=== PATIENT | female | born 2005 | race Caucasian/White ===

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

== ENCOUNTER 2024-02-02 21:48 | Emergency (ER) | payer OTHER ==
--- OUTSIDE RECORDS SUMMARY | 2024-02-02 21:56 | XMS REPORT | Continuity of Care Document ---
Author Name Unknown Address [address] [facility] [place] [address] [facility] Address [address] [facility] [address] [place] [address] Care Team Providers Care Silk Weaver Name Role Phone Singh Gagnon Primary Care Physician NATE CHINCHILLA Attending Clinician Unavailable NATE CHINCHILLA Attending Clinician Unavailable KATERYNA HAMILTON Attending Clinician Unavaila Kateryna Spence CNM Attending Clinician [phone] OBI-VALERIE JAYANT Attending Clinician Unavailab le OBI-VALERIE, JAYANT Attending Clinician Unavailab VIKAS Herring Attending Clinician Unavail able Nurse, Willy Alva Exp Cprit Obgyn Attending Clinraulito rodriguez Unavailable Unknown, Attending Attending Clinician Unavailab Vikas Hardin Attending Clinician + Visit, Sue Nurse Attending Clinician Unava ilkeven Doctor Unassigned, Colman Attending Clinician U Nate Fry MD Attending Clinician [phone] Debra Moreno MD Attending Clinician [phone] Randall Lee MD, Syeda Mccormack Attending Clinici an Roderick DUMONT, Jaquan Attending Clinician [phone] ZACHARIAH BAZAN Attending Clinician Unavailable Ultrasound, Ang[facility] Attending Clinician UnavailMUSA Ralph Attending Clinician Unamurtaza Lozano MD, Musa Peralta Attending Clinician + WILLIAM UGARTE Attending Clinician UnavailWilliam Salazar MD Attending Clinician KAREN WASHINGTON Attending Clinician Unavailable KAREN WASHINGTON Attending Clinician Unavailable Karen Washington MD Attending Clinician [phone] 1, [facility] Attending Clinician Unavailab MIRIAM Peters Attending Clinician MIRIAM Naik Attending Clinician Derek Barlow DO Attending Clinician [phone] Laura Whitehead RN Attending Clinician Unavailab le RADIOLOGY Attending Clinician Unavailable PATI TOLEDO Attending Clinician UnaPati Samaniego MD Attending Clinician + JOSÉ MIGUEL LAFLEUR Attending Clinician Unavailable JOSÉ MIGUEL LAFLEUR Attending Clinician Unavailable Clinton BISHOP Attending Clinician Unavailable Clinton Garnett Attending Clinician [phone] MITALI HARRIS Attending Clinician Unavailable Mitali Hernandez Attending Clinician [phone] Pcp, Patient Does Not Have A Attending Clinician Evelyn Viera RN Attending Clinician Unavailabl e [facility], [facility] Attending Clinician UnaLaisha Sanders MD Attending Clinician [phone] LAISHA MEDRANO Attending Clinician Unalita ilNAET Coronado Admitting Clinician Unavailable Nate Chinchilla MD Admitting Clinician [phone] MIRIAM HOANG Admitting Clinician Yamel wheeler Payers Payer Name Policy Type Policy Number Effective Date Expirati on Date Source [place] [employer] [id number] 2016 00:00:00 [place] [id number] 2019 00:00:00 2021 00:00:00 Problems Condition Name Condition Details Condition Category Status Onset Date Resolution Date Last Treatment Date Treating Clinician Comments Source Need for HPV vaccinatio n Need for HPV vaccinatio n Disease Active 2-28 00:00: 00 [facility] Routine follow-up Routine follow-up Disease Active 2-13 00:00: 00 [facility] 39 weeks gestation of 39 weeks gestation of Disease Active 1-22 00:00: 00 [facility] GBS (group B Streptococ cus carrier), +RV culture, 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), +RV culture, currently Disease Active 1-04 00:00: 00 [facility] Polyhydram nios, antepartum complicati on Polyhydram nios, antepartum complicati on Disease Active 2022-08 2-14 00:00: 00 [facility] headache in third trimester headache in third trimester Disease Active 2022-08 2-06 00:00: 00 [facility] Heartburn during in third trimester Heartburn during in third trimester Disease Active 2022-08 1-22 00:00: 00 [facility] Declines flu vaccine Declines flu vaccine Disease Active 2022-08 0-19 00:00: 00 [facility] Rh negative state in antepartum period Rh negative state in antepartum period Disease Active 6-08 00:00: 00 [facility] Maternal varicella, non-immune Maternal varicella, non-immune Disease Active 6-08 00:00: 00 [facility] History of bipolar disorder History of bipolar disorder Disease Active 6 00:00: 00 [facility] Morbid obesity Morbid obesity Disease Active 6 00:00: 00 [facility] Nausea and vomiting during Nausea and vomiting during Disease Active 6 00:00: 00 [facility] Penicillin allergy Penicillin allergy Disease Active 607 00:00: 00 [facility] No known active problems No known active problems Disease [facility] Allergies, Adverse Reactions, Alerts Allergy Name Allergy Type Status Severity Reaction(s) Onset Date Inactive Date Treating Clinician Comments Source ASPIRIN DRUG INGREDI Active Hives 6-07 00:00: 00 [facility] Aspirin Propensi ty to adverse reaction s Active Hives 6-07 00:00: 00 [facility] [place] - Intraven ous Propensi ty to adverse reaction to drug Active 6-15 00:00: 00 Aspirin - Oral Propensi ty to adverse reaction to drug Active 3-03 00:00: 00 Aspirin Propensi ty to adverse reaction to drug Active 9- 00:00: 00 Penicill in Propensi ty to adverse reaction s Active Hives 3-12 00:00: 00 [facility] Penicill in Propensi ty to adverse reaction s Active Hives 3-12 00:00: 00 [facility] PENICILL IN DRUG INGREDI Active Hives 3-12 00:00: 00 [facility] Penicill ins Propensi ty to adverse reaction to drug Active 2-14 00:00: 00 Social History Social Habit Start Date Stop Date Quantity Comments Source ASSERTION 2022-12-16 00:00:00 [facility] History of tobacco use Cigarette Smoker [facility] History SDOH Alcohol Std Drinks [facility] History SDOH Alcohol Binge [facility] Exposure to SARS-CoV-2 (event) Not sure [facility] Alcohol intake 2023-11-25 00:00:00 2023-11-25 00:00:00 Lifetime non-drinker (finding) [facility] History of Social function 2023-11-25 00:00:00 2023-11-25 00:00:00 [facility] Tobacco use and exposure 2023-01-15 00:00:00 2023-01-15 00:00:00 Smokeless tobacco non-user [facility] History SDOH Alcohol Frequency 2019-12-17 00:00:00 2019-12-17 00:00:00 1 [facility] Sex Assigned At 2005 00:00:00 2005 00:00:00 [facility] Smoking Status Start Date Stop Date Source Ex-smoker 2023-01-15 00:00:00 2023-01-15 [facility]00[facility] [facility] daily 2019-12-17 00:00:00 [facility] Medications Ordered Medication Name Filled Medication Name Start Date Stop Date Current Medication? Ordering Clinician Indication Dosage Frequency Signature (SIG) Comments Components Source acetaminoph en (TYLENOL) tablet 650 mg 09-04 01:18: 15 Yes 650mg 650 mg, Oral, Q6HPRN, Starting on Fri09/03/23 at 1918, Until Discontinu ed, Routine, Pain (scale 4-6), Pain (scale 1-3) [facility] lactated ringers IV infusion 1,000 mL 09-03 02:15: 00 09-03 02:10 :33 No 1000mL at 125 mL/hr, 1,000 mL, IV Infusion, ONCE, 1 dose, On Fri09/02/23 at 2014, Routine [facility] rho(D) immune globulin (RHOGAM) syringe 300 mcg 09-03 02:09: 02 Yes 300ug 300 mcg, Intramuscu lar, ONCE, For 1 dose, Conditiona l, Routine [facility] HYDROcodone -acetaminop hen (NORCO 5) 5-325 mg tablet 2 tablet 09-03 02:08: 56 Yes 2{tbl} 2 tablet, Oral, Q6HPRN, Starting on Fri09/02/23 at 2007, Until Discontinu ed, Routine, Pain (scale 7-10), Alternate with Ibuprofen [facility] HYDROcodone -acetaminop hen (NORCO 5) 5-325 mg tablet 1 tablet 09-03 02:08: 56 Yes 1{tbl} 1 tablet, Oral, Q6HPRN, Starting on Fri09/02/23 at 2007, Until Discontinu ed, Routine, Pain (scale 4-6), Alternate with Ibuprofen [facility] diphenhydrA MINE (BENADRYL) injection 25 mg 09-03 02:08: 56 Yes 25mg 25 mg, Slow IV Push, Q6HPRN, Starting on Fri09/02/23 at 2007, Until Discontinu ed, Routine, Itching [facility] diphenhydrA MINE (BENADRYL) tablet 25 mg 09-03 02:08: 56 Yes 25mg 25 mg, Oral, Q6HPRN, Starting on Fri09/02/23 at 2007, Until Discontinu ed, Routine, Sleep, Itching [facility] ondansetron (ZOFRAN (PF)) injection 4 mg 09-03 02:08: 56 Yes 4mg 4 mg, Slow IV Push, Q8HPRN, Starting on Fri09/02/23 at 2007, Until Discontinu ed, Routine, Nausea and Vomiting (N/V) [facility] bisacodyL (DULCOLAX) suppository 10 mg 09-03 02:08: 56 Yes 10mg 10 mg, Rectal, QDAILYPRN, Starting on Fri09/02/23 at 2007, Until Discontinu ed, Routine, Constipati on [facility] simethicone (GAS RELIEF (SIMETHICON E)) chewable tablet 160 mg 09-03 02:08: 56 Yes 160mg 160 mg, Oral, PC+HSPRN, Starting on Fri09/02/23 at 2007, Until Discontinu ed, Routine, Gas [facility] docusate (COLACE) capsule 200 mg 09-03 02:08: 56 Yes 200mg 200 mg, Oral, QDAILYPRN, Starting on Fri09/02/23 at 2007, Until Discontinu ed, Routine, Constipati on [facility] magnesium hydroxide (MILK OF MAGNESIA) 400 mg/5 mL suspension 30 mL 09-03 02:08: 56 Yes 30mL 30 mL, Oral, QDAILYPRN, Starting on Fri09/02/23 at 2007, Until Discontinu ed, Routine, Constipati on [facility] lactated ringers IV infusion 1,000 mL 09-03 02:08: 56 Yes 1000mL at 125 mL/hr, 1,000 mL, IV Infusion, PRN, 1 dose, Starting on Fri09/02/23 at 2007, Until Discontinu ed, Routine [facility] [id number] fum-folic () 27 mg iron- 1 mg folic tablet 09-03 00:00: 00 11-24 00:00 :00 No [id number] 1{tbl} Take 1 tablet by mouth in the morning. [facility] docusate 100 mg capsule 09-03 00:00: 00 11-24 00:00 :00 No [id number] 200mg Take 2 capsules by mouth once daily as needed for Constipati on. [facility] ferrous sulfate 325 mg (65 mg iron) tablet 09-03 00:00: 00 11-24 00:00 :00 No [id number] 325mg Take 1 tablet by mouth in the morning and 1 tablet in the evening. [facility] HYDROcodone -acetaminop hen 5-325 mg tablet 09-03 00:00: 00 09-14 05:59 :00 No [id number] 1{tbl} Take 1 tablet by mouth every 6 (six) hours as needed (Pain scale above 4) for up to 10 days. Do not exceed 3 grams of acetaminop hen in 24 hours. Indication s: acute pain [facility] lactated ringers IV infusion 1,000 mL 09-03 00:00: 00 09-03 02:08 :59 No 1000mL at 125 mL/hr, 1,000 mL, IV Infusion, CONTINUOUS , Starting on Fri09/02/23 at 1800, Until Fri09/02/23 at 2007, RASHMI [facility] acetaminoph en (TYLENOL) tablet 650 mg 09-02 23:52: 38 09-03 02:08 :59 No 650mg 650 mg, Oral, Q6HPRN, Starting on Fri09/02/23 at 1752, Until Fri09/02/23 at 2007, Routine, Pain (scale 1-3) [facility] ondansetron (ZOFRAN (PF)) injection 4 mg 09-02 23:30: 00 09-03 00:14 :00 No 4mg 4 mg, Slow IV Push, ONCE, 1 dose, On Fri09/02/23 at 1730, Routine [facility] sodium citrate-cit yamilex acid (BICITRA) 500-334 mg/5 mL solution 30 mL 09-02 21:51: 27 09-02 22:28 :00 No 30mL 30 mL, Oral, PRE-PROCED URE ONCE, 1 dose, Starting on Fri09/02/23 at 1551, Until Fri09/02/23 at 1628, Routine, Surgery/Pr ocedure [facility] gentamicin 480 mg in NaCl 0.9% (NS) 250 mL IV infusion 09-02 21:46: 19 09-03 02:08 :59 No 5mg/kg 480 mg (rounded from 473.5 mg = 5 mg/kg ?94.7 kg Adjusted weight), IV Infusion, O.R. HOLDING ONCE, Starting on Fri09/02/23 at 1546, Until Fri09/02/23 at 2007, Administer over 60 Minutes, 250 mL
R jeni for Anti-Infec tive: Surgical Prophylaxi s
Surgi wilber Prophylaxi s: RESIDENT ASSISTANT CNA
Duration of therapy: within 24 hours of surgery [facility] clindamycin in 5 % dextrose (CLEOCIN) 900 mg/50 mL IV piggyback RTU 900 mg 09-02 21:46: 19 09-03 02:08 :59 No 900mg 900 mg, IV Piggyback, O.R. HOLDING ONCE, Starting on Fri09/02/23 at 1546, Until Fri09/02/23 at 2007, Administer over 30 Minutes, 50 mL
Reas on for Anti-Infec tive: Surgical Prophylaxi s
Schneider rgical Prophylaxi s: RESIDENT ASSISTANT CNA
Duration of therapy: within 24 hours of surgery
Restricte d use approved by: RESIDENT ASSISTANT CNA [employer]
membership sales advisor approving Restricted medication : DEBRA MORENO [facility] ondansetron (ZOFRAN (PF)) injection 4 mg 09-02 19:00: 00 09-02 18:13 :00 No 4mg 4 mg, Slow IV Push, ONCE, On Fri09/02/23 at 1300, For 1 dose
Do ses of ondansetro n 16 mg and above need to be administer ed via IV piggyback. For Dose >=24mg ECG monitoring is advisable.
[facility] morpHINE (2 mg/mL) injection 4 mg 09-02 11:00: 00 09-02 10:32 :00 No 4mg 4 mg, Slow IV Push, ONCE, 1 dose, On Fri09/02/23 at 0500, Routine [facility] sodium citrate-cit yamilex acid (BICITRA) 500-334 mg/5 mL solution 30 mL 09-01 21:37: 26 09-02 10:55 :00 No 30mL 30 mL, Oral, PRE-PROCED URE ONCE, 1 dose, Starting on Fri09/01/23 at 1537, Until Discontinu ed, Routine, Surgery/Pr ocedure [facility] ropivacaine 0.2 % (NAROPIN (PF)) epidural infusion 09-01 20:08: 00 Yes Epidural, CONTINUOUS PRN, Starting on Fri09/01/23 at 1408, Until Discontinu ed, Routine, Intra-op [facility] lidocaine-e pinephrine (XYLOCAINE W/EPINEPHRI NE) 1.5 %-1:200,000 injection 09-01 20:04: 00 Yes Intraderma l, ONCE INTRA PROCEDURE, Starting on Fri09/01/23 at 1404, Until Discontinu ed, Routine, Intra-op [facility] vancomycin (VANCOCIN) 1,500 mg in NaCl 0.9% (NS) 500 mL VIAL-MATE IV piggyback 09-01 17:45: 00 09-03 02:08 :59 No 20mg/kg 1,500 mg (rounded from 3,094 mg = 20 mg/kg ?154.7 kg), IV Piggyback, Q8H ABX, 15 doses, First dose on Fri09/01/23 at 1145, Last dose on Fri09/06/23 at 0345, Administer over 120 Minutes, 500 mL
R jeni for Anti-Infec tive: Documented Infection< br>Documen martha Infection Site: Pelvic
Duration of Therapy: Other (see Comments) [facility] oxytocin (PITOCIN) 30 units in NS 500 mL IV infusion 09-01 17:36: 54 09-03 02:08 :59 No 2mU/min at 2-40 mL/hr, IV Infusion, TITRATE, Starting on Fri09/01/23 at 1136, Until Fri09/02/23 at 2007, RASHMI [facility] morpHINE (2 mg/mL) injection 4 mg 09-01 17:00: 00 09-01 16:14 :00 No 4mg 4 mg, Slow IV Push, ONCE, 1 dose, On Fri09/01/23 at 1100, Routine [facility] lactated ringers IV infusion 500 mL 09-01 14:39: 07 09-03 02:08 :59 No 500mL at 999 mL/hr, 500 mL, IV Infusion, PRN - SEE INSTRUCTIO NS, Starting on Fri09/01/23 at 0839, Until Fri09/02/23 at 2007, Routine [facility] [id number] IV infusion 1,000 mL 09-01 14:39: 07 09-03 02:08 :59 No 1000mL at 1-125 mL/hr, IV Infusion, TITRATE, Starting on Fri09/01/23 at 0839, Until Fri09/02/23 at 2007, Routine [facility] sodium citrate-cit yamilex acid (BICITRA) 500-334 mg/5 mL solution 30 mL 09-01 14:39: 07 09-01 19:29 :00 No 30mL 30 mL, Oral, PRE-PROCED URE ONCE, 1 dose, Starting on Fri09/01/23 at 0839, Until Discontinu ed, Routine, Surgery/Pr ocedure [facility] cephALEXin (KEFLEX) 500 mg capsule 08-22 00:00: 00 09-03 00:00 :00 No [id number] 500mg Take 1 capsule by mouth 4 (four) times daily for 10 days. [facility] butalbital- acetaminoph en-caff (ESGIC) 50-325-40 mg tablet 1 tablet 2022-08 2-05 00:30: 00 07-14 23:46 :00 No 1{tbl} 1 tablet, Oral, ONCE, 1 dose, On Fri07/14/23 at 1830, Routine [facility] famotidine (PEPCID) 20 mg tablet 2022-08 00:00: 00 09-03 00:00 :00 No [id number] 20mg Take 1 tablet by mouth in the morning and 1 tablet in the evening. [facility] acetaminoph en (TYLENOL) tablet 650 mg 01-31 04:15: 00 01-31 04:08 :00 No 650mg 650 mg, Oral, ONCE, 1 dose, On Annelise 01/30/23 at 2315, RASHMI [facility] melatonin 3 mg Cap 01-15 13:46: 01 01-15 00:00 :00 No Take by mouth. [facility] BUPROPION HCL (WELLBUTRIN ORAL) 01-15 13:45: 58 01-15 00:00 :00 No Take by mouth. [facility] vit 33-iron-fol ic-dha (SELECT-OB + DHA) 29 mg iron-1 mg -250 mg combo pack 01-15 00:00: 00 Yes [id number] 1{packe t} Take 1 Packet by mouth in the morning. [facility] proMETHazin e 25 mg tablet 01-15 00:00: 00 09-03 00:00 :00 No [id number] 25mg Take 1 tablet by mouth every 4 (four) hours as needed for Nausea and Vomiting (N/V). [facility] vit 33-iron-fol ic-dha (SELECT-OB + DHA) 29 mg iron-1 mg -250 mg combo pack 0 6-07 00:00: 00 09-03 00:00 :00 No [id number] 1{packe t} Take 1 Packet by mouth in the morning. [facility] TAKE 1 CAPSULE BY MOUTH EVERY DAY 2021-0 8-30 00:00: 00 No TAKE 1 TABLET BY MOUTH THREE TIMES A DAY 2021-0 830 00:00: 00 No Dose Unknown 2021-0 6-15 00:00: 00 No TAKE 1 CAPSULE BY MOUTH EVERY 12 HOURS FOR 7 DAYS 2021-0 6-15 00:00: 00 No Dose Unknown 2-0 6-15 00:00: 00 No Dose Unknown 2021-0 6-15 00:00: 00 No &lt 2022-0 6-15 [...] 00:00: 00 No Seroquel 50 mg tablet 03-22 00:00: 00 No 1mg Effexor XR 37.5 [...] 00 No 1mg melatonin 3 mg Cap 12-16 17:01: 01 Yes Take by mouth. [facility] BUPROPION HCL (WELLBUTRIN ORAL) 12-16 16:52: 24 Yes Take by mouth. [facility] melatonin 3 mg Cap 12-16 12:01: 01 Yes Take by mouth. [facility] BUPROPION HCL (WELLBUTRIN ORAL) 12-16 11:52: 24 Yes Take by mouth. [facility] azithromyci n (ZITHROMAX Z-YONATHAN) 250 mg tablet 10-22 00:00: 00 12-16 00:00 :00 No 250mg Take 1 tablet by mouth SEE-INSTRU CTIONS. Take 500 mg day 1, then 250 mg days 2 to 5. [facility] bupropion HCl SR 100 mg tablet,12 hr sustained-r elease 09-24 00:00: 00 No 1mg Immunizations Ordered Immunization Name Filled Immunization Name Date Status Comments Source SARS-COV-2 COVID-19 PFIZER VACCINE 2021-04-10 00:00:00 Completed [facility] SARS-COV-2 COVID-19 PFIZER VACCINE 2021-04-10 00:00:00 Completed [facility] SARS-COV-2 COVID-19 PFIZER VACCINE 2021-04-10 00:00:00 Completed [facility] SARS-COV-2 COVID-19 PFIZER VACCINE 2021-04-10 00:00:00 Completed [facility] SARS-COV-2 COVID-19 PFIZER VACCINE 2021-04-10 00:00:00 Completed [facility] SARS-COV-2 COVID-19 PFIZER VACCINE 2021-04-10 00:00:00 Completed [facility] SARS-COV-2 COVID-19 PFIZER VACCINE 2021-04-10 00:00:00 Completed [facility] SARS-COV-2 COVID-19 PFIZER VACCINE 2021-03-20 00:00:00 Completed [facility] SARS-COV-2 COVID-19 PFIZER VACCINE 2021-03-20 00:00:00 Completed [facility] SARS-COV-2 COVID-19 PFIZER VACCINE 2021-03-20 00:00:00 Completed [facility] SARS-COV-2 COVID-19 PFIZER VACCINE 2021-03-20 00:00:00 Completed [facility] SARS-COV-2 COVID-19 PFIZER VACCINE 2021-03-20 00:00:00 Completed [facility] SARS-COV-2 COVID-19 PFIZER VACCINE 2021-03-20 00:00:00 Completed [facility] SARS-COV-2 COVID-19 PFIZER VACCINE 2021-03-20 00:00:00 Completed [facility] HPV, quadrivalent 2019-03-20 00:00:00 Completed HPV, quadrivalent 2017-09-24 00:00:00 Completed SARS-COV-2 COVID-19 PFIZER VACCINE Unknown Completed [facility] SARS-COV-2 COVID-19 PFIZER VACCINE Unknown Completed [facility] TDAP Unknown Completed [facility] Rho (d) Immune Globulin Unknown Completed [facility] SARS-COV-2 COVID-19 PFIZER VACCINE Unknown Completed [facility] SARS-COV-2 COVID-19 PFIZER VACCINE Unknown Completed [facility] TDAP Unknown Completed [facility] Rho (d) Immune Globulin Unknown Completed [facility] SARS-COV-2 COVID-19 PFIZER VACCINE Unknown Completed [facility] SARS-COV-2 COVID-19 PFIZER VACCINE Unknown Completed [facility] TDAP Unknown Completed [facility] Rho (d) Immune Globulin Unknown Completed [facility] SARS-COV-2 COVID-19 PFIZER VACCINE Unknown Completed [facility] SARS-COV-2 COVID-19 PFIZER VACCINE Unknown Completed [facility] TDAP Unknown Completed [facility] Rho (d) Immune Globulin Unknown Completed [facility] SARS-COV-2 COVID-19 PFIZER VACCINE Unknown Completed [facility] SARS-COV-2 COVID-19 PFIZER VACCINE Unknown Completed [facility] TDAP Unknown Completed [facility] Rho (d) Immune Globulin Unknown Completed [facility] SARS-COV-2 COVID-19 PFIZER VACCINE Unknown Completed [facility] SARS-COV-2 COVID-19 PFIZER VACCINE Unknown Completed [facility] TDAP Unknown Completed [facility] Rho (d) Immune Globulin Unknown Completed [facility] HPV9 Unknown Completed [facility] SARS-COV-2 COVID-19 PFIZER VACCINE Unknown Completed [facility] SARS-COV-2 COVID-19 PFIZER VACCINE Unknown Completed [facility] TDAP Unknown Completed [facility] Rho (d) Immune Globulin Unknown Completed [facility] HPV9 Unknown Completed [facility] SARS-COV-2 COVID-19 PFIZER VACCINE Unknown Completed [facility] SARS-COV-2 COVID-19 PFIZER VACCINE Unknown Completed [facility] TDAP Unknown Completed [facility] Rho (d) Immune Globulin Unknown Completed [facility] HPV9 Unknown Completed [facility] SARS-COV-2 COVID-19 PFIZER VACCINE Unknown Completed [facility] SARS-COV-2 COVID-19 PFIZER VACCINE Unknown Completed [facility] TDAP Unknown Completed [facility] Rho (d) Immune Globulin Unknown Completed [facility] HPV9 Unknown Completed [facility] SARS-COV-2 COVID-19 PFIZER VACCINE Unknown Completed [facility] SARS-COV-2 COVID-19 PFIZER VACCINE Unknown Completed [facility] TDAP Unknown Completed [facility] Rho (d) Immune Globulin Unknown Completed [facility] HPV9 Unknown Completed [facility] SARS-COV-2 COVID-19 PFIZER VACCINE Unknown Completed [facility] SARS-COV-2 COVID-19 PFIZER VACCINE Unknown Completed [facility] TDAP Unknown Completed [facility] Rho (d) Immune Globulin Unknown Completed [facility] HPV9 Unknown Completed [facility] HPV9 Unknown Completed [facility] SARS-COV-2 COVID-19 PFIZER VACCINE Unknown Completed [facility] SARS-COV-2 COVID-19 PFIZER VACCINE Unknown Completed [facility] TDAP Unknown Completed [facility] Rho (d) Immune Globulin Unknown Completed [facility] HPV9 Unknown Completed [facility] HPV9 Unknown Completed [facility] SARS-COV-2 COVID-19 PFIZER VACCINE Unknown Completed [facility] SARS-COV-2 COVID-19 PFIZER VACCINE Unknown Completed [facility] TDAP Unknown Completed [facility] Rho (d) Immune Globulin Unknown Completed [facility] HPV9 Unknown Completed [facility] HPV9 Unknown Completed [facility] SARS-COV-2 COVID-19 PFIZER VACCINE Unknown Completed [facility] SARS-COV-2 COVID-19 PFIZER VACCINE Unknown Completed [facility] SARS-COV-2 COVID-19 PFIZER VACCINE Unknown Completed [facility] SARS-COV-2 COVID-19 PFIZER VACCINE Unknown Completed [facility] SARS-COV-2 COVID-19 PFIZER VACCINE Unknown Completed [facility] SARS-COV-2 COVID-19 PFIZER VACCINE Unknown Completed [facility] SARS-COV-2 COVID-19 PFIZER VACCINE Unknown Completed [facility] SARS-COV-2 COVID-19 PFIZER VACCINE Unknown Completed [facility] TDAP Unknown Completed [facility] Rho (d) Immune Globulin Unknown Completed [facility] SARS-COV-2 COVID-19 PFIZER VACCINE Unknown Completed [facility] SARS-COV-2 COVID-19 PFIZER VACCINE Unknown Completed [facility] TDAP Unknown Completed [facility] Rho (d) Immune Globulin Unknown Completed [facility] SARS-COV-2 COVID-19 PFIZER VACCINE Unknown Completed [facility] SARS-COV-2 COVID-19 PFIZER VACCINE Unknown Completed [facility] TDAP Unknown Completed [facility] Rho (d) Immune Globulin Unknown Completed [facility] SARS-COV-2 COVID-19 PFIZER VACCINE Unknown Completed [facility] SARS-COV-2 COVID-19 PFIZER VACCINE Unknown Completed [facility] TDAP Unknown Completed [facility] Rho (d) Immune Globulin Unknown Completed [facility] SARS-COV-2 COVID-19 PFIZER VACCINE Unknown Completed [facility] SARS-COV-2 COVID-19 PFIZER VACCINE Unknown Completed [facility] TDAP Unknown Completed [facility] Rho (d) Immune Globulin Unknown Completed [facility] SARS-COV-2 COVID-19 PFIZER VACCINE Unknown Completed [facility] SARS-COV-2 COVID-19 PFIZER VACCINE Unknown Completed [facility] TDAP Unknown Completed [facility] Rho (d) Immune Globulin Unknown Completed [facility] SARS-COV-2 COVID-19 PFIZER VACCINE Unknown Completed [facility] SARS-COV-2 COVID-19 PFIZER VACCINE Unknown Completed [facility] TDAP Unknown Completed [facility] Rho (d) Immune Globulin Unknown Completed [facility] SARS-COV-2 COVID-19 PFIZER VACCINE Unknown Completed [facility] SARS-COV-2 COVID-19 PFIZER VACCINE Unknown Completed [facility] TDAP Unknown Completed [facility] Rho (d) Immune Globulin Unknown Completed [facility] SARS-COV-2 COVID-19 PFIZER VACCINE Unknown Completed [facility] SARS-COV-2 COVID-19 PFIZER VACCINE Unknown Completed [facility] TDAP Unknown Completed [facility] Rho (d) Immune Globulin Unknown Completed [facility] SARS-COV-2 COVID-19 PFIZER VACCINE Unknown Completed [facility] SARS-COV-2 COVID-19 PFIZER VACCINE Unknown Completed [facility] TDAP Unknown Completed [facility] Rho (d) Immune Globulin Unknown Completed [facility] SARS-COV-2 COVID-19 PFIZER VACCINE Unknown Completed [facility] SARS-COV-2 COVID-19 PFIZER VACCINE Unknown Completed [facility] TDAP Unknown Completed [facility] Rho (d) Immune Globulin Unknown Completed [facility] SARS-COV-2 COVID-19 PFIZER VACCINE Unknown Completed [facility] SARS-COV-2 COVID-19 PFIZER VACCINE Unknown Completed [facility] TDAP Unknown Completed [facility] Rho (d) Immune Globulin Unknown Completed [facility] SARS-COV-2 COVID-19 PFIZER VACCINE Unknown Completed [facility] SARS-COV-2 COVID-19 PFIZER VACCINE Unknown Completed [facility] TDAP Unknown Completed [facility] Rho (d) Immune Globulin Unknown Completed [facility] SARS-COV-2 COVID-19 PFIZER VACCINE Unknown Completed [facility] SARS-COV-2 COVID-19 PFIZER VACCINE Unknown Completed [facility] TDAP Unknown Completed [facility] Rho (d) Immune Globulin Unknown Completed [facility] SARS-COV-2 COVID-19 PFIZER VACCINE Unknown Completed [facility] SARS-COV-2 COVID-19 PFIZER VACCINE Unknown Completed [facility] TDAP Unknown Completed [facility] Rho (d) Immune Globulin Unknown Completed [facility] SARS-COV-2 COVID-19 PFIZER VACCINE Unknown Completed [facility] SARS-COV-2 COVID-19 PFIZER VACCINE Unknown Completed [facility] TDAP Unknown Completed [facility] Rho (d) Immune Globulin Unknown Completed [facility] SARS-COV-2 COVID-19 PFIZER VACCINE Unknown Completed [facility] SARS-COV-2 COVID-19 PFIZER VACCINE Unknown Completed [facility] TDAP Unknown Completed [facility] Rho (d) Immune Globulin Unknown Completed [facility] SARS-COV-2 COVID-19 PFIZER VACCINE Unknown Completed [facility] SARS-COV-2 COVID-19 PFIZER VACCINE Unknown Completed [facility] TDAP Unknown Completed [facility] Rho (d) Immune Globulin Unknown Completed [facility] SARS-COV-2 COVID-19 PFIZER VACCINE Unknown Completed [facility] SARS-COV-2 COVID-19 PFIZER VACCINE Unknown Completed [facility] TDAP Unknown Completed [facility] Rho (d) Immune Globulin Unknown Completed [facility] SARS-COV-2 COVID-19 PFIZER VACCINE Unknown Completed [facility] SARS-COV-2 COVID-19 PFIZER VACCINE Unknown Completed [facility] TDAP Unknown Completed [facility] Rho (d) Immune Globulin Unknown Completed [facility] SARS-COV-2 COVID-19 PFIZER VACCINE Unknown Completed [facility] SARS-COV-2 COVID-19 PFIZER VACCINE Unknown Completed [facility] TDAP Unknown Completed [facility] Rho (d) Immune Globulin Unknown Completed [facility] SARS-COV-2 COVID-19 PFIZER VACCINE Unknown Completed [facility] SARS-COV-2 COVID-19 PFIZER VACCINE Unknown Completed [facility] TDAP Unknown Completed [facility] Rho (d) Immune Globulin Unknown Completed [facility] SARS-COV-2 COVID-19 PFIZER VACCINE Unknown Completed [facility] SARS-COV-2 COVID-19 PFIZER VACCINE Unknown Completed [facility] TDAP Unknown Completed [facility] Rho (d) Immune Globulin Unknown Completed [facility] SARS-COV-2 COVID-19 PFIZER VACCINE Unknown Completed [facility] SARS-COV-2 COVID-19 PFIZER VACCINE Unknown Completed [facility] TDAP Unknown Completed [facility] Rho (d) Immune Globulin Unknown Completed [facility] SARS-COV-2 COVID-19 PFIZER VACCINE Unknown Completed [facility] SARS-COV-2 COVID-19 PFIZER VACCINE Unknown Completed [facility] TDAP Unknown Completed [facility] Rho (d) Immune Globulin Unknown Completed [facility] Vital Signs Vital Name Observation Time Observation Value Comments S ource Systolic blood pressure 2023-11-25 18:44:00 132 mm[Hg] [facility] Diastolic blood pressure 2023-11-25 18:44:00 73 mm[Hg] [facility] Heart rate 2023-11-25 18:44:00 67 /min [facility] Body temperature 2023-11-25 18:44:00 36.44 Jyothi [facility] Respiratory rate 2023-11-25 18:44:00 18 /min [facility] Body height 2023-11-25 18:44:00 162.6 cm [facility] Body weight 2023-11-25 18:44:00 151.411 kg [facility] BMI 2023-11-25 18:44:00 57.30 kg/m2 [facility] Body temperature 2023-10-08 19:54:00 36.72 Jyothi [facility] Body weight 2023-10-08 19:54:[address] [facility] Systolic blood pressure 2023-09-23 15:48:00 99 mm[Hg] [facility] Diastolic blood pressure 2023-09-23 15:48:00 50 mm[Hg] [facility] Heart rate 2023-09-23 15:48:00 67 /min [facility] Body temperature 2023-09-23 15:48:00 35.67 Jyothi [facility] Respiratory rate 2023-09-23 15:48:00 18 /min [facility] Body height 2023-09-23 15:48:00 162.6 cm [facility] Body weight 2023-09-23 15:48:00 143.972 kg [facility] BMI 2023-09-23 15:48:00 54.48 kg/m2 [facility] Body mass index (BMI) [Percentile] Per age and sex 2023-09-23 15:48:00 99.99 % [facility] Systolic blood pressure 2023-09-11 17:01:00 130 mm[Hg] [facility] Diastolic blood pressure 2023-09-11 17:01:00 70 mm[Hg] [facility] Heart rate 2023-09-11 17:01:00 54 /min [facility] Body temperature 2023-09-11 17:01:00 36.28 Jyothi [facility] Respiratory rate 2023-09-11 17:01:00 18 /min [facility] Body height 2023-09-11 17:01:00 162.6 cm [facility] Body weight 2023-09-11 17:01:00 144.153 kg [facility] BMI 2023-09-11 17:01:00 54.55 kg/m2 [facility] Body mass index (BMI) [Percentile] Per age and sex 2023-09-11 17:01:00 99.99 % [facility] Systolic blood pressure 2023-09-04 13:57:00 116 mm[Hg] [facility] Diastolic blood pressure 2023-09-04 13:57:00 64 mm[Hg] [facility] Heart rate 2023-09-04 13:57:00 64 /min [facility] Body temperature 2023-09-04 13:57:00 36.89 Jyothi [facility] Respiratory rate 2023-09-04 13:57:00 18 /min [facility] Oxygen saturation in Arterial blood by Pulse oximetry 2023-09-04 13:57:00 96 /min [facility] Body height 2023-09-01 14:44:00 162.6 cm [facility] Body weight 2023-09-01 14:44:00 154.677 kg [facility] BMI 2023-09-01 14:44:00 58.50 kg/m2 [facility] Body mass index (BMI) [Percentile] Per age and sex 2023-09-01 14:44:00 100.00 % [facility] Systolic blood pressure 2023-09-02 18:30:00 123 mm[Hg] [facility] Diastolic blood pressure 2023-09-02 18:30:00 84 mm[Hg] [facility] Heart rate 2023-09-02 18:30:00 92 /min [facility] Oxygen saturation in Arterial blood by Pulse oximetry 2023-09-02 18:30:00 100 /min [facility] Body temperature 2023-09-02 18:00:00 37.06 Jyothi [facility] Respiratory rate 2023-09-02 18:00:00 18 /min [facility] Body height 2023-09-01 14:44:00 162.6 cm [facility] Body weight 2023-09-01 14:44:00 154.677 kg [facility] BMI 2023-09-01 14:44:00 58.50 kg/m2 [facility] Body mass index (BMI) [Percentile] Per age and sex 2023-09-01 14:44:00 100.00 % [facility] Systolic blood pressure 2023-08-29 20:34:00 121 mm[Hg] [facility] Diastolic blood pressure 2023-08-29 20:34:00 69 mm[Hg] [facility] Heart rate 2023-08-29 20:34:00 81 /min [facility] Body temperature 2023-08-29 20:34:00 35.17 Jyothi [facility] Respiratory rate 2023-08-29 20:34:00 18 /min [facility] Body height 2023-08-29 20:34:00 162.6 cm [facility] Body weight 2023-08-29 20:34:00 152.046 kg [facility] BMI 2023-08-29 20:34:00 57.54 kg/m2 [facility] Body mass index (BMI) [Percentile] Per age and sex 2023-08-29 20:34:00 100.00 % [facility] Systolic blood pressure 2023-08-22 20:30:00 125 mm[Hg] [facility] Diastolic blood pressure 2023-08-22 20:30:00 69 mm[Hg] [facility] Heart rate 2023-08-22 20:30:00 110 /min [facility] Body temperature 2023-08-22 20:30:00 36.67 Jyothi [facility] Respiratory rate 2023-08-22 20:30:00 18 /min [facility] Body weight 2023-08-22 20:30:00 151.411 kg [facility] BMI 2023-08-22 20:30:00 57.30 kg/m2 [facility] Body mass index (BMI) [Percentile] Per age and sex 2023-08-22 20:30:00 100.00 % [facility] Systolic blood pressure 2023-08-19 20:40:00 130 mm[Hg] [facility] Diastolic blood pressure 2023-08-19 20:40:00 69 mm[Hg] [facility] Heart rate 2023-08-19 20:40:00 88 /min [facility] Body temperature 2023-08-19 20:40:00 35.94 Jyothi [facility] Respiratory rate 2023-08-19 20:40:00 17 /min [facility] Body height 2023-08-19 20:40:00 162.6 cm [facility] Body weight 2023-08-19 20:40:00 150.73 kg [facility] BMI 2023-08-19 20:40:00 57.04 kg/m2 [facility] Body mass index (BMI) [Percentile] Per age and sex 2023-08-19 20:40:00 100.00 % [facility] Systolic blood pressure 2023-08-14 20:30:00 122 mm[Hg] manually [facility] Diastolic blood pressure 2023-08-14 20:30:00 78 mm[Hg] manually [facility] Heart rate 2023-08-14 20:18:00 112 /min [facility] Body temperature 2023-08-14 20:18:00 35.94 Jyothi [facility] Respiratory rate 2023-08-14 20:18:00 20 /min [facility] Body height 2023-08-14 20:18:00 162.6 cm [facility] Body weight 2023-08-14 20:18:00 150.793 kg [facility] BMI 2023-08-14 20:18:00 57.06 kg/m2 [facility] Body mass index (BMI) [Percentile] Per age and sex 2023-08-14 20:18:00 100.00 % [facility] Systolic blood pressure 2023-08-12 20:09:00 109 mm[Hg] [facility] Diastolic blood pressure 2023-08-12 20:09:00 64 mm[Hg] [facility] Heart rate 2023-08-12 20:09:00 98 /min [facility] Body temperature 2023-08-12 20:09:00 36.33 Jyothi [facility] Respiratory rate 2023-08-12 20:09:00 20 /min [facility] Body height 2023-08-12 20:09:00 162.6 cm [facility] Body weight 2023-08-12 20:09:00 151.161 kg [facility] BMI 2023-08-12 20:09:00 57.20 kg/m2 [facility] Body mass index (BMI) [Percentile] Per age and sex 2023-08-12 20:09:00 100.00 % [facility] Diastolic blood pressure 2023-08-08 19:48:00 58 mm[Hg] [facility] Heart rate 2023-08-08 19:48:00 92 /min [facility] Body temperature 2023-08-08 19:48:00 35.78 Jyothi [facility] Respiratory rate 2023-08-08 19:48:00 20 /min [facility] Body height 2023-08-08 19:48:00 162.6 cm [facility] Body weight 2023-08-08 19:48:00 149.829 kg [facility] BMI 2023-08-08 19:48:00 56.70 kg/m2 [facility] Body mass index (BMI) [Percentile] Per age and sex 2023-08-08 19:48:00 100.00 % [facility] Systolic blood pressure 2023-08-08 19:48:00 105 mm[Hg] [facility] Systolic blood pressure 2023-08-06 18:46:00 110 mm[Hg] [facility] Diastolic blood pressure 2023-08-06 18:46:00 56 mm[Hg] [facility] Heart rate 2023-08-06 18:46:00 79 /min [facility] Body temperature 2023-08-06 18:46:00 35.17 Jyothi [facility] Respiratory rate 2023-08-06 18:46:00 18 /min [facility] Body height 2023-08-06 18:46:00 162.6 cm [facility] Body weight 2023-08-06 18:46:00 150.866 kg [facility] BMI 2023-08-06 18:46:00 57.09 kg/m2 [facility] Body mass index (BMI) [Percentile] Per age and sex 2023-08-06 18:46:00 100.00 % [facility] Systolic blood pressure 2023-08-01 19:54:00 98 mm[Hg] [facility] Diastolic blood pressure 2023-08-01 19:54:00 56 mm[Hg] [facility] Heart rate 2023-08-01 19:54:00 96 /min [facility] Body temperature 2023-08-01 19:54:00 36.06 Jyothi [facility] Respiratory rate 2023-08-01 19:54:00 18 /min [facility] Body height 2023-08-01 19:54:00 162.6 cm [facility] Body weight 2023-08-01 19:54:00 149.868 kg [facility] BMI 2023-08-01 19:54:00 56.71 kg/m2 [facility] Body mass index (BMI) [Percentile] Per age and sex 2023-08-01 19:54:00 100.00 % [facility] Systolic blood pressure 2023-07-30 21:17:00 110 mm[Hg] [facility] Diastolic blood pressure 2023-07-30 21:17:00 70 mm[Hg] [facility] Heart rate 2023-07-30 21:17:00 96 /min [facility] Body temperature 2023-07-30 21:17:00 36.22 Jyothi [facility] Respiratory rate 2023-07-30 21:17:00 20 /min [facility] Body height 2023-07-30 21:17:00 162.6 cm [facility] Body weight 2023-07-30 21:17:00 150.226 kg [facility] BMI 2023-07-30 21:17:00 56.85 kg/m2 [facility] Body mass index (BMI) [Percentile] Per age and sex 2023-07-30 21:17:00 100.00 % [facility] Systolic blood pressure 2023-07-15 21:25:00 122 mm[Hg] manual [facility] Diastolic blood pressure 2023-07-15 21:25:00 68 mm[Hg] manual [facility] Heart rate 2023-07-15 21:14:00 85 /min [facility] Body temperature 2023-07-15 21:14:00 36.67 Jyothi [facility] Respiratory rate 2023-07-15 21:14:00 20 /min [facility] Body height 2023-07-15 21:14:00 162.6 cm [facility] Body weight 2023-07-15 21:14:00 149.29 kg [facility] BMI 2023-07-15 21:14:00 56.49 kg/m2 [facility] Body mass index (BMI) [Percentile] Per age and sex 2023-07-15 21:14:00 100.00 % [facility] Heart rate 2023-07-15 01:21:00 72 /min [facility] Oxygen saturation in Arterial blood by Pulse oximetry 2023-07-15 01:21:00 100 /min [facility] Systolic blood pressure 2023-07-15 01:15:00 111 mm[Hg] [facility] Diastolic blood pressure 2023-07-15 01:15:00 75 mm[Hg] [facility] Body temperature 2023-07-14 23:00:00 36.94 Jyothi [facility] Respiratory rate 2023-07-14 23:00:00 17 /min [facility] Body height 2023-07-14 22:15:00 162.6 cm [facility] Body weight 2023-07-14 22:15:00 147.873 kg [facility] BMI 2023-07-14 22:15:00 55.96 kg/m2 [facility] Body mass index (BMI) [Percentile] Per age and sex 2023-07-14 22:15:00 100.00 % [facility] Systolic blood pressure 2023-07-02 21:19:00 105 mm[Hg] [facility] Diastolic blood pressure 2023-07-02 21:19:00 59 mm[Hg] [facility] Heart rate 2023-07-02 21:19:00 85 /min [facility] Body temperature 2023-07-02 21:19:00 35.78 Jyothi [facility] Respiratory rate 2023-07-02 21:19:00 18 /min [facility] Body height 2023-07-02 21:19:00 162.6 cm [facility] Body weight 2023-07-02 21:19:00 147.873 kg [facility] BMI 2023-07-02 21:19:00 55.96 kg/m2 [facility] Body mass index (BMI) [Percentile] Per age and sex 2023-07-02 21:19:00 100.00 % [facility] Systolic blood pressure 2023-06-19 17:22:00 110 mm[Hg] [facility] Diastolic blood pressure 2023-06-19 17:22:00 56 mm[Hg] [facility] Heart rate 2023-06-19 17:22:00 73 /min [facility] Body temperature 2023-06-19 17:22:00 36.17 Jyothi [facility] Respiratory rate 2023-06-19 17:22:00 20 /min [facility] Body height 2023-06-19 17:22:00 162.6 cm [facility] Body weight 2023-06-19 17:22:00 146.994 kg [facility] BMI 2023-06-19 17:22:00 55.63 kg/m2 [facility] Body mass index (BMI) [Percentile] Per age and sex 2023-06-19 17:22:00 100.00 % [facility] Systolic blood pressure 2023-05-29 15:11:00 100 mm[Hg] [facility] Diastolic blood pressure 2023-05-29 15:11:00 47 mm[Hg] [facility] Heart rate 2023-05-29 15:11:00 77 /min [facility] Body temperature 2023-05-29 15:11:00 36.33 Jyothi [facility] Respiratory rate 2023-05-29 15:11:00 20 /min [facility] Body height 2023-05-29 15:11:00 162.6 cm [facility] Body weight 2023-05-29 15:11:00 147.079 kg [facility] BMI 2023-05-29 15:11:00 55.66 kg/m2 [facility] Body mass index (BMI) [Percentile] Per age and sex 2023-05-29 15:11:00 100.00 % [facility] Systolic blood pressure 2023-05-01 15:34:00 92 mm[Hg] [facility] Diastolic blood pressure 2023-05-01 15:34:00 45 mm[Hg] [facility] Heart rate 2023-05-01 15:34:00 70 /min [facility] Body temperature 2023-05-01 15:34:00 36.28 Jyothi [facility] Respiratory rate 2023-05-01 15:34:00 20 /min [facility] Body height 2023-05-01 15:34:00 162.6 cm [facility] Body weight 2023-05-01 15:34:00 145.151 kg [facility] BMI 2023-05-01 15:34:00 54.93 kg/m2 [facility] Body mass index (BMI) [Percentile] Per age and sex 2023-05-01 15:34:00 100.00 % [facility] Systolic blood pressure 2023-03-14 14:32:00 98 mm[Hg] [facility] Diastolic blood pressure 2023-03-14 14:32:00 54 mm[Hg] [facility] Heart rate 2023-03-14 14:32:00 70 /min [facility] Body temperature 2023-03-14 14:32:00 36.33 Jyothi [facility] Respiratory rate 2023-03-14 14:32:00 18 /min [facility] Body height 2023-03-14 14:32:00 162.6 cm [facility] Body weight 2023-03-14 14:32:00 142.486 kg [facility] BMI 2023-03-14 14:32:00 53.92 kg/m2 [facility] Body mass index (BMI) [Percentile] Per age and sex 2023-03-14 14:32:00 99.49 % [facility] Systolic blood pressure 2023-02-14 16:11:00 111 mm[Hg] [facility] Diastolic blood pressure 2023-02-14 16:11:00 85 mm[Hg] [facility] Heart rate 2023-02-14 16:11:00 62 /min [facility] Body temperature 2023-02-14 16:11:00 36.33 Jyothi [facility] Respiratory rate 2023-02-14 16:11:00 20 /min [facility] Body height 2023-02-14 16:11:00 162.6 cm [facility] Body weight 2023-02-14 16:11:00 141.522 kg [facility] BMI 2023-02-14 16:11:00 53.55 kg/m2 [facility] Body mass index (BMI) [Percentile] Per age and sex 2023-02-14 16:11:00 99.49 % [facility] Systolic blood pressure 2023-01-31 03:36:41 120 mm[Hg] [facility] Diastolic blood pressure 2023-01-31 03:36:41 74 mm[Hg] [facility] Heart rate 2023-01-31 03:36:41 70 /min [facility] Respiratory rate 2023-01-31 03:36:41 13 /min [facility] Oxygen saturation in Arterial blood by Pulse oximetry 2023-01-31 03:36:41 99 /min [facility] Body temperature 2023-01-31 03:15:00 36.72 Jyothi [facility] Body height 2023-01-31 03:15:00 162.6 cm [facility] Body weight 2023-01-31 03:15:00 143.79 kg [facility] BMI 2023-01-31 03:15:00 54.41 kg/m2 [facility] Body mass index (BMI) [Percentile] Per age and sex 2023-01-31 03:15:00 99.52 % [facility] Systolic blood pressure 2023-01-15 18:09:00 103 mm[Hg] [facility] Diastolic blood pressure 2023-01-15 18:09:00 41 mm[Hg] [facility] Heart rate 2023-01-15 18:09:00 67 /min [facility] [facility] Body temperature 2023-01-15 18:09:00 36.28 Jyothi [facility] Respiratory rate 2023-01-15 18:09:00 17 /min [facility] Body height 2023-01-15 18:09:00 162.6 cm [facility] Body weight 2023-01-15 18:09:00 143.972 kg [facility] BMI 2023-01-15 18:09:00 54.48 kg/m2 [facility] Body mass index (BMI) [Percentile] Per age and sex 2023-01-15 18:09:00 99.52 % [facility] Systolic blood pressure 2019-12-17 16:50:00 116 mm[Hg] [facility] Diastolic blood pressure 2019-12-17 16:50:00 80 mm[Hg] [facility] Heart rate 2019-12-17 16:50:00 80 /min [facility] Body temperature 2019-12-17 16:50:00 37.72 Jyothi [facility] Respiratory rate 2019-12-17 16:50:00 16 /min [facility] Body height 2019-12-17 16:50:00 160 cm [facility] Body weight 2019-12-17 16:50:00 102.059 kg [facility] BMI 2019-12-17 16:50:00 39.86 kg/m2 [facility] Oxygen saturation in Arterial blood by Pulse oximetry 2019-12-17 16:50:00 94 /min [facility] BP Systolic 2022-01-23 11:51:00 117 mm[Hg] BP [...] Procedure Date / Time Performed Performing Clinician Source GARDASIL 9 (HPV 9V) VACCINE 2023-10-08 19:54:27 Vikas Roberts [facility] DME/SUPPLY JUSTIFICATION 2023-09-11 06:01:00 Doc tor Unassigned, Colman [facility] CBC WITH DIFF 2023-09-03 10:08:00 Kelsey Clifton [facility] CBC WITH DIFF 2023-09-03 10:08:00 Kelsey Clifton [facility] SECTION 2023-09-02 22:21:00 Debra Moreno [facility] SECTION 2023-09-02 22:21:00 Debra Moreno [facility] PROTEIN CREAT RATIO URINE RANDOM 2023-09-02 02:40:00 Safia Llanes [facility] PROTEIN CREAT RATIO URINE RANDOM 2023-09-02 02:40:00 Safia Llanes [facility] CENTRAL NEURAXIAL BLOCK 2023-09-01 20:08:00 Syeda Bender [facility] LACTATE DEHYDROGENASE 2023-09-01 16:53:00 Milana Llanes ea [facility] CBC WITH DIFF 2023-09-01 16:53:00 Safia Llanes [facility] LACTATE DEHYDROGENASE 2023-09-01 16:53:00 Milana Llanes ea [facility] CBC WITH DIFF 2023-09-01 16:53:00 Mario Alberto [facility] SGOT (ASPARTATE AMINO TRANSFER) 2023-09-01 15:06:00 Mario Alberto [facility] CREATININE 2023-09-01 15:06:00 Mario Alberto [facility] ALANINE AMINO TRANSFERASE(SGPT 2023-09-01 15:06:00 Mario Alberto [facility] URIC ACID 2023-09-01 15:06:00 Mario Alberto [facility] HEPATITIS B SURFACE ANTIGEN 2023-09-01 15:06:00 Cesar William [facility] HB ABO GROUPING 2023-09-01 15:06:00 Cesar William [facility] RHO (D) IMMUNE GLOBULIN 2023-09-01 15:06:00 Izabel Clifton [facility] SYPHILIS IGG/IGM 2023-09-01 15:06:00 Cesar [facility] SGOT (ASPARTATE AMINO TRANSFER) 2023-09-01 15:06:00 Mario Alberto [facility] CREATININE 2023-09-01 15:06:00 Mario Alberto [facility] ALANINE AMINO TRANSFERASE(SGPT 2023-09-01 15:06:00 Mario Alberto [facility] URIC ACID 2023-09-01 15:06:00 Mario Alberto [facility] HEPATITIS B SURFACE ANTIGEN 2023-09-01 15:06:00 Cesar William [facility] HB ABO GROUPING 2023-09-01 15:06:00 Cesar William [facility] RHO (D) IMMUNE GLOBULIN 2023-09-01 15:06:00 Izabel Clifton [facility] SYPHILIS IGG/IGM 2023-09-01 15:06:00 Cesar [facility] NON-STRESS TEST 2023-08-29 21:16:29 Andrzej Roberts [facility] POCT URINALYSIS 2023-08-29 20:35:00 Kateryna Hamilton [facility] SECOND AND THIRD TRIMESTER ULTRASOUND 2023-08-29 20:20:00 Kateryna Hamilton [facility] SECOND AND THIRD TRIMESTER ULTRASOUND 2023-08-22 22:03:00 Kateryna Hamilton [facility] NON-STRESS TEST 2023-08-22 21:01:52 Krishna Hamilton [facility] POCT URINALYSIS 2023-08-22 20:31:00 Kateryna Hamilton [facility] NON-STRESS TEST 2023-08-20 01:20:59 Krishna Hamilton [facility] POCT URINALYSIS 2023-08-19 21:04:00 Kateryna Hamilton [facility] SECOND AND THIRD TRIMESTER ULTRASOUND 2023-08-15 21:41:00 Kateryna Hamilton [facility] NON-STRESS TEST 2023-08-14 20:48:32 Krishna Hamilton [facility] POCT URINALYSIS 2023-08-14 20:42:00 Kateryna Hamilton [facility] NON-STRESS TEST 2023-08-12 21:04:52 Krishna Hamilton [facility] POCT URINALYSIS 2023-08-12 20:10:00 Kateryna Hamilton [facility] NON-STRESS TEST 2023-08-08 22:11:19 Krishna Hamilton [facility] SECOND AND THIRD TRIMESTER ULTRASOUND 2023-08-08 19:55:00 Kateryna Hamilton [facility] POCT URINALYSIS 2023-08-08 19:49:00 Kateryna Hamilton [facility] NON-STRESS TEST 2023-08-06 20:03:47 Andrzej Roberts [facility] POCT URINALYSIS 2023-08-06 18:47:00 Kateryna Hamilton [facility] NON-STRESS TEST 2023-08-01 20:58:32 Andrzej Roberts [facility] POCT URINALYSIS 2023-08-01 19:56:00 Kateryna Hamilton [facility] SECOND AND THIRD TRIMESTER ULTRASOUND 2023-08-01 19:49:00 Kateryna Hamilton [facility] NON-STRESS TEST 2023-07-30 22:17:39 Andrzej Roberts [facility] POCT URINALYSIS 2023-07-30 21:46:00 Kateryna Hamilton [facility] POCT URINALYSIS 2023-07-30 21:18:00 Kateryna Hamilton [facility] SECOND AND THIRD TRIMESTER ULTRASOUND 2023-07-23 20:43:00 Kateryna Hamilton [facility] HIV 1/2 AG-AB WITH REFLEX 2023-07-15 21:44:00 Kateryna Hamilton [facility] SYPHILIS IGG/IGM 2023-07-15 21:44:00 Kateryna Hamilton [facility] POCT URINALYSIS 2023-07-15 21:16:00 Kateryna Hamilton [facility] POCT URINALYSIS 2023-07-02 21:21:00 Kateryna Hamilton [facility] TDAP VACCINE, >11 YRS, IM 2023-06-19 17:50:31 Kateryna Hamilton [facility] POCT URINALYSIS 2023-06-19 17:23:00 Kateryna Hamilton [facility] POCT URINALYSIS 2023-05-29 15:12:00 Kateryna Hamilton [facility] POCT URINALYSIS 2023-05-01 15:25:00 Kateryna Hamilton [facility] SECOND AND THIRD TRIMESTER ULTRASOUND 2023-04-22 14:25:00 Kateryna Hamilton [facility] POCT URINALYSIS 2023-03-14 14:34:00 Kateryna Hamilton [facility] POCT URINALYSIS 2023-02-14 16:12:00 Kateryna Hamilton [facility] URINALYSIS 2023-01-31 03:57:00 Clinton Bishop [facility] POCT TEST 2023-01-15 16:41:00 Prema Hamilton [facility] POCT URINALYSIS W/O SPECIFIC GRAVITY 2023-01-15 16:41:00 Kateryna Hamilton [facility] NOTICE OF PRIVACY PRACTICES 2023-01-15 16:26:00 Doctor Unassigned, Colman [facility] Plan of Care Planned Activity Planned Date Details Comments Source Goal Plan of Care Note [code = 47942-3] Goal Plan of Care Note [code = 42235-8] Goal Plan of Care Note [code = 18944-8] Goal Plan of Care Note [code = 48017-9] Goal Plan of Care Note [code = 08387-9] Goal Plan of Care Note [code = 02968-3] Goal Plan of Care Note [code = 60802-5] Goal Plan of Care Note [code = 63120-5] Goal Plan of Care Note [code = 82756-7] Goal Plan of Care Note [code = 14767-2] Goal Plan of Care Note [code = 18032-4] Goal Plan of Care Note [code = 22373-1] Goal Plan of Care Note [code = 69374-7] Goal Plan of Care Note [code = 42844-4] Goal Plan of Care Note [code = 74369-8] Goal Plan of Care Note [code = 10063-2] Goal Plan of Care Note [code = 80426-8] Goal Plan of Care Note [code = 15999-1] Goal Plan of Care Note [code = 24390-8] Goal Plan of Care Note [code = 88928-2] Goal Plan of Care Note [code = 86116-9] Goal Plan of Care Note [code = 48947-4] Goal Plan of Care Note [code = 23581-9] Goal Plan of Care Note [code = 98288-2] Goal Plan of Care Note [code = 22244-4] Goal Plan of Care Note [code = 37186-4] Goal Plan of Care Note [code = 41019-8] Goal Plan of Care Note [code = 15430-8] Goal Plan of Care Note [code = 15214-8] Goal Plan of Care Note [code = 86562-7] Goal Plan of Care Note [code = 99537-3] Goal Plan of Care Note [code = 30834-4] Goal Plan of Care Note [code = 68309-2] Goal Plan of Care Note [code = 83475-1] Encounters Start Date/Time End Date/Time Encounter Type Admission Type Attending Clinicians Care Facility Care Department Encounter ID Source 2023-07-14 19:37:23 Outpatient NATE GUTIERREZ SANGEETA [facility] PRANAV [id number] [facility] 2023-11-25 13:30:00 2023-11-25 15:13:58 Outpatient R KATERYNA HAMILTON [facility] [id number] [facility] 2023-11-25 13:30:00 2023-11-25 15:13:58 Office Visit Kateryna Hamilton [facility] RESIDENT ASSISTANT CNA [facility] 1.2.840.114 350.1.13.10 4.2.7.2.686 [id number] [facility] 2023-11-25 14:45:00 2023-11-25 14:45:00 Outpatient R KATERYNA HAMILTON [facility] [id number] [facility] 2023-10-27 14:00:00 2023-10-27 14:00:00 Outpatient R OBI-VALERIE , JAYANT OBI-VALERIE , JAYANT [facility] [id number] [facility] 2023-10-21 13:30:00 2023-10-21 13:30:00 Outpatient R VIKAS ROBERTS [facility] [id number] [facility] 2023-10-08 14:00:00 2023-10-08 14:15:00 Nurse Visit Nurse, Willy Rmchp Exp Cprit Obgyn Unknown, Attending Kateryna Hamilton [facility] RESIDENT ASSISTANT CNA [facility] .840.114 350.1.13.10 4.2.7.2.686 [id number] [facility] 2023-10-08 14:00:00 2023-10-08 14:00:00 Outpatient KATERYNA QUIÑONES [facility] [id number] [facility] 2023-09-23 09:00:00 2023-09-23 10:18:02 Outpatient R VIKAS ROBERTS [facility] [id number] [facility] 2023-09-23 09:00:00 2023-09-23 10:18:02 Routine Visit Vikas Roberts [facility] RESIDENT ASSISTANT CNA [facility] 1.0.114 350.1.13.10 4.2.7.2.686 [id number] [facility] 2023-09-11 10:30:00 2023-09-11 11:00:03 Outpatient KATERYNA QUIÑONES [facility] [id number] [facility] 2023-09-11 10:30:00 2023-09-11 11:00:03 Nurse Visit Visit, Ang-Rmchp Nurse Kateryna Hamilton [facility] 1..114 350.1.13.10 4.2.7.2.686 [id number] 107 [id number] [facility] 2023-09-11 00:00:00 2023-09-11 00:00:00 Orders Only Doctor Unassigned, Colman [facility] 1..114 350.1.13.10 4.2.7.2.686 [id number] [facility] 2023-09-11 00:00:00 2023-09-11 00:00:00 Telephone Vikas Roberts [facility] RESIDENT ASSISTANT CNA [facility] 1.0.114 350.1.13.10 4.2.7.2.686 [id number] [facility] 2023-09-01 08:14:00 2023-09-04 15:28:00 Inpatient P NATE CHINCHILLA CHINCHILLA, NATECHI [facility] PRANAV [id number] [facility] 2023-09-01 08:14:00 2023-09-04 15:28:00 Hospital Encounter [facility] 1.0.114 350.1.13.10 4.2.7.2.686 [id number] [facility] 2023-09-02 10:51:00 2023-09-02 12:37:00 Surgery Debra Moreno [facility] 1..114 350.1.13.10 4.2.7.2.686 [id number] [facility] 2023-09-01 14:00:00 2023-09-01 14:00:00 Outpatient [facility] [id number] [facility] 2023-09-01 13:27:00 2023-09-01 13:27:00 [facility]..114 350.1.13.10 4.2.7.2.686 [id number] [facility] 2023-09-01 00:00:00 2023-09-01 00:00:00 Case Management Kateryna Hamilton [facility] RESIDENT ASSISTANT CNA [facility] 1.0.114 350.1.13.10 4.2.7.2.686 [id number] [facility] 2023-08-29 15:15:00 2023-08-29 15:18:25 Routine Visit Vikas Roberts [facility] RESIDENT ASSISTANT CNA [facility] 1.0.114 350.1.13.10 4.2.7.2.686 [id number] [facility] 2023-08-29 14:00:00 2023-08-29 14:19:15 Top Lift And Automatic Window Repairer Visit Ultrasound, Nate Allen [facility] RESIDENT ASSISTANT CNA [facility] 1.840.114 350.1.13.10 4.2.7.2.686 [id number] [facility] 2023-08-29 14:00:00 2023-08-29 14:19:15 Outpatient P NATE CHINCHILLA SANGEETA [facility] [id number] [facility] 2023-08-26 12:45:00 2023-08-26 12:45:00 Outpatient R KATERYNA HAMILTON [facility] [id number] [facility] 2023-08-23 00:00:00 2023-08-23 00:00:00 Case Management Kateryna Hamilton [facility] RESIDENT ASSISTANT CNA [facility] 1.840.114 350.1.13.10 4.2.7.2.686 [id number] 107 [id number] [facility] 2023-08-22 15:30:00 2023-08-22 16:16:43 Outpatient P MUSA LOZANO [facility] [id number] [facility] 2023-08-22 15:30:00 2023-08-22 16:16:43 Top Lift And Automatic Window Repairer Visit Ultrasound, Nate Allen Chasey Ikuvbogiflavio [facility] RESIDENT ASSISTANT CNA [facility] 1..840.114 350.1.13.10 4.2.7.2.686 [id number] [facility] 2023-08-22 14:30:00 2023-08-22 14:57:14 Routine Visit Kateryna Hamilton [facility] RESIDENT ASSISTANT CNA [facility] 1.2.840.114 350.1.13.10 4.2.7.2.686 [id number] [facility] 2023-08-19 15:00:00 2023-08-19 15:35:50 [id number] 2023-08-19 15:00:00 2023-08-19 15:35:50 [facility] 1..840.114 350.1.13.10 4.2.7.2.686 [id number] [facility] 2023-08-18 00:00:00 2023-08-18 00:00:00 Case Management Joy [facility] 1..840.114 350.1.13.10 4.2.7.2.686 [id number] [facility] 2023-08-15 15:30:00 2023-08-15 15:52:32 Outpatient WILLIAM CARLSON [facility] [id number] [facility] 2023-08-15 15:30:00 2023-08-15 15:52:32 Top Lift And Automatic Window Repairer Visit Ultrasound, Nate Allen Luis Diego [facility] RESIDENT ASSISTANT CNA [facility] 1..840.114 350.1.13.10 4.2.7.2.686 [id number] [facility] 2023-08-14 14:30:00 2023-08-14 14:45:48 Outpatient R KATERYNA HAMILTON [facility] [id number] [facility] 2023-08-14 14:30:00 2023-08-14 14:45:48 [facility] CNA [facility] 1.2.840.114 350.1.13.10 4.2.7.2.686 [id number] [facility] 2023-08-12 14:00:00 2023-08-12 15:16:34 Outpatient R KATERYNA HAMILTON [facility] [id number] [facility] 2023-08-12 14:00:00 2023-08-12 15:16:34 Routine Visit JoyKateryna [facility] RESIDENT ASSISTANT CNA [facility] 1..840.114 350.1.13.10 4.2.7.2.686 [id number] [facility] 2023-08-08 14:45:00 2023-08-08 14:45:00 [facility] 1..840.114 350.1.13.10 4.2.7.2.686 [id number] [facility] 2023-08-08 14:00:00 2023-08-08 14:29:04 Outpatient NATE GUERRERO SANGEETA [facility] [id number] [facility] 2023-08-08 14:00:00 2023-08-08 14:29:04 Top Lift And Automatic Window Repairer Visit [facility]trasound, [facility]IST[facility] CNA [facility] 1..840.114 350.1.13.10 4.2.7.2.686 [id number] [facility] 2023-08-06 12:45:00 2023-08-06 13:58:36 Outpatient R VIKAS ROBERTS [facility] [id number] [facility] 2023-08-06 12:45:00 2023-08-06 13:58:36 Routine Visit Vikas Roberts [facility] RESIDENT ASSISTANT CNA [facility] 1.2.840.114 350.1.13.10 4.2.7.2.686 [id number] [facility] 2023-08-01 14:30:00 2023-08-01 14:57:38 Routine Visit Vikas Roberts [facility] RESIDENT ASSISTANT CNA [facility] 1.2.840.114 350.1.13.10 4.2.7.2.686 [id number] [facility] 2023-08-01 13:45:00 2023-08-01 13:47:05 Outpatient KAREN CRAIG SHANNON [facility] [id number] [facility] 2023-08-01 13:45:00 2023-08-01 13:47:05 Top Lift And Automatic Window Repairer Visit Ultrasound, Karen Torres [facility] RESIDENT ASSISTANT CNA [facility] 1.2840.114 350.1.13.10 4.2.7.2.686 [id number] [facility] 2023-07-30 15:15:00 2023-07-30 16:15:13 Outpatient R VIKAS ROBERTS [facility] [id number] [facility] 2023-07-30 15:15:00 2023-07-30 16:15:13 Routine Visit Vikas Roberts [facility] RESIDENT ASSISTANT CNA [facility] 1.2.840.114 350.1.13.10 4.2.7.2.686 [id number] [facility] 2023-07-24 00:00:00 2023-07-24 00:00:00 Case Management Kateryna Hamilton [facility] RESIDENT ASSISTANT CNA [facility] 1.2.840.114 350.1.13.10 4.2.7.2.686 [id number] [facility] 2023-07-23 14:30:00 2023-07-23 14:45:25 Outpatient P MUSA LOZANO [facility] [id number] [facility] 2023-07-23 14:30:00 2023-07-23 14:45:25 Top Lift And Automatic Window Repairer Visit 1Saeid Room Musa Lozano Ikuvbogie [facility] RESIDENT ASSISTANT CNA [facility] 1.0.114 350.1.13.10 4.2.7.2.686 [id number] [facility] 2023-07-18 13:45:00 2023-07-18 13:45:00 Outpatient P [facility] [id number] [facility] 2023-07-15 15:00:00 2023-07-15 15:44:02 Outpatient R KATERYNA HAMILTON [facility] [id number] [facility] 2023-07-15 15:00:00 2023-07-15 15:44:02 Routine Visit Kateryna Hamilton [facility] RESIDENT ASSISTANT CNA [facility] 1..114 350.1.13.10 4.2.7.2.686 [id number] [facility] 2023-07-14 16:20:00 2023-07-14 19:29:00 Outpatient X FREEMAN-JOSE S, MIRIAM FREEMAN-JOSE S, MIRIAM [facility] PRANAV [id number] [facility] 2023-07-14 16:20:00 2023-07-14 19:29:00 Emergency Derek Thornton Medhat-Jose s, Miriam [facility] 1..114 350.1.13.10 4.2.7.2.686 [id number] [facility] 2023-07-14 00:00:00 2023-07-14 00:00:00 [facility] 1..114 350.1.13.10 4.2.7.2.686 [id number] [facility] 2023-07-02 15:15:00 2023-07-02 15:50:56 Outpatient R DAVIONVania KATERYNA [facility] [id number] [facility] 2023-07-02 15:15:00 2023-07-02 15:50:56 Routine Visit Kateryna Hamilton [facility] RESIDENT ASSISTANT CNA [facility] .840.114 350.1.13.10 4.2.7.2.686 [id number] 107 [id number] [facility] 2023-06-28 00:00:00 2023-06-28 00:00:00 Telephone Kateryna Hamilton [facility] RESIDENT ASSISTANT CNA [facility] .840.114 350.1.13.10 4.2.7.2.686 [id number] [facility] 2023-06-19 11:00:00 2023-06-19 12:03:41 Outpatient R JOY KATERYNA [facility] [id number] [facility] 2023-06-19 11:00:00 2023-06-19 12:03:41 [facility] CNA [facility] .84.114 350.1.13.10 4.2.7.2.686 [id number] [facility] 2023-05-29 10:15:00 2023-05-29 10:52:59 Outpatient R KATERYNA HAMILTON [facility] [id number] [facility] 2023-05-29 10:15:00 2023-05-29 10:52:59 [facility] CNA [facility] .84.114 350.1.13.10 4.2.7.2.686 [id number] [facility] 2023-05-01 10:30:00 2023-05-01 10:57:38 Outpatient R KATERYNA HAMILTON [facility] [id number] [facility] 2023-05-01 10:30:00 2023-05-01 10:57:38 Routine Visit Kateryna Hamilton [facility] RESIDENT ASSISTANT CNA [facility] 1..840.114 350.1.13.10 4.2.7.2.686 [id number] [facility] 2023-04-29 13:45:00 2023-04-29 13:45:00 Outpatient R KATERYNA HAMILTON [facility] [id number] [facility] 2023-04-24 13:00:00 2023-04-24 13:00:00 Outpatient R RADIOLOGY [facility] [id number] [facility] 2023-04-24 00:00:00 2023-04-24 00:00:00 Case Management [facility] ..[id number] [id number] [facility] 2023-04-22 09:00:00 2023-04-22 09:51:26 Outpatient P PATI JEAN [facility] [id number] [facility] 2023-04-22 09:00:00 2023-04-22 09:51:26 Top Lift And Automatic Window Repairer Visit Ultrasound, Ang-MfPati Patel [facility] RESIDENT ASSISTANT CNA [facility] ..[id number] [facility] 2023-04-11 10:30:00 2023-04-11 10:30:00 Outpatient R KATERYNA HAMILTON [facility] [id number] [facility] 2023-03-27 17:10:54 2023-03-27 17:10:54 Outpatient YOKASTA TEMPLETON [id number] Waylon Nunez 2023-03-14 09:30:00 2023-03-14 09:45:28 Outpatient Hannah KATERYNA HAMILTON [facility] [id number] [facility] 2023-03-14 09:30:00 2023-03-14 09:45:28 Routine Visit Kateryna Hamilton [facility] RESIDENT ASSISTANT CNA [facility] 1.2.840.114 350.1.13.10 4.2.7.2.686 [id number] [facility] 2023-02-14 11:00:00 2023-02-14 11:29:02 Outpatient KATERYNA QUIÑONES [facility] [id number] [facility] 2023-02-14 11:00:00 2023-02-14 11:29:02 Routine Visit Kateryna Hamilton [facility] RESIDENT ASSISTANT CNA [facility] 1..840.114 350.1.13.10 4.2.7.2.686 [id number] [facility] 2023-02-14 10:00:00 2023-02-14 10:48:01 Outpatient JOSÉ MIGUEL CANCINO COREY [facility] [id number] [facility] 2023-02-14 10:00:00 2023-02-14 10:48:01 Top Lift And Automatic Window Repairer Visit Ultrasound, Willy-José Miguel Mejia [facility] RESIDENT ASSISTANT CNA [facility] 1..840.114 350.1.13.10 4.2.7.2.686 [id number] [facility] 2023-01-30 22:10:00 2023-01-31 00:22:00 Emergency X Clinton BISHOP [facility] ERT [id number] [facility] 2023-01-30 22:10:00 2023-01-31 00:22:00 Emergency Clinton Bishop [facility] 1.2.840.114 350.1.13.10 4.2.7.2.686 [id number] [facility] 2023-01-31 00:00:00 2023-01-31 00:00:00 Outpatient R RADIOLOGY [facility] [id number] [facility] 2023-01-17 00:00:00 2023-01-17 00:00:00 Patient Secure Msg Doctor Unassigned, Colman [facility] 1.2.840.114 350.1.13.10 4.2.7.2.686 [id number] [facility] 2023-01-15 13:00:00 2023-01-15 14:47:09 Outpatient R KATERYNA HAMILTON [facility] [id number] [facility] 2023-01-15 13:00:00 2023-01-15 14:47:09 Initial Visit Kateryna Hamilton [facility] RESIDENT ASSISTANT CNA [facility] 1..840.114 350.1.13.10 4.2.7.2.686 [id number] [facility] 2023-01-15 00:00:00 2023-01-15 00:00:00 Orders Only Doctor Unassigned, [place]man [facility] 1.2.840.114 350.1.13.10 4.2.7.2.686 [id number] [facility] 2022-12-24 14:15:37 2022-12-24 14:15:37 Outpatient [facility] [id number] 0516 Waylon Nunez 2022-08-07 08:46:16 2022-08-07 08:46:16 Outpatient [facility] 1228 Waylon Nunez 2022-08-06 00:00:00 2022-08-06 00:00:00 Outpatient Visit [id number] 2021-03-01 09:15:00 2021-03-01 09:15:00 Outpatient Hannah HARRIS MITALI [facility] [id number] [facility] 2021-02-23 10:00:00 2021-02-23 10:15:00 Office Visit Jorge L [facility] 1.2.840.114 350.1.13.10 4.2.7.2.686 [id number] 2021-02-23 10:00:00 2021-02-23 10:15:00 Office Visit Jorge L [facility] 1.2840.114 350.1.13.10 4.2.7.2.686 [id number] [facility] 2021-02-23 10:00:00 2021-02-23 10:00:00 Outpatient MITALI PIERCE [facility] [id number] [facility] 2021-02-23 10:00:00 2021-02-23 10:00:00 Outpatient Hannah HARRIS [facility] [id number] [facility] 2020-03-01 00:00:00 2020-03-01 00:00:00 Letter (Out) Pcp, Patient Does Not Have A [facility] 1.0.114 350.1.13.10 4.2.7.2.686 [id number] [facility] 2019-12-18 00:00:00 2019-12-18 00:00:00 Telephone Evelyn Viera [facility] 1.0.114 350.1.13.10 4.2.7.2.686 [id number] [facility] 2019-12-17 11:39:13 2019-12-17 11:59:13 Urgent Care Pob1, Acute Care Clinic Laisha Medrano [facility] 1.2.840.114 350.1.13.10 4.2.7.2.686 [id number] [facility] 2019-12-17 11:00:00 2019-12-17 11:00:00 Outpatient R LAISHA MEDRANO [facility] [id number] [facility] Results Test Description Test Time Test Comments Results Result Co mments Source [facility] IMMUNE [id number] 17:12:46* Test Item Value Reference Range Interpretation Comme nts RHIG CANDIDATE? (test code = 5188) No- see comment Patient is not a candidate for RhIg- Patient is Rh Negative and baby is Rh Negative.Performed at [facility] Laboratory Services - [facility] Blood [address] [place] [address]Aknh Free: [phone] No. [id number] [facility] ONLY - SYPHILIS [id number] 16:51:36* Test Item Value Reference Range Interpretation Comme [facility] Syphilis IgG/IgM (test code = 51414-6) Non-reactive Non-reactive EITAN (test code = EITAN) Non-reactive - No serologic evidence of T. pallidum infection. Cannot exclude incubating or early syphilis. Submit a second specimen in 2-4 weeks if syphilis is clinically suspected. Equivocal - Further testing to follow. Reactive - Further testing to follow. Lab Interpretation (test code = 23452-2) Normal [facility] SYPHILIS [id number] 16:51:36* Test Item Value Reference Range Interpretation Comme [facility] Syphilis IgG/IgM (test code = 77773-9) Non-reactive Non-reactive EITAN (test code = EITAN) Non-reactive - No serologic evidence of T. pallidum infection. Cannot exclude incubating or early syphilis. Submit a second specimen in 2-4 weeks if syphilis is clinically suspected. Equivocal - Further testing to follow. Reactive - Further testing to follow. Lab Interpretation (test code = 94037-7) Normal [facility] [id number] 20:08:00 Syeda Middleton MD ? ? 09/01/2023 ?2:09 PM Central Neuraxial Block Date/Time: 42:08 PM Performed by: Syeda Middleton MDAuthorized by: Jumana Denson MD ?Patient Location: OBReason for Block: OB request, Patient request, Labor analgesia, Surgical anesthesia and Post-op pain managementStaff: ?Anesthesiologist: Jumana Denson MD ?Resident/HEAD OF TALENT MANAGEMENT: Melanie Toth MD ?Performed by: resident/CRNAPreanesthetic Checklist: patient identified, IV checked, risks and benefits explained, monitors and equipment checked, timeout performed, pre-op evaluation, site marked and anesthesia consentProcedure: ?Type of Neuraxial: Epidural ? SterilityPrep cap, drape, gloves, hand hygiene and mask ? ?Sedation Level no sedation ?Patient Position: sitting ?Prep: Betadine and patient draped ? ?Monitoring: heart rate, continuous pulse ox, heart rate / toco and NIBP ?Location: lumbar (1-5) ?Lumbar: L3-L4 ?Approach: midline ? ?Technique: catheter and BUD saline ?Guidance with: landmark technique}Epidural/Spinal [place] and/or Catheter: ?Epidural/Spinal Kit: BBraun ?Needle Type: Tuohy ?Needle Gauge: 17 G ?Needle Length: 3.5 in (8.89 cm) ?Needle Insertion Depth: 9 ?Catheter Type: multiport ? ?Catheter Size: 19 G ? ?Catheter at Skin Depth: 14?Number of Attempts: 3 ?Test Dose: lidocaine 1.5% with epinephrine 1-to-200,000 ? ?Dose: 3 cc ? ?Catheter Securement Method: surgical tape, Tegaderm, liquid medical adhesive and clear occlusive dressingAssessment: ?Block Outcome: a full evaluation is pending and patient tolerated procedure well ? ?Procedure Assessment: patient tolerated procedure well with no complicationsUnMethodist Hospital [facility] [id number] 17:38:42* Test Item Value Reference Range Interpretation Comme nts LDH (test code = 8719024992) 244 U/L 120-246 Lab Interpretation (test cod e = 76321-7) Normal [facility] CenterLACTATE [id number] 17:38:42* Test Item Value Reference Range Interpretation Comme nts LDH (test code = 6543581146) 244 U/L 120-246 Lab Interpretation (test cod e = 79035-4) Normal [facility] CenterURIC ACID [id number] 17:13:16* Test Item Value Reference Range Interpretation Comme nts URIC ACID (test code = 4101394641) 5.6 mg/dL 2.9-6.0 Lab Interpretation (test cod e = 72866-3) Normal [facility] [id number] 17:13:16* Test Item Value Reference Range Interpretation Comme nts CREATININE (test code = 2296476056) 0.40 mg/dL 0.50-1.04 L eGFR (test code = 24081-3) 147.3 mL/min/1.73m2 CKD-EPI eGFR (2020). Assuming creatinine has been stable day-to-day for at least three months, the eGFR indicates Category G1 (>= 90 mL/min/1.73 m2) Lab Interpretation (test code = 45420-5) Abnormal [facility] CenterSGOT (ASPARTATE AMINO TRANSFER)2023-09-01 17:13:16* Test Item Value Reference Range Interpretation Comme nts AST(SGOT) (test code = 2062233652) 25 U/L 13-40 Lab Interpretation (test cod e = 25905-6) Normal [facility] CenterALANINE AMINO TRANSFERASE([id number] 17:13:16* Test Item Value Reference Range Interpretation Comme nts ALTv (test code = 1742-6) 14 U/L 5-35 Lab Interpretation (test cod e = 11369-9) Normal [facility] CenterURIC ACID [id number] 17:13:16* Test Item Value Reference Range Interpretation Comme nts URIC ACID (test code = 0322209572) 5.6 mg/dL 2.9-6.0 Lab Interpretation (test cod e = 84395-7) Normal [facility] [id number] 17:13:16* Test Item Value Reference Range Interpretation Comme nts CREATININE (test code = 5373949991) 0.40 mg/dL 0.50-1.04 L eGFR (test code = 68751-3) 147.3 mL/min/1.73m2 CKD-EPI eGFR (2020). Assuming creatinine has been stable day-to-day for at least three months, the eGFR indicates Category G1 (>= 90 mL/min/1.73 m2) Lab Interpretation (test code = 60441-3) Abnormal [facility] Center[facility] (ASPARTATE AMINO TRANSFER)2023-09-01 17:13:16* Test Item Value Reference Range Interpretation Comme nts AST(SGOT) (test code = 0469100740) 25 U/L 13-40 Lab Interpretation (test cod e = 71356-0) Normal [facility] CenterALANINE AMINO TRANSFERASE([id number] 17:13:16* Test Item Value Reference Range Interpretation Comme nts ALTv (test code = 1742-6) 14 U/L 5-35 Lab Interpretation (test cod e = 96232-3) Normal [facility] CenterCB WITH [id number] 17:11:40* Test Item Value Reference Range Interpretation Comme nts WBC (test code = 6690-2) 8.74 See_Comment [Automated messa ge] The system which generated this result transmitted reference range: 4.50 - 13.50 10*3/?L. The reference range was not used to interpret this result as normal/abnormal. RBC (test code = 789-8) 3.96 See_Comment L [Automated messa ge] The system which generated this result transmitted reference range: 4.10 - 5.10 10*6/?L. The reference range was not used to interpret this result as normal/abnormal. HGB (test code = 718-7) 11.7 g/dL 12.0-16.0 L HCT (test code = 4544-3) 34.6 % 36.0-45.0 L MCV (test code = 787-2) 87.4 fL 78.0-95.0 MCH (test code = 785-6) 29.5 pg 26.0-32.0 MCHC (test code = 786-4) 33.8 g/dL 32.0-36.0 RDW-SD (test code = 39714-1) 47.8 fL 38.5-49.0 RDW-CV (test code = 788-0) 15.0 % 11.5-14.0 H PLT (test code = 777-3) 341 See_Comment [Automated [employer] ge] The system which generated this result transmitted reference range: 135 - 361 10*3/?L. The reference range was not used to interpret this result as normal/abnormal. MPV (test code = 08380-3) 9.2 fL 9.4-13.3 L NRBC/100 WBC (test code = 8250694643) 0.0 See_Comment [Automated [employer] ssage] The system which generated this result transmitted reference range: 0.0 - 10.0 /100 WBCs. The reference range was not used to interpret this result as normal/abnormal. NRBC x10^3 (test code = 0937795835) See_Comment [Automated [employer] ge] The system which generated this result transmitted reference range: 10*3/?L. The reference range was not used to interpret this result as normal/abnormal. GRAN MAT (NEUT) % (test code = 770-8) 66.6 % IMM GRAN % (test code = 2736758642) 0.60 % LYMPH % (test code = 736-9) 24.8 % MONO % (test code = 5905-5) 7.1 % EOS % (test code = 713-8) 0.7 % BASO % (test code = 706-2) 0.2 % GRAN MAT x10^3(ANC) (test code = 9880225514) 5.82 10*3/uL 1.50-10.30 IMM GRAN x10^3 (test code = 8432597586) 0.05 10*3/uL 0.00-0.06 LYMPH x10^3 (test code = 731-0) 2.17 10*3/uL 0.70-7.40 MONO x10^3 (test code = 742-7) 0.62 10*3/uL 0.00-0.50 H EOS x10^3 (test code = 711-2) 0.06 10*3/uL 0.00-0.40 BASO x10^3 (test code = 704-7) 0.00-0.10 Lab Interpretation (test code = 73329-2) Abnormal [facility] WITH [id number] 17:11:40* Test Item Value Reference Range Interpretation Comme nts WBC (test code = 6690-2) 8.74 See_Comment [Automated messa ge] The system which generated this result transmitted reference range: 4.50 - 13.50 10*3/?L. The reference range was not used to interpret this result as normal/abnormal. RBC (test code = 789-8) 3.96 See_Comment L [Automated messa ge] The system which generated this result transmitted reference range: 4.10 - 5.10 10*6/?L. The reference range was not used to interpret this result as normal/abnormal. HGB (test code = 718-7) 11.7 g/dL 12.0-16.0 L HCT (test code = 4544-3) 34.6 % 36.0-45.0 L MCV (test code = 787-2) 87.4 fL 78.0-95.0 MCH (test code = 785-6) 29.5 pg 26.0-32.0 MCHC (test code = 786-4) 33.8 g/dL 32.0-36.0 RDW-SD (test code = 13993-3) 47.8 fL 38.5-49.0 RDW-CV (test code = 788-0) 15.0 % 11.5-14.0 H PLT (test code = 777-3) 341 See_Comment [Automated messa ge] The system which generated this result transmitted reference range: 135 - 361 10*3/?L. The reference range was not used to interpret this result as normal/abnormal. MPV (test code = 84216-5) 9.2 fL 9.4-13.3 L NRBC/100 WBC (test code = 9454237183) 0.0 See_Comment [Automated me ssage] The system which generated this result transmitted reference range: 0.0 - 10.0 /100 WBCs. The reference range was not used to interpret this result as normal/abnormal. NRBC x10^3 (test code = 1308373306) See_Comment [Automated messa ge] The system which generated this result transmitted reference range: 10*3/?L. The reference range was not used to interpret this result as normal/abnormal. GRAN MAT (NEUT) % (test code = 770-8) 66.6 % IMM GRAN % (test code = 2841881741) 0.60 % LYMPH % (test code = 736-9) 24.8 % MONO % (test code = 5905-5) 7.1 % EOS % (test code = 713-8) 0.7 % BASO % (test code = 706-2) 0.2 % GRAN MAT x10^3(ANC) (test code = 1914435389) 5.82 10*3/uL 1.50-10.30 IMM GRAN x10^3 (test code = 9424132187) 0.05 10*3/uL 0.00-0.06 LYMPH x10^3 (test code = 731-0) 2.17 10*3/uL 0.70-7.40 MONO x10^3 (test code = 742-7) 0.62 10*3/uL 0.00-0.50 H EOS x10^3 (test code = 711-2) 0.06 10*3/uL 0.00-0.40 BASO x10^3 (test code = 704-7) 0.00-0.10 Lab Interpretation (test code = 92783-0) Abnormal [facility] B Surface [id number] 16:25:15 * Test Item Value Reference Range Interpretation Comme nts HBsAg Semi-Quantitative (arthur t code = 5195-3) 0.08 Negative [facility] B Surface [id number] 16:25:15 * Test Item Value Reference Range Interpretation Comme nts HBsAg Semi-Quantitative (arthur t code = 5195-3) 0.08 Negative [facility] and Screen - ONCE [id number] 15:15:00 * Test Item Value Reference Range Interpretation Comme nts ABO & RH (test code = 20) A NEGATIVE IAT (test code = 1185) Negative [facility] and Screen - ONCE [id number] 15:15:00 * Test Item Value Reference Range Interpretation Comme nts ABO & RH (test code = 20) A NEGATIVE IAT (test code = 1185) Negative [facility] URINALYSIS W SPECIFIC [id number] 20:36:00* Test Item Value Reference Range Interpretation Comme [...] U APPEAR (test code = 3267) . [facility] URINALYSIS W SPECIFIC [id number] 20:31:00* Test Item Value Reference Range Interpretation Comme nts POCT U SP GRAV (test code = 3255) * 1.005-1.025 POCT PH U (test code = 3254) 6 mg/dl 5-8 POCT U LEUK EST (test code = 3263) 2+ Negative - Negative POCT U NIT (test code = 3262) NEGATIVE Negative - Negati ve POCT U PROT (test code = 3259) 1+ Negative - Negat jacqui POCT U GLU (test code = 3256) NEGATIVE Negative - Negati ve POCT U KETONE (test code = 3258) NEGATIVE Negative - Neg ative POCT U UROBILI (test code = 3260) * 0.2-1 POCT U BILI (test code = 3261) * Negative - Negat jacqui POCT U BLD (test code = 3257) NEGATIVE Negative - Negati ve POCT U COLOR (test code = 3266) * POCT U APPEAR (test code = 3267) * [facility] URINALYSIS W SPECIFIC [id number] 21:05:00* Test Item Value Reference Range Interpretation Comme nts POCT U SP GRAV (test code = 3255) norm 1.005-1.025 POCT PH U (test code = 3254) 7 mg/dl 5-8 POCT U LEUK EST (test code = 3263) ++ Negative - Negative POCT U NIT (test code = 3262) neg Negative - Negati ve POCT U PROT [...] POCT U BLD (test code = 3257) neg Negative - Negati ve POCT U COLOR (test code = 3266) . POCT U APPEAR (test code = 3267) . [facility] URINALYSIS W SPECIFIC [id number] 20:43:00* Test Item Value Reference Range Interpretation [...] POCT U APPEAR (test code = 3267) [facility] URINALYSIS W SPECIFIC [id number] 20:10:00* Test Item Value Reference Range Interpretation [...] U APPEAR (test code = 3267) . [facility] URINALYSIS W SPECIFIC [id number] 19:49:00* Test Item Value Reference Range Interpretation [...] U APPEAR (test code = 3267) .. [facility] URINALYSIS W SPECIFIC [id number] 19:49:00* Test Item Value Reference Range Interpretation [...] U APPEAR (test code = 3267) .. [facility] URINALYSIS W SPECIFIC [id number] 18:47:00* Test Item Value Reference Range Interpretation [...] U APPEAR (test code = 3267) . [facility] URINALYSIS W SPECIFIC [id number] 19:57:00* Test Item Value Reference Range Interpretation [...] U APPEAR (test code = 3267) . [facility] URINALYSIS W SPECIFIC [id number] 21:46:00* Test Item Value Reference Range Interpretation [...] POCT U APPEAR (test code = 3267) [facility] URINALYSIS W SPECIFIC [id number] 21:46:00* Test Item Value Reference Range Interpretation [...] POCT U APPEAR (test code = 3267) [facility] URINALYSIS W SPECIFIC [id number] 21:18:00* Test Item Value Reference Range Interpretation [...] POCT U APPEAR (test code = 3267) [facility] URINALYSIS W SPECIFIC [id number] 21:18:00* Test Item Value Reference Range Interpretation [...] POCT U APPEAR (test code = 3267) [facility]IL[facility] [id number]/[id number] 17:05:09* Test Item Value Reference Range Interpretation Comme [facility] Syphilis IgG/IgM (test code = 12729-1) Non-reactive Non-reactive EITAN (test code = EITAN) Non-reactive - No serologic evidence of T. pallidum infection. Cannot exclude incubating or early syphilis. Submit a second specimen in 2-4 weeks if syphilis is clinically suspected. Equivocal - Further testing to follow. Reactive - Further testing to follow. Lab Interpretation (test code = 68750-8) Normal [facility] Center[facility]/2 AG-AB WITH [id number] 06:32:31* Test Item Value Reference Range Interpretation Comme nts HIV Semi-quantitative (test code = 45763-7) 0.16 Negative EITAN (test code = EITAN) Non-reactive for HIV-1 antigen and HIV-1/HIV-2 antibodies. ?No laboratory evidence of HIV infection. ?Repeat in 2-4 weeks if acute HIV infection is suspected. [facility]IFIC [id number] 21:16:00* Test Item Value Reference Range Interpretation [...] POCT U APPEAR (test code = 3267) [facility] URINALYSIS W SPECIFIC [id number] 21:22:00* Test Item Value Reference Range Interpretation [...] U APPEAR (test code = 3267) . [facility] URINALYSIS W SPECIFIC [id number] 21:22:00* Test Item Value Reference Range Interpretation [...] U APPEAR (test code = 3267) . [facility] URINALYSIS W SPECIFIC [id number] 17:23:00* Test Item Value Reference Range Interpretation [...] POCT U APPEAR (test code = 3267) [facility] URINALYSIS W SPECIFIC [id number] 15:12:00* Test Item Value Reference Range Interpretation [...] U APPEAR (test code = 3267) . [facility] URINALYSIS W SPECIFIC [id number] 15:25:00* Test Item Value Reference Range Interpretation [...] POCT U APPEAR (test code = 3267) [facility] URINALYSIS W SPECIFIC [id number] 14:34:00* Test Item Value Reference Range Interpretation [...] POCT U APPEAR (test code = 3267) [facility] [id number] 16:12:00* Test Item Value Reference Range Interpretation [...] POCT U APPEAR (test code = 3267) [facility] URINALYSIS W/O SPECIFIC [id number] 16:42:00* Test Item Value Reference Range Interpretation [...] = 3257) Trace Negative - Negati ve [facility] [id number] 16:41:00* Test Item Value Reference Range Interpretation Comme nts POCT PREG (test code = 1605) Positive On board controls acceptable with C Line (test code = 3574) Yes POCT PREG LOT # (test code = 3578) POCT PREG TEST DATE ( test code = 3578) [facility] ([facility]), RT-PCR/[id number] 09:36:57* Test Item Value Reference Range Interpretation Comments SARS-CoV-2 INTERPRETATION (test code = 53531) POSITIVE SEE NOTE A SARS-CoV-2 RNA DETECTEDPositive results are indicative of the presence of SARS-CoV-2 RNA;clinical correlation with patient history and other diagnosticinformation is necessary to determine patient infection status.Positive results do not rule out bacterial infection or co-infectionwith other viruses. Positive and negative predictive values oftesting are highly dependent on prevalence. SOURCE (test code = 05779) NASOPHARYNGEAL Note: Methodolog y is Lauren Micah Real-Time RT-PCR. The expected result or reference range is NEGATIVE (Not Detected). For more information regarding COVID-19 testing to include clinicalinformation, methodology detail, intended use, FDA authorization andrecommended fact sheets for patients or healthcare providers, see Clone Announcement: SARS-CoV-2 (COVID-19) by NAAT at URL below (note,fact sheets are provided by method given in report:[email or web address]/[email or web address]/client -communications/ Alternatively, see downloadable PDF fact sheet at:https://www.[employer] om/MBRRZ-10-UV-PCR UNLESS OTHERWISE INDICATED, ALL TESTING PERFORMED [facility] [address] [place] [address] SPOKE MAKER: YUNG AKINS M.D. CLIA NUMBER [id number] [facility] [place]. [id number] SARS-CoV-2 (COVID-19) by RT-PCR (HIGH RISK)2021-08-21 00:00:00* Test Item Value Reference Range Interpretation Comme nts SARS-CoV-2 INTERPRETATION (test code = 14724) POSITIVE SOURCE (test code = 86781) NASOPHARYNGEAL SARS-CoV-2 (COVID-19) by RT-PCR (HIGH RISK)2021-08-21 00:00:00* Test Item Value Reference Range Interpretation Comme nts SARS-CoV-2 INTERPRETATION (test code = 86524) POSITIVE SOURCE (test code = 83017) NASOPHARYNGEAL TESTOSTERONE [ADDED]2020-02-26 00:00:00* Test Item Value [...] (test co de = 2823) 0.93 NG/DL 82-[id number] 00:00:00* Test Item Value Reference Range Interpretation Comme nts 17-HYDROXYPROGESTERONE (test code = 4304) 18 ng/dL 99-[id number] 00:00:00* Test Item Value Reference Range Interpretation Comme nts 17-HYDROXYPROGESTERONE (test code = 4304) 18 ng/dL CBC W/AUTO [id number] 00:00:00* Test Item Value Reference Range Interpretation [...] (test code = 1015) 302 K/UL HEMOGLOBIN [id number] 00:00:00* Test Item Value Reference Range Interpretation Comme nts HEMOGLOBIN A1c (test code = 18348) 5.2 % HEMOGLOBIN [id number] 00:00:00* Test Item Value Reference Range Interpretation Comme nts HEMOGLOBIN A1c (test code = 07567) 5.2 % HEMOGLOBIN [id number] 00:00:00* Test Item Value Reference Range Interpretation Comme nts HEMOGLOBIN A1c (test code = 66102) 5.2 % LIPID [id number] 00:00:00* Test Item Value Reference Range Interpretation Comme nts CHOLESTEROL (test code = 2210) 151 MG/DL TRIGLYCERIDES (test code = 2232) 73 MG/DL HDL CHOLESTEROL (test code = 2220) 39 MG/DL CALC LDL CHOL (test code = 2237) 96 MG/DL RISK RATIO LDL/HDL (test cod e = 2238) 2.46 RATIO LIPID [id number] 00:00:00* Test Item Value Reference Range Interpretation Comme nts CHOLESTEROL (test code = 2210) 151 MG/DL TRIGLYCERIDES (test code = 2232) 73 MG/DL HDL CHOLESTEROL (test code = 2220) 39 MG/DL CALC LDL CHOL (test code = 2237) 96 MG/DL RISK RATIO LDL/HDL (test cod e = 2238) 2.46 RATIO COMPREHENSIVE METABOLIC [id number] 00:00:00* Test Item Value Reference Range Interpretation Comme nts GLUCOSE (test code = 2217) 87 MG/DL BUN (test code = 2208) 9 MG/DL CREATININE (test code = 2214) 0.72 MG/DL eGFR AMER. (test code = 41749) (NOTE) ML/MIN/1.73 eGFR NON- AMER. (test code = 35370) NO CALC ML/MIN/1.73 CALC BUN/CREAT (test code [...] code = 2219) 13 U/L COMPREHENSIVE METABOLIC [id number] 00:00:00* Test Item Value Reference Range Interpretation Comme nts GLUCOSE (test code = 2217) 87 MG/DL BUN (test code = 2208) 9 MG/DL CREATININE (test code = 2214) 0.72 MG/DL eGFR AMER. (test code = 87869) (NOTE) ML/MIN/1.73 eGFR NON- AMER. (test code = 22461) NO CALC ML/MIN/1.73 CALC BUN/CREAT (test code [...] ALT (test code = 2219) 13 U/L [id number] 00:00:00* Test Item Value Reference Range Interpretation Comme nts TSH, THIRD GENERATION (test code = 2821) 1.460 UIU/ML [id number] 00:00:00* Test Item Value Reference Range Interpretation Comme nts TSH, THIRD GENERATION (test code = 2821) 1.460 UIU/ML [id number] 00:00:00* Test Item Value Reference Range Interpretation Comme nts TSH, THIRD GENERATION (test code = 2821) 1.460 UIU/ML FSH + LH [id number] 00:00:00* Test Item Value Reference Range Interpretation Comme nts FOLLICLE STIM HORMONE (test code = 2700) 5.4 IU/L LUTEINIZING HORMONE (test co de = 2776) 9.1 IU/L FSH + LH [id number] 00:00:00* Test Item Value Reference Range Interpretation Comme nts FOLLICLE STIM HORMONE (test code = 2700) 5.4 IU/L LUTEINIZING HORMONE (test co de = 2776) 9.1 IU/L [id number] 00:00:00* Test Item Value Reference Range Interpretation Comme nts PROLACTIN (test code = 2800) 109.0 NG/ML [id number] 00:00:00* Test Item Value Reference Range Interpretation Comme nts PROLACTIN (test code = 2800) 109.0 NG/ML GC AND CHLAMYDIA, AMPLIFIED, [id number] 00:00:00* Test Item Value Reference Range Interpretation Comme nts GONORRHEA, TMA (test code = 52205) NEGATIVE CHLAMYDIA, TMA (test code = 49065) NEGATIVE GC AND CHLAMYDIA, AMPLIFIED, [id number] 00:00:00* Test Item Value Reference Range Interpretation Comme nts GONORRHEA, TMA (test code = 25933) NEGATIVE CHLAMYDIA, TMA (test code = 81292) NEGATIVE HIV AB/AG COMBO RFLX [id number] 00:00:00* Test Item Value Reference Range Interpretation Comme nts HIV 1/2 4TH GEN, RFLX CONF ( test code = 3514) NON-REACTIVE HIV AB/AG COMBO RFLX [id number] 00:00:00* Test Item Value Reference Range Interpretation Comme nts HIV 1/2 4TH GEN, RFLX CONF ( test code = 3514) NON-REACTIVE [id number] 00:00:00* Test Item Value Reference Range Interpretation Comme nts RPR RESULT (test code = 3501) NON-REACTIVE RPR TITER (test code = 3500) NOT INDIC. TITER [id number] 00:00:00* Test Item Value Reference Range Interpretation Comme nts RPR RESULT (test code = 3501) NON-REACTIVE RPR TITER (test code = 3500) NOT INDIC. TITER [id number] 00:00:00* Test Item Value Reference Range Interpretation Comme nts RPR RESULT (test code = 3501) NON-REACTIVE RPR TITER (test code = 3500) NOT INDIC. TITER CBC W/AUTO [id number] 00:00:00* Test Item Value Reference Range Interpretation [...] code = 1015) 302 K/UL CBC W/AUTO [id number] 00:00:00* Test Item Value Reference Range Interpretation [...] (test code = 1015) 302 K/UL LIPID [id number] 00:00:00* Test Item Value Reference Range Interpretation Comme nts CHOLESTEROL (test code = 2210) 145 MG/DL TRIGLYCERIDES (test code = 2232) 77 MG/DL HDL CHOLESTEROL (test code = 2220) 40 MG/DL CALC LDL CHOL (test code = 2237) 90 MG/DL RISK RATIO LDL/HDL (test cod e = 2238) 2.24 RATIO LIPID [id number] 00:00:00* Test Item Value Reference Range Interpretation Comme nts CHOLESTEROL (test code = 2210) 145 MG/DL TRIGLYCERIDES (test code = 2232) 77 MG/DL HDL CHOLESTEROL (test code = 2220) 40 MG/DL CALC LDL CHOL (test code = 2237) 90 MG/DL RISK RATIO LDL/HDL (test cod e = 2238) 2.24 RATIO HEMOGLOBIN [id number] 00:00:00* Test Item Value Reference Range Interpretation Comme nts HEMOGLOBIN A1c (test code = 06711) 4.9 % HEMOGLOBIN [id number] 00:00:00* Test Item Value Reference Range Interpretation Comme nts HEMOGLOBIN A1c (test code = 20223) 4.9 % HEMOGLOBIN [id number] 00:00:00* Test Item Value Reference Range Interpretation Comme nts HEMOGLOBIN A1c (test code = 64877) 4.9 % COMPREHENSIVE METABOLIC [id number] 00:00:00* Test Item Value Reference Range Interpretation Comme nts GLUCOSE (test code = 2217) 86 MG/DL BUN (test code = 2208) 9 MG/DL CREATININE (test code = 2214) 0.69 MG/DL eGFR AMER. (test code = 20453) (NOTE) ML/MIN/1.73 eGFR NON- AMER. (test code = 67814) NO CALC ML/MIN/1.73 CALC BUN/CREAT (test code [...] code = 2219) 12 U/L COMPREHENSIVE METABOLIC [id number] 00:00:00* Test Item Value Reference Range Interpretation Comme nts GLUCOSE (test code = 2217) 86 MG/DL BUN (test code = 2208) 9 MG/DL CREATININE (test code = 2214) 0.69 MG/DL eGFR AMER. (test code = 91363) (NOTE) ML/MIN/1.73 eGFR NON- AMER. (test code = 91803) NO CALC ML/MIN/1.73 CALC BUN/CREAT (test code [...] ALT (test code = 2219) 12 U/L History and Physical Notes Date/Time Note Provider Source 2023-09-01 08:26:26 4783-30-25T18:26:26F ormatting of this note is different from the original.TRIAGE/L&D HISTORY & PHYSICALIDENTIFYING DATAEmgustavo Wilkes is 17 year old, /White, 39w0d, female with DOUGLAS 09/08/2023, by Ultrasound.: 2004MRN: [id number] Care Physician: PATIENT DOES NOT HAVE A PCPCHIEF COMPLAINTTerm gestationHISTORY OF PRESENT ILLNESSEmgustavo Wilkes is a 17 year old w/ PMHx of asthma, bipolar, anxiety, at 39w0d who presents for IOLPatient denies vaginal bleeding, denies leakage of fluid, denies contractions.Patient denies headache, admits nausea denies vomiting, denies RUQ pain, denies visual abnormalities.Endorses normal movement.PAST OBSTETRIC HISTORYOB HistoryGravida Para Term AB Slcahe6IVV IAB Ectopic Multiple Live Births# Outcome Date GA Lbr Young/2nd Weight Sex Delivery Anes PTL Lv1 CurrentPAST MEDICAL HISTORYProblem list:Patient Active Problem ListDiagnosis Date Noted39 weeks gestation of 09/01/2023GBS (group B Streptococcus carrier), +RV culture, currently 4Polyhydramnios, antepartum complication 07/24/2023Heartburn during in third trimester 3Declines flu vaccine 05/29/2023Rh negative state in antepartum period 01/16/2023Maternal varicella, non-immune 01/16/2023History of bipolar disorder 01/15/2023Morbid obesity 3Penicillin allergy 01/15/2023Operations: No past surgical history on file.Past Medical History:Diagnosis DateAnxietyno medication at this timeAsthmaBipolar depressionno medication at this timeCURRENT HEALTH STATUSMedications:Current Facility-Administered MedicationsMedication Dose Route Frequency Last Rate Last YsragC3O-BV IV infusion 1,000 mL 1,000 mL IV Infusion TITRATE 125 mL/hr at 09/01/23 0906 1,000 mL at 09/01/23 0906lactated ringers IV infusion 500 mL 500 mL IV Infusion PRN - SEE INSTRUCTIONSlidocaine 1% (PF) (XYLOCAINE) injection 0.3 mL 0.3 mL Infiltration PRN - SEE INSTRUCTIONSlidocaine 1% (XYLOCAINE) 10 mg/mL (1 %) injection 50 mL 50 mL Infiltration PRN - SEE INSTRUCTIONSoxytocin (PITOCIN) 30 units in NS 500 mL IV infusion 2-40 ruddy-units/min IV Infusion TITRATEsodium citrate-citric acid (BICITRA) 500-334 mg/5 mL solution 30 mL 30 mL Oral PRE-PROCEDURE ONCEvancomycin (VANCOCIN) 1,500 mg in NaCl 0.9% (NS) 500 mL VIAL-MATE IV piggyback 20 mg/kg IV Piggyback Q8H ABXAllergies and drug reactions: Aspirin and PenicillinHOME MEDICATIONSMedications Prior to AdmissionMedication Sig Dispense Refill Last DosecephALEXin (KEFLEX) 500 mg capsule Take 1 capsule by mouth 4 (four) times daily for 10 days. 40 capsule 0famotidine (PEPCID) 20 mg tablet Take 1 tablet by mouth in the morning and 1 tablet in the evening. 60 tablet 2prenatal vit 24-pfyz-jlist-dha (SELECT-OB + DHA) 29 mg iron-1 mg -250 mg combo pack Take 1 Packet by mouth in the morning. 60 Each 6proMETHazine 25 mg tablet Take 1 tablet by mouth every 4 (four) hours as needed for Nausea and Vomiting (N/V). 30 tablet 2SOCIAL HISTORYTobacco History:Social HistoryTobacco UseSmoking Status FormerTypes: CigarettesQuit date: 2020Years since quittin.0Smokeless Tobacco NeverDrug History:Social HistorySubstance and Sexual ActivityDrug Use NeverAlcohol History:Social HistorySubstance and Sexual ActivityAlcohol Use NeverFAMILY HISTORYFamily HistoryProblem Relation Age of OnsetDiabetes MotherDepression MotherCancer MotherstomachHigh cholesterol FatherDepression FatherREVIEW OF SYSTEMSGeneral: negativeSkin: negativeHEENT: negativeNeck: negativeHEME: negativeResp: negativeCardio: negativeGI: negativeGU: negativeEndo: negativeNeuro: negativeBack: negativeMSS: negativePsych: negativeVITAL SIGNSBP: (111-141)/(58-97)Temp: [36.6 ?C (97.9 ?F)]Temp source: Axillary (09/01 1000)Pulse: [55-76]Resp: [16-18]SpO2: [92 %-98 %]Height: [162.6 cm (5' 4.02")]Weight: [154.7 kg (341 lb)]BMI (calculated): [58.5]PHYSICAL EXAMINATIONSGeneral: patient alert and in no acute distressHEENT: symmetric, negative for massesLungs: unlabored breathingCardiology: peripheral pulses intact and regularAbdomen: soft, non-tender, non-distended, no liver, spleen or abnormal masses palpated and GravidExtremities: no clubbing, cyanosis, or edemaNeuro: patient moving all extremities, no facial droopGU: SVE 10/05/3REVIEW OF LABORATORY, PATHOLOGY, AND RADIOLOGY DATALab results:Type & ScreenLab ResultsComponent Value Date/TimeIABORH A NEGATIVE 09/01/2023 09:06 AMIAT Negative 09/01/2023 09:06 AMSerologiesLab ResultsComponent Value Date/TimeVZVIGG Equivocal 01/15/2023 02:08 AMRUBG Positive 01/15/2023 02:08 AMSYPIGG Non-reactive 07/15/2023 03:44 PMHBSAG Negative 09/01/2023 09:06 AMHBSAG 0.08 09/01/2023 09:06 AMChlamydiaLab ResultsComponent Value Date/TimeVCAA Negative 08/12/2023 03:56 PMGroup B StrepLab ResultsComponent Value Date/TimeCGB Positive (A) 08/12/2023 03:56 PMGTTLab ResultsComponent Value Date/GsjtGRUM0BZ 78 (L) 05/29/2023 11:40 AMCBCLab ResultsComponent Value Date/TimeHGB 12.2 08/12/2023 03:00 PMHCT 36.8 08/12/2023 03:00 PMPLT 334 08/12/2023 03:00 PMActive Hospital ProblemsDiagnosis Date Noted39 weeks gestation of 09/01/2023GBS (group B Streptococcus carrier), +RV culture, currently 08/14/2023olyhydramnios, antepartum complication 3Declines flu vaccine 05/29/2023Rh negative state in antepartum period 01/16/2023Maternal varicella, non-immune 01/16/2023enicillin allergy 01/15/2023Resolved Hospital ProblemsNo resolved problems to display.Present on Admission:39 weeks gestation of pregnancyPenicillin allergyRh negative state in antepartum periodMaternal varicella, non-immuneDeclines flu vaccineGBS (group B Streptococcus carrier), +RV culture, currently Polyhydramnios, antepartum complicationASSESSMENT AND PLANEmily Felicita is a 17 year old at 39w0d by d/u (10) who presents for term gestation.IOL- (neg) VB, (neg) LOF, (neg) CTX, (pos) FM- SVE: 10/05/3- Contractions (number / 10 minute): 1- Plan: Admit for IOL, cervical ripening w/ FB and low dose pitocinGHTN r/o preE- mild ranging BP noted in clinic visits w/ normotensive repeats. Mild ranging BP noted on admission, preE labs sent.Hx of SA- pt reports SA several years ago not from current SO.- pt asked safety questions w/o family present- reports feeling safe w/ boyfriend and wants him in the room.Bipolar depressionAnxiety- diagnosed >5+ years ago, not on medications- mood stable todayAsthma- reports hx of childhood asthma, last use of inhaler 1 year ago with infrequent use. Denies any hospitalizations.GBS- positive on pcr. PCN allergy w/ hives <10 years ago, clindamycin resistant.- plan: vancomycin intrapartumRH negative- Rhogam given 06/19/2023- Plan: will re-assess post partumPolyhydramnios- first noted 07/23/2023 on MFM US MICHELE of 29- improvement throughout , most recent MICHELE of 26.75 08/29/23Antepartum course reviewed- 1 h 78, sero negative, Rimmune, VZVnot immune, HPV not immune, A negative/IAT negative, GBS positive, Pap N/A- H/H, plt: 12.2 / 36.8, 334 on 08/12/2023- PP control plan: Counseled and declines.- Darren RMCHPFetus- Presentation on admission: cephalic- anterior placenta- EFW: 3423 g, 49%tile- FHT reactive and reassuring- Normal anatomy scanD/w Dr. Enio William MD ssociated attestation - Nate Chinchilla MD - 09/01/2023 11:14 AM CST I personally examined the patient on 09/01/[address] William's resident note as written. I actively participated in the decision-making process. Please see the resident's note for additional details.23379-9Pgtdjvd and physical [id number], Sangeeta1.2.840.884343.1.13.104.2.7.2.8369 03GgfyObtdqontJR3168-83-90E16:14:54History and physical noteTXT1.2.840.172331.1.13.104.2.7.2.13047 9|[id number] for patient jtew45569-9Gxnswez and physical noteLNNARRATIVEFormatted C-CDA narrative text[address] Ob[id number] LRAKDKSCZWTPBVHP7078-13-39C19:14:541.2.840 .988476.1.72.3.15|1.2.840.082554.1.13.104. 2.7.2.727879_[id number] [facility] Procedure Notes Date/Time Note Provider Source 2023-09-01 14:08:54 2112-59-61R74:08:54Associated Order(s): Central Neuraxial Block Central Neuraxial BlockDate/Time: 09/01/2023 2:08 PMPerformed by: Syeda Middleton MDAuthorized by: Jumana Denson MDPatialfredo Location: OBReason for Block: OB request, Patient request, Labor analgesia, Surgical anesthesia and Post-op pain managementStaff:Anesthesiologist: Jumana Denson MDResident/HEAD OF TALENT MANAGEMENT: Melanie Toth, MDPerformed by: resident/CRNAPreanesthetic Checklist: patient identified, IV checked, risks and benefits explained, monitors and equipment checked, timeout performed, pre-op evaluation, site marked and anesthesia consentProcedure:Type of Neuraxial: EpiduralSterility Prep cap, drape, gloves, hand hygiene and maskSedation Level no sedationPatient Position: sittingPrep: Betadine and patient drapedMonitoring: heart rate, continuous pulse ox, heart rate / toco and NIBPLocation: lumbar (1-5)Lumbar: L3-Y8Gltcfrsg: midlineTechnique: catheter and BUD salineGuidance with: landmark technique}Epidural/Spinal [place] and/or Catheter:Epidural/Spinal Kit: BBraunNeedle Type: TuohyNeedle Gauge: 17 GNeedle Length: 3.5 in (8.89 cm)Needle Insertion Depth: 9Catheter Type: multiportCatheter Size: 19 GCatheter at Skin Depth: 14Number of Attempts: 3Test Dose: lidocaine 1.5% with epinephrine 1-to-200,000Dose: 3 ccCatheter Securement Method: surgical tape, Tegaderm, liquid medical adhesive and clear occlusive dressingAssessment:Block Outcome: a full evaluation is pending and patient tolerated procedure wellProcedure Assessment: patient tolerated procedure well with no complications 86549-3Wzvytuobuapocr procedure wnukJD2044-70-44F68:09:47Anesthesiol ogy procedure noteTXT1.2.840.128714.1.13.104.2.7.2 .753742|[id number] for patient pkqb42759-2Hkxvbver operation noteLNNARRATIVEFormatted C-CDA narrative daodZN-JITMUMYBTUBEMAHB-TDIUKCOSILSJ [id number] XMPGDENZDOZLKBZOOODLJH7364-86-69U22: 09:471.2.840.513723.1.72.3.15|1.2.84 0.884647.1.13.104.2.7.2.727879_[id number] AN-ANESTHESIOLOGY [facility] Notes Date/Time Note Provider Source 2023-09-18 11:39:51 4019-84-79I21:39:51 I spoke with this patient about her breast pump last week and she said everything was fixed. This morning I put in her correct information with the breast pump company. No further action is required from our staff. 95378-2Thkeuskhe encounter YxhfIW8005-13-35C00:41:04Telephone encounter NoteTXT1.2.840.857079.1.13.104.2.7.2.7 17281|[id number] for patient ycms17490-5MnluBMDCAVVQOMRXmoysveaj C-CDA narrative [id number] R [id number] RPDNVFPVTWQBOXJCKLJI7654-44-74P74:41:0 41.2.840.423958.1.72.3.15|1.2.840.1143 50.1.13.104.2.7.2.727879_[id number] Yaneli Hannah Enrique [facility] 2023-09-12 16:18:26 0105-83-74F78:18:26 Will forward to Ms. Groves. 72123-6Atndxygyf encounter GhozOI2090-34-16C96:18:40Telephone encounter NoteTXT1.2.840.514348.1.13.104.2.7.2.7 79207|[id number] for patient ysui71272-0BaexDJDIHSZVSCJWdxozuohz C-CDA narrative jyuu38947901Dyynzkg [id number] DJFLYNXRNPKGMUBIOVAB6787-83-01U19:18:4 01.2.840.796046.1.72.3.15|1.2.840.1143 50.1.13.104.2.7.2.727879_[id number] Roland Allen [facility] 2023-09-11 15:12:11 3582-80-47A32:12:11 John Wilkes is a 17 year old femalePt is calling to speak with the clinic and check the status of her breast pump forms. 65414-3Mkwecdqak encounter TotmLV6504-82-19O89:13:57Telephone encounter NoteTXT1.2.840.728616.1.13.104.2.7.2.7 31356|[id number] for patient sisi79322-9VmsnWKJWCZEVIDECydeynbbg C-CDA narrative [id number] P Robinson[address] NavzMpzfpdlcoRzkunwzvbFKZI1504529725LE VRAYJJMZCNCKDOVTXAPN3465-59-71M12:13:5 71.2.840.482379.1.72.3.15|1.2.840.1143 50.1.13.104.2.7.2.727879_[id number] Jarrell Sousa [facility] 2023-09-03 22:09:25 0732-52-95U35:09:25 Problem: Intrapartum process (including labor pain)Goal: Absence of or reduction of complications of laborOutcome: Progressing as expectedGoal: Able to cope with painOutcome: Progressing as expectedGoal: Adequate to move to next level of careOutcome: Progressing as expectedGoal: Reduction in pain sensationOutcome: Progressing as expectedProblem: Falls, Risk ofGoal: Absence of fallsOutcome: Progressing as expectedProblem: PainGoal: Control of pain at or below patient's documented comfort goalOutcome: Progressing as expectedGoal: Reduction in pain sensationOutcome: Progressing as expectedProblem: Discharge Planning - PostpartumGoal: Adequate for dischargeOutcome: Progressing as expectedGoal: Mood stableOutcome: Progressing as expectedProblem: Infection RiskGoal: Absence of infectionOutcome: Progressing as expected 58996-5Ktbd of care byvrHE3529-70-47W72:09:33Plan of care noteTXT1.2.840.713465.1.13.104.2.7.2.7 32164|[id number] for patient swfw55511-4EalgJFJOTZPNGQXSfoymfnij C-CDA narrative [id number] Brown RN[id number] DEMPGZZVPDKRXEGFGPSU8937-80-60K04:09:3 31.2.840.307133.1.72.3.15|1.2.840.1143 50.1.13.104.2.7.2.727879_[id number] Ingrid Kothari RN [facility] 2023-09-03 16:11:15 9657-71-97O33:11:15 Problem: Falls, Risk ofGoal: Absence of fallsOutcome: Progressing as expectedProblem: PainGoal: Control of pain at or below patient's documented comfort goalOutcome: Progressing as expectedGoal: Reduction in pain sensationOutcome: Progressing as expectedProblem: Discharge Planning - PostpartumGoal: Adequate for dischargeOutcome: Progressing as expectedGoal: Mood stableOutcome: Progressing as expectedProblem: Infection RiskGoal: Absence of infectionOutcome: Progressing as expected 69491-3Txff of care ecdaEU5209-95-96U60:11:19Plan of care noteTXT1.2.840.103793.1.13.104.2.7.2.7 46072|[id number] for patient ryuc00984-3GvxpDQSCTZRMPTHAwoevjydv C-CDA narrative [id number] Sanchez RNUT[address] Lw[id number] HIBSOJARDEWKLLHRYNSW8673-55-41A38:11:1 91.2.840.668652.1.72.3.15|1.2.840.1143 50.1.13.104.2.7.2.727879_[id number] Kirstin Reaves RN [facility] 2023-09-03 15:43:01 5592-82-93V70:43:01 Images from the original note were not included.This note was copied from a baby's chart. Assessment (most recent) Assessment - 09/03/23 1515General InformationVisit InitialPercent of weight loss- Infant 0Number of voids last 24 hours- 2Number of stools last 24 hours- Infant 3Mom's age (years) 17 yearsGestational age 39 weeksGravida 1Parity 1Living Children 1Feeding plan FormulaAttended class NoBreastfeed previously NoDelivery method C-sectionLiterature ResourcesResources -- How to Dry Up a Milk SUpplyEducation Benefits of breastmilk;Benefits of skin to skin contact;Paced bottle feeding;Safe formula preparation;Risks of mastitis and signs, seek medical attention immediately;Engorgement signs and treatmentHandouts given EnglishRecommended Feeding PlanRecommended feeding plan -- Formula feed as directed by medical staffOTHER$ SERVICES InitialGodwin SALDIVAR RN, IBCLC 71395-6Fvjmnpqagd MwuzFK5267-79-42E31:43:25Obstetrics NoteTXT1.2.840.364688.1.13.104.2.7.2.7 30929|[id number] for patient bhfe12172-6AftmWRGNATORXIDHgkcddumm C-CDA narrative [id number] A Neeley RNUT[id number] BKMEVNSBKYEQKJWTUBZY0654-13-10J70:43:2 51.2.840.537629.1.72.3.15|1.2.840.1143 50.1.13.104.2.7.2.727879_[id number] Godwin Andrade RN [facility] 2023-09-03 11:45:00 2169-03-98O04:45:00 This note was copied from a baby's chart.Consult was attempted. Mom was asleep. Will attempt consult at a later time.Godwin SALDIVAR, RN, IBCLC 70279-5Ntevwxtnxg ObiwOP6149-54-96R81:21:44Obstetrics NoteTXT1.2.840.552432.1.13.104.2.7.2.7 43926|[id number] for patient cbhn67324-4SajjVIQYHPMUZYGCzhckladb C-CDA narrative text[address] [id number] IYOPOZVZBNAQMKXLCUGF3414-91-29U83:21:4 41.2.840.193232.1.72.3.15|1.2.840.1143 50.1.13.104.2.7.2.727879_[id number] [facility] 2023-09-03 02:34:53 9415-73-15Q34:34:53 Problem: Falls, Risk ofGoal: Absence of fallsOutcome: Progressing as expectedProblem: PainGoal: Control of pain at or below patient's documented comfort goalOutcome: Progressing as expectedGoal: Reduction in pain sensationOutcome: Progressing as expectedProblem: Discharge Planning - PostpartumGoal: Adequate for dischargeOutcome: Progressing as expectedGoal: Mood stableOutcome: Progressing as expectedProblem: Infection RiskGoal: Absence of infectionOutcome: Progressing as expected 88863-1Qorp of care qdbjIT2813-26-11U69:35:01Plan of care noteTXT1.2.840.423908.1.13.104.2.7.2.7 26568|[id number] for patient dwoi26535-7TgdtGFCQVPRQHVQKyfoakcja C-CDA narrative [id number] H Dinh RN[id number] LEKRHDCEAPHLTTYCCBSD6770-38-34X90:35:0 11.2.840.672024.1.72.3.15|1.2.840.1143 [id number] Sabine Martinez RN [facility] 2023-09-02 13:43:19 2981-27-55R00:43:19 Intrapartum Progress Note09/02/2023 1:43 PMSubjective: Patient has no complaintsObjective:Vitals last 24 hours:Temp: [36.4 ?C (97.5 ?F)-37.7 ?C (99.9 ?F)] 37.6 ?C (99.6 ?F)Pulse: [56-112] 82Resp: [16-18] 18BP: (90-147)/(46-84) 90/56Intake/Output :I/O this shift:In: 3443.2 [I.V.:124.9]Out: 200 [Urine:200]I/O last 3 completed shifts:In: 1099.7 [I.V.:4.9]Out: 1400 [Urine:1400] AssessmentActive movement: YesMode: EFMUterine Activity:Mode: IUPCContractions (number / 10 minute): 4Contraction duration (seconds): 80-90Resting tone: Soft, PalpationMembrane StatusMembrane status: ArtificialRupture date: 09/02/23Rupture time: 0110Amniotic fluid color: Mec ThickCervical Exam8 / 90 % / 0Assessment/Plan:John Wilkes is a 17 year old at 76m3bGN Assessment: IOL, asthma, GBS, GHTNOB Plan: s/p FB/LDP, Pit@2200, VancAdditional Comments/Detail: Strip reviewed with Dr. Moreno. Patient currently on 2 of pitocin with minimal variability. FHT looked better when pitocin was off, patient made change from /-1. Plan to turn pitocin off and reassess SVE in two hours.Ripening Agent: Oxytocin, Spicer bulbChelsea MD Mario AlbertoOb-Cell Room Supervisor [id number] signed by Safia Llanes at 09/02/2023 1:44 PM [id number] jrejVX1041-30-72Q94:44:06Progress noteTXT1.2.840.847293.1.13.104.2.7.2.7 40417|[id number] for patient jast99662-3YrfwNLVQUBYCGRIPzbehplav C-CDA narrative text[address] Il[id number] UQIUWUGHUWMAUIJHBSMW1819-41-05P42:44:0 61.2.840.030870.1.72.3.15|1.2.840.1143 50.1.13.104.2.7.2.727879_[id number] [facility] 2023-09-02 10:48:35 5193-78-11C56:48:35 Intrapartum Progress Note09/02/2023 10:48 AMSubjective: Patient has no complaintsObjective:Vitals last 24 hours:Temp: [36.4 ?C (97.5 ?F)-37.7 ?C (99.9 ?F)] 37.4 ?C (99.3 ?F)Pulse: [56-112] 86Resp: [16-18] 18BP: (94-147)/(46-83) 109/58Intake/Output :I/O this shift:In: 3438.3 [I.V.:119.9]Out: -I/O last 3 completed shifts:In: 1099.7 [I.V.:4.9]Out: 1400 [Urine:1400] AssessmentActive movement: YesMode: EFMUterine Activity:Mode: IUPCContractions (number / 10 minute): 5Contraction duration (seconds): 60-80Resting tone: Soft, PalpationMembrane StatusMembrane status: ArtificialRupture date: 09/02/23Rupture time: 0110Amniotic fluid color: Mec ThickCervical Exam6 / 90 % / -1Assessment/Plan:John Wilkes is a 17 year old at 18w6nHF Assessment: IOL, asthma, GBS, GHTNOB Plan: s/p FB/LDP, Pit@2200, VancAdditional Comments/Detail: First time patient called active, previously 5cm. Patient requesting to discuss , counseled on continuing IOL vs PCS for maternal request, patient would like to talk to her parrtner at this time. FHT improved with pitocin offRipening Agent: Oxytocin, Spicer bulbIntrapartum Plan: Continue cervical ripeningChelscole Llanes MDOb-Cell Room Supervisor [id number] signed by Safia Llanes at 09/02/2023 10:48 AM [id number] vbzwIU9777-24-79G20:48:51Progress noteTXT1.2.840.222046.1.13.104.2.7.2.7 71293|[id number] for patient ojhh71468-5YqkdVCUQDJQNBWFOceynosyp C-CDA narrative textUTMBUTMB - [address] Ks[id number] AFPGHMHEDHOCBYLJXKWO5550-78-77Z61:48:5 11.2.840.058008.1.72.3.15|1.2.840.1143 50.1.13.104.2.7.2.727879_[id number] [facility] 2023-09-02 01:24:00 6327-50-81N83:24:00 Intrapartum Progress Note09/02/2023 1:24 AMSubjective: Patient has no complaintsObjective:Vitals last 24 hours:Temp: [36.4 ?C (97.5 ?F)-37.1 ?C (98.8 ?F)] 37.1 ?C (98.8 ?F)Pulse: [55-109] 109Resp: [16-18] 17BP: (96-141)/(46-97) 107/54Intake/Output :I/O this shift:In: -Out: 1400 [Urine:1400]I/O last 3 completed shifts:In: 1099.7 [I.V.:4.9]Out: - AssessmentActive movement: YesMode: EFMUterine Activity:Mode: TocoContractions (number / 10 minute): 0Contraction duration (seconds): 80-100Resting tone: Soft, PalpationMembrane StatusMembrane status: ArtificialCervical Exam5 / 75 % / -3Assessment/Plan:John Wilkes is a 17 year old at 35t6eVX Assessment: IOL, asthma, GBS, GHTNOB Plan: s/p FB/LDP, Pit@2200, vancAdditional Comments/Detail: AROM thick meconiumRipening Agent: Oxytocin, Spicer bulbIntrapartum Plan: Continue [place] [address]-4Etifrbwt kwjqSA1185-80-64E48:24:05Progress noteTXT1.2.840.902606.1.13.104.2.7.2.7 09384|[id number] for patient ivnp70308-1IjatZMGWKRSIRASOidcpwysf C-CDA narrative textOG-OBSTETRICS & GYNECOLOGYOG-OBSTETRICS & GYNECOLOGYUTMarymount Hospital[address] Zk[id number] FEDPBTDCQCTHNXHHWZMG5076-67-71B16:24:0 51.2.840.964167.1.72.3.15|1.2.840.1143 50.1.13.104.2.7.2.727879_[id number] OG-OBSTETRICS & GYNECOLOGY [facility] 2023-09-01 21:51:57 3291-14-16U86:51:57 Intrapartum Progress Note09/01/2023 9:51 PMSubjective: Patient has no complaintsObjective:Vitals last 24 hours:Temp: [36.4 ?C (97.5 ?F)-36.8 ?C (98.2 ?F)] 36.7 ?C (98 ?F)Pulse: [55-82] 77Resp: [16-18] 17BP: (96-141)/(46-97) 122/69Intake/Output :I/O this shift:In: -Out: 1400 [Urine:1400]I/O last 3 completed shifts:In: 1099.7 [I.V.:4.9]Out: - AssessmentActive movement: YesMode: EFMUterine Activity:Mode: TocoContractions (number / 10 minute): 4Contraction duration (seconds): 70-80Resting tone: Soft, PalpationMembrane StatusMembrane status: IntactCervical Exam5 / 75 % / BallotableAssessment/Plan:John Wilkes is a 17 year old at 52v1gJK Assessment: IOL, asthma, GBS, GHTN r/o PreEOB Plan: s/p FB/LDP, Pit@__, vancAdditional Comments/Detail: FB out at this time. Ballotable on examination. Will start pitocin titration and assess for AROM at a later time.Ripening Agent: Oxytocin, Spicer bulbIntrapartum Plan: [place] [address]-3Jthsqxnh zfbqJW6173-37-24N08:52:01Progress noteTXT1.2.840.837883.1.13.104.2.7.2.7 30928|[id number] for patient imnu63597-6DsseTDOAIXTIBABJlxyfxqym C-CDA narrative text[id number] LIITQJSYSWHWYGDNIXRJ7715-98-09B94:52:0 11.2.840.860661.1.72.3.15|1.2.840.1143 50.1.13.104.2.7.2.727879_[id number] [facility] 2023-09-01 21:26:00 9535-02-74B13:26:00 Problem: Intrapartum process (including labor pain)Goal: Absence of or reduction of complications of laborOutcome: Progressing as expectedGoal: Able to cope with painOutcome: Progressing as expectedGoal: Adequate to move to next level of careOutcome: Progressing as expectedGoal: Reduction in pain sensationOutcome: Progressing as expectedProblem: Falls, Risk ofGoal: Absence of fallsOutcome: Progressing as expected 39577-9Jeiw of care yufjMM6760-65-67Y42:26:03Plan of care noteTXT1.2.840.877159.1.13.104.2.7.2.7 61312|[id number] for patient nmfe48016-3PpicYIJYDKDGMWHXnyqbqajh C-CDA narrative text[id number] YCGERUARGPXJKRJSEESF7090-82-35P92:26:0 31.2.840.303078.1.72.3.15|1.2.840.1143 50.1.13.104.2.7.2.727879_[id number] [facility] 2023-09-01 13:18:49 1053-18-28C22:18:49 Name/ MRN / Age / Gender:John Wilkes, 164111P13 year old femaleBMI:Estimated body mass index is 58.5 kg/m? as calculated from the following:Height as of this encounter: 1.626 m (5' 4.02").Weight as of this encounter: 154.7 kg (341 lb).Allergies:Aspirin and PenicillinLast Vitals:BP Readings from Last 1 Encounters:09/01/23 115/78Pulse Readings from Last 1 Encounters:09/01/23 68SpO2 Readings from Last 1 Encounters:09/01/23 94%Date of Surgery: 09/01/2023Surgeon: * No surgeons listed *Procedure: CENTRAL NEURAXIAL BLOCKOR Location: [facility] OUT [facility] OR - OR LOCATIONAnesthesia Preop Eval (physical exam)Anesthesia Preop: Chart Review and Nvsu-ps-WjhdAZHP Risk Factors: femaleAnesthesia HistoryAnesthesia History Negative(-) Hx of anesthetic complicationsPrevious Anesthetics/AirwaysCardiovascularNegat jacqui Cardiac ROSComments:BP Readings from Last 3 Encounters:09/01/23 : 115/ : 121/ : 125/69(-) Patient reports no hx of cardiac problems(-) DyslipidemiaPulmonary(+) Asthma (no inhaler use in the last yeaar, no hospitalizations)(-) Tobacco useNeuro/Musculoskeletal(-) CVA(-) Seizures(+) Psychiatric history and bipolar(+) Anxiety(-) Spinal Cord injury(-) Positioning limitations(+) Obesity and super morbid obesityGI/HepaticNegative GI/Hepatic ROSComments:Liver Function PanelALTv (U/L)Date Value09/01/2023 14 AST(SGOT) (U/L)Date Value09/01/2023 25 HematologyComments:CBCWBC (10*3/?L)Date Value09/01/2023 8.74 RBC (10*6/?L)Date Value09/01/2023 3.96 (L) PLT (10*3/?L)Date Value09/01/2023 341 HGB (g/dL)Date Value09/01/2023 11.7 (L) HCT (%)Date Value09/01/2023 34.6 (L) (+) AnemiaRenalNegative Renal ROSComments:BMPCREATININE (mg/dL)Date Value09/01/2023 0.40 (L) (-) Renal diseaseSkin(+) Current IV accessEndo/OtherNegative Endo/Other ROSComments:No results found for: "HGBA1C"There are no current results on file for these tests and/or test for 1 year.Other(-) Tobacco useOB/GYNComments:John Wilkes is a 17 year old at 39w0d by d/u (10) who presents for term gestation.IOL- (neg) VB, (neg) LOF, (neg) CTX, (pos) FM- SVE: 10/05/-3- Contractions (number / 10 minute): 1- Plan: Admit for IOL, cervical ripening w/ FB and low dose pitocinGHTN r/o preE- mild ranging BP noted in clinic visits w/ normotensive repeats. Mild ranging BP noted on admission, preE labs sent.Hx of SA- pt reports SA several years ago not from current SO.- pt asked safety questions w/o family present- reports feeling safe w/ boyfriend and wants him in the room.Bipolar depressionAnxiety- diagnosed >5+ years ago, not on medications- mood stable todayAsthma- reports hx of childhood asthma, last use of inhaler 1 year ago with infrequent use. Denies any hospitalizations.GBS- positive on pcr. PCN allergy w/ hives <10 years ago, clindamycin resistant.- plan: vancomycin intrapartumRH negative- Rhogam given 06/19/2023- Plan: will re-assess post partumPolyhydramnios- first noted 07/23/2023 on MFM US MICHELE of 29- improvement throughout , most recent MICHELE of 26.75 08/29/23Antepartum course reviewed- 1 h 78, sero negative, Rimmune, VZVnot immune, HPV not immune, A negative/IAT negative, GBS positive, Pap N/A- H/H, plt: 12.2 / 36.8, 334 on 08/12/2023- PP control plan: Counseled and declines.- Darren PETERSCHPFetus- Presentation on admission: cephalic- anterior placenta- EFW: 3423 g, 49%tile- FHT reactive and reassuring- Normal anatomy scan(+) Gestational hypertensionPediatricPediatric N/ANeonatalNeonatal N/APreoperative Medication InstructionsContinue taking all prescribed medications except:BIPIN inhibitors, ARBs, diuretics, all oral diabetes medicationsAnticoagulant Therapy: Defer to surgeonsInsulin: Take 1/2 dose the night prior to surgery. Hold on DOS.Phentermine: Alert [facility] anesthesiologistSGLT2 Inhibitors: "gliflozins" to be held for 3 days prior to elective surgeriesGLP1 Agonosit: stop 7 days prior to surgeryMAC Cases: Continue taking BIPIN inhibitors and ARBsASA ClassificationASA: 3Current Medications:No outpatient medications have been marked as taking for the 09/01/23 encounter (Hospital Encounter).Previous Surgeries: No past surgical history on file.Anesthesia Physical ExamGeneralno apparent distress and alert and oriented x 3Neuro/PsychneurologicalDentalno notable dental hxAbdominal(+) obesity, abdomen soft and gravidAirwayMallampati score:IIITM distance:> 5 cmNeck ROM: fullMouth opening:normal(+) Normal faciesExtremityNormal extremityPulmonarypulmonary exam normal and bilateral clear to auscultation OtherCardiovascularcardiovascular exam normalRhythm:regularRate: normalAnesthesia PlanASA Status: 3Plan discussed during pre-op evaluation: General, Epidural, Spinal and CSEAnesthetic plan on DOS: EpiduralAnesthesia plan discussed with: patient or representativePost-Operative Analgesia: routine analgesia & antiemeticsRecovery Plan: LDRAdditional comments: 43405-6Knaohnxwbenaix Preoperative evaluation and management bmkpWD4143-83-94A47:55:31Anesthesiolog y Preoperative evaluation and management noteTXT1.2.840.555316.1.13.104.2.7.2.7 88525|[id number] for patient azgd84822-3Kbtjnmtk operation noteLNNARRATIVEFormatted C-CDA narrative textAN-ANESTHESIOLOGY ANESTHESIOLOGISTAN-ANESTHESIOLOGY ANESTHESIOLOGIST[address] [id number] YLWUYCEVULVTOWSZSACN4808-79-73K82:55:3 11.2.840.455266.1.72.3.15|1.2.840.1143 50.1.13.104.2.7.2.727879_[id number] AN-ANESTHESIOLOGY ANESTHESIOLOGIST [facility] 2023-09-01 09:19:37 0529-45-32G72:19:37 Problem: Intrapartum process (including labor pain)Goal: Absence of or reduction of complications of laborOutcome: Progressing as expectedGoal: Able to cope with painOutcome: Progressing as expectedGoal: Adequate to move to next level of careOutcome: Progressing as expectedGoal: Reduction in pain sensationOutcome: Progressing as expected 37185-4Nfou of care mzucIO0026-18-47Q43:19:56Plan of care noteTXT1.2.840.578480.1.13.104.2.7.2.7 86602|[id number] for patient wvla61880-0HbllFCWTLUSQBRNAxblcavsi C-CDA narrative [id number] VILLALOBOS[id number] AEAYKKTWENFFHICKOAGI1349-89-98R02:19:5 61.2.840.683693.1.72.3.15|1.2.840.1143 50.1.13.104.2.7.2.727879_[id number] Stacy Esquivel RN [facility]
[2024-02-02 23:40] LABS: Specific Gravity > 1.030 (1.005-1.030)
[2024-02-02 23:45] LABS: Specific Gravity > 1.030 (1.005-1.030); Sqamous Epithelial <5 /HPF (None Seen); Urine Bacteria None Seen /HPF (<20); Urine Bilirubin NEGATIVE (Negative); Urine Blood 3+ (Negative); Urine Clarity Turbid (Clear); Urine Color Light-Yellow (Yellow); Urine Culture Reflex Order NOT NEEDED; Urine Glucose NEGATIVE (Negative); Urine Ketones NEGATIVE (Negative); Urine Microscopic Reflex YN ORDER UMIC; Urine Mucus Slight /HPF (None Seen); Urine Nitrite NEGATIVE (Negative); Urine Protein 1+ (Negative); Urine RBC 21-50 /HPF (None Seen); Urine Urobilinogen Normal (Normal); Urine WBC <5 /HPF (<5)
[2024-02-03] MEDS ORDERED: ONDANSETRON 4 MG/2 ML VIAL ONE (00:33)
[2024-02-03] MEDS ORDERED: MORPHINE 4 MG/ML SYR ONE (00:33)
[2024-02-03 00:59] LABS: Absolute Eosinophils 0.2 K/uL (0-0.5); Absolute Lymphocytes (CBC) 3.2 K/uL (0.7-4.9); Absolute Monocytes 0.7 K/uL (0.1-1.3); Absolute Neutrophil 6.7 K/uL (1.8-8.0); Basophils % 0.5 % (0-1.3); Eosinophils % 1.5 % (0-4.4); Hematocrit 36.6 % (36.0-45.0); Hemoglobin 12.4 g/dL (12.0-15.0); Lymphocytes % 29.9 % (15.3-44.8); MCH 27.2 pg (27.0-35.0); MCHC 33.9 g/dL (32.0-36.0); MCV 80.2 fL (80-100); MPV 7.8 fL (7.6-11.3); Monocytes % 6.2 % (3.3-12.3); Neutrophils % 61.9 % (41.7-73.7); Platelets 384 thou/uL (152-406); RBC Red Blood Cell Count 4.57 M/uL (3.86-4.86); Red Cell Distribution Width 15.5 % (12.1-15.2)
[2024-02-03 01:16] LABS: Albumin 3.4 g/dL (3.4-5.0); Albumin/Globulin Ratio 0.8 (1.1-1.8); Anion Gap 7.8 mEq/L (5.0-15.0); Bilirubin Total 0.3 mg/dL (0.2-1.0); Globulin 4.1 g/dL (2.3-3.5); Potassium 3.8 mEq/L (3.5-5.1); Protein, Total 7.5 g/dL (6.4-8.2)
--- NOTE | 2024-02-03 02:46 | ER ---
Nurse's Notes [facility] Name: Latanya Mims Age: 18 yrs Sex: Female : 2005 Arrival Date: 02/02/2024 Time: 21:48 Bed 24 Private MD: Diagnosis: Nausea;Abdominal pain, unspecified Presentation: 02/01 22:25 Chief complaint: Patient states: I have been having bad abd pain with severe nausea for bm8 four days. Coronavirus screen: At this time, the client does not indicate any symptoms associated with coronavirus-19. Ebola Screen: Patient negative for fever greater than or equal to 101.5 degrees Fahrenheit, and additional compatible Ebola Virus Disease symptoms Patient denies exposure to infectious person. Patient denies travel to an Ebola-affected area in the 21 days before illness onset. No symptoms or risks identified at this time. Initial Sepsis Screen: Does the patient meet any 2 criteria? No. Patient's initial sepsis screen is negative. Does the patient have a suspected source of infection? No. Patient's initial sepsis screen is negative. Risk Assessment: Do you want to hurt yourself or someone else? Patient reports no desire to harm self or others. Onset of symptoms was January 29, 2024 at 16:00. 22:25 Method Of Arrival: Ambulatory bm8 22:25 Acuity: CHEN 3 bm8 Triage Assessment: 22:26 General: Appears in no apparent distress. uncomfortable, Behavior is calm, cooperative, bm8 appropriate for age. Pain: Complains of pain in abdomen. EENT: No deficits noted. No signs and/or symptoms were reported regarding the EENT system. Neuro: No deficits noted. Level of Consciousness is awake, alert, obeys commands, Oriented to person, place, time, situation, Appropriate for age. Cardiovascular: Denies chest pain, shortness of breath, Capillary refill < 3 seconds Patient's skin is warm and dry. Respiratory: Airway is patent Trachea midline Respiratory effort is even, unlabored, Respiratory pattern is regular, symmetrical. GI: Reports lower abdominal pain, upper abdominal pain, nausea. RN FLOAT: 22:26 LMP 12/24/2023, unknown bm8 Historical: - Allergies: 22:26 Aspirin; bm8 22:26 PENICILLINS; bm8 - PMHx: 22:26 Anxiety; Asthma; Bipolar disorder; Depression; Seizures; bm8 - PSHx: 22:26 section; bm8 - Immunization history:: Adult Immunizations up to date. - Infectious Disease History:: Denies. Denies. - Social history:: Smoking status: Patient denies any tobacco usage or history of. Screenin/25 00:15 [facility] ED Fall Risk Assessment (Adult) History of falling in the last 3 months, kb3 including since admission No falls in past 3 months (0 pts) Confusion or Disorientation No (0 pts) Intoxicated or Sedated No (0 pts) Impaired Gait No (0 pts) Mobility Assist Device Used No (0 pt) Altered Elimination No (0 pt) Score/Fall Risk Level 0 - 2 = Low Risk Oriented to surroundings, Maintained a safe environment, Educated pt \T\ family on fall prevention, incl call for assistance when getting out of bed. Abuse screen: Denies threats or abuse. Denies injuries from another. Nutritional screening: No deficits noted. Tuberculosis screening: No symptoms or risk factors identified. Assessment: 00:15 General: Appears in no apparent distress. comfortable, Behavior is calm, cooperative. kb3 Pain: Complains of pain in suprapubic area Pain does not radiate. Pain currently is 7 out of 10 on a pain scale. : Reports pain in suprapubic area. 02:58 Reassessment: Patient appears in no apparent distress at this time. Patient and/or lg3 family updated on plan of care and expected duration. Pain level reassessed. Patient is alert, oriented x 3, equal unlabored respirations, skin warm/dry/pink. Patient states feeling better. Patient states symptoms have improved. Vital Signs: 02/01 22:25 BP 119 / 70; Pulse 80; Resp 17; Temp 97.7; Pulse Ox 99% ; Weight 143.34 kg; Height 5 bm8 ft. 2 in. ; Pain 7/10; 02/02 02:58 BP 121 / 76; Pulse 76; Resp 16 S; Temp 97.4(O); Pulse Ox 99% on R/A; lg3 02/01 22:25 Body Mass Index 57.80 (143.34 kg, 157.48 cm) - Percentile 99.5 % 8 02/01 22:25 Pain Scale: Adult 8 ED Course: 02/01 21:50 Patient arrived in ED. ra3 21:53 José Miguel Apodaca PA is PHCP. cp 21:53 Isaiah Jenkins MD is Attending Physician. cp 22:26 Triage completed. bm8 22:26 Arm band placed on right wrist. bm8 23:14 Initial lab(s) drawn, by me, sent to lab. Urine collected: clean catch specimen, jw7 cloudy. Inserted saline lock: 22 gauge in right antecubital area, using aseptic technique. Blood collected. 23:15 CBC with Diff Sent. jw7 23:15 CMP Sent. jw7 23:15 Lipase Sent. jw7 23:15 Test, Urine Sent. jw7 23:15 Urinalysis w/ reflexes Sent. jw7 02/02 00:15 Patient has correct armband on for positive identification. Placed in gown. Bed in low kb3 position. Call light in reach. Side rails up X 1. Provided Education on: Plan of care. 00:15 No provider procedures requiring assistance completed. kb3 00:48 CBC with Diff Sent. rc3 00:48 CMP Sent. rc3 00:48 Lipase Sent. rc3 01:[address] via stretcher. kb3 01:22 CT Abd/Pelvis - IV Contrast Only In Process Unspecified. EDMS 01:[address] Patient moved back from [address]. kb3 02:59 IV discontinued, intact, bleeding controlled, No redness/swelling at site. Pressure lg3 dressing applied. Administered Medications: 00:45 Drug: morphine IVP or IV 4 mg IVP once over 4 mins Route: IVP; Infused Over: 4 mins; lg3 Site: left forearm; 02:59 Follow up: Response: No adverse reaction; Marked relief of symptoms lg3 00:45 Drug: Ondansetron IVP 4 mg IVP once; over 2 minutes Route: IVP; Site: left forearm; lg3 02:59 Follow up: Response: No adverse reaction lg3 Medication: 00:15 VIS not applicable for this client. kb3 Outcome: 02:46 Discharge ordered by . cp 02:59 Discharged to home ambulatory, lg3 02:59 Condition: stable 02:59 Discharge instructions given to patient, Instructed on discharge instructions, follow up and referral plans. medication usage, Demonstrated understanding of instructions, follow-up care, medications, Prescriptions given X 2, 02:59 Patient left the ED. lg3 Signatures: Dispatcher [employer] ROYERRI José Miguel Apodaca PA PA cp Able, Lacie, RN RN lg3 Margo Tucker, RN RN jw7 Cristina Cavazos, RN RN kb3 Lakisha Tong ra3 Flor Hensley3 Jon Richards, RN RN bm8
--- NOTE | 2024-02-03 02:46 | EDPHYS ---
Physician Documentation [facility] Name: Latanya Mims Age: 18 yrs Sex: Female : 2005 Arrival Date: 02/02/2024 Time: 21:48 Bed 24 Private MD: ED Physician Isaiah Jenkins HPI: 02/01 23:00 This 18 yrs old Female presents to ER via Ambulatory with complaints of lower pelvic cp pain. 23:00 The patient presents with abdominal pain in the lower abdomen. cp 23:00 Onset: The symptoms/episode began/occurred 4 day(s) ago. cp 23:00 Associated signs and symptoms: Pertinent positives: nausea, Pertinent negatives: cp constipation, diarrhea, fever, vaginal discharge, vomiting. The symptoms are described as constant. Severity of pain: in the emergency department the pain is unchanged despite home interventions. 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 - Infectious Disease History:: Denies. Denies. - Social history:: Smoking status: Patient denies any tobacco usage or history of. ROS: 23:05 Constitutional: Negative for body aches, chills, fever, poor PO intake, cp 23:05 Eyes: Negative for injury, pain, redness, and discharge, cp 23:05 Respiratory: Negative for cough, shortness of breath, wheezing, 23:05 Abdomen/GI: Positive for abdominal pain, nausea, Negative for vomiting, diarrhea, constipation, anorexia, 23:05 : Negative for urinary symptoms, vaginal bleeding, vaginal discharge, 23:05 Neuro: Negative for altered mental status, dizziness, headache, weakness, 23:05 All other systems are negative, Exam: 23:10 Constitutional: The patient appears in no acute distress, alert, awake, non-toxic, well cp developed, well nourished, obese, 23:10 Head/Face: Normocephalic, atraumatic. cp 23:10 Eyes: Periorbital structures: appear normal, Conjunctiva: normal, no exudate, no injection, Sclera: no appreciated abnormality, Lids and lashes: appear normal, bilaterally, 23:10 ENT: External ear(s): are unremarkable, Nose: is normal, Mouth: Lips: moist, Oral mucosa: moist, Posterior pharynx: Airway: no evidence of obstruction, patent, 23:10 Chest/axilla: Inspection: normal, 23:10 Cardiovascular: Rate: normal, Rhythm: regular, 23:10 Respiratory: the patient does not display signs of respiratory distress, Respirations: normal, no use of accessory muscles, no retractions, labored breathing, is not present, Breath sounds: are clear throughout, no decreased breath sounds, no stridor, no wheezing, 23:10 Abdomen/GI: Inspection: obese Bowel sounds: active, all quadrants, Palpation: soft, in all quadrants, moderate abdominal tenderness, in the right lower quadrant and left lower quadrant, rebound tenderness, is not appreciated, involuntary guarding, is not appreciated, 23:10 Back: CVA tenderness, is absent, Vital Signs: 22:25 BP 119 / 70; Pulse 80; Resp 17; Temp 97.7; Pulse Ox 99% ; Weight 143.34 kg; Height 5 bm8 ft. 2 in. ; Pain 7/10; 02/02 02:58 BP 121 / 76; Pulse 76; Resp 16 S; Temp 97.4(O); Pulse Ox 99% on R/A; lg3 02/01 22:25 Body Mass Index 57.80 (143.34 kg, 157.48 cm) - Percentile 99.5 % [facility] 02/01 22:25 Pain Scale: Adult [facility] MDM: 02/01 22:29 Patient medically screened. 02/02 00:00 Differential diagnosis: appendicitis, non-specific abd pain, Ovarian Torsion, Pelvic cp Inflammatory Disease, Pyelonephritis, Ureterolithiasis, urinary tract infection. 02:36 Data reviewed: vital signs, nurses notes, lab test result(s), radiologic studies, CT cp scan, and as a result, I will discharge patient. 02:36 I considered the following discharge prescriptions or medication management in the emergency department Medications were administered in the Emergency Department. See MAR. Counseling: I had a detailed discussion with the patient and/or guardian regarding the historical points, exam findings, and any diagnostic results supporting the discharge/admit diagnosis, lab results, radiology results, to return to the emergency department if symptoms worsen or persist or if there are any questions or concerns that arise at home. Special discussion: Based on the patient's Hx, exam, and Dx evaluation, there is no indication for emergent surgery or inpatient Tx. It is understood by the patient/guardian that if the Sx's persist or worsen they need to return immediately for re-evaluation. 02/01 22:30 Order name: CBC with Diff; Complete Time: 02:34 02/02 02:34 Interpretation: Normal except: RDW 15.5. 02/01 22:30 Order name: CMP; Complete Time: 02:34 02/02 02:36 Interpretation: Normal except: CL 108; AST 14; GLOB 4.1; A/G 0.8. 02/01 22:30 Order name: Lipase; Complete Time: 02:34 02/01 22:30 Order name: Test, Urine; Complete Time: 00:04 02/01 22:30 Order name: Urinalysis w/ reflexes; Complete Time: 00:04 02/02 02:35 Interpretation: Reviewed. 02/02 00:04 Order name: CT Abd/Pelvis - IV Contrast Only 02/01 22:30 Order name: IV Saline Lock; Complete Time: 23:15 02/01 22:30 Order name: Labs collected and sent; Complete Time: 23:15 cp Administered Medications: 00:45 Drug: morphine IVP or IV 4 mg IVP once over 4 mins Route: IVP; Infused Over: 4 mins; lg3 Site: left forearm; 02:59 Follow up: Response: No adverse reaction; Marked relief of symptoms lg3 00:45 Drug: Ondansetron IVP 4 mg IVP once; over 2 minutes Route: IVP; Site: left forearm; lg3 02:59 Follow up: Response: No adverse reaction lg3 Disposition Summary: 02/03/24 02:46 Discharge Ordered Notes: Location: Home cp Problem: new cp Symptoms: have improved cp Condition: Stable cp Diagnosis - Nausea cp - Abdominal pain, unspecified cp Followup: cp - With: Private Physician - When: 2 - 3 days - Reason: Recheck today's complaints Discharge Instructions: - Discharge Summary Sheet cp - Abdominal Pain, Adult cp - Nausea, Adult cp Forms: - Medication Reconciliation Form cp - Antibiotic Education cp - Prescription Opioid Use cp - Patient Portal Instructions cp - Leadership Thank You Letter cp Prescriptions: - Zofran 4 mg Oral tablet - take 1 tablet ORAL route every 12 hours As needed for nausea; 20 tablet; cp Refills: 0, Product Selection Permitted - dicyclomine 20 mg Oral tablet - take 1 tablet ORAL route 4 times per day as needed for abdominal pain; 20 cp tablet; Refills: 0, Product Selection Permitted Signatures: Dispatcher [employer] EDMS José Miguel Apodaca PA PA cp Able, Lacie RN RN lg3 Jon Richards RN RN bm8 Corrections: (The following items were deleted from the chart) 00:05 00:05 Abdomen Pelvis W Con+[id number].[id number] ordered. EDMS EDMS
[2024-02-03 10:02] VITALS: BP 121/76; TEMP 97.4; O2SAT 99
--- NOTE | 2024-02-03 17:02 | RAD REPORT ---
EXAM DESCRIPTION: CT - Abdomen Pelvis W Contrast - 02/03/2024 6:41 am CLINICAL HISTORY: ABD PAIN COMPARISON: None. TECHNIQUE: CT ABDOMEN PELVIS WITH IV CONTRAST on 02/03/2024 12:05 AM CDT This exam was performed according to our departmental dose-optimization program, which includes autom ated exposure control, adjustment of the mA and/or kV according to patient size and/or use of iterati ve reconstruction technique. FINDINGS: Lower lungs are clear. Abdomen: The liver is normal in appearance. There is no biliary dilatation. Gallbladder is normal in appearance. The pancreas and spleen are normal in appearance. The adrenal glands and kidneys are unre markable. Abdominal aorta is normal in course and caliber without aneurysm. There is no free air. There is no r etroperitoneal adenopathy. Pelvis: There is no bowel obstruction. Urinary bladder is unremarkable. There is no free fluid. Uteru s is normal in size. Appendix is normal. Skeleton: There are no acute osseous findings. No suspicious bony lesions. IMPRESSION: No acute process. Electronically signed by: Nacho Dover MD 02/03/2024 02:23 AM CDT RP Due to temporary technical issues with the PACS/Fluency reporting system, reports are being signed by the in house radiologists without review as a courtesy to insure prompt reporting. The interpreting radiologist is fully responsible for the content of the report.
== END 2024-02-03 02:59 | disposition home or self-care (01) ==
LOC: ER 21:48
DX: R11.0 Nausea (principal); R10.30 Lower abdominal pain, unspecified; Z88.0 Allergy status to penicillin; Z88.6 Allergy status to analgesic agent
CPT/HCPCS: 85025; 81001; 36415; 81025; 83690; 80053; 74177; Q9967; J2405

== ENCOUNTER 2024-02-10 16:00 | Emergency (ER) | payer OTHER ==
--- OUTSIDE RECORDS SUMMARY | 2024-02-10 16:10 | XMS REPORT | Continuity of Care Document ---
Author Name Unknown Address [address] [facility] [address] [place] [address] [facility] Address [address] [facility] [place] [address] Care Team Providers Care Music Professor Name Role Phone Singh Gagnon Primary Care Physician NATE CHINCHILLA Attending Clinician Unavailable NATE CHINCHILLA Attending Clinician Unavailable KATERYNA HAMILTON Attending Clinician Unavaila Kateryna Spence CNM Attending Clinician [phone] OBI-VALERIE, JAYANT Attending Clinician Unavailab le OBI-VALERIE, JAYANT Attending Clinician Unavailab VIKAS Herring Attending Clinician Unavail able Nurse, Willy Alva Exp Cprit Obgyn Attending Clini michael Unavailable Unknown, Attending Attending Clinician Unavailab jesi Roberts Vikas SABA Attending Clinician + Visit, Sue Nurse Attending Clinician Unava ilkeven Doctor Unassigned, [place] Attending Clinician U Nate Fry MD Attending Clinician [phone] Debra Moreno MD Attending Clinician [phone] Randall Lee MD, Syeda Mccormack Attending Clinici an Roderick DUMONT, Jaquan Attending Clinician + [phone] ZACHARIAH BAZAN Attending Clinician Unavailable Ultrasound, Ang-Mfm Attending Clinician UnavailMUSA Ralph Attending Clinician Iesha Lozano MD, Musa Peralta Attending Clinician + WILLIAM UGARTE Attending Clinician UnavailWilliam Salazar MD Attending Clinician KAREN WASHINGTON Attending Clinician Unavailable KAREN WASHINGTON Attending Clinician Unavailable Karen Washington MD Attending Clinician [phone] 1, [facility] Room Attending Clinician Unavailab MIRIAM Peters Attending Clinician MIRIAM Naik Attending Clinician Derek Barlow DO Attending Clinician [phone] Laura Whitehead RN Attending Clinician Unavailab jesi RADIOLOGY Attending Clinician Unavailable PATI TOLEDO Attending Clinician Pati De Oliveira MD Attending Clinician + JOSÉ MIGUEL LAFLEUR Attending Clinician Unavailable JOSÉ MIGUEL LAFLEUR Attending Clinician Unavailable Clinton BISHOP Attending Clinician Unavailable Clinton Garnett Attending Clinician [phone] MITALI HARRIS Attending Clinician Unavailable Mitali Hernandez Attending Clinician [phone] Pcp, Patient Does Not Have A Attending Clinician Evelyn Viera RN Attending Clinician Unavailabl e P[facility], Acute [facility] Attending Clinician Laisha Palmer MD Attending Clinician [phone] LAISHA MEDRANO Attending Clinician UnaNATE Mcbride Admitting Clinician Unavailable Nate Chinchilla MD Admitting Clinician [phone] MIRIAM HOANG Admitting Clinician Yamel wheeler Payers Payer Name Policy Type Policy Number Effective Date Expirati on Date Source [place] [employer] [id number] 2016 00:00:00 [place] [id number] 2019 00:00:00 2021 00:00:00 Problems Condition Name Condition Details Condition Category Status Onset Date Resolution Date Last Treatment Date Treating Clinician Comments Source Need for HPV vaccinatio n Need for HPV vaccinatio n Disease Active 2-28 00:00: 00 General acute hospital Routine follow-up Routine follow-up Disease Active 2-13 00:00: 00 General acute hospital 39 weeks gestation of 39 weeks gestation of Disease Active 1-22 00:00: 00 General acute hospital GBS (group B Streptococ cus carrier), +RV culture, 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), +RV culture, currently Disease Active 1-04 00:00: 00 General acute hospital Polyhydram nios, antepartum complicati on Polyhydram nios, antepartum complicati on Disease Active 2022-08 2-14 00:00: 00 General acute hospital headache in third trimester headache in third trimester Disease Active 2022-08 2-06 00:00: 00 General acute hospital Heartburn during in third trimester Heartburn during in third trimester Disease Active 2022-08 1-22 00:00: 00 General acute hospital Declines flu vaccine Declines flu vaccine Disease Active 2022-08 0-19 00:00: 00 General acute hospital Rh negative state in antepartum period Rh negative state in antepartum period Disease Active 6-08 00:00: 00 General acute hospital Maternal varicella, non-immune Maternal varicella, non-immune Disease Active 6-08 00:00: 00 General acute hospital History of bipolar disorder History of bipolar disorder Disease Active 6 00:00: 00 General acute hospital Morbid obesity Morbid obesity Disease Active 6 00:00: 00 General acute hospital Nausea and vomiting during Nausea and vomiting during Disease Active 6 00:00: 00 General acute hospital Penicillin allergy Penicillin allergy Disease Active 607 00:00: 00 General acute hospital No known active problems No known active problems Disease General acute hospital Allergies, Adverse Reactions, Alerts Allergy Name Allergy Type Status Severity Reaction(s) Onset Date Inactive Date Treating Clinician Comments Source ASPIRIN DRUG INGREDI Active Hives 6-07 00:00: 00 General acute hospital Aspirin Propensi ty to adverse reaction s Active Hives 6-07 00:00: 00 General acute hospital [place] - Intraven ous Propensi ty to adverse reaction to drug Active 6-15 00:00: 00 Aspirin - Oral Propensi ty to adverse reaction to drug Active 3-03 00:00: 00 Aspirin Propensi ty to adverse reaction to drug Active 9- 00:00: 00 Penicill in Propensi ty to adverse reaction s Active Hives 0 3-12 00:00: 00 General acute hospital Penicill in Propensi ty to adverse reaction s Active Hives 0 3-12 00:00: 00 General acute hospital PENICILL IN DRUG INGREDI Active Hives 3-12 00:00: 00 General acute hospital Penicill ins Propensi ty to adverse reaction to drug Active 0 2-14 00:00: 00 Social History Social Habit Start Date Stop Date Quantity Comments Source ASSERTION 2022-12-16 00:00:00 [facility] History of tobacco use Cigarette Smoker [facility] History SDOH Alcohol Std Drinks [facility] History SDOH Alcohol Binge [facility] Exposure to SARS-CoV-2 (event) Not sure [facility] Gender identity [facility] intake 2023-11-25 00:00:00 2023-11-25 00:00:00 Lifetime non-drinker (finding) [facility] History of Social function 2023-11-25 00:00:00 2023-11-25 00:00:00 [facility] Tobacco use and exposure 2023-01-15 00:00:00 2023-01-15 00:00:00 Smokeless tobacco non-user [facility] History SDOH Alcohol Frequency 2019-12-17 00:00:00 2019-12-17 00:00:00 1 [facility] Sex Assigned At 2005 00:00:00 2005 00:00:00 [facility] Smoking Status Start Date Stop Date Source Ex-smoker 2023-01-15 00:00:00 2023-01-15 00[facility]00[facility] daily 2019-12-17 00:00:00 [facility] Medications Ordered Medication Name Filled Medication Name Start Date Stop Date Current Medication? Ordering Clinician Indication Dosage Frequency Signature (SIG) Comments Components Source acetaminoph en (TYLENOL) tablet 650 mg 09-04 01:18: 15 Yes 650mg 650 mg, Oral, Q6HPRN, Starting on Fri09/03/23 at 1918, Until Discontinu ed, Routine, Pain (scale 4-6), Pain (scale 1-3) General acute hospital lactated ringers IV infusion 1,000 mL 09-03 02:15: 00 09-03 02:10 :33 No 1000mL at 125 mL/hr, 1,000 mL, IV Infusion, ONCE, 1 dose, On Fri09/02/23 at 2014, Routine General acute hospital rho(D) immune globulin (RHOGAM) syringe 300 mcg 09-03 02:09: 02 Yes 300ug 300 mcg, Intramuscu lar, ONCE, For 1 dose, Conditiona l, Routine [facility] acute hospital HYDROcodone -acetaminop hen (NORCO 5) 5-325 mg tablet 2 tablet 09-03 02:08: 56 Yes 2{tbl} 2 tablet, Oral, Q6HPRN, Starting on Fri09/02/23 at 2007, Until Discontinu ed, Routine, Pain (scale 7-10), Alternate with Ibuprofen [facility] acute hospital HYDROcodone -acetaminop hen (NORCO 5) 5-325 mg tablet 1 tablet 09-03 02:08: 56 Yes 1{tbl} 1 tablet, Oral, Q6HPRN, Starting on Fri09/02/23 at 2007, Until Discontinu ed, Routine, Pain (scale 4-6), Alternate with Ibuprofen [facility] acute hospital diphenhydrA MINE (BENADRYL) injection 25 mg 09-03 02:08: 56 Yes 25mg 25 mg, Slow IV Push, Q6HPRN, Starting on Fri09/02/23 at 2007, Until Discontinu ed, Routine, Itching [facility] acute hospital diphenhydrA MINE (BENADRYL) tablet 25 mg 09-03 02:08: 56 Yes 25mg 25 mg, Oral, Q6HPRN, Starting on Fri09/02/23 at 2007, Until Discontinu ed, Routine, Sleep, Itching General acute hospital ondansetron (ZOFRAN (PF)) injection 4 mg 09-03 02:08: 56 Yes 4mg 4 mg, Slow IV Push, Q8HPRN, Starting on Fri09/02/23 at 2007, Until Discontinu ed, Routine, Nausea and Vomiting (N/V) General acute hospital bisacodyL (DULCOLAX) suppository 10 mg 09-03 02:08: 56 Yes 10mg 10 mg, Rectal, QDAILYPRN, Starting on Fri09/02/23 at 2007, Until Discontinu ed, Routine, Constipati on General acute hospital simethicone (GAS RELIEF (SIMETHICON E)) chewable tablet 160 mg 09-03 02:08: 56 Yes 160mg 160 mg, Oral, PC+HSPRN, Starting on Fri09/02/23 at 2007, Until Discontinu ed, Routine, Gas [facility] acute hospital docusate (COLACE) capsule 200 mg 09-03 02:08: 56 Yes 200mg 200 mg, Oral, QDAILYPRN, Starting on Fri09/02/23 at 2007, Until Discontinu ed, Routine, Constipati on General acute hospital magnesium hydroxide (MILK OF MAGNESIA) 400 mg/5 mL suspension 30 mL 09-03 02:08: 56 Yes 30mL 30 mL, Oral, QDAILYPRN, Starting on Fri09/02/23 at 2007, Until Discontinu ed, Routine, Constipati on General acute hospital lactated ringers IV infusion 1,000 mL 09-03 02:08: 56 Yes 1000mL at 125 mL/hr, 1,000 mL, IV Infusion, PRN, 1 dose, Starting on Fri09/02/23 at 2007, Until Discontinu ed, Routine General acute hospital [id number] fum-folic () 27 mg iron- 1 mg folic tablet 09-03 00:00: 00 11-24 00:00 :00 No [id number] 1{tbl} Take 1 tablet by mouth in the morning. General acute hospital docusate 100 mg capsule 09-03 00:00: 00 11-24 00:00 :00 No [id number] 200mg Take 2 capsules by mouth once daily as needed for Constipati on. General acute hospital ferrous sulfate 325 mg (65 mg iron) tablet 09-03 00:00: 00 11-24 00:00 :00 No [id number] 325mg Take 1 tablet by mouth in the morning and 1 tablet in the evening. General acute hospital HYDROcodone -acetaminop hen 5-325 mg tablet 09-03 00:00: 00 09-14 05:59 :00 No [id number] 1{tbl} Take 1 tablet by mouth every 6 (six) hours as needed (Pain scale above 4) for up to 10 days. Do not exceed 3 grams of acetaminop hen in 24 hours. Indication s: acute pain General acute hospital lactated ringers IV infusion 1,000 mL 09-03 00:00: 00 09-03 02:08 :59 No 1000mL at 125 mL/hr, 1,000 mL, IV Infusion, CONTINUOUS , Starting on Fri09/02/23 at 1800, Until Fri09/02/23 at 2007, RASHMI General acute hospital acetaminoph en (TYLENOL) tablet 650 mg 09-02 23:52: 38 09-03 02:08 :59 No 650mg 650 mg, Oral, Q6HPRN, Starting on Fri09/02/23 at 1752, Until Fri09/02/23 at 2007, Routine, Pain (scale 1-3) General acute hospital ondansetron (ZOFRAN (PF)) injection 4 mg 09-02 23:30: 00 09-03 00:14 :00 No 4mg 4 mg, Slow IV Push, ONCE, 1 dose, On Fri09/02/23 at 1730, Routine General acute hospital sodium citrate-cit yamilex acid (BICITRA) 500-334 mg/5 mL solution 30 mL 09-02 21:51: 27 09-02 22:28 :00 No 30mL 30 mL, Oral, PRE-PROCED URE ONCE, 1 dose, Starting on Fri09/02/23 at 1551, Until Fri09/02/23 at 1628, Routine, Surgery/Pr ocedure General acute hospital gentamicin 480 mg in NaCl 0.9% (NS) [...] Surgical Prophylaxi s
Surgi wilber Prophylaxi s: SCREEN PRINT OPERATOR
Duration of therapy: within 24 hours of surgery General acute hospital clindamycin in 5 % dextrose (CLEOCIN) 900 mg/50 mL IV piggyback RTU 900 mg 09-02 21:46: 19 09-03 02:08 :59 No 900mg 900 mg, IV Piggyback, O.R. HOLDING ONCE, Starting on Fri09/02/23 at 1546, Until Fri09/02/23 at 2007, Administer over 30 Minutes, 50 mL
Reas on for Anti-Infec tive: Surgical Prophylaxi s
Schneider rgical Prophylaxi s: SCREEN PRINT OPERATOR
Duration of therapy: within 24 hours of surgery
Restricte d use approved by: [employer]EN PR[employer] OPER[employer]
physics faculty member approving Restricted medication : DEBRA MORENO General acute hospital ondansetron (ZOFRAN (PF)) injection 4 mg 09-02 19:00: 00 09-02 18:13 :00 No 4mg 4 mg, Slow IV Push, ONCE, On Fri09/02/23 at 1300, For 1 dose
Do ses of ondansetro n 16 mg and above need to be administer ed via IV piggyback. For Dose >=24mg ECG monitoring is advisable.
General acute hospital morpHINE (2 mg/mL) injection 4 mg 09-02 11:00: 00 09-02 10:32 :00 No 4mg 4 mg, Slow IV Push, ONCE, 1 dose, On Fri09/02/23 at 0500, Routine General acute hospital sodium citrate-cit yamilex acid (BICITRA) 500-334 mg/5 mL solution 30 mL 09-01 21:37: 26 09-02 10:55 :00 No 30mL 30 mL, Oral, PRE-PROCED URE ONCE, 1 dose, Starting on Fri09/01/23 at 1537, Until Discontinu ed, Routine, Surgery/Pr ocedure General acute hospital ropivacaine 0.2 % (NAROPIN (PF)) epidural infusion 09-01 20:08: 00 Yes Epidural, CONTINUOUS PRN, Starting on Fri09/01/23 at 1408, Until Discontinu ed, Routine, Intra-op General acute hospital lidocaine-e pinephrine (XYLOCAINE W/EPINEPHRI NE) 1.5 %-1:200,000 injection 09-01 20:04: 00 Yes Intraderma l, ONCE INTRA PROCEDURE, Starting on Fri09/01/23 at 1404, Until Discontinu ed, Routine, Intra-op General acute hospital vancomycin (VANCOCIN) 1,500 mg in NaCl 0.9% [...] Pelvic
Duration of Therapy: Other (see Comments) General acute hospital oxytocin (PITOCIN) 30 units in NS 500 mL IV infusion 09-01 17:36: 54 09-03 02:08 :59 No 2mU/min at 2-40 mL/hr, IV Infusion, TITRATE, Starting on Fri09/01/23 at 1136, Until Fri09/02/23 at 2007, RASHMI General acute hospital morpHINE (2 mg/mL) injection 4 mg 09-01 17:00: 00 09-01 16:14 :00 No 4mg 4 mg, Slow IV Push, ONCE, 1 dose, On Fri09/01/23 at 1100, Routine General acute hospital lactated ringers IV infusion 500 mL 09-01 14:39: 07 09-03 02:08 :59 No 500mL at 999 mL/hr, 500 mL, IV Infusion, PRN - SEE INSTRUCTIO NS, Starting on Fri09/01/23 at 0839, Until Fri09/02/23 at 2007, Routine General acute hospital D5W-LR IV infusion 1,000 mL 09-01 14:39: 07 09-03 02:08 :59 No 1000mL at 1-125 mL/hr, IV Infusion, TITRATE, Starting on Fri09/01/23 at 0839, Until Fri09/02/23 at 2007, Routine General acute hospital sodium citrate-cit yamilex acid (BICITRA) 500-334 mg/5 mL solution 30 mL 09-01 14:39: 07 09-01 19:29 :00 No 30mL 30 mL, Oral, PRE-PROCED URE ONCE, 1 dose, Starting on Fri09/01/23 at 0839, Until Discontinu ed, Routine, Surgery/Pr ocedure General acute hospital cephALEXin (KEFLEX) 500 mg capsule 08-22 00:00: 00 09-03 00:00 :00 No [id number] 500mg Take 1 capsule by mouth 4 (four) times daily for 10 days. General acute hospital butalbital- acetaminoph en-caff (ESGIC) 50-325-40 mg tablet 1 tablet 2022-0805 00:30: 00 07-14 23:46 :00 No 1{tbl} 1 tablet, Oral, ONCE, 1 dose, On Fri07/14/23 at 1830, Routine General acute hospital famotidine (PEPCID) 20 mg tablet 2022-08 00:00: 00 09-03 00:00 :00 No [id number] 20mg Take 1 tablet by mouth in the morning and 1 tablet in the evening. General acute hospital acetaminoph en (TYLENOL) tablet 650 mg 01-31 04:15: 00 01-31 04:08 :00 No 650mg 650 mg, Oral, ONCE, 1 dose, On Annelise 01/30/23 at 2315, RASHMI General acute hospital melatonin 3 mg Cap 01-15 13:46: 01 01-15 00:00 :00 No Take by mouth. General acute hospital BUPROPION HCL (WELLBUTRIN ORAL) 01-15 13:45: 58 01-15 00:00 :00 No Take by mouth. General acute hospital vit 33-iron-fol ic-dha (SELECT-OB + DHA) 29 mg iron-1 mg -250 mg combo pack 01-15 00:00: 00 Yes [id number] 1{packe t} Take 1 Packet by mouth in the morning. General acute hospital proMETHazin e 25 mg tablet 01-15 00:00: 00 09-03 00:00 :00 No [id number] 25mg Take 1 tablet by mouth every 4 (four) hours as needed for Nausea and Vomiting (N/V). General acute hospital vit 33-iron-fol ic-dha (SELECT-OB + DHA) 29 mg iron-1 mg -250 mg combo pack 0 6-07 00:00: 00 09-03 00:00 :00 No [id number] 1{packe t} Take 1 Packet by mouth in the morning. General acute hospital TAKE 1 CAPSULE BY MOUTH EVERY DAY 2021-0 8-30 00:00: 00 No TAKE 1 TABLET BY MOUTH THREE TIMES A DAY 2021-0 8-30 00:00: 00 No Dose Unknown 2022-0 6-15 00:00: 00 No TAKE 1 CAPSULE BY MOUTH EVERY 12 HOURS FOR 7 DAYS 2-0 6-15 00:00: 00 No Dose Unknown 2022-0 [...] 00:00: 00 No Seroquel 50 mg tablet 8 00:00: 00 No 1mg Effexor XR 37.5 [...] 12-16 17:01: 01 Yes Take by mouth. General acute hospital BUPROPION HCL (WELLBUTRIN ORAL) 12-16 16:52: 24 Yes Take by mouth. General acute hospital melatonin 3 mg Cap 12-16 12:01: 01 Yes Take by mouth. General acute hospital BUPROPION HCL (WELLBUTRIN ORAL) 12-16 11:52: 24 Yes Take by mouth. General acute hospital azithromyci n (ZITHROMAX Z-YONATHAN) 250 mg tablet 10-22 00:00: 00 12-16 00:00 :00 No 250mg Take 1 tablet by mouth SEE-INSTRU CTIONS. Take 500 mg day 1, then 250 mg days 2 to 5. General acute hospital bupropion HCl SR 100 mg tablet,12 hr sustained-r elease 09-24 00:00: 00 No 1mg Immunizations Ordered Immunization Name Filled Immunization Name Date Status Comments Source SARS-COV-2 COVID-19 PFIZER VACCINE 2021-04-10 00:00:00 Completed [facility] SARS-COV-2 COVID-19 PFIZER VACCINE 2021-04-10 00:00:00 Completed [facility] SARS-COV-2 COVID-19 PFIZER VACCINE 2021-04-10 00:00:00 Completed [facility] SARS-COV-2 COVID-19 PFIZER VACCINE 2021-04-10 00:00:00 Completed [facility] SARS-COV-2 COVID-19 PFIZER VACCINE 2021-04-10 00:00:00 Completed [facility] SARS-COV-2 COVID-19 PFIZER VACCINE 2021-04-10 00:00:00 Completed [facility] SARS-COV-2 COVID-19 PFIZER VACCINE 2021-04-10 00:00:00 Completed [facility] SARS-COV-2 COVID-19 PFIZER VACCINE 2021-03-20 00:00:00 Completed [facility] SARS-COV-2 COVID-19 PFIZER VACCINE 2021-03-20 00:00:00 Completed [facility] SARS-COV-2 COVID-19 PFIZER VACCINE 2021-03-20 00:00:00 Completed [facility] SARS-COV-2 COVID-19 PFIZER VACCINE 2021-03-20 00:00:00 Completed [facility] SARS-COV-2 COVID-19 PFIZER VACCINE 2021-03-20 00:00:00 Completed [facility] SARS-COV-2 COVID-19 PFIZER VACCINE 2021-03-20 00:00:00 Completed [facility] SARS-COV-2 COVID-19 PFIZER VACCINE 2021-03-20 00:00:00 Completed [facility] HPV, quadrivalent 2019-03-20 00:00:00 Completed HPV, quadrivalent 2017-09-24 00:00:00 Completed SARS-COV-2 COVID-19 PFIZER VACCINE Unknown Completed [facility] SARS-COV-2 COVID-19 PFIZER VACCINE Unknown Completed [facility] TDAP Unknown Completed [facility] Rho (d) Immune Globulin Unknown Completed [facility] SARS-COV-2 COVID-19 PFIZER VACCINE Unknown Completed [facility] SARS-COV-2 COVID-19 PFIZER VACCINE Unknown Completed [facility] TDAP Unknown Completed [facility] Rho (d) Immune Globulin Unknown Completed [facility] SARS-COV-2 COVID-19 PFIZER VACCINE Unknown Completed [facility] SARS-COV-2 COVID-19 PFIZER VACCINE Unknown Completed [facility] TDAP Unknown Completed [facility] Rho (d) Immune Globulin Unknown Completed [facility] SARS-COV-2 COVID-19 PFIZER VACCINE Unknown Completed [facility] SARS-COV-2 COVID-19 PFIZER VACCINE Unknown Completed [facility] TDAP Unknown Completed [facility] Rho (d) Immune Globulin Unknown Completed [facility] SARS-COV-2 COVID-19 PFIZER VACCINE Unknown Completed [facility] SARS-COV-2 COVID-19 PFIZER VACCINE Unknown Completed [facility] TDAP Unknown Completed [facility] Rho (d) Immune Globulin Unknown Completed [facility] SARS-COV-2 COVID-19 PFIZER VACCINE Unknown Completed [facility] SARS-COV-2 COVID-19 PFIZER VACCINE Unknown Completed [facility] TDAP Unknown Completed [facility] Rho (d) Immune Globulin Unknown Completed [facility] HPV9 Unknown Completed [facility] SARS-COV-2 COVID-19 PFIZER VACCINE Unknown Completed [facility] SARS-COV-2 COVID-19 PFIZER VACCINE Unknown Completed [facility] TDAP Unknown Completed [facility] Rho (d) Immune Globulin Unknown Completed [facility] HPV9 Unknown Completed [facility] SARS-COV-2 COVID-19 PFIZER VACCINE Unknown Completed [facility] SARS-COV-2 COVID-19 PFIZER VACCINE Unknown Completed [facility] TDAP Unknown Completed [facility] Rho (d) Immune Globulin Unknown Completed [facility] HPV9 Unknown Completed [facility] SARS-COV-2 COVID-19 PFIZER VACCINE Unknown Completed [facility] SARS-COV-2 COVID-19 PFIZER VACCINE Unknown Completed [facility] TDAP Unknown Completed [facility] Rho (d) Immune Globulin Unknown Completed [facility] HPV9 Unknown Completed [facility] SARS-COV-2 COVID-19 PFIZER VACCINE Unknown Completed [facility] SARS-COV-2 COVID-19 PFIZER VACCINE Unknown Completed [facility] TDAP Unknown Completed [facility] Rho (d) Immune Globulin Unknown Completed [facility] HPV9 Unknown Completed [facility] SARS-COV-2 COVID-19 PFIZER VACCINE Unknown Completed [facility] SARS-COV-2 COVID-19 PFIZER VACCINE Unknown Completed [facility] TDAP Unknown Completed [facility] Rho (d) Immune Globulin Unknown Completed [facility] HPV9 Unknown Completed [facility] HPV9 Unknown Completed [facility] SARS-COV-2 COVID-19 PFIZER VACCINE Unknown Completed [facility] SARS-COV-2 COVID-19 PFIZER VACCINE Unknown Completed [facility] TDAP Unknown Completed [facility] Rho (d) Immune Globulin Unknown Completed [facility] HPV9 Unknown Completed [facility] HPV9 Unknown Completed [facility] SARS-COV-2 COVID-19 PFIZER VACCINE Unknown Completed [facility] SARS-COV-2 COVID-19 PFIZER VACCINE Unknown Completed [facility] TDAP Unknown Completed [facility] Rho (d) Immune Globulin Unknown Completed [facility] HPV9 Unknown Completed [facility] HPV9 Unknown Completed [facility] SARS-COV-2 COVID-19 PFIZER VACCINE Unknown Completed [facility] SARS-COV-2 COVID-19 PFIZER VACCINE Unknown Completed [facility] SARS-COV-2 COVID-19 PFIZER VACCINE Unknown Completed [facility] SARS-COV-2 COVID-19 PFIZER VACCINE Unknown Completed [facility] SARS-COV-2 COVID-19 PFIZER VACCINE Unknown Completed [facility] [facility] SARS-COV-2 COVID-19 PFIZER VACCINE Unknown Completed [facility] SARS-COV-2 COVID-19 PFIZER VACCINE Unknown Completed [facility] SARS-COV-2 COVID-19 PFIZER VACCINE Unknown Completed [facility] TDAP Unknown Completed [facility] Rho (d) Immune Globulin Unknown Completed [facility] SARS-COV-2 COVID-19 PFIZER VACCINE Unknown Completed [facility] SARS-COV-2 COVID-19 PFIZER VACCINE Unknown Completed [facility] TDAP Unknown Completed [facility] Rho (d) Immune Globulin Unknown Completed [facility] SARS-COV-2 COVID-19 PFIZER VACCINE Unknown Completed [facility] SARS-COV-2 COVID-19 PFIZER VACCINE Unknown Completed [facility] TDAP Unknown Completed [facility] Rho (d) Immune Globulin Unknown Completed [facility] SARS-COV-2 COVID-19 PFIZER VACCINE Unknown Completed [facility] SARS-COV-2 COVID-19 PFIZER VACCINE Unknown Completed [facility] TDAP Unknown Completed [facility] Rho (d) Immune Globulin Unknown Completed [facility] SARS-COV-2 COVID-19 PFIZER VACCINE Unknown Completed [facility] SARS-COV-2 COVID-19 PFIZER VACCINE Unknown Completed [facility] TDAP Unknown Completed [facility] Rho (d) Immune Globulin Unknown Completed [facility] SARS-COV-2 COVID-19 PFIZER VACCINE Unknown Completed [facility] SARS-COV-2 COVID-19 PFIZER VACCINE Unknown Completed [facility] TDAP Unknown Completed [facility] Rho (d) Immune Globulin Unknown Completed [facility] SARS-COV-2 COVID-19 PFIZER VACCINE Unknown Completed [facility] SARS-COV-2 COVID-19 PFIZER VACCINE Unknown Completed [facility] TDAP Unknown Completed [facility] Rho (d) Immune Globulin Unknown Completed [facility] SARS-COV-2 COVID-19 PFIZER VACCINE Unknown Completed [facility] SARS-COV-2 COVID-19 PFIZER VACCINE Unknown Completed [facility] TDAP Unknown Completed [facility] Rho (d) Immune Globulin Unknown Completed [facility] SARS-COV-2 COVID-19 PFIZER VACCINE Unknown Completed [facility] SARS-COV-2 COVID-19 PFIZER VACCINE Unknown Completed [facility] TDAP Unknown Completed [facility] Rho (d) Immune Globulin Unknown Completed [facility] SARS-COV-2 COVID-19 PFIZER VACCINE Unknown Completed [facility] SARS-COV-2 COVID-19 PFIZER VACCINE Unknown Completed [facility] TDAP Unknown Completed [facility] Rho (d) Immune Globulin Unknown Completed [facility] SARS-COV-2 COVID-19 PFIZER VACCINE Unknown Completed [facility] SARS-COV-2 COVID-19 PFIZER VACCINE Unknown Completed [facility] TDAP Unknown Completed [facility] Rho (d) Immune Globulin Unknown Completed [facility] SARS-COV-2 COVID-19 PFIZER VACCINE Unknown Completed [facility] SARS-COV-2 COVID-19 PFIZER VACCINE Unknown Completed [facility] TDAP Unknown Completed [facility] Rho (d) Immune Globulin Unknown Completed [facility] SARS-COV-2 COVID-19 PFIZER VACCINE Unknown Completed [facility] SARS-COV-2 COVID-19 PFIZER VACCINE Unknown Completed [facility] TDAP Unknown Completed [facility] Rho (d) Immune Globulin Unknown Completed [facility] SARS-COV-2 COVID-19 PFIZER VACCINE Unknown Completed [facility] SARS-COV-2 COVID-19 PFIZER VACCINE Unknown Completed [facility] TDAP Unknown Completed [facility] Rho (d) Immune Globulin Unknown Completed [facility] SARS-COV-2 COVID-19 PFIZER VACCINE Unknown Completed [facility] SARS-COV-2 COVID-19 PFIZER VACCINE Unknown Completed [facility] TDAP Unknown Completed [facility] Rho (d) Immune Globulin Unknown Completed [facility] SARS-COV-2 COVID-19 PFIZER VACCINE Unknown Completed [facility] SARS-COV-2 COVID-19 PFIZER VACCINE Unknown Completed [facility] TDAP Unknown Completed [facility] Rho (d) Immune Globulin Unknown Completed [facility] SARS-COV-2 COVID-19 PFIZER VACCINE Unknown Completed [facility] SARS-COV-2 COVID-19 PFIZER VACCINE Unknown Completed [facility] TDAP Unknown Completed [facility] Rho (d) Immune Globulin Unknown Completed [facility] SARS-COV-2 COVID-19 PFIZER VACCINE Unknown Completed [facility] SARS-COV-2 COVID-19 PFIZER VACCINE Unknown Completed [facility] TDAP Unknown Completed [facility] Rho (d) Immune Globulin Unknown Completed [facility] SARS-COV-2 COVID-19 PFIZER VACCINE Unknown Completed [facility] SARS-COV-2 COVID-19 PFIZER VACCINE Unknown Completed [facility] TDAP Unknown Completed [facility] Rho (d) Immune Globulin Unknown Completed [facility] SARS-COV-2 COVID-19 PFIZER VACCINE Unknown Completed [facility] SARS-COV-2 COVID-19 PFIZER VACCINE Unknown Completed [facility] TDAP Unknown Completed [facility] Rho (d) Immune Globulin Unknown Completed [facility] SARS-COV-2 COVID-19 PFIZER VACCINE Unknown Completed [facility] SARS-COV-2 COVID-19 PFIZER VACCINE Unknown Completed [facility] TDAP Unknown Completed [facility] Rho (d) Immune Globulin Unknown Completed [facility] SARS-COV-2 COVID-19 PFIZER VACCINE Unknown Completed [facility] SARS-COV-2 COVID-19 PFIZER VACCINE Unknown Completed [facility] TDAP Unknown Completed [facility] Rho (d) Immune Globulin Unknown Completed [facility] SARS-COV-2 COVID-19 PFIZER VACCINE Unknown Completed [facility] SARS-COV-2 COVID-19 PFIZER VACCINE Unknown Completed [facility] TDAP Unknown Completed [facility] Rho (d) Immune Globulin Unknown Completed [facility] SARS-COV-2 COVID-19 PFIZER VACCINE Unknown Completed [facility] SARS-COV-2 COVID-19 PFIZER VACCINE Unknown Completed [facility] TDAP Unknown Completed [facility] Rho (d) Immune Globulin Unknown Completed [facility] SARS-COV-2 COVID-19 PFIZER VACCINE Unknown Completed [facility] SARS-COV-2 COVID-19 PFIZER VACCINE Unknown Completed [facility] TDAP Unknown Completed [facility] Rho (d) Immune Globulin Unknown Completed [facility] Vital Signs Vital Name Observation Time Observation Value Comments S ource Systolic blood pressure 2023-11-25 18:44:00 132 mm[Hg] [facility] Diastolic blood pressure 2023-11-25 18:44:00 73 mm[Hg] [facility] Heart rate 2023-11-25 18:44:00 67 /min [facility] 2023-11-25 18:44:00 36.44 Jyothi [facility] Respiratory rate 2023-11-25 18:44:00 18 /min [facility] Body height 2023-11-25 18:44:00 162.6 cm [facility] Body weight 2023-11-25 18:44:00 151.411 kg [facility] BMI 2023-11-25 18:44:00 57.30 kg/m2 [facility] Body temperature 2023-10-08 19:54:00 36.72 Jyothi [facility] Body weight 2023-10-08 19:54:00 144.244 kg [facility] Systolic blood pressure 2023-09-23 15:48:00 99 mm[Hg] [facility] Diastolic blood pressure 2023-09-23 15:48:00 50 mm[Hg] [facility] Heart rate 2023-09-23 15:48:00 67 /min [facility] Body temperature 2023-09-23 15:48:00 35.67 Jyothi [facility] Respiratory rate 2023-09-23 15:48:00 18 /min [facility] Body height 2023-09-23 15:48:00 162.6 cm [facility] Body weight 2023-09-23 15:48:00 143.972 kg [facility] BMI 2023-09-23 15:48:00 54.48 kg/m2 [facility] Body mass index (BMI) [Percentile] Per age and sex 2023-09-23 15:48:00 99.99 % [facility] Systolic blood pressure 2023-09-11 17:01:00 130 mm[Hg] [facility] Diastolic blood pressure 2023-09-11 17:01:00 70 mm[Hg] [facility] Heart rate 2023-09-11 17:01:00 54 /min [facility] Body temperature 2023-09-11 17:01:00 36.28 Jyothi [facility] Respiratory rate 2023-09-11 17:01:00 18 /min [facility] Body height 2023-09-11 17:01:00 162.6 cm [facility] Body weight 2023-09-11 17:01:00 144.153 kg [facility] BMI 2023-09-11 17:01:00 54.55 kg/m2 [facility] Body mass index (BMI) [Percentile] Per age and sex 2023-09-11 17:01:00 99.99 % [facility] Systolic blood pressure 2023-09-04 13:57:00 116 mm[Hg] [facility] Diastolic blood pressure 2023-09-04 13:57:00 64 mm[Hg] [facility] Heart rate 2023-09-04 13:57:00 64 /min [facility] Body temperature 2023-09-04 13:57:00 36.89 Jyothi [facility] Respiratory rate 2023-09-04 13:57:00 18 /min [facility] Oxygen saturation in Arterial blood by Pulse oximetry 2023-09-04 13:57:00 96 /min [facility] Body height 2023-09-01 14:44:00 162.6 cm [facility] Body weight 2023-09-01 14:44:00 154.677 kg [facility] BMI 2023-09-01 14:44:00 58.50 kg/m2 [facility] Body mass index (BMI) [Percentile] Per age and sex 2023-09-01 14:44:00 100.00 % [facility] Systolic blood pressure 2023-09-02 18:30:00 123 mm[Hg] [facility] Diastolic blood pressure 2023-09-02 18:30:00 84 mm[Hg] [facility] Heart rate 2023-09-02 18:30:00 92 /min [facility] Oxygen saturation in Arterial blood by Pulse oximetry 2023-09-02 18:30:00 100 /min [facility] Body temperature 2023-09-02 18:00:00 37.06 Jyothi [facility] Respiratory rate 2023-09-02 18:00:00 18 /min [facility] Body height 2023-09-01 14:44:00 162.6 cm [facility] Body weight 2023-09-01 14:44:00 154.677 kg [facility] BMI 2023-09-01 14:44:00 58.50 kg/m2 [facility] Body mass index (BMI) [Percentile] Per age and sex 2023-09-01 14:44:00 100.00 % [facility] Systolic blood pressure 2023-08-29 20:34:00 121 mm[Hg] [facility] Diastolic blood pressure 2023-08-29 20:34:00 69 mm[Hg] [facility] Heart rate 2023-08-29 20:34:00 81 /min [facility] Body temperature 2023-08-29 20:34:00 35.17 Jyothi [facility] Respiratory rate 2023-08-29 20:34:00 18 /min [facility] Body height 2023-08-29 20:34:00 162.6 cm [facility] Body weight 2023-08-29 20:34:00 152.046 kg [facility] BMI 2023-08-29 20:34:00 57.54 kg/m2 [facility] Body mass index (BMI) [Percentile] Per age and sex 2023-08-29 20:34:00 100.00 % [facility] Systolic blood pressure 2023-08-22 20:30:00 125 mm[Hg] [facility] Diastolic blood pressure 2023-08-22 20:30:00 69 mm[Hg] [facility] Heart rate 2023-08-22 20:30:00 110 /min [facility] Body temperature 2023-08-22 20:30:00 36.67 Jyothi [facility] Respiratory rate 2023-08-22 20:30:00 18 /min [facility] Body weight 2023-08-22 20:30:00 151.411 kg [facility] BMI 2023-08-22 20:30:00 57.30 kg/m2 [facility] Body mass index (BMI) [Percentile] Per age and sex 2023-08-22 20:30:00 100.00 % [facility] Systolic blood pressure 2023-08-19 20:40:00 130 mm[Hg] [facility] Diastolic blood pressure 2023-08-19 20:40:00 69 mm[Hg] [facility] Heart rate 2023-08-19 20:40:00 88 /min [facility] Body temperature 2023-08-19 20:40:00 35.94 Jyothi [facility] Respiratory rate 2023-08-19 20:40:00 17 /min [facility] Body height 2023-08-19 20:40:00 162.6 cm [facility] Body weight 2023-08-19 20:40:00 150.73 kg [facility] BMI 2023-08-19 20:40:00 57.04 kg/m2 [facility] Body mass index (BMI) [Percentile] Per age and sex 2023-08-19 20:40:00 100.00 % [facility] Systolic blood pressure 2023-08-14 20:30:00 122 mm[Hg] manually [facility] Diastolic blood pressure 2023-08-14 20:30:00 78 mm[Hg] manually [facility] Heart rate 2023-08-14 20:18:00 112 /min [facility] Body temperature 2023-08-14 20:18:00 35.94 Jyothi [facility] Respiratory rate 2023-08-14 20:18:00 20 /min [facility] Body height 2023-08-14 20:18:00 162.6 cm [facility] Body weight 2023-08-14 20:18:00 150.793 kg [facility] BMI 2023-08-14 20:18:00 57.06 kg/m2 [facility] Body mass index (BMI) [Percentile] Per age and sex 2023-08-14 20:18:00 100.00 % [facility] Systolic blood pressure 2023-08-12 20:09:00 109 mm[Hg] [facility] Diastolic blood pressure 2023-08-12 20:09:00 64 mm[Hg] [facility] Heart rate 2023-08-12 20:09:00 98 /min [facility] Body temperature 2023-08-12 20:09:00 36.33 Jyothi [facility] Respiratory rate 2023-08-12 20:09:00 20 /min [facility] Body height 2023-08-12 20:09:00 162.6 cm [facility] Body weight 2023-08-12 20:09:00 151.161 kg [facility] BMI 2023-08-12 20:09:00 57.20 kg/m2 [facility] Body mass index (BMI) [Percentile] Per age and sex 2023-08-12 20:09:00 100.00 % [facility] Diastolic blood pressure 2023-08-08 19:48:00 58 mm[Hg] [facility] Heart rate 2023-08-08 19:48:00 92 /min [facility] Body temperature 2023-08-08 19:48:00 35.78 Jyothi [facility] Respiratory rate 2023-08-08 19:48:00 20 /min [facility] Body height 2023-08-08 19:48:00 162.6 cm [facility] Body weight 2023-08-08 19:48:00 149.829 kg [facility] BMI 2023-08-08 19:48:00 56.70 kg/m2 [facility] Body mass index (BMI) [Percentile] Per age and sex 2023-08-08 19:48:00 100.00 % [facility] Systolic blood pressure 2023-08-08 19:48:00 105 mm[Hg] [facility] Systolic blood pressure 2023-08-06 18:46:00 110 mm[Hg] [facility] Diastolic blood pressure 2023-08-06 18:46:00 56 mm[Hg] [facility] Heart rate 2023-08-06 18:46:00 79 /min [facility] Body temperature 2023-08-06 18:46:00 35.17 Jyothi [facility] Respiratory rate 2023-08-06 18:46:00 18 /min [facility] Body height 2023-08-06 18:46:00 162.6 cm [facility] Body weight 2023-08-06 18:46:00 150.866 kg [facility] BMI 2023-08-06 18:46:00 57.09 kg/m2 [facility] Body mass index (BMI) [Percentile] Per age and sex 2023-08-06 18:46:00 100.00 % [facility] Systolic blood pressure 2023-08-01 19:54:00 98 mm[Hg] [facility] Diastolic blood pressure 2023-08-01 19:54:00 56 mm[Hg] [facility] Heart rate 2023-08-01 19:54:00 96 /min [facility] Body temperature 2023-08-01 19:54:00 36.06 Jyothi [facility] Respiratory rate 2023-08-01 19:54:00 18 /min [facility] Body height 2023-08-01 19:54:00 162.6 cm [facility] Body weight 2023-08-01 19:54:00 149.868 kg [facility] BMI 2023-08-01 19:54:00 56.71 kg/m2 [facility] Body mass index (BMI) [Percentile] Per age and sex 2023-08-01 19:54:00 100.00 % [facility] Systolic blood pressure 2023-07-30 21:17:00 110 mm[Hg] [facility] Diastolic blood pressure 2023-07-30 21:17:00 70 mm[Hg] [facility] Heart rate 2023-07-30 21:17:00 96 /min [facility] Body temperature 2023-07-30 21:17:00 36.22 Jyothi [facility] Respiratory rate 2023-07-30 21:17:00 20 /min [facility] Body height 2023-07-30 21:17:00 162.6 cm [facility] Body weight 2023-07-30 21:17:00 150.226 kg [facility] BMI 2023-07-30 21:17:00 56.85 kg/m2 [facility] Body mass index (BMI) [Percentile] Per age and sex 2023-07-30 21:17:00 100.00 % [facility] Systolic blood pressure 2023-07-15 21:25:00 122 mm[Hg] manual [facility] Diastolic blood pressure 2023-07-15 21:25:00 68 mm[Hg] manual [facility] Heart rate 2023-07-15 21:14:00 85 /min [facility] Body temperature 2023-07-15 21:14:00 36.67 Jyothi [facility] Respiratory rate 2023-07-15 21:14:00 20 /min [facility] Body height 2023-07-15 21:14:00 162.6 cm [facility] Body weight 2023-07-15 21:14:00 149.29 kg [facility] BMI 2023-07-15 21:14:00 56.49 kg/m2 [facility] Body mass index (BMI) [Percentile] Per age and sex 2023-07-15 21:14:00 100.00 % [facility] Heart rate 2023-07-15 01:21:00 72 /min [facility] Oxygen saturation in Arterial blood by Pulse oximetry 2023-07-15 01:21:00 100 /min [facility] Systolic blood pressure 2023-07-15 01:15:00 111 mm[Hg] [facility] Diastolic blood pressure 2023-07-15 01:15:00 75 mm[Hg] [facility] Body temperature 2023-07-14 23:00:00 36.94 Jyothi [facility] Respiratory rate 2023-07-14 23:00:00 17 /min [facility] Body height 2023-07-14 22:15:00 162.6 cm [facility] Body weight 2023-07-14 22:15:00 147.873 kg [facility] BMI 2023-07-14 22:15:00 55.96 kg/m2 [facility] Body mass index (BMI) [Percentile] Per age and sex 2023-07-14 22:15:00 100.00 % [facility] Systolic blood pressure 2023-07-02 21:19:00 105 mm[Hg] [facility] Diastolic blood pressure 2023-07-02 21:19:00 59 mm[Hg] [facility] Heart rate 2023-07-02 21:19:00 85 /min [facility] Body temperature 2023-07-02 21:19:00 35.78 Jyothi [facility] Respiratory rate 2023-07-02 21:19:00 18 /min [facility] Body height 2023-07-02 21:19:00 162.6 cm [facility] Body weight 2023-07-02 21:19:00 147.873 kg [facility] BMI 2023-07-02 21:19:00 55.96 kg/m2 [facility] Body mass index (BMI) [Percentile] Per age and sex 2023-07-02 21:19:00 100.00 % [facility] Systolic blood pressure 2023-06-19 17:22:00 110 mm[Hg] [facility] Diastolic blood pressure 2023-06-19 17:22:00 56 mm[Hg] [facility] Heart rate 2023-06-19 17:22:00 73 /min [facility] Body temperature 2023-06-19 17:22:00 36.17 Jyothi [facility] Respiratory rate 2023-06-19 17:22:00 20 /min [facility] Body height 2023-06-19 17:22:00 162.6 cm [facility] Body weight 2023-06-19 17:22:00 146.994 kg [facility] BMI 2023-06-19 17:22:00 55.63 kg/m2 [facility] Body mass index (BMI) [Percentile] Per age and sex 2023-06-19 17:22:00 100.00 % [facility] Systolic blood pressure 2023-05-29 15:11:00 100 mm[Hg] [facility] Diastolic blood pressure 2023-05-29 15:11:00 47 mm[Hg] [facility] Heart rate 2023-05-29 15:11:00 77 /min [facility] Body temperature 2023-05-29 15:11:00 36.33 Jyothi [facility] Respiratory rate 2023-05-29 15:11:00 20 /min [facility] Body height 2023-05-29 15:11:00 162.6 cm [facility] Body weight 2023-05-29 15:11:00 147.079 kg [facility] BMI 2023-05-29 15:11:00 55.66 kg/m2 [facility] Body mass index (BMI) [Percentile] Per age and sex 2023-05-29 15:11:00 100.00 % [facility] Systolic blood pressure 2023-05-01 15:34:00 92 mm[Hg] [facility] Diastolic blood pressure 2023-05-01 15:34:00 45 mm[Hg] [facility] Heart rate 2023-05-01 15:34:00 70 /min [facility] Body temperature 2023-05-01 15:34:00 36.28 Jyothi [facility] Respiratory rate 2023-05-01 15:34:00 20 /min [facility] Body height 2023-05-01 15:34:00 162.6 cm [facility] Body weight 2023-05-01 15:34:00 145.151 kg [facility] BMI 2023-05-01 15:34:00 54.93 kg/m2 [facility] Body mass index (BMI) [Percentile] Per age and sex 2023-05-01 15:34:00 100.00 % [facility] Systolic blood pressure 2023-03-14 14:32:00 98 mm[Hg] [facility] Diastolic blood pressure 2023-03-14 14:32:00 54 mm[Hg] [facility] Heart rate 2023-03-14 14:32:00 70 /min [facility] Body temperature 2023-03-14 14:32:00 36.33 Jyothi [facility] Respiratory rate 2023-03-14 14:32:00 18 /min [facility] Body height 2023-03-14 14:32:00 162.6 cm [facility] Body weight 2023-03-14 14:32:00 142.486 kg [facility] BMI 2023-03-14 14:32:00 53.92 kg/m2 [facility] Body mass index (BMI) [Percentile] Per age and sex 2023-03-14 14:32:00 99.49 % [facility] Systolic blood pressure 2023-02-14 16:11:00 111 mm[Hg] [facility] Diastolic blood pressure 2023-02-14 16:11:00 85 mm[Hg] [facility] Heart rate 2023-02-14 16:11:00 62 /min [facility] Body temperature 2023-02-14 16:11:00 36.33 Jyothi [facility] Respiratory rate 2023-02-14 16:11:00 20 /min [facility] Body height 2023-02-14 16:11:00 162.6 cm [facility] Body weight 2023-02-14 16:11:00 141.522 kg [facility] BMI 2023-02-14 16:11:00 53.55 kg/m2 [facility] Body mass index (BMI) [Percentile] Per age and sex 2023-02-14 16:11:00 99.49 % [facility] Systolic blood pressure 2023-01-31 03:36:41 120 mm[Hg] [facility] Diastolic blood pressure 2023-01-31 03:36:41 74 mm[Hg] [facility] Heart rate 2023-01-31 03:36:41 70 /min [facility] Respiratory rate 2023-01-31 03:36:41 13 /min [facility] Oxygen saturation in Arterial blood by Pulse oximetry 2023-01-31 03:36:41 99 /min [facility] Body temperature 2023-01-31 03:15:00 36.72 Jyothi [facility] Body height 2023-01-31 03:15:00 162.6 cm [facility] Body weight 2023-01-31 03:15:00 143.79 kg [facility] BMI 2023-01-31 03:15:00 54.41 kg/m2 [facility] Body mass index (BMI) [Percentile] Per age and sex 2023-01-31 03:15:00 99.52 % [facility] Systolic blood pressure 2023-01-15 18:09:00 103 mm[Hg] [facility] Diastolic blood pressure 2023-01-15 18:09:00 41 mm[Hg] [facility] Heart rate 2023-01-15 18:09:00 67 /min [facility] Body temperature 2023-01-15 18:09:00 36.28 Jyothi [facility] Respiratory rate 2023-01-15 18:09:00 17 /min [facility] Body height 2023-01-15 18:09:00 162.6 cm [facility] Body weight 2023-01-15 18:09:00 143.972 kg [facility] BMI 2023-01-15 18:09:00 54.48 kg/m2 [facility] Body mass index (BMI) [Percentile] Per age and sex 2023-01-15 18:09:00 99.52 % [facility] Systolic blood pressure 2019-12-17 16:50:00 116 mm[Hg] [facility] Diastolic blood pressure 2019-12-17 16:50:00 80 mm[Hg] [facility] Heart rate 2019-12-17 16:50:00 80 /min [facility] Body temperature 2019-12-17 16:50:00 37.72 Jyothi [facility] Respiratory rate 2019-12-17 16:50:00 16 /min [facility] Body height 2019-12-17 16:50:00 160 cm [facility] Body weight 2019-12-17 16:50:00 102.059 kg [facility] BMI 2019-12-17 16:50:00 39.86 kg/m2 [facility] Oxygen saturation in Arterial blood by Pulse oximetry 2019-12-17 16:50:00 94 /min [facility] BP Systolic 2022-01-23 11:51:00 117 mm[Hg] BP [...] (HPV 9V) VACCINE 2023-10-08 19:54:27 Vikas Roberts [facility] DME/SUPPLY JUSTIFICATION 2023-09-11 06:01:00 Doc tor Unassigned, [place] [facility] CBC WITH DIFF 2023-09-03 10:08:00 Kelsey Clifton [facility] CBC WITH DIFF 2023-09-03 10:08:00 Kelsey Clifton [facility] SECTION 2023-09-02 22:21:00 Debra Moreno [facility] SECTION 2023-09-02 22:21:00 Debra Moreno [facility] PROTEIN CREAT RATIO URINE RANDOM 2023-09-02 02:40:00 Safia Llanes [facility] PROTEIN CREAT RATIO URINE RANDOM 2023-09-02 02:40:00 Safia Llanes [facility] CENTRAL NEURAXIAL BLOCK 2023-09-01 20:08:00 Syeda Bender [facility] LACTATE DEHYDROGENASE 2023-09-01 16:53:00 Milana Llanes ea [facility] CBC WITH DIFF 2023-09-01 16:53:00 Safia [facility] LACTATE DEHYDROGENASE 2023-09-01 16:53:00 Milana Llanes ea [facility] CBC WITH DIFF 2023-09-01 16:53:00 Mario Alberto [facility] SGOT (ASPARTATE AMINO TRANSFER) 2023-09-01 15:06:00 Mario Alberto [facility] CREATININE 2023-09-01 15:06:00 Mario Alberto [facility] ALANINE AMINO TRANSFERASE(SGPT 2023-09-01 15:06:00 Mario Alberto [facility] URIC ACID 2023-09-01 15:06:00 Mario Alberto [facility] HEPATITIS B SURFACE ANTIGEN 2023-09-01 15:06:00 Cesar William [facility] HB ABO GROUPING 2023-09-01 15:06:00 Cesar William [facility] RHO (D) IMMUNE GLOBULIN 2023-09-01 15:06:00 Izabel Clifton [facility] SYPHILIS IGG/IGM 2023-09-01 15:06:00 Cesar William [facility] SGOT (ASPARTATE AMINO TRANSFER) 2023-09-01 15:06:00 Mario Alberto [facility] CREATININE 2023-09-01 15:06:00 Mario Alberto [facility] ALANINE AMINO TRANSFERASE(SGPT 2023-09-01 15:06:00 Mario Alberto [facility] URIC ACID 2023-09-01 15:06:00 Mario Alberto [facility] HEPATITIS B SURFACE ANTIGEN 2023-09-01 15:06:00 Cesar William [facility] HB ABO GROUPING 2023-09-01 15:06:00 Cesar William [facility] RHO (D) IMMUNE GLOBULIN 2023-09-01 15:06:00 Izabel Clifton ndfunmilayo [facility] SYPHILIS IGG/IGM 2023-09-01 15:06:00 Cesar William [facility] NON-STRESS TEST 2023-08-29 21:16:29 Andrzej Roberts [facility] POCT URINALYSIS 2023-08-29 20:35:00 Kateryna Hamilton [facility] SECOND AND THIRD TRIMESTER ULTRASOUND 2023-08-29 20:20:00 Ktaeryna Hamilton [facility] SECOND AND THIRD TRIMESTER ULTRASOUND 2023-08-22 22:03:00 Kateryna Hamilton [facility] NON-STRESS TEST 2023-08-22 21:01:52 Krishna Hamilton [facility] POCT URINALYSIS 2023-08-22 20:31:00 aKteryna Hamilton [facility] NON-STRESS TEST 2023-08-20 01:20:59 Krishna Hamilton [facility] POCT URINALYSIS 2023-08-19 21:04:00 Kateryna Hamilton [facility] SECOND AND THIRD TRIMESTER ULTRASOUND 2023-08-15 21:41:00 Kateryna Hamilton [facility] NON-STRESS TEST 2023-08-14 20:48:32 Krishna Hamilton [facility] POCT URINALYSIS 2023-08-14 20:42:00 Kateryna Hamilton [facility] NON-STRESS TEST 2023-08-12 21:04:52 Krishna Hamilton [facility] POCT URINALYSIS 2023-08-12 20:10:00 Kateryna Hamilton [facility] NON-STRESS TEST 2023-08-08 22:11:19 Krishna Hamilton [facility] SECOND AND THIRD TRIMESTER ULTRASOUND 2023-08-08 19:55:00 Kateryna Hamilton [facility] POCT URINALYSIS 2023-08-08 19:49:00 Kateryna Hamilton [facility] NON-STRESS TEST 2023-08-06 20:03:47 Andrzej Roberts [facility] POCT URINALYSIS 2023-08-06 18:47:00 Kateryna Hamilton [facility] NON-STRESS TEST 2023-08-01 20:58:32 Andrzej Roberts [facility] POCT URINALYSIS 2023-08-01 19:56:00 Kateryna Hamilton [facility] SECOND AND THIRD TRIMESTER ULTRASOUND 2023-08-01 19:49:00 Kateryna Hamilton [facility] NON-STRESS TEST 2023-07-30 22:17:39 Andrzej Roberts [facility] POCT URINALYSIS 2023-07-30 21:46:00 Kateryna Hamilton [facility] POCT URINALYSIS 2023-07-30 21:18:00 Kateryna Hamilton [facility] SECOND AND THIRD TRIMESTER ULTRASOUND 2023-07-23 20:43:00 Kateryna Hamilton [facility] HIV 1/2 AG-AB WITH REFLEX 2023-07-15 21:44:00 Kateryna Hamilton [facility] SYPHILIS IGG/IGM 2023-07-15 21:44:00 Kateryna Hamilton [facility] POCT URINALYSIS 2023-07-15 21:16:00 Kateryna Hamilton [facility] POCT URINALYSIS 2023-07-02 21:21:00 Kateryna Hamilton [facility] TDAP VACCINE, >11 YRS, IM 2023-06-19 17:50:31 Kateryna Hamilton [facility] POCT URINALYSIS 2023-06-19 17:23:00 Kateryna Hamilton [facility] POCT URINALYSIS 2023-05-29 15:12:00 Kateryna Hamilton [facility] POCT URINALYSIS 2023-05-01 15:25:00 Kateryna Hamilton [facility] SECOND AND THIRD TRIMESTER ULTRASOUND 2023-04-22 14:25:00 Kateryna Hamilton [facility] POCT URINALYSIS 2023-03-14 14:34:00 Kateryna Hamilton [facility] POCT URINALYSIS 2023-02-14 16:12:00 Kateryna Hamilton [facility] URINALYSIS 2023-01-31 03:57:00 [facility] POCT TEST 2023-01-15 16:41:00 Prema Hamilton [facility] POCT URINALYSIS W/O SPECIFIC GRAVITY 2023-01-15 16:41:00 Kateryna Hamilton [facility] NOTICE OF PRIVACY PRACTICES 2023-01-15 16:26:00 Doctor Unassigned, [place] [facility] Plan of Care Planned Activity Planned Date Details Comments Source Goal Plan of Care Note [code = 40160-3] Goal Plan of Care Note [code = 60904-7] Goal Plan of Care Note [code = 32935-8] Goal Plan of Care Note [code = 39660-0] Goal Plan of Care Note [code = 91498-4] Goal Plan of Care Note [code = 40370-7] Goal Plan of Care Note [code = 25376-2] Goal Plan of Care Note [code = 30216-5] Goal Plan of Care Note [code = 83646-7] Goal Plan of Care Note [code = 58224-4] Goal Plan of Care Note [code = 21780-0] Goal Plan of Care Note [code = 84976-2] Goal Plan of Care Note [code = 63477-1] Goal Plan of Care Note [code = 46890-0] Goal Plan of Care Note [code = 13233-6] Goal Plan of Care Note [code = 21662-5] Goal Plan of Care Note [code = 55188-2] Goal Plan of Care Note [code = 00973-2] Goal Plan of Care Note [code = 33919-3] Goal Plan of Care Note [code = 92991-7] Goal Plan of Care Note [code = 55261-6] Goal Plan of Care Note [code = 94445-7] Goal Plan of Care Note [code = 63718-0] Goal Plan of Care Note [code = 07308-7] Goal Plan of Care Note [code = 71496-1] Goal Plan of Care Note [code = 23865-3] Goal Plan of Care Note [code = 79610-9] Goal Plan of Care Note [code = 77719-2] Goal Plan of Care Note [code = 18179-2] Goal Plan of Care Note [code = 97479-0] Goal Plan of Care Note [code = 38035-5] Goal Plan of Care Note [code = 46428-8] Goal Plan of Care Note [code = 15149-3] Goal Plan of Care Note [code = 27057-3] Encounters Start Date/Time End Date/Time Encounter Type Admission Type Attending Clinicians Care Facility Care Department Encounter ID Source 2023-07-14 19:37:23 Outpatient X NATE CHINCHILLA SANGEETA [facility] PR[facility] [id number] General acute hospital 2023-11-25 13:30:00 2023-11-25 15:13:58 Outpatient R KATERYNA HAMILTON [facility] [id number] General acute hospital 2023-11-25 13:30:00 2023-11-25 15:13:58 Office Visit Kateryna Hamilton 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 [facility] 1.2.840.114 350.1.13.10 4.2.7.2.686 [id number] General acute hospital 2023-11-25 14:45:00 2023-11-25 14:45:00 Outpatient R KATERYNA HAMILTON [facility] [id number] General acute hospital 2023-10-27 14:00:00 2023-10-27 14:00:00 Outpatient R OBI-VALERIE , JAYANT OBI-VALERIE , JAYANT [facility] [id number] General acute hospital 2023-10-21 13:30:00 2023-10-21 13:30:00 Outpatient R VIKAS ROBERTS [facility] [id number] General acute hospital 2023-10-08 14:00:00 2023-10-08 14:15:00 Nurse Visit Nurse, Willy Rmchp Exp Cprit Obgyn Unknown, Attending Kateryna Hamilton 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[facility] CHILD [facility] .840.114 350.1.13.10 4.2.7.2.686 [id number] General acute hospital 2023-10-08 14:00:00 2023-10-08 14:00:00 Outpatient KATERYNA QUIÑONES [facility] [id number] General acute hospital 2023-09-23 09:00:00 2023-09-23 10:18:02 Outpatient R VIKAS ROBERTS [facility] [id number] General acute hospital 2023-09-23 09:00:00 2023-09-23 10:18:02 Routine Visit Vikas Roberts [facility] SCREEN PRINT OPERATOR [facility] & CHILD [facility] 1..114 350.1.13.10 4.2.7.2.686 [id number] General acute hospital 2023-09-11 10:30:00 2023-09-11 11:00:03 Outpatient KATERYNA QUIÑONES [facility] [id number] General acute hospital 2023-09-11 10:30:00 2023-09-11 11:00:03 Nurse Visit Visit, Ang-Rmchp Nurse Kateryna Hamilton [facility] & CHILD [facility] 1..114 350.1.13.10 4.2.7.2.686 [id number] General acute hospital 2023-09-11 00:00:00 2023-09-11 00:00:00 Orders Only Doctor Unassigned, [place] [facility] ..114 350.1.13.10 4.2.7.2.686 [id number] General acute hospital 2023-09-11 00:00:00 2023-09-11 00:00:00 Telephone Vikas Roberts [facility] SCREEN PRINT OPERATOR [facility] & CHILD [facility] 1.0.114 350.1.13.10 4.2.7.2.686 [id number] General acute hospital 2023-09-01 08:14:00 2023-09-04 15:28:00 Inpatient [facility]ERRERO[facility] [id number] General acute hospital 2023-09-01 08:14:00 2023-09-04 15:28:00 Hospital Encounter [facility] 1..114 350.1.13.10 4.2.7.2.686 [id number] General acute hospital 2023-09-02 10:51:00 2023-09-02 12:37:00 Surgery Debra Moreno [facility] 1..114 350.1.13.10 4.2.7.2.686 [id number] General acute hospital 2023-09-01 14:00:00 2023-09-01 14:00:00 Outpatient NATE GUERRERO, [facility] [id number] General acute hospital 2023-09-01 13:27:00 2023-09-01 13:27:00 [facility]114 350.1.13.10 4.2.7.2.686 [id number] General acute hospital 2023-09-01 00:00:00 2023-09-01 00:00:00 Case Management Kateryna Hamilton [facility] SCREEN PRINT OPERATOR [facility] MATERNAL & CHILD [facility] 1..114 350.1.13.10 4.2.7.2.686 [id number] General acute hospital 2023-08-29 15:15:00 2023-08-29 15:18:25 Routine Visit Vikas Roberts [facility] SCREEN PRINT OPERATOR [facility] MATERNAL & CHILD [facility] 1.0.114 350.1.13.10 4.2.7.2.686 [id number] General acute hospital 2023-08-29 14:00:00 2023-08-29 14:19:15 Black Top Paver Operator Visit Ultrasound, Nate Allen [facility] SCREEN PRINT OPERATOR [facility] & CHILD [facility] 1.840.114 350.1.13.10 4.2.7.2.686 [id number] General acute hospital 2023-08-29 14:00:00 2023-08-29 14:19:15 Outpatient P NATE [facility]ILLA [facility] [id number] General acute hospital 2023-08-26 12:45:00 2023-08-26 12:45:00 Outpatient R KATERYNA HAMILTON [facility] [id number] General acute hospital 2023-08-23 00:00:00 2023-08-23 00:00:00 Case Management Kateryna Hamilton 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 [facility] 1..840.114 350.1.13.10 4.2.7.2.686 [id number] General acute hospital 2023-08-22 15:30:00 2023-08-22 16:16:43 Outpatient MUSA AZEVEDO [facility] [id number] General acute hospital 2023-08-22 15:30:00 2023-08-22 16:16:43 Black Top Paver Operator Visit Ultrasound, Nate Allen Chasey Ikceegiflavio [facility] SCREEN PRINT OPERATOR [facility] & CHILD [facility] 1..840.114 350.1.13.10 4.2.7.2.686 [id number] General acute hospital 2023-08-22 14:30:00 2023-08-22 14:57:14 Routine Visit Kateryna Hamilton [facility] SCREEN PRINT OPERATOR [facility] & CHILD [facility] 1.2.840.114 350.1.13.10 4.2.7.2.686 [id number] General acute hospital 2023-08-19 15:00:00 2023-08-19 15:35:50 Outpatient R KATERYNA HAMILTON [facility] [id number] General acute hospital 2023-08-19 15:00:00 2023-08-19 15:35:50 Routine Visit Kateryna Hamilton 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 [facility] 1..840.114 350.1.13.10 4.2.7.2.686 [id number] General acute hospital 2023-08-18 00:00:00 2023-08-18 00:00:00 [facility] 1..840.114 350.1.13.10 4.2.7.2.686 [id number] General acute hospital 2023-08-15 15:30:00 2023-08-15 15:52:32 Outpatient P WILLIAM UGARTE [facility] [id number] General acute hospital 2023-08-15 15:30:00 2023-08-15 15:52:32 Black Top Paver Operator Visit Ultrasound, Nate Allen Luis Diego [facility] 1..840.114 350.1.13.10 4.2.7.2.686 [id number] General acute hospital 2023-08-14 14:30:00 2023-08-14 14:45:48 Outpatient R KATERYNA HAMILTON [facility] [id number] General acute hospital 2023-08-14 14:30:00 2023-08-14 14:45:48 [facility] 1.2.840.114 350.1.13.10 4.2.7.2.686 [id number] General acute hospital 2023-08-12 14:00:00 2023-08-12 15:16:34 Outpatient R KATERYNA HAMILTON [facility] [id number] General acute hospital 2023-08-12 14:00:00 2023-08-12 15:16:34 Routine Visit ShiraKateryna bee [facility] SCREEN PRINT OPERATOR [facility] & CHILD [facility] 1..840.114 350.1.13.10 4.2.7.2.686 [id number] General acute hospital 2023-08-08 14:45:00 2023-08-08 14:45:00 Routine Visit Joy Kateryna 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 1..840.114 350.1.13.10 4.2.7.2.686 [id number] General acute hospital 2023-08-08 14:00:00 2023-08-08 14:29:04 Outpatient NATE GUERRERO SANGEETA [facility] [id number] General acute hospital 2023-08-08 14:00:00 2023-08-08 14:29:04 Black Top Paver Operator Visit Ultrasound, PoloNate Chisholm [facility] 1..840.114 350.1.13.10 4.2.7.2.686 [id number] General acute hospital 2023-08-06 12:45:00 2023-08-06 13:58:36 Outpatient R VIKAS ROBERTS [facility] [id number] General acute hospital 2023-08-06 12:45:00 2023-08-06 13:58:36 Routine Visit Vikas Roberts [facility] SCREEN PRINT OPERATOR [facility] & CHILD [facility] 1.2.840.114 350.1.13.10 4.2.7.2.686 [id number] General acute hospital 2023-08-01 14:30:00 2023-08-01 14:57:38 Routine Visit Vikas Roberts [facility] SCREEN PRINT OPERATOR [facility] & CHILD [facility] 1.2.840.114 350.1.13.10 4.2.7.2.686 [id number] General acute hospital 2023-08-01 13:45:00 2023-08-01 13:47:05 Outpatient KAREN CRAIG SHANNON [facility] [id number] General acute hospital 2023-08-01 13:45:00 2023-08-01 13:47:05 Black Top Paver Operator Visit Ultrasound, Karen Torres [facility] 1.2840.114 350.1.13.10 4.2.7.2.686 [id number] General acute hospital 2023-07-30 15:15:00 2023-07-30 16:15:13 Outpatient R VIKAS ROBERTS [facility] [id number] General acute hospital 2023-07-30 15:15:00 2023-07-30 16:15:13 Routine Visit Vikas Roberts [facility] SCREEN PRINT OPERATOR [facility] & CHILD [facility] 1.2.840.114 350.1.13.10 4.2.7.2.686 [id number] General acute hospital 2023-07-24 00:00:00 2023-07-24 00:00:00 Case Management Kateryna Hamilotn [facility] SCREEN PRINT OPERATOR [facility] & CHILD [facility] 1.2.840.114 350.1.13.10 4.2.7.2.686 [id number] General acute hospital 2023-07-23 14:30:00 2023-07-23 14:45:25 Outpatient P MUSA LOZANO [facility] [id number] General acute hospital 2023-07-23 14:30:00 2023-07-23 14:45:25 Black Top Paver Operator Visit 1Saeid Room Musa Lozano Ikuvbogie [facility] SCREEN PRINT OPERATOR [facility] 1.840.114 350.1.13.10 4.2.7.2.686 [id number] General acute hospital 2023-07-18 13:45:00 2023-07-18 13:45:00 Outpatient P [facility] [id number] General acute hospital 2023-07-15 15:00:00 2023-07-15 15:44:02 Outpatient R KATERYNA HAMILTON [facility] [id number] General acute hospital 2023-07-15 15:00:00 2023-07-15 15:44:02 Routine Visit Kateryna Hamilton [facility] SCREEN PRINT OPERATOR [facility] MATERNAL & CHILD [facility] 1.0.114 350.1.13.10 4.2.7.2.686 [id number] General acute hospital 2023-07-14 16:20:00 2023-07-14 19:29:00 Outpatient X FREEMAN-JOSE S, MIRIAM FREEMAN-JOSE S, MIRIAM [facility] [id number] General acute hospital 2023-07-14 16:20:00 2023-07-14 19:29:00 Emergency Derek Thornton Medhat-Jose s, Miriam [facility] 1..114 350.1.13.10 4.2.7.2.686 [id number] General acute hospital 2023-07-14 00:00:00 2023-07-14 00:00:00 [facility]..114 350.1.13.10 4.2.7.2.686 [id number] General acute hospital 2023-07-02 15:15:00 2023-07-02 15:50:56 Outpatient R AGNIESZKADeuce KATERYNA [facility] [id number] General acute hospital 2023-07-02 15:15:00 2023-07-02 15:50:56 Routine Visit Kateryna Hamilton 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 1.84.114 350.1.13.10 [id number] [id number] General acute hospital 2023-06-28 00:00:00 2023-06-28 00:00:[address] 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 .84.114 350.1.13.10 4.2.7.2.686 [id number] 107 [id number] General acute hospital 2023-06-19 11:00:00 2023-06-19 12:03:41 Outpatient R KATERYNA HAMILTON [facility] [id number] General acute hospital 2023-06-19 11:00:00 2023-06-19 12:03:41 [facility] .840.114 350.1.13.10 4.2.7.2.686 [id number] General acute hospital 2023-05-29 10:15:00 2023-05-29 10:52:59 Outpatient R KATERYNA HAMILTON [facility] [id number] General acute hospital 2023-05-29 10:15:00 2023-05-29 10:52:59 [facility] OPERATOR [facility] CHILD [facility] .84.114 350.1.13.10 4.2.7.2.686 [id number] General acute hospital 2023-05-01 10:30:00 2023-05-01 10:57:38 Outpatient R AGNIESZKADeuceKATERYNA [facility] [id number] General acute hospital 2023-05-01 10:30:00 2023-05-01 10:57:38 Routine Visit Kateryna Hamilton 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 [facility] 1..840.114 350.1.13.10 4.2.7.2.686 [id number] General acute hospital 2023-04-29 13:45:00 2023-04-29 13:45:00 Outpatient R KATERYNA HAMILTON [facility] [id number] General acute hospital 2023-04-24 13:00:00 2023-04-24 13:00:00 Outpatient R RADIOLOGY [facility] [id number] General acute hospital 2023-04-24 00:00:00 2023-04-24 00:00:00 Case [facility] ..840.114 350.1.13.10 4.2.7.2.686 [id number] General acute hospital 2023-04-22 09:00:00 2023-04-22 09:51:26 Outpatient P PATI JEAN [facility] [id number] General acute hospital 2023-04-22 09:00:00 2023-04-22 09:51:26 Black Top Paver Operator Visit Ultrasound, Willy-Mfm Pati Jean [facility] SCREEN PRINT OPERATOR [facility] CHILD [facility] ..840.114 350.1.13.10 4.2.7.2.686 [id number] General acute hospital 2023-04-11 10:30:00 2023-04-11 10:30:00 Outpatient R JOY KATERYNA [facility] [id number] General acute hospital 2023-03-27 17:10:54 2023-03-27 17:10:54 Outpatient YOKASTA TEMPLETON [id number] Waylon Nunez 2023-03-14 09:30:00 2023-03-14 09:45:28 [facility] [id number] acute hospital 2023-03-14 09:30:00 2023-03-14 09:45:28 Routine Visit Kateryna Hamilton 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 [facility] 1..840.114 350.1.13.10 4.2.7.2.686 [id number] General acute hospital 2023-02-14 11:00:00 2023-02-14 11:29:02 Outpatient Hannah KATERYNA HAMILTON [facility] [id number] General acute hospital 2023-02-14 11:00:00 2023-02-14 11:29:02 Routine Visit Kateryna Hamilton [facility] SCREEN PRINT OPERATOR [facility]ILD [facility] 1..840.114 350.1.13.10 4.2.7.2.686 [id number] General acute hospital 2023-02-14 10:00:00 2023-02-14 10:48:01 Outpatient JOSÉ MIGUEL CANCINO COREY [facility] [id number] General acute hospital 2023-02-14 10:00:00 2023-02-14 10:48:01 Black Top Paver Operator Visit Ultrasound, José Miguel Mejia [facility] SCREEN PRINT OPERATOR [facility] 1..840.114 350.1.13.10 4.2.7.2.686 [id number] General acute hospital 2023-01-30 22:10:00 2023-01-31 00:22:00 Emergency X Clinton BISHOP [facility] ERT [id number] General acute hospital 2023-01-30 22:10:00 2023-01-31 00:22:00 Emergency Clinton Bishop [facility] 1.2.840.114 350.1.13.10 4.2.7.2.686 [id number] General acute hospital 2023-01-31 00:00:00 2023-01-31 00:00:00 Outpatient R RADIOLOGY [facility] [id number] General acute hospital 2023-01-17 00:00:00 2023-01-17 00:00:00 Patient Secure Msg Doctor Unassigned, [place] [facility] 1.2.840.114 350.1.13.10 4.2.7.2.686 [id number] General acute hospital 2023-01-15 13:00:00 2023-01-15 14:47:09 Outpatient R KATERYNA HAMILTON [facility] [id number] General acute hospital 2023-01-15 13:00:00 2023-01-15 14:47:09 Initial Visit Kateryna Hamilton [facility] SCREEN PRINT OPERATOR [facility] 1.2.840.114 350.1.13.10 4.2.7.2.686 [id number] General acute hospital 2023-01-15 00:00:00 2023-01-15 00:00:00 Orders Only Doctor Unassigned, [place] [facility] 1.2840.114 350.1.13.10 4.2.7.2.686 [id number] General acute hospital 2022-12-24 14:15:37 2022-12-24 14:15:[address] [facility] [id number] Waylon Nunez 2022-08-07 08:46:16 2022-08-07 08:46:16 Outpatient [facility] [id number] Waylon Nunez 2022-08-06 00:00:00 2022-08-06 00:00:00 Outpatient Visit [id number] 2021-03-01 09:15:00 2021-03-01 09:15:00 Outpatient MITALI PIERCE [facility] [id number] General acute hospital 2021-02-23 10:00:00 2021-02-23 10:15:00 Office Visit Jorge L [facility] 1.2840.114 350.1.13.10 4.2.7.2.686 [id number] 2021-02-23 10:00:00 2021-02-23 10:15:00 Office Visit Jorge L [facility] 1.840.114 350.1.13.10 4.2.7.2.686 [id number] General acute hospital 2021-02-23 10:00:00 2021-02-23 10:00:00 Outpatient MITALI PIERCE [facility] [id number] General acute hospital 2021-02-23 10:00:00 2021-02-23 10:00:00 Outpatient Hannah [facility] [id number] General acute hospital 2020-03-01 00:00:00 2020-03-01 00:00:00 Letter (Out) Pcp, Patient Does Not Have A [facility] 1.84.114 350.1.13.10 4.2.7.2.686 [id number] General acute hospital 2019-12-18 00:00:00 2019-12-18 00:00:00 Telephone Evelyn Viera [facility] 1.840.114 350.1.13.10 4.2.7.2.686 [id number] General acute hospital 2019-12-17 11:39:13 2019-12-17 11:59:13 Urgent Care Pob1, Acute Care Clinic Laisha Medrano [facility] 1.2.840.114 350.1.13.10 4.2.7.2.686 [id number] General acute hospital 2019-12-17 11:00:00 2019-12-17 11:00:00 Outpatient R LAISHA MEDRANO [facility] [id number] General acute hospital Results Test Description Test Time Test Comments Results Result Co mments Source [facility] (D) IMMUNE [id number] 17:12:46* Test Item Value Reference Range Interpretation Comme nts RHIG CANDIDATE? (test code = 5188) No- see comment Patient is not a candidate for RhIg- Patient is Rh Negative and baby is Rh Negative.Performed at [facility] Laboratory Services - [facility] Blood [address] [place] [id number] Free: [phone] No. [id number] [facility] ONLY - SYPHILIS [id number] 16:51:36* Test Item Value Reference Range Interpretation Comme [facility] Syphilis IgG/IgM (test code = 18381-2) Non-reactive Non-reactive EITAN (test code = EITAN) Non-reactive - No serologic evidence of T. pallidum infection. Cannot exclude incubating or early syphilis. Submit a second specimen in 2-4 weeks if syphilis is clinically suspected. Equivocal - Further testing to follow. Reactive - Further testing to follow. Lab Interpretation (test code = 69334-6) Normal [facility] ONLY - SYPHILIS IGG/[id number] 16:51:36* Test Item Value Reference Range Interpretation Comme [facility] Syphilis IgG/IgM (test code = 24763-2) Non-reactive Non-reactive EITAN (test code = EITAN) Non-reactive - No serologic evidence of T. pallidum infection. Cannot exclude incubating or early syphilis. Submit a second specimen in 2-4 weeks if syphilis is clinically suspected. Equivocal - Further testing to follow. Reactive - Further testing to follow. Lab Interpretation (test code = 93259-8) Normal [facility] HospitalCentral Neuraxial [id number] 20:08:00 Syeda Middleton MD ? ? 09/01/2023 ?2:09 PM Central Neuraxial Block Date/Time: 42:08 PM Performed by: Syeda Middleton MDAuthorized by: Jumana Denson MD ?Patient Location: OBReason for Block: OB request, Patient request, Labor analgesia, Surgical anesthesia and Post-op pain managementStaff: ?Anesthesiologist: Jumana Denson MD ?Resident/MASTER CONTROL TECHNICIAN: Melanie Toth MD ?Performed by: resident/CRNAPreanesthetic Checklist: [...] and BUD saline ?Guidance with: landmark technique}Epidural/Spinal [place] and/or Catheter: ?Epidural/Spinal Kit: BBraun ?Needle Type: [...] Assessment: patient tolerated procedure well with no [facility] [id number] 17:38:42* Test Item Value Reference Range Interpretation Comme nts LDH (test code = 8086956549) 244 U/L 120-246 Lab Interpretation (test cod e = 70200-3) Normal [facility] HospitalLACTATE [id number] 17:38:42* Test Item Value Reference Range Interpretation Comme nts LDH (test code = 9175925921) 244 U/L 120-246 Lab Interpretation (test cod e = 91955-4) Normal [facility] HospitalURIC ACID [id number] 17:13:16* Test Item Value Reference Range Interpretation Comme nts URIC ACID (test code = 2818174344) 5.6 mg/dL 2.9-6.0 Lab Interpretation (test cod e = 81006-2) Normal [facility] HospitalCRELAK[facility]INE [id number] 17:13:16* Test Item Value Reference Range Interpretation Comme nts CREATININE (test code = 1615094727) 0.40 mg/dL 0.50-1.04 L eGFR (test code = 12391-1) 147.3 mL/min/1.73m2 CKD-EPI eGFR (2020). Assuming creatinine has been stable day-to-day for at least three months, the eGFR indicates Category G1 (>= 90 mL/min/1.73 m2) Lab Interpretation (test code = 52828-5) Abnormal [facility] HospitalSGOT (ASPARTATE AMINO TRANSFER)2023-09-01 17:13:16* Test Item Value Reference Range Interpretation Comme nts AST(SGOT) (test code = 5776064320) 25 U/L 13-40 Lab Interpretation (test cod e = 62533-5) Normal [facility] HospitalALANINE AMINO TRANSFERASE([id number] 17:13:16* Test Item Value Reference Range Interpretation Comme nts ALTv (test code = 1742-6) 14 U/L 5-35 Lab Interpretation (test cod e = 60829-9) Normal [facility] HospitalURIC ACID [id number] 17:13:16* Test Item Value Reference Range Interpretation Comme nts URIC ACID (test code = 5501322988) 5.6 mg/dL 2.9-6.0 Lab Interpretation (test cod e = 64463-9) Normal [facility] [id number] 17:13:16* Test Item Value Reference Range Interpretation Comme nts CREATININE (test code = 8872554486) 0.40 mg/dL 0.50-1.04 L eGFR (test code = 30165-8) 147.3 mL/min/1.73m2 CKD-EPI eGFR (2020). Assuming creatinine has been stable day-to-day for at least three months, the eGFR indicates Category G1 (>= 90 mL/min/1.73 m2) Lab Interpretation (test code = 68130-8) Abnormal [facility] HospitalSGOT (ASPARTATE AMINO TRANSFER)2023-09-01 17:13:16* Test Item Value Reference Range Interpretation Comme nts AST(SGOT) (test code = 8160353802) 25 U/L 13-40 Lab Interpretation (test cod e = 62880-9) Normal [facility] HospitalALANINE AMINO TRANSFERASE([id number] 17:13:16* Test Item Value Reference Range Interpretation Comme nts ALTv (test code = 1742-6) 14 U/L 5-35 Lab Interpretation (test cod e = 24263-8) Normal [facility] HospitalCBC WITH [id number] 17:11:40* Test Item Value Reference Range Interpretation [...] 33.8 g/dL 32.0-36.0 RDW-SD (test code = 50141-4) 47.8 fL 38.5-49.0 RDW-CV (test code = 788-0) 15.0 % 11.5-14.0 H PLT (test code = 777-3) 341 See_Comment [Automated N2Carea ge] The system which generated this result transmitted reference range: 135 - 361 10*3/?L. The reference range was not used to interpret this result as normal/abnormal. MPV (test code = 97462-1) 9.2 fL 9.4-13.3 L NRBC/100 WBC (test code = 1311408959) 0.0 See_Comment [Automated [employer] Jieyin ssage] The system which generated this result transmitted reference range: 0.0 - 10.0 /100 WBCs. The reference range was not used to interpret this result as normal/abnormal. NRBC x10^3 (test code = 4324004635) See_Comment [Automated N2Carea ge] The system which generated this result transmitted reference range: 10*3/?L. The reference range was not used to interpret this result as normal/abnormal. GRAN MAT (NEUT) % (test code = 770-8) 66.6 % IMM GRAN % (test code = 5740872610) 0.60 % LYMPH % (test code = 736-9) 24.8 % MONO % (test code = 5905-5) 7.1 % EOS % (test code = 713-8) 0.7 % BASO % (test code = 706-2) 0.2 % GRAN MAT x10^3(ANC) (test code = 0243062289) 5.82 10*3/uL 1.50-10.30 IMM GRAN x10^3 (test code = 9265709775) 0.05 10*3/uL 0.00-0.06 LYMPH x10^3 (test code = 731-0) 2.17 10*3/uL 0.70-7.40 MONO x10^3 (test code = 742-7) 0.62 10*3/uL 0.00-0.50 H EOS x10^3 (test code = 711-2) 0.06 10*3/uL 0.00-0.40 BASO x10^3 (test code = 704-7) 0.00-0.10 Lab Interpretation (test code = 99994-3) Abnormal [facility] WITH [id number] 17:11:40* Test Item Value Reference Range Interpretation [...] 33.8 g/dL 32.0-36.0 RDW-SD (test code = 74669-0) 47.8 fL 38.5-49.0 RDW-CV (test code = 788-0) 15.0 % 11.5-14.0 H PLT (test code = 777-3) 341 See_Comment [Automated messa ge] The system which generated this result transmitted reference range: 135 - 361 10*3/?L. The reference range was not used to interpret this result as normal/abnormal. MPV (test code = 02550-9) 9.2 fL 9.4-13.3 L NRBC/100 WBC (test code = 3937556738) 0.0 See_Comment [Automated me ssage] The system which generated this result transmitted reference range: 0.0 - 10.0 /100 WBCs. The reference range was not used to interpret this result as normal/abnormal. NRBC x10^3 (test code = 7620033066) See_Comment [Automated messa ge] The system which generated this result transmitted reference range: 10*3/?L. The reference range was not used to interpret this result as normal/abnormal. GRAN MAT (NEUT) % (test code = 770-8) 66.6 % IMM GRAN % (test code = 6888170956) 0.60 % LYMPH % (test code = 736-9) 24.8 % MONO % (test code = 5905-5) 7.1 % EOS % (test code = 713-8) 0.7 % BASO % (test code = 706-2) 0.2 % GRAN MAT x10^3(ANC) (test code = 4289914696) 5.82 10*3/uL 1.50-10.30 IMM GRAN x10^3 (test code = 0828964786) 0.05 10*3/uL 0.00-0.06 LYMPH x10^3 (test code = 731-0) 2.17 10*3/uL 0.70-7.40 MONO x10^3 (test code = 742-7) 0.62 10*3/uL 0.00-0.50 H EOS x10^3 (test code = 711-2) 0.06 10*3/uL 0.00-0.40 BASO x10^3 (test code = 704-7) 0.00-0.10 Lab Interpretation (test code = 46090-5) Abnormal [facility] B Surface [id number] 16:25:15 * Test Item Value Reference Range Interpretation Comme nts HBsAg Semi-Quantitative (arthur t code = 5195-3) 0.08 Negative [facility] B Surface [id number] 16:25:15 * Test Item Value Reference Range Interpretation Comme nts HBsAg Semi-Quantitative (arthur t code = 5195-3) 0.08 Negative [facility] and Screen - ONCE [id number] 15:15:00 * Test Item Value Reference Range Interpretation Comme nts ABO & RH (test code = 20) A NEGATIVE IAT (test code = 1185) Negative [facility] and Screen - ONCE [id number] 15:15:00 * Test Item Value Reference Range Interpretation Comme nts ABO & RH (test code = 20) A NEGATIVE IAT (test code = 1185) Negative [facility] URINALYSIS W SPECIFIC [id number] 20:36:00* Test Item Value Reference Range Interpretation [...] U APPEAR (test code = 3267) . [facility] URINALYSIS W SPECIFIC [id number] 20:31:00* Test Item Value Reference Range Interpretation [...] U APPEAR (test code = 3267) * [facility] [id number] 21:05:00* Test Item Value Reference Range Interpretation [...] U APPEAR (test code = 3267) . [facility] URINALYSIS W SPECIFIC [id number] 20:43:00* Test Item Value Reference Range Interpretation [...] POCT U APPEAR (test code = 3267) [facility] URINALYSIS W SPECIFIC [id number] 20:10:00* Test Item Value Reference Range Interpretation [...] U APPEAR (test code = 3267) . [facility] URINALYSIS W SPECIFIC [id number] 19:49:00* Test Item Value Reference Range Interpretation [...] U APPEAR (test code = 3267) .. [facility] URINALYSIS W SPECIFIC [id number] 19:49:00* Test Item Value Reference Range Interpretation [...] U APPEAR (test code = 3267) .. [facility] URINALYSIS W SPECIFIC [id number] 18:47:00* Test Item Value Reference Range Interpretation [...] U APPEAR (test code = 3267) . [facility] URINALYSIS W SPECIFIC [id number] 19:57:00* Test Item Value Reference Range Interpretation [...] U APPEAR (test code = 3267) . [facility] URINALYSIS W SPECIFIC [id number] 21:46:00* Test Item Value Reference Range Interpretation [...] POCT U APPEAR (test code = 3267) [facility] URINALYSIS W SPECIFIC [id number] 21:46:00* Test Item Value Reference Range Interpretation [...] POCT U APPEAR (test code = 3267) [facility] URINALYSIS W SPECIFIC [id number] 21:18:00* Test Item Value Reference Range Interpretation [...] POCT U APPEAR (test code = 3267) [facility] URINALYSIS W SPECIFIC [id number] 21:18:00* Test Item Value Reference Range Interpretation [...] POCT U APPEAR (test code = 3267) [facility] - SYPHILIS IGG/[id number] 17:05:09* Test Item Value Reference Range Interpretation Comme [facility] Syphilis IgG/IgM (test code = 71783-5) Non-reactive Non-reactive EITAN (test code = EITAN) Non-reactive - No serologic evidence of T. pallidum infection. Cannot exclude incubating or early syphilis. Submit a second specimen in 2-4 weeks if syphilis is clinically suspected. Equivocal - Further testing to follow. Reactive - Further testing to follow. Lab Interpretation (test code = 07113-8) Normal [facility] HospitalHI 1/2 AG-AB WITH [id number] 06:32:31* Test Item Value Reference Range Interpretation Comme nts HIV Semi-quantitative (test code = 13899-8) 0.16 Negative EITAN (test code = EITAN) Non-reactive for HIV-1 antigen and HIV-1/HIV-2 antibodies. ?No laboratory evidence of HIV infection. ?Repeat in 2-4 weeks if acute HIV infection is suspected. [facility] HospitalPOKY URIN[facility] W SPECIFIC [id number] 21:16:00* Test Item Value Reference Range Interpretation [...] POCT U APPEAR (test code = 3267) [facility] URINALYSIS W SPECIFIC [id number] 21:22:00* Test Item Value Reference Range Interpretation [...] U APPEAR (test code = 3267) . [facility] URINALYSIS W SPECIFIC [id number] 21:22:00* Test Item Value Reference Range Interpretation [...] U APPEAR (test code = 3267) . [facility] URINALYSIS W SPECIFIC [id number] 17:23:00* Test Item Value Reference Range Interpretation [...] POCT U APPEAR (test code = 3267) [facility] URINALYSIS W SPECIFIC [id number] 15:12:00* Test Item Value Reference Range Interpretation [...] U APPEAR (test code = 3267) . [facility] URINALYSIS W SPECIFIC [id number] 15:25:00* Test Item Value Reference Range Interpretation [...] POCT U APPEAR (test code = 3267) [facility] URINALYSIS W SPECIFIC [id number] 14:34:00* Test Item Value Reference Range Interpretation [...] POCT U APPEAR (test code = 3267) [facility] URINALYSIS W SPECIFIC [id number] 16:12:00* Test Item Value Reference Range Interpretation [...] POCT U APPEAR (test code = 3267) [facility] URINALYSIS W/O SPECIFIC [id number] 16:42:00* Test Item Value Reference Range Interpretation [...] = 3257) Trace Negative - Negati ve [facility] [id number] 16:41:00* Test Item Value Reference Range Interpretation Comme nts POCT PREG (test code = 1605) Positive On board controls acceptable with C Line (test code = 3574) Yes POCT PREG LOT # (test code = 3579) POCT PREG TEST DATE ( test code = 3570) [facility] HospitalSARS-CoV-2 (COVID-19), RT-PCR/[id number] 09:36:57* Test Item Value Reference Range Interpretation Comments SARS-CoV-2 INTERPRETATION (test code = 32707) POSITIVE SEE NOTE A SARS-CoV-2 RNA DETECTEDPositive results are indicative of the presence of SARS-CoV-2 RNA;clinical correlation with patient history and other diagnosticinformation is necessary to determine patient infection status.Positive results do not rule out bacterial infection or co-infectionwith other viruses. Positive and negative predictive values oftesting are highly dependent on prevalence. SOURCE (test code = 44037) NASOPHARYNGEAL Note: Methodolog y is Lauren Micah Real-Time RT-PCR. The expected result or reference range is NEGATIVE (Not Detected). For more information regarding COVID-19 testing to include clinicalinformation, methodology detail, intended use, FDA authorization andrecommended fact sheets for patients or healthcare providers, see [employer] Announcement: SARS-CoV-2 (COVID-19) by NAAT at URL below (note,fact sheets are provided by method given in report:[email or web address] -communications/ Alternatively, see downloadable PDF fact sheet at:[email or web address] [email or web address]-24-UX-PCR UNLESS OTHERWISE INDICATED, ALL TESTING PERFORMED [facility] [address] [place] [address] DIRECTOR OF BLOOD: YUNG AKINS M.D. CLIA NUMBER [id number] [facility] [place]. [id number] SARS-CoV-2 (COVID-19) by RT-PCR (HIGH RISK)2021-08-21 00:00:00* Test Item Value Reference Range Interpretation Comme nts SARS-CoV-2 INTERPRETATION (test code = 64569) POSITIVE SOURCE (test code = 85290) NASOPHARYNGEAL SARS-CoV-2 (COVID-19) by RT-PCR (HIGH RISK)2021-08-21 00:00:00* Test Item Value Reference Range Interpretation Comme nts SARS-CoV-2 INTERPRETATION (test code = 13029) POSITIVE SOURCE (test code = 51275) NASOPHARYNGEAL TESTOSTERONE [ADDED]2020-02-26 00:00:00* Test Item Value [...] (test co de = 2823) 0.93 NG/DL 48-[id number] 00:00:00* Test Item Value Reference Range Interpretation Comme nts 17-HYDROXYPROGESTERONE (test code = 4304) 18 ng/dL 24-[id number] 00:00:00* Test Item Value Reference Range Interpretation Comme nts 17-HYDROXYPROGESTERONE (test code = 4304) 18 ng/dL CBC W/AUTO [id number] 00:00:00* Test Item Value Reference Range Interpretation [...] (test code = 1015) 302 K/UL HEMOGLOBIN [id number] 00:00:00* Test Item Value Reference Range Interpretation Comme nts HEMOGLOBIN A1c (test code = 14462) 5.2 % HEMOGLOBIN [id number] 00:00:00* Test Item Value Reference Range Interpretation Comme nts HEMOGLOBIN A1c (test code = 43889) 5.2 % HEMOGLOBIN [id number] 00:00:00* Test Item Value Reference Range Interpretation Comme nts HEMOGLOBIN A1c (test code = 09361) 5.2 % LIPID [id number] 00:00:00* Test Item Value Reference Range Interpretation Comme nts CHOLESTEROL (test code = 2210) 151 MG/DL TRIGLYCERIDES (test code = 2232) 73 MG/DL HDL CHOLESTEROL (test code = 2220) 39 MG/DL CALC LDL CHOL (test code = 2237) 96 MG/DL RISK RATIO LDL/HDL (test cod e = 2238) 2.46 RATIO LIPID [id number] 00:00:00* Test Item Value Reference Range Interpretation Comme nts CHOLESTEROL (test code = 2210) 151 MG/DL TRIGLYCERIDES (test code = 2232) 73 MG/DL HDL CHOLESTEROL (test code = 2220) 39 MG/DL CALC LDL CHOL (test code = 2237) 96 MG/DL RISK RATIO LDL/HDL (test cod e = 2238) 2.46 RATIO COMPREHENSIVE METABOLIC [id number] 00:00:00* Test Item Value Reference Range Interpretation Comme nts GLUCOSE (test code = 2217) 87 MG/DL BUN (test code = 2208) 9 MG/DL CREATININE (test code = 2214) 0.72 MG/DL eGFR AMER. (test code = 58126) (NOTE) ML/MIN/1.73 eGFR NON- AMER. (test code = 41624) NO CALC ML/MIN/1.73 CALC BUN/CREAT (test code [...] code = 2219) 13 U/L COMPREHENSIVE METABOLIC [id number] 00:00:00* Test Item Value Reference Range Interpretation Comme nts GLUCOSE (test code = 2217) 87 MG/DL BUN (test code = 2208) 9 MG/DL CREATININE (test code = 2214) 0.72 MG/DL eGFR AMER. (test code = 75176) (NOTE) ML/MIN/1.73 eGFR NON- AMER. (test code = 34396) NO CALC ML/MIN/1.73 CALC BUN/CREAT (test code [...] ALT (test code = 2219) 13 U/L [id number] 00:00:00* Test Item Value Reference Range Interpretation Comme nts TSH, THIRD GENERATION (test code = 2821) 1.460 UIU/ML [id number] 00:00:00* Test Item Value Reference Range Interpretation Comme nts TSH, THIRD GENERATION (test code = 2821) 1.460 UIU/ML [id number] 00:00:00* Test Item Value Reference Range Interpretation Comme nts TSH, THIRD GENERATION (test code = 2821) 1.460 UIU/ML FSH + LH [id number] 00:00:00* Test Item Value Reference Range Interpretation Comme nts FOLLICLE STIM HORMONE (test code = 2700) 5.4 IU/L LUTEINIZING HORMONE (test co de = 2776) 9.1 IU/L FSH + LH [id number] 00:00:00* Test Item Value Reference Range Interpretation Comme nts FOLLICLE STIM HORMONE (test code = 2700) 5.4 IU/L LUTEINIZING HORMONE (test co de = 2776) 9.1 IU/L [id number] 00:00:00* Test Item Value Reference Range Interpretation Comme nts PROLACTIN (test code = 2800) 109.0 NG/ML [id number] 00:00:00* Test Item Value Reference Range Interpretation Comme nts PROLACTIN (test code = 2800) 109.0 NG/ML GC AND CHLAMYDIA, AMPLIFIED, [id number] 00:00:00* Test Item Value Reference Range Interpretation Comme nts GONORRHEA, TMA (test code = 83663) NEGATIVE CHLAMYDIA, TMA (test code = 57200) NEGATIVE GC AND CHLAMYDIA, AMPLIFIED, [id number] 00:00:00* Test Item Value Reference Range Interpretation Comme nts GONORRHEA, TMA (test code = 58909) NEGATIVE CHLAMYDIA, TMA (test code = 34057) NEGATIVE HIV AB/AG COMBO RFLX [id number] 00:00:00* Test Item Value Reference Range Interpretation Comme nts HIV 1/2 4TH GEN, RFLX CONF ( test code = 3514) NON-REACTIVE HIV AB/AG COMBO RFLX [id number] 00:00:00* Test Item Value Reference Range Interpretation Comme nts HIV 1/2 4TH GEN, RFLX CONF ( test code = 3514) NON-REACTIVE [id number] 00:00:00* Test Item Value Reference Range Interpretation Comme nts RPR RESULT (test code = 3501) NON-REACTIVE RPR TITER (test code = 3500) NOT INDIC. TITER [id number] 00:00:00* Test Item Value Reference Range Interpretation Comme nts RPR RESULT (test code = 3501) NON-REACTIVE RPR TITER (test code = 3500) NOT INDIC. TITER [id number] 00:00:00* Test Item Value Reference Range Interpretation Comme nts RPR RESULT (test code = 3501) NON-REACTIVE RPR TITER (test code = 3500) NOT INDIC. TITER CBC W/AUTO [id number] 00:00:00* Test Item Value Reference Range Interpretation [...] code = 1015) 302 K/UL CBC W/AUTO [id number] 00:00:00* Test Item Value Reference Range Interpretation [...] (test code = 1015) 302 K/UL LIPID [id number] 00:00:00* Test Item Value Reference Range Interpretation Comme nts CHOLESTEROL (test code = 2210) 145 MG/DL TRIGLYCERIDES (test code = 2232) 77 MG/DL HDL CHOLESTEROL (test code = 2220) 40 MG/DL CALC LDL CHOL (test code = 2237) 90 MG/DL RISK RATIO LDL/HDL (test cod e = 2238) 2.24 RATIO LIPID [id number] 00:00:00* Test Item Value Reference Range Interpretation Comme nts CHOLESTEROL (test code = 2210) 145 MG/DL TRIGLYCERIDES (test code = 2232) 77 MG/DL HDL CHOLESTEROL (test code = 2220) 40 MG/DL CALC LDL CHOL (test code = 2237) 90 MG/DL RISK RATIO LDL/HDL (test cod e = 2238) 2.24 RATIO HEMOGLOBIN [id number] 00:00:00* Test Item Value Reference Range Interpretation Comme nts HEMOGLOBIN A1c (test code = 02051) 4.9 % HEMOGLOBIN [id number] 00:00:00* Test Item Value Reference Range Interpretation Comme nts HEMOGLOBIN A1c (test code = 42793) 4.9 % HEMOGLOBIN [id number] 00:00:00* Test Item Value Reference Range Interpretation Comme nts HEMOGLOBIN A1c (test code = 76200) 4.9 % COMPREHENSIVE METABOLIC [id number] 00:00:00* Test Item Value Reference Range Interpretation Comme nts GLUCOSE (test code = 2217) 86 MG/DL BUN (test code = 2208) 9 MG/DL CREATININE (test code = 2214) 0.69 MG/DL eGFR AMER. (test code = 29002) (NOTE) ML/MIN/1.73 eGFR NON- AMER. (test code = 30870) NO CALC ML/MIN/1.73 CALC BUN/CREAT (test code [...] code = 2219) 12 U/L COMPREHENSIVE METABOLIC [id number] 00:00:00* Test Item Value Reference Range Interpretation Comme nts GLUCOSE (test code = 2217) 86 MG/DL BUN (test code = 2208) 9 MG/DL CREATININE (test code = 2214) 0.69 MG/DL eGFR AMER. (test code = 43700) (NOTE) ML/MIN/1.73 eGFR NON- AMER. (test code = 09622) NO CALC ML/MIN/1.73 CALC BUN/CREAT (test code [...] Notes Date/Time Note Provider Source 2023-09-01 08:26:26 0123-96-97R09:26:26F ormatting of this note is different from the original.TRIAGE/L&D HISTORY & PHYSICALIDENTIFYING DATAEmgustavo Wilkes is 17 year old, /White, 39w0d, female with DOUGLAS 09/08/2023, by Ultrasound.: 2004MRN: [id number] Care Physician: PATIENT DOES NOT HAVE A PCPCHIEF COMPLAINTTerm gestationHISTORY OF PRESENT ILLNESSEmgustavo Wilkes is a 17 year old w/ PMHx of asthma, bipolar, anxiety, at 39w0d who presents for IOLPatient denies vaginal bleeding, denies leakage of fluid, denies contractions.Patient denies headache, admits nausea denies vomiting, denies RUQ pain, denies visual abnormalities.Endorses normal movement.PAST OBSTETRIC HISTORYOB HistoryGravida Para Term AB Hjixqb6EHV IAB Ectopic Multiple Live Births# Outcome Date [...] MedicationsMedication Dose Route Frequency Last Rate Last RtjzhX5Z-WL IV infusion 1,000 mL 1,000 mL IV [...] in the evening. 60 tablet 2prenatal vit 63-qjzk-hceqg-dha (SELECT-OB + DHA) 29 mg iron-1 mg [...] Positive (A) 08/12/2023 03:56 PMGTTLab ResultsComponent Value Date/QhkvRNGH6WZ 78 (L) 05/29/2023 11:40 AMCBCLab ResultsComponent Value Date/TimeHGB 12.2 08/12/2023 03:00 PMHCT 36.8 08/12/2023 03:00 PMPLT 334 08/12/2023 03:00 PMActive Hospital ProblemsDiagnosis Date Noted39 weeks gestation of 09/01/2023GBS (group B Streptococcus carrier), +RV culture, currently 08/14/2023olyhydramnios, antepartum complication 07/24/2023eclines flu vaccine 05/29/2023Rh negative state in antepartum [...] Please see the resident's note for additional details.22243-9Ufqtncb and physical [id number], Sangeeta1.2.840.455214.1.13.104.2.7.2.8369 24YkjjMqrouqikYH9637-56-70R23:14:54History and physical noteTXT1.2.840.576075.1.13.104.2.7.2.52931 9|1100292831VUUmapmdmwq for patient xdbk44239-5Mbuqrpa and physical noteLNNARRATIVEFormatted C-CDA narrative textUT[address] YtsxJshffaatmUvbbbijxaKNKD1979922669KMVFPB REVAUCRJJAPWLUAG4419-39-97S28:14:541.2.840 .317912.1.72.3.15|1.2.840.722709.1.13.104. 2.7.2.727879_[id number] [facility] Procedure Notes Date/Time Note Provider Source 2023-09-01 14:08:54 9003-50-40U45:08:54Associated Order(s): Central Neuraxial Block Central Neuraxial BlockDate/Time: 09/01/2023 2:08 PMPerformed by: Syeda Middleton MDAuthorized by: Jumana Denson MDPatient Location: OBReason for Block: OB request, Patient request, Labor analgesia, Surgical anesthesia and Post-op pain managementStaff:Anesthesiologist: Jumana Denson MDResident/MASTER CONTROL TECHNICIAN: Toth, Melanie Erlinda, MDPerformed by: resident/CRNAPreanesthetic Checklist: patient identified, IV checked, risks and benefits explained, monitors and equipment checked, timeout performed, pre-op evaluation, site marked and anesthesia consentProcedure:Type of Neuraxial: EpiduralSterility Prep cap, drape, gloves, hand hygiene and maskSedation Level no sedationPatient Position: sittingPrep: Betadine and patient drapedMonitoring: heart rate, continuous pulse ox, heart rate / toco and NIBPLocation: lumbar (1-5)Lumbar: L3-M1Tsdtdwuy: midlineTechnique: catheter and BUD salineGuidance with: landmark technique}Epidural/Spinal [place] and/or Catheter:Epidural/Spinal Kit: BBraunNeedle Type: TuohyNeedle Gauge: [...] patient tolerated procedure well with no complications 53257-9Qmhxsslfcifpgc procedure jtqqNW5135-60-70E32:09:47Anesthesiol ogy procedure noteTXT1.2.840.928870.1.13.104.2.7.2 .217427|[id number] for patient katw64035-0Qduevmlo operation noteLNNARRATIVEFormatted C-CDA narrative hwvbSP-PWVUXUXISBPZXOPH-PQMULOCQNAXZ BRE[address] Mw[id number] TWQRYOGAMFGJQJBYLGKSPQ6899-49-31N86: 09:471.2.840.161450.1.72.3.15|1.2.84 0.231341.1.13.104.2.7.2.727879_[id number] AN-ANESTHESIOLOGY [facility] Notes Date/Time Note Provider Source 2023-09-18 11:39:51 5565-07-22G98:39:51 I spoke with this patient about her breast pump last week and she said everything was fixed. This morning I put in her correct information with the breast pump company. No further action is required from our staff. 31741-7Uamfoccat encounter VfwnWL7925-89-33T20:41:04Telephone encounter NoteTXT1.2.840.374123.1.13.104.2.7.2.7 14296|[id number] for patient sbvi54156-0ZqjiVZZCFHLKTQLSjiebtsmj C-CDA narrative reng700149245Igolcv R [address]TXTX[address]75[address]US MZKUTQITZFSCKHNQBVEA6418-51-18K89:41:0 41.2.840.406156.1.72.3.15|1.2.840.1143 50.1.13.104.2.7.2.727879_[id number] Yaneli Hannah Enrique [facility] 2023-09-12 16:18:26 1781-22-91V98:18:26 Will forward to Ms. Groves. 64864-8Yfshfbmss encounter PthtOE6295-93-53X07:18:40Telephone encounter NoteTXT1.2.840.646568.1.13.104.2.7.2.7 51727|[id number] for patient xgyw03978-5BikzXQAQQFBIPMLHuzhigfnl C-CDA narrative hxhx18993505Wnsuqep [id number] HUVMOUYZCNWWCETVTQHN0656-68-75P75:18:4 01.2.840.815545.1.72.3.15|1.2.840.1143 50.1.13.104.2.7.2.727879_[id number] Roland Allen [facility] 2023-09-11 15:12:11 3817-96-98P67:12:11 John Wilkes is a 17 year old femalePt is calling to speak with the clinic and check the status of her breast pump forms. 18693-0Nrzhvtjmj encounter KtoyGI9836-33-11Q85:13:57Telephone encounter NoteTXT1.2.840.107726.1.13.104.2.7.2.7 99756|[id number] for patient kint96784-1UdtuMZEYBUGBUDVDncfsvjxn C-CDA narrative uofp802982499Jfehgi P Robinson[address] OgftRraynogmlDgihueougCVUI3441141487NC UTGXQFMGUTKKMIHJFFVO1608-49-16C50:13:5 71.2.840.722778.1.72.3.15|1.2.840.1143 50.1.13.104.2.7.2.727879_[id number] Jarrell Sousa [facility] 2023-09-03 22:09:25 2853-40-38B99:09:25 Problem: Intrapartum process (including labor pain)Goal: Absence [...] RiskGoal: Absence of infectionOutcome: Progressing as expected 82789-2Huyr of care jzfyKO9881-95-50T69:09:33Plan of care noteTXT1.2.840.195835.1.13.104.2.7.2.7 08994|[id number] for patient whyu11369-8WvulNKRRXXMNASIHcyaddhno C-CDA narrative qctf149654818Xnijwtg Brown RN[address]TXTX[address]75[address]US YVJIJRMWIEIMGYGJIMAV4567-25-31N26:09:3 31.2.840.683274.1.72.3.15|1.2.840.1143 50.1.13.104.2.7.2.727879_[id number] Ingrid Kothari RN [facility] 2023-09-03 16:11:15 7693-98-11H22:11:15 Problem: Falls, Risk ofGoal: Absence of fallsOutcome: Progressing as expectedProblem: PainGoal: Control of pain at or below patient's documented comfort goalOutcome: Progressing as expectedGoal: Reduction in pain sensationOutcome: Progressing as expectedProblem: Discharge Planning - PostpartumGoal: Adequate for dischargeOutcome: Progressing as expectedGoal: Mood stableOutcome: Progressing as expectedProblem: Infection RiskGoal: Absence of infectionOutcome: Progressing as expected 51261-3Oxqx of care vbpjRP9482-44-77K28:11:19Plan of care noteTXT1.2.840.057798.1.13.104.2.7.2.7 74732|6690324566ADAapaiwidc for patient bckk77091-3VpgcSVETVMAMKMOOwlcwsivm C-CDA narrative pmic135955762Fgiovz Sanchez RNUT[address] AmphQtgprizibNqtmfmecwCERH7107734827GV GYJPUGBBNFQXRLHHFHHU4659-84-03I20:11:1 91.2.840.691623.1.72.3.15|1.2.840.1143 50.1.13.104.2.7.2.727879_[id number] Kirstin Reaves RN [facility] 2023-09-03 15:43:01 7553-88-07H24:43:01 Images from the original note were not included.This note was copied from a baby's chart. Assessment (most recent) Assessment - 09/03/23 1515General InformationVisit InitialPercent of weight loss- Infant 0Number of voids last 24 hours- 2Number of stools last 24 hours- 3Mom's age (years) 17 yearsGestational age 39 [...] feed as directed by medical staffOTHER$ SERVICES InitialJan Lupe SALDIVAR RN, IBCLC 63666-5Jaqxvbaxrf YgzwHE1672-10-89Z77:43:25Obstetrics NoteTXT1.2.840.517673.1.13.104.2.7.2.7 52026|3501172021CQCzzwlgcba for patient lojg10862-5LteiJDRYOTXSHBDPozxtkhhh C-CDA narrative yazk500469216Qnk A Neeley RNUT[address]TXTX[address]5577555US CDFZWLJJXDWTSEGIJLPX3420-34-03Y63:43:2 51.2.840.346131.1.72.3.15|1.2.840.1143 50.1.13.104.2.7.2.727879_[id number] Godwin Andrade RN [facility] 2023-09-03 11:45:00 7652-28-00D19:45:00 This note was copied from a baby's chart.Consult was attempted. Mom was asleep. Will attempt consult at a later time.Godwin SALDIVAR, RN, IBCLC 08771-2Zqkrokdjjq JwmgCU6340-25-34F26:21:44Obstetrics NoteTXT1.2.840.861010.1.13.104.2.7.2.7 87200|1365959548QPMjrfqtqpz for patient snvr44249-1NgonKZQFXDSAYPQUzxfkwpqs C-CDA narrative text[address] StreetTXTX7755577555US VJELXOIZEISJZSGLWAPT4167-18-48Z76:21:4 41.2.840.631346.1.72.3.15|1.2.840.1143 50.1.13.104.2.7.2.727879_[id number] [facility] 2023-09-03 02:34:53 2943-86-27N04:34:53 Problem: Falls, Risk ofGoal: Absence of fallsOutcome: Progressing as expectedProblem: PainGoal: Control of pain at or below patient's documented comfort goalOutcome: Progressing as expectedGoal: Reduction in pain sensationOutcome: Progressing as expectedProblem: Discharge Planning - PostpartumGoal: Adequate for dischargeOutcome: Progressing as expectedGoal: Mood stableOutcome: Progressing as expectedProblem: Infection RiskGoal: Absence of infectionOutcome: Progressing as expected 20938-0Euzt of care oqppBY8754-21-04G80:35:01Plan of care noteTXT1.2.840.307360.1.13.104.2.7.2.7 96682|1160968167OJZlqmuxzkm for patient gvbu23725-5JjswHUEGBZQXSHFEenuzzizy C-CDA narrative yhpj423807014Mclwwln H Dinh RN[address] WkasFrzhuclkyJjrjniiphEIBF6834148553XP DALDLQPMWDJFFGOTEBIP4933-91-09O42:35:0 11.2.840.522767.1.72.3.15|1.2.840.1143 50.1.13.104.2.7.2.727879_[id number] Sabine Martinez RN [facility] 2023-09-02 13:43:19 1182-33-19B93:43:19 Intrapartum Progress Note09/02/2023 1:43 PMSubjective: Patient has [...] Wilkes is a 17 year old at 04o2xUA Assessment: IOL, asthma, GBS, GHTNOB Plan: s/p FB/LDP, Pit@2200, VancAdditional Comments/Detail: Strip reviewed with Dr. Moreno. Patient currently on 2 of pitocin with minimal variability. FHT looked better when pitocin was off, patient made change from /-. Plan to turn pitocin off and reassess SVE in two hours.Ripening Agent: Oxytocin, Spicer bulbChelsea MD Mario AlbertoOb-Vegetable Farm Manager SMZ2Ffrrnmrwrrbpau signed by Safia Llanes at 09/02/2023 1:44 PM QPT85158-8Nruxonqt nfvmGC1215-00-29Q35:44:06Progress noteTXT1.2.840.910489.1.13.104.2.7.2.7 49392|[id number] for patient kyfp26782-4CgrhMDANGYDDMZNKlvfptlzt C-CDA narrative textUT[address] QntvKrsdlfdfrMesxmzctaTUTE0003680289RJ OBEVCGYGKVHJDBXKFMVH2505-35-90W58:44:0 61.2.840.657713.1.72.3.15|1.2.840.1143 50.1.13.104.2.7.2.727879_[id number] [facility] 2023-09-02 10:48:35 7608-44-42C45:48:35 Intrapartum Progress Note09/02/2023 10:48 AMSubjective: Patient has [...] Wilkes is a 17 year old at 42k9nQH Assessment: IOL, asthma, GBS, GHTNOB Plan: s/p FB/LDP, Pit@2200, VancAdditional Comments/Detail: First time patient called active, previously 5cm. Patient requesting to discuss , counseled on continuing IOL vs PCS for maternal request, patient would like to talk to her parrtner at this time. FHT improved with pitocin offRipening Agent: Oxytocin, Spicer bulbIntrapartum Plan: Continue cervical ripeningChelscole Llanes MDOb-Vegetable Farm Manager SBU4Uqqeioemdujntq signed by Safia Llanes at 09/02/2023 10:48 AM ASA47033-5Xcnflpcp atgfZB7667-57-09Q26:48:51Progress noteTXT1.2.840.675534.1.13.104.2.7.2.7 49674|7587936364WJYjoiljold for patient eidh77954-3FvioFXGQFZPCPWKLwuwazwmt C-CDA narrative textUTMBUTMB - [address] QavxYfhcsztedLkjekhdsfXYJD6617505314KB RMPADLKCGUMDTUGHYUOI6239-43-15W36:48:5 11.2.840.340289.1.72.3.15|1.2.840.1143 50.1.13.104.2.7.2.727879_[id number] [facility] 2023-09-02 01:24:00 6112-76-10U21:24:00 Intrapartum Progress Note09/02/2023 1:24 AMSubjective: Patient has [...] Wilkes is a 17 year old at 51q0eWG Assessment: IOL, asthma, GBS, GHTNOB Plan: s/p FB/LDP, Pit@2200, vancAdditional Comments/Detail: AROM thick meconiumRipening Agent: Oxytocin, Spicer bulbIntrapartum Plan: Continue cervical [place] [address]-4Cbfqjbdl oigoAK9300-14-38N64:24:05Progress noteTXT1.2.840.840777.1.13.104.2.7.2.7 87849|[id number] for patient fcem96414-0XvojKJXYZCPDWNEOgvtcfhdn C-CDA narrative textOG-OBSTETRICS & GYNECOLOGYOG-OBSTETRICS & GYNECOLOGYUTMBUTMB - Kxraow904 University DeqzEnkamtfzfShqyxtvxdRVYD8437042240JK ZBGGRSHNSRXKIUKFHPXT5156-95-77T96:24:0 51.2.840.195428.1.72.3.15|1.2.840.1143 50.1.13.104.2.7.2.727879_[id number] OG-OBSTETRICS & GYNECOLOGY [facility] 2023-09-01 21:51:57 3731-83-65S86:51:57 Intrapartum Progress Note09/01/2023 9:51 PMSubjective: Patient has [...] Wilkes is a 17 year old at 79s1jAN Assessment: IOL, asthma, GBS, GHTN r/o PreEOB Plan: s/p FB/LDP, Pit@__, vancAdditional Comments/Detail: FB out at this time. Ballotable on examination. Will start pitocin titration and assess for AROM at a later time.Ripening Agent: Oxytocin, Spicer bulbIntrapartum Plan: [place] [address]-0Qotrymqx qinkIA0211-18-47Y01:52:01Progress noteTXT1.2.840.560329.1.13.104.2.7.2.7 24209|0626585645QWHnhvsypks for patient pnkw70013-4NxetIGKWNPOVGXGXxjsgthst C-CDA narrative text[address]TXTX[address]5577555US ZDLSMMEGGXPDQROSMIKJ0483-46-06D97:52:0 11.2.840.119381.1.72.3.15|1.2.840.1143 50.1.13.104.2.7.2.727879_[id number] [facility] 2023-09-01 21:26:00 7032-37-22K03:26:00 Problem: Intrapartum process (including labor pain)Goal: Absence of or reduction of complications of laborOutcome: Progressing as expectedGoal: Able to cope with painOutcome: Progressing as expectedGoal: Adequate to move to next level of careOutcome: Progressing as expectedGoal: Reduction in pain sensationOutcome: Progressing as expectedProblem: Falls, Risk ofGoal: Absence of fallsOutcome: Progressing as expected 35662-5Vhvn of care eqlpZG5407-16-88H75:26:03Plan of care noteTXT1.2.840.716007.1.13.104.2.7.2.7 12994|4808895518BDJhusofxii for patient vixn88067-8HvebSOORQCJJYDJRkcswrpmh C-CDA narrative text[address] StreetTXTX7755577555US TXKPLEPFIYNXSZVUSYON6444-20-13S63:26:0 31.2.840.298593.1.72.3.15|1.2.840.1143 50.1.13.104.2.7.2.727879_[id number] [facility] 2023-09-01 13:18:49 7261-73-28U21:18:49 Name/ MRN / Age / Gender:John Wilkes, 101229Z21 year old femaleBMI:Estimated body mass index is 58.5 kg/m? as calculated from the following:Height as of this encounter: 1.626 m (5' 4.02").Weight as of this encounter: 154.7 kg (341 lb).Allergies:Aspirin and PenicillinLast Vitals:BP Readings from Last 1 Encounters:09/01/23 115/78Pulse Readings from Last 1 Encounters:09/01/23 68SpO2 Readings from Last 1 Encounters:09/01/23 94%Date of Surgery: 09/01/2023Surgeon: * No surgeons listed *Procedure: CENTRAL NEURAXIAL BLOCKOR Location: [facility] ANESTHESIA OUT OF OR - OR LOCATIONAnesthesia Preop Eval (physical exam)Anesthesia Preop: Chart Review and Yuip-tf-QwfbVVBQ Risk Factors: femaleAnesthesia HistoryAnesthesia History Negative(-) Hx [...] prior to surgery. Hold on DOS.Phentermine: Alert [facility] anesthesiologistSGLT2 Inhibitors: "gliflozins" to be held [...] routine analgesia & antiemeticsRecovery Plan: LDRAdditional comments: 47009-5Jwynezdozemvbo Preoperative evaluation and management wgwcYF2343-95-34X94:55:31Anesthesiolog y Preoperative evaluation and management noteTXT1.2.840.506284.1.13.104.2.7.2.7 89639|4023294126GKVjkpttdij for patient zzem65152-4Zfczjerx operation noteLNNARRATIVEFormatted C-CDA narrative textAN-ANESTHESIOLOGY ANESTHESIOLOGISTAN-ANESTHESIOLOGY ANESTHESIOLOGIST[address] StreetTXTX[address]75[address]US ZZVDSJHSABMAGRDOAWZP6353-06-50U14:55:3 11.2.840.361938.1.72.3.15|1.2.840.1143 50.1.13.104.2.7.2.727879_[id number] AN-ANESTHESIOLOGY ANESTHESIOLOGIST [facility] 2023-09-01 09:19:37 7668-17-37I63:19:37 Problem: Intrapartum process (including labor pain)Goal: Absence of or reduction of complications of laborOutcome: Progressing as expectedGoal: Able to cope with painOutcome: Progressing as expectedGoal: Adequate to move to next level of careOutcome: Progressing as expectedGoal: Reduction in pain sensationOutcome: Progressing as expected [id number] of care bvkuBS8320-77-39R27:19:56Plan of care noteTXT1.2.840.142221.1.13.104.2.7.2.7 [id number] for patient tlvb76807-8KadmRVONWAIQDMTBxobzeknm C-CDA narrative [id number] VILLALOBOS[address] [id number] ZCRGZNPXCIAEBNEBTACN1204-94-20G86:19:5 61.2.840.546410.1.72.3.15|1.2.840.1143 [id number] Stacy Esquivel RN [facility]
[2024-02-10 16:39] LABS: Absolute Eosinophils 0.1 K/uL (0-0.5); Absolute Lymphocytes (CBC) 1.6 K/uL (0.7-4.9); Absolute Monocytes 0.6 K/uL (0.1-1.3); Basophils % 0.3 % (0-1.3); Eosinophils % 0.8 % (0-4.4); Hematocrit 37.1 % (36.0-45.0); Hemoglobin 12.1 g/dL (12.0-15.0); MCH 26.5 pg (27.0-35.0); MCHC 32.6 g/dL (32.0-36.0); MCV 81.5 fL (80-100); MPV 7.3 fL (7.6-11.3); Monocytes % 6.1 % (3.3-12.3); Neutrophils % 77.8 % (41.7-73.7); Nucleated Red Blood Cells % 0.1 % (0-0); Platelets 377 thou/uL (152-406); RBC Red Blood Cell Count 4.55 M/uL (3.86-4.86); Red Cell Distribution Width 15.6 % (12.1-15.2)
[2024-02-10 16:40] LABS: Specific Gravity 1.022 (1.005-1.030)
[2024-02-10] MEDS ORDERED: KETOROLAC 30 MG/ML INJ ONE (16:41)
[2024-02-10] MEDS ORDERED: DIPHENHYDRAMINE 50 MG/ML VIAL ONE (16:41)
[2024-02-10] MEDS ORDERED: NA CHLORIDE 0.9% 1,000 ML ONE (16:42)
--- NOTE | 2024-02-10 16:55 | RAD REPORT ---
EXAM DESCRIPTION: CT - Head Brain Wo Cont - 02/10/2024 4:35 pm CLINICAL HISTORY: Headache COMPARISON: 2022 TECHNIQUE: Computed axial tomography of the head was obtained. IV contrast was not requested. All CT scans are performed using dose optimization technique as appropriate and may include automated exposure control or mA/KV adjustment according to patient size. FINDINGS: An intracranial bleed is not seen The ventricles are normal in caliber No significant hypodense areas within the brain visualized No extra-axial fluid collection is noted. Fluid within the sinuses/ mastoids is not seen IMPRESSION: No acute intracranial abnormality is seen If patient's symptoms persist MRI of the brain would be recommended
[2024-02-10 16:56] LABS: Albumin 3.3 g/dL (3.4-5.0); Albumin/Globulin Ratio 0.8 (1.1-1.8); Bilirubin Total 0.3 mg/dL (0.2-1.0); Protein, Total 7.3 g/dL (6.4-8.2)
--- NOTE | 2024-02-10 17:21 | ER ---
Nurse's Notes [facility] Name: Latanya Mims Age: 18 yrs Sex: Female : 2005 Arrival Date: 02/10/2024 Time: 16:00 Bed 14 Private MD: Diagnosis: Headache Presentation: 02/09 16:01 Chief complaint: EMS states: Headache along with right eye blurry vision for a week, nj1 getting worse. 16:01 Coronavirus screen: Vaccine status: Patient reports being unvaccinated. Ebola Screen: nj1 Patient denies travel to an Ebola-affected area in the 21 days before illness onset. Initial Sepsis Screen: Does the patient meet any 2 criteria? No. Patient's initial sepsis screen is negative. Does the patient have a suspected source of infection? No. Patient's initial sepsis screen is negative. Risk Assessment: Do you want to hurt yourself or someone else? Patient reports no desire to harm self or others. Onset of symptoms was January 2024. 16:01 Method Of Arrival: EMS: [facility] 16:01 Acuity: CHEN 3 nj1 Historical: - Allergies: 16:11 Aspirin; nj1 16:11 PENICILLINS; nj1 - PMHx: 16:11 Anxiety; Asthma; Bipolar disorder; Depression; Seizures; nj1 - PSHx: 16:11 section; nj1 - Immunization history:: Client reports having NOT received the Covid vaccine. - Infectious Disease History:: Denies. - Social history:: Smoking status: Patient denies any tobacco usage or history of. Screenin:12 [facility] ED Fall Risk Assessment (Adult) History of falling in the last 3 months, nj1 including since admission No falls in past 3 months (0 pts) Confusion or Disorientation No (0 pts) Intoxicated or Sedated No (0 pts) Impaired Gait No (0 pts) Mobility Assist Device Used No (0 pt) Altered Elimination No (0 pt) Score/Fall Risk Level 0 - 2 = Low Risk Oriented to surroundings, Maintained a safe environment, Hourly rounding (assess needs \T\ fall precautionary measures) done. Abuse screen: Denies threats or abuse. Denies injuries from another. Nutritional screening: No deficits noted. Tuberculosis screening: No symptoms or risk factors identified. Assessment: 16:12 General: Appears in no apparent distress. uncomfortable, Behavior is calm, cooperative, nj1 appropriate for age. Pain: Complains of pain in head Pain currently is 10 out of 10 on a pain scale. Neuro: Level of Consciousness is awake, alert, obeys commands, Oriented to person, place, time, situation, Reports headache. Cardiovascular: Patient's skin is warm and dry. Respiratory: Airway is patent Respiratory effort is even, unlabored. 17:02 Reassessment: Patient appears in no apparent distress at this time. Patient and/or kj2 family updated on plan of care and expected duration. Pain level reassessed. Patient is alert, oriented x 3, equal unlabored respirations, skin warm/dry/pink. Patient states feeling better. General: Appears in no apparent distress. obese, Behavior is calm, cooperative. Pain: Complains of pain in headache Pain began 2-3 days ago. Neuro: No deficits noted. Reports headache frontal area. Cardiovascular: Capillary refill < 3 seconds Chest pain is denied. Respiratory: Denies shortness of breath. GI: No deficits noted. 17:37 Reassessment: Patient appears in no apparent distress at this time. Patient is alert, nj1 oriented x 3, equal unlabored respirations, skin warm/dry/pink. Patient states feeling better. Patient states symptoms have improved. Vital Signs: 16:01 BP 111 / 53; Pulse 58; Resp 18; Temp 98(O); Pulse Ox 99% on R/A; Weight 143.34 kg (R); nj1 Height 5 ft. 3 in. ; 17:07 BP 106 / 66; Pulse 56; Resp 16; Pulse Ox 100% on R/A; kj2 17:36 BP 109 / 64; Pulse 70; Resp 17; Pulse Ox 99% on R/A; nj1 16:01 Body Mass Index 55.98 (143.34 kg, 160.02 cm) - Percentile 99.4 % nj1 ED Course: 16:06 Patient arrived in ED. ec2 16:06 Isaiah Jenkins MD is Attending Physician. ec2 16:07 Holli Sheffield, SHIRA is Primary Nurse. nj1 16:11 Triage completed. nj1 16:11 Arm band placed on. nj1 16:13 Patient has correct armband on for positive identification. Bed in low position. Call nj1 light in reach. Side rails up X 1. Provided Education on: call light, fall precautions. 16:37 CT Head Brain wo Cont In Process Unspecified. EDMS 17:38 No provider procedures requiring assistance completed. IV discontinued, intact, nj1 bleeding controlled, Pressure dressing applied. Administered Medications: 16:45 Drug: diphenhydrAMINE IVP 25 mg IVP once Route: IVP; Site: right antecubital; kj2 17:41 Follow up: Response: No adverse reaction nj1 16:47 Drug: Droperidol IVP 2.5 mg IVP once Route: IVP; Site: right antecubital; kj2 17:41 Follow up: Response: No adverse reaction nj1 16:49 Drug: TORadol - Ketorolac IVP 15 mg IVP once Route: IVP; Site: right antecubital; kj2 17:41 Follow up: Response: No adverse reaction nj1 16:53 Drug: NS 0.9% IV 1000 ml IV at 1 bolus Per protocol; 1000 mL bolus Route: IV; Rate: 1 kj2 bolus; Site: right antecubital; 17:41 Follow up: Response: No adverse reaction; IV Status: Order to discontinue infusion; IV nj1 Intake: 600ml Medication: 17:38 VIS not applicable for this client. nj1 Intake: 17:41 IV: 600ml; Total: 600ml. nj1 Outcome: 17:20 Discharge ordered by . ec2 17:38 Discharged to home ambulatory, nj1 17:38 Condition: stable 17:38 Discharge instructions given to patient, Instructed on discharge instructions, follow up and referral plans. medication usage, Demonstrated understanding of instructions, follow-up care, medications, Prescriptions given X 1, 17:41 Patient left the ED. nj1 Signatures: Dispatcher [employer] EDMS Holli Sheffield, RN RN nj1 Isaiah Jenkins MD MD ec2 Meenakshi Berry RN RN kj2 Corrections: (The following items were deleted from the chart) 17:38 17:37 Reassessment: Patient appears in no apparent distress at this time. Patient is nj1 alert, oriented x 3, equal unlabored respirations, skin warm/dry/pink. nj1
--- NOTE | 2024-02-10 17:21 | EDPHYS ---
Physician Documentation [facility] Name: Latanya Mims Age: 18 yrs Sex: Female : 2005 Arrival Date: 02/10/2024 Time: 16:00 Bed 14 Private MD: ED Physician Isaiah Jenkins HPI: 02/09 16:07 This 18 yrs old Female presents to ER via Unassigned with complaints of ec2 headache. 16:07 Patient arrives today for evaluation of a headache. Patient reports that she is having ec2 headache, generalized, along for 1 week also complaining of some blurry vision. Patient reports no significant medical problems, no daily medications, has taken Tylenol with some improvement in symptoms. Some nausea, no vomiting. Denies any falls injuries or trauma. No history of intracranial masses.. Historical: - Allergies: 16:11 Aspirin; nj1 16:11 PENICILLINS; nj1 - PMHx: 16:11 Anxiety; Asthma; Bipolar disorder; Depression; Seizures; nj1 - PSHx: 16:11 section; nj1 - Immunization history:: Client reports having NOT received the Covid vaccine. - Infectious Disease History:: Denies. - Social history:: Smoking status: Patient denies any tobacco usage or history of. ROS: 16:07 Constitutional: as per hpi ec2 Exam: 16:07 Constitutional: GEN: NAD Head: atraumatic Eyes: EOMI Ears: External ears are ec2 normal. CV: regular rate LUNGS: no respiratory distress ABD: non-distended SKIN: no evidence of rashes MSK: no evidence of trauma NEURO: moves all extremities equally, cranial nerves II through XII intact, strength intact all 4 extremities, sensation intact throughout. Vital Signs: 16:01 BP 111 / 53; Pulse 58; Resp 18; Temp 98(O); Pulse Ox 99% on R/A; Weight 143.34 kg (R); nj1 Height 5 ft. 3 in. ; 17:07 BP 106 / 66; Pulse 56; Resp 16; Pulse Ox 100% on R/A; kj2 17:36 BP 109 / 64; Pulse 70; Resp 17; Pulse Ox 99% on R/A; nj1 16:01 Body Mass Index 55.98 (143.34 kg, 160.02 cm) - Percentile 99.4 % nj1 MDM: 16:06 Patient medically screened. ec2 16:07 Data reviewed: vital signs. ED course: Patient arrives today for evaluation of ec2 headache. Examination remarkable for well-appearing nontoxic vigorous otherwise in no acute distress with a reassuring neurologic examination. Will obtain CT scan of the head, lab work. Differential diagnose include processes such as intracranial mass, doubt intracranial brain bleed, additionally considered other process such as nonspecific headache syndrome, electrolyte disturbances, anemia.. 16:58 ED course: CBC is reassuring. Metabolic profile with proper electrolytes and renal ec2 function, CT scan of the head on my interpretation shows no acute intracranial normality, urine testing is negative for . . 17:19 ED course: On reassessment patient is well-appearing in no acute distress, patient with ec2 marked improvement in her symptoms. Will discharge home. Return precautions given. 02/09 16:07 Order name: CBC with Diff; Complete Time: 16:58 ec2 02/09 16:07 Order name: CMP; Complete Time: 16:58 ec2 02/09 16:11 Order name: Test, Urine; Complete Time: 16:58 nj1 02/09 16:07 Order name: CT Head Brain wo Cont; Complete Time: 16:58 ec2 02/09 16:07 Order name: IV Saline Lock; Complete Time: 16:32 ec2 02/09 16:07 Order name: Labs collected and sent; Complete Time: 16:32 ec2 Administered Medications: 16:45 Drug: diphenhydrAMINE IVP 25 mg IVP once Route: IVP; Site: right antecubital; kj2 17:41 Follow up: Response: No adverse reaction nj1 16:47 Drug: Droperidol IVP 2.5 mg IVP once Route: IVP; Site: right antecubital; kj2 17:41 Follow up: Response: No adverse reaction nj1 16:49 Drug: TORadol - Ketorolac IVP 15 mg IVP once Route: IVP; Site: right antecubital; kj2 17:41 Follow up: Response: No adverse reaction nj1 16:53 Drug: NS 0.9% IV 1000 ml IV at 1 bolus Per protocol; 1000 mL bolus Route: IV; Rate: 1 kj2 bolus; Site: right antecubital; 17:41 Follow up: Response: No adverse reaction; IV Status: Order to discontinue infusion; IV nj1 Intake: 600ml Disposition Summary: 02/10/24 17:20 Discharge Ordered Notes: Location: Home ec2 Condition: Stable ec2 Diagnosis - Headache ec2 Followup: ec2 - With: Private Physician - When: - Reason: Re-evaluation by your physician Discharge Instructions: - Discharge Summary Sheet ec2 - General Headache Without Cause ec2 Forms: - Medication Reconciliation Form ec2 - Antibiotic Education ec2 - Prescription Opioid Use ec2 - Patient Portal Instructions ec2 - Leadership Thank You Letter ec2 Prescriptions: - Compazine 10 mg Oral Tablet - take 1 tablet ORAL route every 8 hours As needed; 20 tablet; Refills: 0, ec2 Product Selection Permitted Signatures: Dispatcher [employer] EDHolli Meier RN RN nj1 Isaiah Jenkins MD MD ec2 Meenakshi Berry RN RN kj2 Corrections: (The following items were deleted from the chart) 16:07 16:07 CBC+H.LAB.BRZ ordered. EDMS EDMS 16:07 16:07 COMPREHENSIVE METABOLIC PANEL+C.LAB.BRZ ordered. EDMS EDMS 16:11 16:11 Test, Urine+UC.LAB.BRZ ordered. EDMS EDMS
[2024-02-10 18:04] VITALS: BP 109/64; TEMP 98; O2SAT 99
== END 2024-02-10 17:41 | disposition home or self-care (01) ==
LOC: ER 16:00
DX: R51.9 Headache, unspecified (principal); Z88.0 Allergy status to penicillin; Z88.6 Allergy status to analgesic agent
CPT/HCPCS: 85025; 36415; 81025; 80053; 70450; J1200; J7030

== ENCOUNTER 2024-03-19 19:32 | Emergency (ER) | payer OTHER ==
--- OUTSIDE RECORDS SUMMARY | 2024-03-19 19:38 | XMS REPORT | Continuity of Care Document ---
Author Name Unknown Address [address] [facility] [address] [place] [address] [facility] Address [address] [facility] [place] [address] Care Team Providers Care Machine Tool Technology Instructor Name Role Phone Singh Gagnon Primary Care Physician NATE CHINCHILLA Attending Clinician Unavailable NATE CHINCHILLA Attending Clinician Unavailable KATERYNA HAMILTON Attending Clinician Unavaila Kateryna Spence CNM Attending Clinician [phone] OBI-VALERIE, JAYANT Attending Clinician Unavailab le OBI-VALERIE JAYANT Attending Clinician Unavailab VIKAS Herring Attending Clinician Unavail able Nurse, Willy Alva Exp Cprit Obgyn Attending Clini michael Unavailable Unknown, Attending Attending Clinician Unavailab jesi Roberts Vikas SABA Attending Clinician + Visit, Sue Nurse Attending Clinician Unava ilkeven Doctor Unassigned, Penton Attending Clinician U Nate Fry MD Attending Clinician [phone] Debra Moreno MD Attending Clinician [phone] Randall Lee MD, Syeda Mccormack Attending Clinici an Roderick DUMONT, Jaquan Attending Clinician + [phone] ZACHARIAH BAZAN Attending Clinician Unavailable Ultrasound, Ang-[facility] Attending Clinician UnavailMUSA Ralph Attending Clinician Iesha Lozano MD, Musa Peralta Attending Clinician + WILLIAM UGARTE Attending Clinician UnavailWilliam Salazar MD Attending Clinician KAREN WASHINGTON Attending Clinician Unavailable KAREN WASHINGTON Attending Clinician Unavailable Karen Washington MD Attending Clinician [phone] 1, [facility] Attending Clinician Unavailab MIRIAM Peters Attending Clinician MIRIAM Naik Attending Clinician Derek Barlow DO Attending Clinician [phone] Laura Whitehead RN Attending Clinician Unavailab jesi RADIOLOGY Attending Clinician Unavailable PATI TOLEDO Attending Clinician Pati De Oliveira MD Attending Clinician + JOSÉ MIGUEL LAFLEUR Attending Clinician Unavailable JOSÉ MIGUEL LAFLEUR Attending Clinician Unavailable Clinton BISHOP Attending Clinician Unavailable Clinton Garnett Attending Clinician [phone] MITALI HARRIS Attending Clinician Unavailable Mitali Hernandez Attending Clinician [phone] Pcp, Patient Does Not Have A Attending Clinician Evelyn Viera RN Attending Clinician Unavailabl e P[facility], [facility] Attending Clinician Laisha Palmer MD Attending Clinician [phone] LAISHA MEDRANO Attending Clinician UnaNATE Mcbride Admitting Clinician Unavailable Nate Chinchilla MD Admitting Clinician [phone] MIRIAM HOANG Admitting Clinician Yamel wheeler Payers Payer Name Policy Type Policy Number Effective Date Expirati on Date Source [place] [facility] [id number] 2016 00:00:00 [place] [id number] 2019 00:00:00 2021 00:00:00 Problems Condition Name Condition Details Condition Category Status Onset Date Resolution Date Last Treatment Date Treating Clinician Comments Source Need for HPV vaccinatio n Need for HPV vaccinatio n Disease Active 2-28 00:00: 00 [facility] Routine follow-up Routine follow-up Disease Active 2-13 00:00: 00 [facility] 39 weeks gestation of 39 weeks gestation of Disease Active 1-22 00:00: 00 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 Polyhydram nios, antepartum complicati on Polyhydram nios, antepartum complicati on Disease Active 2022-08 2-14 00:00: 00 [facility] headache in third trimester headache in third trimester Disease Active 2022-08 2-06 00:00: 00 [facility] Heartburn during in third trimester Heartburn during in third trimester Disease Active 2022-08 1-22 00:00: 00 [facility] Declines flu vaccine Declines flu vaccine Disease Active 2022-08 0-19 00:00: 00 [facility] Rh negative state in antepartum period Rh negative state in antepartum period Disease Active 6-08 00:00: 00 [facility] Maternal varicella, non-immune Maternal varicella, non-immune Disease Active 6-08 00:00: 00 [facility] History of bipolar disorder History of bipolar disorder Disease Active 6 00:00: 00 [facility] Morbid obesity Morbid obesity Disease Active 6 00:00: 00 [facility] Nausea and vomiting during Nausea and vomiting during Disease Active 6 00:00: 00 [facility] Penicillin allergy Penicillin allergy Disease Active 607 00:00: 00 [facility] No known active problems No known active problems Disease [facility] Allergies, Adverse Reactions, Alerts Allergy Name Allergy Type Status Severity Reaction(s) Onset Date Inactive Date Treating Clinician Comments Source ASPIRIN DRUG INGREDI Active Hives 6-07 00:00: 00 [facility] Aspirin Propensi ty to adverse reaction s Active Hives 6-07 00:00: 00 [facility] [place] - Intraven ous Propensi ty to adverse reaction to drug Active 6-15 00:00: 00 Aspirin - Oral Propensi ty to adverse reaction to drug Active 3-03 00:00: 00 Aspirin Propensi ty to adverse reaction to drug Active 9- 00:00: 00 Penicill in Propensi ty to adverse reaction s Active Hives 0 3-12 00:00: 00 [facility] Penicill in Propensi ty to adverse reaction s Active Hives 0 3-12 00:00: 00 [facility] PENICILL IN DRUG INGREDI Active Hives 3-12 00:00: 00 [facility] Penicill ins Propensi ty to adverse reaction to drug Active 0 2-14 00:00: 00 Social History Social Habit Start Date Stop Date Quantity Comments Source ASSERTION 2022-12-16 00:00:00 [facility] History of tobacco use Cigarette Smoker [facility] History SDOH Alcohol Std Drinks [facility] History SDOH Alcohol Binge [facility] Exposure to SARS-CoV-2 (event) Not sure [facility] Gender identity [facility] Alcohol intake 2023-11-25 00:00:00 2023-11-25 00:00:00 Lifetime non-drinker (finding) [facility] History of Social function 2023-11-25 00:00:00 2023-11-25 00:00:00 [facility] Tobacco use and exposure 2023-01-15 00:00:00 2023-01-15 00:00:00 Smokeless tobacco non-user [facility] History SDOH Alcohol Frequency 2019-12-17 00:00:00 2019-12-17 00:00:00 1 [facility] Sex Assigned At 2005 00:00:00 2005 00:00:00 [facility] Smoking Status Start Date Stop Date Source Ex-smoker 2023-01-15 00:00:00 2023-01-15 00:00:00 [facility] tobacco daily 2019-12-17 00:00:00 [facility] Medications Ordered Medication Name Filled Medication Name Start Date Stop Date Current Medication? Ordering Clinician Indication Dosage Frequency Signature (SIG) Comments Components Source acetaminoph en (TYLENOL) tablet 650 mg 09-04 01:18: 15 Yes 650mg 650 mg, Oral, Q6HPRN, Starting on Fri09/03/23 at 1918, Until Discontinu ed, Routine, Pain (scale 4-6), Pain (scale 1-3) [facility] lactated ringers IV infusion 1,000 mL 09-03 02:15: 00 09-03 02:10 :33 No 1000mL at 125 mL/hr, 1,000 mL, IV Infusion, ONCE, 1 dose, On Fri09/02/23 at 2014, Routine [facility] rho(D) immune globulin (RHOGAM) syringe 300 mcg 09-03 02:09: 02 Yes 300ug 300 mcg, Intramuscu lar, ONCE, For 1 dose, Conditiona l, Routine [facility] HYDROcodone -acetaminop hen (NORCO 5) 5-325 mg tablet 2 tablet 09-03 02:08: 56 Yes 2{tbl} 2 tablet, Oral, Q6HPRN, Starting on Fri09/02/23 at 2007, Until Discontinu ed, Routine, Pain (scale 7-10), Alternate with Ibuprofen [facility] HYDROcodone -acetaminop hen (NORCO 5) 5-325 mg tablet 1 tablet 09-03 02:08: 56 Yes 1{tbl} 1 tablet, Oral, Q6HPRN, Starting on Fri09/02/23 at 2007, Until Discontinu ed, Routine, Pain (scale 4-6), Alternate with Ibuprofen [facility] diphenhydrA MINE (BENADRYL) injection 25 mg 09-03 02:08: 56 Yes 25mg 25 mg, Slow IV Push, Q6HPRN, Starting on Fri09/02/23 at 2007, Until Discontinu ed, Routine, Itching [facility] diphenhydrA MINE (BENADRYL) tablet 25 mg 09-03 02:08: 56 Yes 25mg 25 mg, Oral, Q6HPRN, Starting on Fri09/02/23 at 2007, Until Discontinu ed, Routine, Sleep, Itching [facility] ondansetron (ZOFRAN (PF)) injection 4 mg 09-03 02:08: 56 Yes 4mg 4 mg, Slow IV Push, Q8HPRN, Starting on Fri09/02/23 at 2007, Until Discontinu ed, Routine, Nausea and Vomiting (N/V) [facility] bisacodyL (DULCOLAX) suppository 10 mg 09-03 02:08: 56 Yes 10mg 10 mg, Rectal, QDAILYPRN, Starting on Fri09/02/23 at 2007, Until Discontinu ed, Routine, Constipati on [facility] simethicone (GAS RELIEF (SIMETHICON E)) chewable tablet 160 mg 09-03 02:08: 56 Yes 160mg 160 mg, Oral, PC+HSPRN, Starting on Fri09/02/23 at 2007, Until Discontinu ed, Routine, Gas [facility] docusate (COLACE) capsule 200 mg 09-03 02:08: 56 Yes 200mg 200 mg, Oral, QDAILYPRN, Starting on Fri09/02/23 at 2007, Until Discontinu ed, Routine, Constipati on [facility] magnesium hydroxide (MILK OF MAGNESIA) 400 mg/5 mL suspension 30 mL 09-03 02:08: 56 Yes 30mL 30 mL, Oral, QDAILYPRN, Starting on Fri09/02/23 at 2007, Until Discontinu ed, Routine, Constipati on [facility] lactated ringers IV infusion 1,000 mL 09-03 02:08: 56 Yes 1000mL at 125 mL/hr, 1,000 mL, IV Infusion, PRN, 1 dose, Starting on Fri09/02/23 at 2007, Until Discontinu ed, Routine [facility] [id number] fum-folic () 27 mg iron- 1 mg folic tablet 09-03 00:00: 00 11-24 00:00 :00 No [id number] 1{tbl} Take 1 tablet by mouth in the morning. [facility] docusate 100 mg capsule 09-03 00:00: 00 11-24 00:00 :00 No [id number] 200mg Take 2 capsules by mouth once daily as needed for Constipati on. [facility] ferrous sulfate 325 mg (65 mg iron) tablet 09-03 00:00: 00 11-24 00:00 :00 No [id number] 325mg Take 1 tablet by mouth in the morning and 1 tablet in the evening. [facility] HYDROcodone -acetaminop hen 5-325 mg tablet 09-03 00:00: 00 09-14 05:59 :00 No [id number] 1{tbl} Take 1 tablet by mouth every 6 (six) hours as needed (Pain scale above 4) for up to 10 days. Do not exceed 3 grams of acetaminop hen in 24 hours. Indication s: acute pain [facility] lactated ringers IV infusion 1,000 mL 09-03 00:00: 00 09-03 02:08 :59 No 1000mL at 125 mL/hr, 1,000 mL, IV Infusion, CONTINUOUS , Starting on Fri09/02/23 at 1800, Until Fri09/02/23 at 2007, RASHMI [facility] acetaminoph en (TYLENOL) tablet 650 mg 09-02 23:52: 38 09-03 02:08 :59 No 650mg 650 mg, Oral, Q6HPRN, Starting on Fri09/02/23 at 1752, Until Fri09/02/23 at 2007, Routine, Pain (scale 1-3) [facility] ondansetron (ZOFRAN (PF)) injection 4 mg 09-02 23:30: 00 09-03 00:14 :00 No 4mg 4 mg, Slow IV Push, ONCE, 1 dose, On Fri09/02/23 at 1730, Routine [facility] sodium citrate-cit yamilex acid (BICITRA) 500-334 mg/5 mL solution 30 mL 09-02 21:51: 27 09-02 22:28 :00 No 30mL 30 mL, Oral, PRE-PROCED URE ONCE, 1 dose, Starting on Fri09/02/23 at 1551, Until Fri09/02/23 at 1628, Routine, Surgery/Pr ocedure [facility] gentamicin 480 mg in NaCl 0.9% (NS) [...] Surgical Prophylaxi s
Surgi wilber Prophylaxi s: LATENT FINGERPRINT EXAMINER
Duration of therapy: within [address] [facility] clindamycin in 5 % dextrose (CLEOCIN) 900 mg/50 mL IV piggyback RTU 900 mg 09-02 21:46: 19 09-03 02:08 :59 No 900mg 900 mg, IV Piggyback, O.R. HOLDING ONCE, Starting on Fri09/02/23 at 1546, Until Fri09/02/23 at 2007, Administer over 30 Minutes, 50 mL
Reas on for Anti-Infec tive: Surgical Prophylaxi s
Schneider rgical Prophylaxi s: LATENT FINGERPRINT EXAMINER
Duration of therapy: within 24 hours of surgery
Restricte d use approved by: LATENT FINGERPRINT EXAMINER [employer]AC[employer]
film crew member approving Restricted medication : DEBRA MORENO [facility] ondansetron (ZOFRAN (PF)) injection 4 mg 09-02 19:00: 00 09-02 18:13 :00 No 4mg 4 mg, Slow IV Push, ONCE, On Fri09/02/23 at 1300, For 1 dose
Do ses of ondansetro n 16 mg and above need to be administer ed via IV piggyback. For Dose >=24mg ECG monitoring is advisable.
[facility] morpHINE (2 mg/mL) injection 4 mg 09-02 11:00: 00 09-02 10:32 :00 No 4mg 4 mg, Slow IV Push, ONCE, 1 dose, On Fri09/02/23 at 0500, Routine [facility] sodium citrate-cit yamilex acid (BICITRA) 500-334 mg/5 mL solution 30 mL 09-01 21:37: 26 09-02 10:55 :00 No 30mL 30 mL, Oral, PRE-PROCED URE ONCE, 1 dose, Starting on Fri09/01/23 at 1537, Until Discontinu ed, Routine, Surgery/Pr ocedure [facility] ropivacaine 0.2 % (NAROPIN (PF)) epidural infusion 09-01 20:08: 00 Yes Epidural, CONTINUOUS PRN, Starting on Fri09/01/23 at 1408, Until Discontinu ed, Routine, Intra-op [facility] lidocaine-e pinephrine (XYLOCAINE W/EPINEPHRI NE) 1.5 %-1:200,000 injection 09-01 20:04: 00 Yes Intraderma l, ONCE INTRA PROCEDURE, Starting on Fri09/01/23 at 1404, Until Discontinu ed, Routine, Intra-op [facility] vancomycin (VANCOCIN) 1,500 mg in NaCl 0.9% [...] Pelvic
Duration of Therapy: Other (see Comments) [facility] oxytocin (PITOCIN) 30 units in NS 500 mL IV infusion 09-01 17:36: 54 09-03 02:08 :59 No 2mU/min at 2-40 mL/hr, IV Infusion, TITRATE, Starting on Fri09/01/23 at 1136, Until Fri09/02/23 at 2007, RASHMI [facility] morpHINE (2 mg/mL) injection 4 mg 09-01 17:00: 00 09-01 16:14 :00 No 4mg 4 mg, Slow IV Push, ONCE, 1 dose, On Fri09/01/23 at 1100, Routine [facility] lactated ringers IV infusion 500 mL 09-01 14:39: 07 09-03 02:08 :59 No 500mL at 999 mL/hr, 500 mL, IV Infusion, PRN - SEE INSTRUCTIO NS, Starting on Fri09/01/23 at 0839, Until Fri09/02/23 at 2007, Routine [facility] D5W-LR IV infusion 1,000 mL 09-01 14:39: 07 09-03 02:08 :59 No 1000mL at 1-125 mL/hr, IV Infusion, TITRATE, Starting on Fri09/01/23 at 0839, Until Fri09/02/23 at 2007, Routine [facility] sodium citrate-cit yamilex acid (BICITRA) 500-334 mg/5 mL solution 30 mL 09-01 14:39: 07 09-01 19:29 :00 No 30mL 30 mL, Oral, PRE-PROCED URE ONCE, 1 dose, Starting on Fri09/01/23 at 0839, Until Discontinu ed, Routine, Surgery/Pr ocedure [facility] cephALEXin (KEFLEX) 500 mg capsule 08-22 00:00: 00 09-03 00:00 :00 No [id number] 500mg Take 1 capsule by mouth 4 (four) times daily for [address] [facility] butalbital- acetaminoph en-caff (ESGIC) 50-325-40 mg tablet 1 tablet 2022-0805 00:30: 00 07-14 23:46 :00 No 1{tbl} 1 tablet, Oral, ONCE, 1 dose, On Fri07/14/23 at 1830, Routine [facility] famotidine (PEPCID) 20 mg tablet 2022-08 00:00: 00 09-03 00:00 :00 No [id number] 20mg Take 1 tablet by mouth in the morning and 1 tablet in the evening. [facility] acetaminoph en (TYLENOL) tablet 650 mg 01-31 04:15: 00 01-31 04:08 :00 No 650mg 650 mg, Oral, ONCE, 1 dose, On Annelise 01/30/23 at 2315, RASHMI [facility] melatonin 3 mg Cap 01-15 13:46: 01 01-15 00:00 :00 No Take by mouth. [facility] BUPROPION HCL (WELLBUTRIN ORAL) 01-15 13:45: 58 01-15 00:00 :00 No Take by mouth. [facility] vit 33-iron-fol ic-dha (SELECT-OB + DHA) 29 mg iron-1 mg -250 mg combo pack 01-15 00:00: 00 Yes [id number] 1{packe t} Take 1 Packet by mouth in the morning. [facility] proMETHazin e 25 mg tablet 01-15 00:00: 00 09-03 00:00 :00 No [id number] 25mg Take 1 tablet by mouth every 4 (four) hours as needed for Nausea and Vomiting (N/V). [facility] vit 33-iron-fol ic-dha (SELECT-OB + DHA) 29 mg iron-1 mg -250 mg combo pack 0 6-07 00:00: 00 09-03 00:00 :00 No [id number] 1{packe t} Take 1 Packet by mouth in the morning. [facility] TAKE 1 CAPSULE BY MOUTH EVERY DAY [...] 12-16 17:01: 01 Yes Take by mouth. [facility] BUPROPION HCL (WELLBUTRIN ORAL) 12-16 16:52: 24 Yes Take by mouth. [facility] melatonin 3 mg Cap 12-16 12:01: 01 Yes Take by mouth. [facility] BUPROPION HCL (WELLBUTRIN ORAL) 12-16 11:52: 24 Yes Take by mouth. [facility] azithromyci n (ZITHROMAX Z-YONATHAN) 250 mg tablet 10-22 00:00: 00 12-16 00:00 :00 No 250mg Take 1 tablet by mouth SEE-INSTRU CTIONS. Take 500 mg day 1, then 250 mg days [address] [facility] bupropion HCl SR 100 mg tablet,12 hr sustained-r elease 09-24 00:00: 00 No 1mg Immunizations Ordered Immunization Name Filled Immunization Name Date Status Comments Source SARS-COV-2 COVID-19 PFIZER VACCINE 2021-04-10 00:00:00 Completed [facility] SARS-COV-2 COVID-19 PFIZER VACCINE 2021-04-10 00:00:00 Completed [facility] SARS-COV-2 COVID-19 PFIZER VACCINE 2021-04-10 00:00:00 Completed [facility] SARS-COV-2 COVID-19 PFIZER VACCINE 2021-04-10 00:00:00 Completed [facility] SARS-COV-2 COVID-19 PFIZER VACCINE 2021-04-10 00:00:00 Completed [facility] SARS-COV-2 COVID-19 PFIZER VACCINE 2021-04-10 00:00:00 Completed [facility] SARS-COV-2 COVID-19 PFIZER VACCINE 2021-04-10 00:00:00 Completed [facility] SARS-COV-2 COVID-19 PFIZER VACCINE 2021-03-20 00:00:00 Completed [facility] SARS-COV-2 COVID-19 PFIZER VACCINE 2021-03-20 00:00:00 Completed [facility] SARS-COV-2 COVID-19 PFIZER VACCINE 2021-03-20 00:00:00 Completed [facility] SARS-COV-2 COVID-19 PFIZER VACCINE 2021-03-20 00:00:00 Completed [facility] SARS-COV-2 COVID-19 PFIZER VACCINE 2021-03-20 00:00:00 Completed [facility] SARS-COV-2 COVID-19 PFIZER VACCINE 2021-03-20 00:00:00 Completed [facility] SARS-COV-2 COVID-19 PFIZER VACCINE 2021-03-20 00:00:00 Completed [facility] HPV, quadrivalent 2019-03-20 00:00:00 Completed HPV, quadrivalent 2017-09-24 00:00:00 Completed SARS-COV-2 COVID-19 PFIZER VACCINE Unknown Completed [facility] SARS-COV-2 COVID-19 PFIZER VACCINE Unknown Completed [facility] TDAP Unknown Completed [facility] Rho (d) Immune Globulin Unknown Completed [facility] SARS-COV-2 COVID-19 PFIZER VACCINE Unknown Completed [facility] SARS-COV-2 COVID-19 PFIZER VACCINE Unknown Completed [facility] TDAP Unknown Completed [facility] Rho (d) Immune Globulin Unknown Completed [facility] SARS-COV-2 COVID-19 PFIZER VACCINE Unknown Completed [facility] SARS-COV-2 COVID-19 PFIZER VACCINE Unknown Completed [facility] TDAP Unknown Completed [facility] Rho (d) Immune Globulin Unknown Completed [facility] SARS-COV-2 COVID-19 PFIZER VACCINE Unknown Completed [facility] SARS-COV-2 COVID-19 PFIZER VACCINE Unknown Completed [facility] TDAP Unknown Completed [facility] Rho (d) Immune Globulin Unknown Completed [facility] SARS-COV-2 COVID-19 PFIZER VACCINE Unknown Completed [facility] SARS-COV-2 COVID-19 PFIZER VACCINE Unknown Completed [facility] TDAP Unknown Completed [facility] Rho (d) Immune Globulin Unknown Completed [facility] SARS-COV-2 COVID-19 PFIZER VACCINE Unknown Completed [facility] SARS-COV-2 COVID-19 PFIZER VACCINE Unknown Completed [facility] TDAP Unknown Completed [facility] Rho (d) Immune Globulin Unknown Completed [facility] HPV9 Unknown Completed [facility] SARS-COV-2 COVID-19 PFIZER VACCINE Unknown Completed [facility] SARS-COV-2 COVID-19 PFIZER VACCINE Unknown Completed [facility] TDAP Unknown Completed [facility] Rho (d) Immune Globulin Unknown Completed [facility] HPV9 Unknown Completed [facility] SARS-COV-2 COVID-19 PFIZER VACCINE Unknown Completed [facility] SARS-COV-2 COVID-19 PFIZER VACCINE Unknown Completed [facility] TDAP Unknown Completed [facility] Rho (d) Immune Globulin Unknown Completed [facility] HPV9 Unknown Completed [facility] SARS-COV-2 COVID-19 PFIZER VACCINE Unknown Completed [facility] SARS-COV-2 COVID-19 PFIZER VACCINE Unknown Completed [facility] TDAP Unknown Completed [facility] Rho (d) Immune Globulin Unknown Completed [facility] HPV9 Unknown Completed [facility] SARS-COV-2 COVID-19 PFIZER VACCINE Unknown Completed [facility] [facility] SARS-COV-2 COVID-19 PFIZER VACCINE Unknown Completed [facility] TDAP Unknown Completed [facility] Rho (d) Immune Globulin Unknown Completed [facility] HPV9 Unknown Completed [facility] SARS-COV-2 COVID-19 PFIZER VACCINE Unknown Completed [facility] SARS-COV-2 COVID-19 PFIZER VACCINE Unknown Completed [facility] TDAP Unknown Completed [facility] Rho (d) Immune Globulin Unknown Completed [facility] HPV9 Unknown Completed [facility] HPV9 Unknown Completed [facility] SARS-COV-2 COVID-19 PFIZER VACCINE Unknown Completed [facility] SARS-COV-2 COVID-19 PFIZER VACCINE Unknown Completed [facility] TDAP Unknown Completed [facility] Rho (d) Immune Globulin Unknown Completed [facility] HPV9 Unknown Completed [facility] HPV9 Unknown Completed [facility] SARS-COV-2 COVID-19 PFIZER VACCINE Unknown Completed [facility] SARS-COV-2 COVID-19 PFIZER VACCINE Unknown Completed [facility] TDAP Unknown Completed [facility] Rho (d) Immune Globulin Unknown Completed [facility] HPV9 Unknown Completed [facility] HPV9 Unknown Completed [facility] SARS-COV-2 COVID-19 PFIZER VACCINE Unknown Completed [facility] SARS-COV-2 COVID-19 PFIZER VACCINE Unknown Completed [facility] SARS-COV-2 COVID-19 PFIZER VACCINE Unknown Completed [facility] SARS-COV-2 COVID-19 PFIZER VACCINE Unknown Completed [facility] SARS-COV-2 COVID-19 PFIZER VACCINE Unknown Completed [facility] SARS-COV-2 COVID-19 PFIZER VACCINE Unknown Completed [facility] SARS-COV-2 COVID-19 PFIZER VACCINE Unknown Completed [facility] SARS-COV-2 COVID-19 PFIZER VACCINE Unknown Completed [facility] TDAP Unknown Completed [facility] Rho (d) Immune Globulin Unknown Completed [facility] SARS-COV-2 COVID-19 PFIZER VACCINE Unknown Completed [facility] SARS-COV-2 COVID-19 PFIZER VACCINE Unknown Completed [facility] TDAP Unknown Completed [facility] Rho (d) Immune Globulin Unknown Completed [facility] SARS-COV-2 COVID-19 PFIZER VACCINE Unknown Completed [facility] SARS-COV-2 COVID-19 PFIZER VACCINE Unknown Completed [facility] TDAP Unknown Completed [facility] Rho (d) Immune Globulin Unknown Completed [facility] SARS-COV-2 COVID-19 PFIZER VACCINE Unknown Completed [facility] SARS-COV-2 COVID-19 PFIZER VACCINE Unknown Completed [facility] TDAP Unknown Completed [facility] Rho (d) Immune Globulin Unknown Completed [facility] SARS-COV-2 COVID-19 PFIZER VACCINE Unknown Completed [facility] SARS-COV-2 COVID-19 PFIZER VACCINE Unknown Completed [facility] TDAP Unknown Completed [facility] Rho (d) Immune Globulin Unknown Completed [facility] SARS-COV-2 COVID-19 PFIZER VACCINE Unknown Completed [facility] SARS-COV-2 COVID-19 PFIZER VACCINE Unknown Completed [facility] TDAP Unknown Completed [facility] Rho (d) Immune Globulin Unknown Completed [facility] SARS-COV-2 COVID-19 PFIZER VACCINE Unknown Completed [facility] SARS-COV-2 COVID-19 PFIZER VACCINE Unknown Completed [facility] TDAP Unknown Completed [facility] Rho (d) Immune Globulin Unknown Completed [facility] SARS-COV-2 COVID-19 PFIZER VACCINE Unknown Completed [facility] SARS-COV-2 COVID-19 PFIZER VACCINE Unknown Completed [facility] TDAP Unknown Completed [facility] Rho (d) Immune Globulin Unknown Completed [facility] SARS-COV-2 COVID-19 PFIZER VACCINE Unknown Completed [facility] SARS-COV-2 COVID-19 PFIZER VACCINE Unknown Completed [facility] TDAP Unknown Completed [facility] Rho (d) Immune Globulin Unknown Completed [facility] SARS-COV-2 COVID-19 PFIZER VACCINE Unknown Completed [facility] SARS-COV-2 COVID-19 PFIZER VACCINE Unknown Completed [facility] TDAP Unknown Completed [facility] Rho (d) Immune Globulin Unknown Completed [facility] SARS-COV-2 COVID-19 PFIZER VACCINE Unknown Completed [facility] SARS-COV-2 COVID-19 PFIZER VACCINE Unknown Completed [facility] TDAP Unknown Completed [facility] Rho (d) Immune Globulin Unknown Completed [facility] SARS-COV-2 COVID-19 PFIZER VACCINE Unknown Completed [facility] SARS-COV-2 COVID-19 PFIZER VACCINE Unknown Completed [facility] TDAP Unknown Completed [facility] Rho (d) Immune Globulin Unknown Completed [facility] SARS-COV-2 COVID-19 PFIZER VACCINE Unknown Completed [facility] SARS-COV-2 COVID-19 PFIZER VACCINE Unknown Completed [facility] TDAP Unknown Completed [facility] Rho (d) Immune Globulin Unknown Completed [facility] SARS-COV-2 COVID-19 PFIZER VACCINE Unknown Completed [facility] SARS-COV-2 COVID-19 PFIZER VACCINE Unknown Completed [facility] TDAP Unknown Completed [facility] Rho (d) Immune Globulin Unknown Completed [facility] SARS-COV-2 COVID-19 PFIZER VACCINE Unknown Completed [facility] SARS-COV-2 COVID-19 PFIZER VACCINE Unknown Completed [facility] TDAP Unknown Completed [facility] Rho (d) Immune Globulin Unknown Completed [facility] SARS-COV-2 COVID-19 PFIZER VACCINE Unknown Completed [facility] SARS-COV-2 COVID-19 PFIZER VACCINE Unknown Completed [facility] TDAP Unknown Completed [facility] Rho (d) Immune Globulin Unknown Completed [facility] SARS-COV-2 COVID-19 PFIZER VACCINE Unknown Completed [facility] SARS-COV-2 COVID-19 PFIZER VACCINE Unknown Completed [facility] TDAP Unknown Completed [facility] Rho (d) Immune Globulin Unknown Completed [facility] SARS-COV-2 COVID-19 PFIZER VACCINE Unknown Completed [facility] SARS-COV-2 COVID-19 PFIZER VACCINE Unknown Completed [facility] TDAP Unknown Completed [facility] Rho (d) Immune Globulin Unknown Completed [facility] SARS-COV-2 COVID-19 PFIZER VACCINE Unknown Completed [facility] SARS-COV-2 COVID-19 PFIZER VACCINE Unknown Completed [facility] TDAP Unknown Completed [facility] Rho (d) Immune Globulin Unknown Completed [facility] SARS-COV-2 COVID-19 PFIZER VACCINE Unknown Completed [facility] SARS-COV-2 COVID-19 PFIZER VACCINE Unknown Completed [facility] TDAP Unknown Completed [facility] Rho (d) Immune Globulin Unknown Completed [facility] SARS-COV-2 COVID-19 PFIZER VACCINE Unknown Completed [facility] SARS-COV-2 COVID-19 PFIZER VACCINE Unknown Completed [facility] TDAP Unknown Completed [facility] Rho (d) Immune Globulin Unknown Completed [facility] SARS-COV-2 COVID-19 PFIZER VACCINE Unknown Completed [facility] SARS-COV-2 COVID-19 PFIZER VACCINE Unknown Completed [facility] TDAP Unknown Completed [facility] Rho (d) Immune Globulin Unknown Completed [facility] SARS-COV-2 COVID-19 PFIZER VACCINE Unknown Completed [facility] SARS-COV-2 COVID-19 PFIZER VACCINE Unknown Completed [facility] TDAP Unknown Completed [facility] Rho (d) Immune Globulin Unknown Completed [facility] SARS-COV-2 COVID-19 PFIZER VACCINE Unknown Completed [facility] SARS-COV-2 COVID-19 PFIZER VACCINE Unknown Completed [facility] TDAP Unknown Completed [facility] Rho (d) Immune Globulin Unknown Completed [facility] SARS-COV-2 COVID-19 PFIZER VACCINE Unknown Completed [facility] SARS-COV-2 COVID-19 PFIZER VACCINE Unknown Completed [facility] TDAP Unknown Completed [facility] Rho (d) Immune Globulin Unknown Completed [facility] Vital Signs Vital Name Observation Time Observation Value Comments S ource Systolic blood pressure 2023-11-25 18:44:00 132 mm[Hg] [facility] Diastolic blood pressure 2023-11-25 18:44:00 73 mm[Hg] [facility] Heart rate 2023-11-25 18:44:00 67 /[facility] 2023-11-25 18:44:00 36.44 [facility] Respiratory rate 2023-11-25 18:44:00 18 /min [facility] Body height 2023-11-25 18:44:00 162.6 cm [facility] Body weight 2023-11-25 18:44:00 151.411 kg [facility] BMI 2023-11-25 18:44:00 57.30 kg/m2 [facility] Body temperature 2023-10-08 19:54:00 36.72 [facility] Body weight 2023-10-08 19:54:00 144.244 kg [facility] Systolic blood pressure 2023-09-23 15:48:00 99 mm[Hg] [facility] Diastolic blood pressure 2023-09-23 15:48:00 50 mm[Hg] [facility] Heart rate 2023-09-23 15:48:00 67 /min Unive [facility] Body temperature 2023-09-23 15:48:00 35.67 Jy[facility] Respiratory rate 2023-09-23 15:48:00 18 /min [facility] Body height 2023-09-23 15:48:00 162.6 cm [facility] Body weight 2023-09-23 15:48:00 143.972 kg [facility] BMI 2023-09-23 15:48:00 54.48 kg/m2 [facility] Body mass index (BMI) [Percentile] Per age and sex 2023-09-23 15:48:00 99.99 % [facility] Systolic blood pressure 2023-09-11 17:01:00 130 mm[Hg] [facility] Diastolic blood pressure 2023-09-11 17:01:00 70 mm[Hg] [facility] Heart rate 2023-09-11 17:01:00 54 /min Unive [facility] Body temperature 2023-09-11 17:01:00 36.28 [facility] Respiratory rate 2023-09-11 17:01:00 18 /min [facility] Body height 2023-09-11 17:01:00 162.6 cm [facility] Body weight 2023-09-11 17:01:00 144.153 kg [facility] BMI 2023-09-11 17:01:00 54.55 kg/m2 [facility] Body mass index (BMI) [Percentile] Per age and sex 2023-09-11 17:01:00 99.99 % [facility] Systolic blood pressure 2023-09-04 13:57:00 116 mm[Hg] [facility] Diastolic blood pressure 2023-09-04 13:57:00 64 mm[Hg] [facility] Heart rate 2023-09-04 13:57:00 64 /min Unive [facility] Body temperature 2023-09-04 13:57:00 36.89 Jy[facility] Respiratory rate 2023-09-04 13:57:00 18 /min [facility] Oxygen saturation in Arterial blood by Pulse oximetry 2023-09-04 13:57:00 96 /min [facility] Body height 2023-09-01 14:44:00 162.6 cm [facility] Body weight 2023-09-01 14:44:00 154.677 kg [facility] BMI 2023-09-01 14:44:00 58.50 kg/m2 [facility] Body mass index (BMI) [Percentile] Per age and sex 2023-09-01 14:44:00 100.00 % [facility] Systolic blood pressure 2023-09-02 18:30:00 123 mm[Hg] [facility] Diastolic blood pressure 2023-09-02 18:30:00 84 mm[Hg] [facility] Heart rate 2023-09-02 18:30:00 92 /min [facility] Oxygen saturation in Arterial blood by Pulse oximetry 2023-09-02 18:30:00 100 /min [facility] Body temperature 2023-09-02 18:00:00 37.06 Jy[facility]i [facility] Respiratory rate 2023-09-02 18:00:00 18 /min [facility] Body height 2023-09-01 14:44:00 162.6 cm [facility] Body weight 2023-09-01 14:44:00 154.677 kg [facility] BMI 2023-09-01 14:44:00 58.50 kg/m2 [facility] Body mass index (BMI) [Percentile] Per age and sex 2023-09-01 14:44:00 100.00 % [facility] Systolic blood pressure 2023-08-29 20:34:00 121 mm[Hg] [facility] Diastolic blood pressure 2023-08-29 20:34:00 69 mm[Hg] [facility] Heart rate 2023-08-29 20:34:00 81 /min [facility] Body temperature 2023-08-29 20:34:00 35.17 [facility] Respiratory rate 2023-08-29 20:34:00 18 /min [facility] Body height 2023-08-29 20:34:00 162.6 cm [facility] Body weight 2023-08-29 20:34:00 152.046 kg [facility] BMI 2023-08-29 20:34:00 57.54 kg/m2 [facility] Body mass index (BMI) [Percentile] Per age and sex 2023-08-29 20:34:00 100.00 % [facility] Systolic blood pressure 2023-08-22 20:30:00 125 mm[Hg] [facility] Diastolic blood pressure 2023-08-22 20:30:00 69 mm[Hg] [facility] Heart rate 2023-08-22 20:30:00 110 /min [facility] Body temperature 2023-08-22 20:30:00 36.67 Jy[facility]i [facility] Respiratory rate 2023-08-22 20:30:00 18 /min [facility] Body weight 2023-08-22 20:30:00 151.411 kg [facility] BMI 2023-08-22 20:30:00 57.30 kg/m2 [facility] Body mass index (BMI) [Percentile] Per age and sex 2023-08-22 20:30:00 100.00 % [facility] Systolic blood pressure 2023-08-19 20:40:00 130 mm[Hg] [facility] Diastolic blood pressure 2023-08-19 20:40:00 69 mm[Hg] [facility] Heart rate 2023-08-19 20:40:00 88 /min Un[facility] Body temperature 2023-08-19 20:40:00 35.94 Jy[facility] Respiratory rate 2023-08-19 20:40:00 17 /min [facility] Body height 2023-08-19 20:40:00 162.6 cm [facility] Body weight 2023-08-19 20:40:00 150.73 kg [facility] BMI 2023-08-19 20:40:00 57.04 kg/m2 [facility] Body mass index (BMI) [Percentile] Per age and sex 2023-08-19 20:40:00 100.00 % [facility] Systolic blood pressure 2023-08-14 20:30:00 122 mm[Hg] manually [facility] Diastolic blood pressure 2023-08-14 20:30:00 78 mm[Hg] manually [facility] Heart rate 2023-08-14 20:18:00 112 /min Unive [facility] Body temperature 2023-08-14 20:18:00 35.94 J[facility] Respiratory rate 2023-08-14 20:18:00 20 /min [facility] Body height 2023-08-14 20:18:00 162.6 cm [facility] Body weight 2023-08-14 20:18:00 150.793 kg [facility] BMI 2023-08-14 20:18:00 57.06 kg/m2 [facility] Body mass index (BMI) [Percentile] Per age and sex 2023-08-14 20:18:00 100.00 % [facility] Systolic blood pressure 2023-08-12 20:09:00 109 mm[Hg] [facility] Diastolic blood pressure 2023-08-12 20:09:00 64 mm[Hg] [facility] Heart rate 2023-08-12 20:09:00 98 /min Un[facility] Body temperature 2023-08-12 20:09:00 36.33 Jy[facility] Respiratory rate 2023-08-12 20:09:00 20 /min [facility] Body height 2023-08-12 20:09:00 162.6 cm [facility] Body weight 2023-08-12 20:09:00 151.161 kg [facility] BMI 2023-08-12 20:09:00 57.20 kg/m2 [facility] Body mass index (BMI) [Percentile] Per age and sex 2023-08-12 20:09:00 100.00 % [facility] Diastolic blood pressure 2023-08-08 19:48:00 58 mm[Hg] [facility] Heart rate 2023-08-08 19:48:00 92 /min Unive [facility] Body temperature 2023-08-08 19:48:00 35.78 Jy[facility] Respiratory rate 2023-08-08 19:48:00 20 /min [facility] Body height 2023-08-08 19:48:00 162.6 cm [facility] Body weight 2023-08-08 19:48:00 149.829 kg [facility] BMI 2023-08-08 19:48:00 56.70 kg/m2 [facility] Body mass index (BMI) [Percentile] Per age and sex 2023-08-08 19:48:00 100.00 % [facility] Systolic blood pressure 2023-08-08 19:48:00 105 mm[Hg] [facility] Systolic blood pressure 2023-08-06 18:46:00 110 mm[Hg] [facility] Diastolic blood pressure 2023-08-06 18:46:00 56 mm[Hg] [facility] Heart rate 2023-08-06 18:46:00 79 /min Unive [facility] Body temperature 2023-08-06 18:46:00 35.17 [facility] Respiratory rate 2023-08-06 18:46:00 18 /min [facility] Body height 2023-08-06 18:46:00 162.6 cm [facility] Body weight 2023-08-06 18:46:00 150.866 kg [facility] BMI 2023-08-06 18:46:00 57.09 kg/m2 [facility] Body mass index (BMI) [Percentile] Per age and sex 2023-08-06 18:46:00 100.00 % [facility] Systolic blood pressure 2023-08-01 19:54:00 98 mm[Hg] [facility] Diastolic blood pressure 2023-08-01 19:54:00 56 mm[Hg] [facility] Heart rate 2023-08-01 19:54:00 96 /min Un[facility] Body temperature 2023-08-01 19:54:00 36.06 [facility] Respiratory rate 2023-08-01 19:54:00 18 /min [facility] Body height 2023-08-01 19:54:00 162.6 cm [facility] Body weight 2023-08-01 19:54:00 149.868 kg [facility] BMI 2023-08-01 19:54:00 56.71 kg/m2 [facility] Body mass index (BMI) [Percentile] Per age and sex 2023-08-01 19:54:00 100.00 % [facility] Systolic blood pressure 2023-07-30 21:17:00 110 mm[Hg] [facility] Diastolic blood pressure 2023-07-30 21:17:00 70 mm[Hg] [facility] Heart rate 2023-07-30 21:17:00 96 /min [facility] Body temperature 2023-07-30 21:17:00 36.22 Jyothi [facility] Respiratory rate 2023-07-30 21:17:00 20 /min [facility] Body height 2023-07-30 21:17:00 162.6 cm [facility] Body weight 2023-07-30 21:17:00 150.226 kg [facility] BMI 2023-07-30 21:17:00 56.85 kg/m2 [facility] Body mass index (BMI) [Percentile] Per age and sex 2023-07-30 21:17:00 100.00 % [facility] Systolic blood pressure 2023-07-15 21:25:00 122 mm[Hg] manual [facility] Diastolic blood pressure 2023-07-15 21:25:00 68 mm[Hg] manual [facility] Heart rate 2023-07-15 21:14:00 85 /min [facility] Body temperature 2023-07-15 21:14:00 36.67 Jyothi [facility] Respiratory rate 2023-07-15 21:14:00 20 /min [facility] Body height 2023-07-15 21:14:00 162.6 cm [facility] Body weight 2023-07-15 21:14:00 149.29 kg [facility] BMI 2023-07-15 21:14:00 56.49 kg/m2 [facility] Body mass index (BMI) [Percentile] Per age and sex 2023-07-15 21:14:00 100.00 % [facility] Heart rate 2023-07-15 01:21:00 72 /min [facility] Oxygen saturation in Arterial blood by Pulse oximetry 2023-07-15 01:21:00 100 /min [facility] Systolic blood pressure 2023-07-15 01:15:00 111 mm[Hg] [facility] Diastolic blood pressure 2023-07-15 01:15:00 75 mm[Hg] [facility] Body temperature 2023-07-14 23:00:00 36.94 Jyothi [facility] Respiratory rate 2023-07-14 23:00:00 17 /min [facility] Body height 2023-07-14 22:15:00 162.6 cm [facility] Body weight 2023-07-14 22:15:00 147.873 kg [facility] BMI 2023-07-14 22:15:00 55.96 kg/m2 [facility] Body mass index (BMI) [Percentile] Per age and sex 2023-07-14 22:15:00 100.00 % [facility] Systolic blood pressure 2023-07-02 21:19:00 105 mm[Hg] [facility] Diastolic blood pressure 2023-07-02 21:19:00 59 mm[Hg] [facility] Heart rate 2023-07-02 21:19:00 85 /min [facility] Body temperature 2023-07-02 21:19:00 35.78 Jyothi [facility] Respiratory rate 2023-07-02 21:19:00 18 /min [facility] Body height 2023-07-02 21:19:00 162.6 cm [facility] Body weight 2023-07-02 21:19:00 147.873 kg [facility] BMI 2023-07-02 21:19:00 55.96 kg/m2 [facility] Body mass index (BMI) [Percentile] Per age and sex 2023-07-02 21:19:00 100.00 % [facility] Systolic blood pressure 2023-06-19 17:22:00 110 mm[Hg] [facility] Diastolic blood pressure 2023-06-19 17:22:00 56 mm[Hg] [facility] Heart rate 2023-06-19 17:22:00 73 /min [facility] Body temperature 2023-06-19 17:22:00 36.17 Jyothi [facility] Respiratory rate 2023-06-19 17:22:00 20 /min [facility] Body height 2023-06-19 17:22:00 162.6 cm [facility] Body weight 2023-06-19 17:22:00 146.994 kg [facility] BMI 2023-06-19 17:22:00 55.63 kg/m2 [facility] Body mass index (BMI) [Percentile] Per age and sex 2023-06-19 17:22:00 100.00 % [facility] Systolic blood pressure 2023-05-29 15:11:00 100 mm[Hg] [facility] Diastolic blood pressure 2023-05-29 15:11:00 47 mm[Hg] [facility] Heart rate 2023-05-29 15:11:00 77 /min [facility] Body temperature 2023-05-29 15:11:00 36.33 Jyothi [facility] Respiratory rate 2023-05-29 15:11:00 20 /min [facility] Body height 2023-05-29 15:11:00 162.6 cm [facility] Body weight 2023-05-29 15:11:00 147.079 kg [facility] BMI 2023-05-29 15:11:00 55.66 kg/m2 [facility] Body mass index (BMI) [Percentile] Per age and sex 2023-05-29 15:11:00 100.00 % [facility] Systolic blood pressure 2023-05-01 15:34:00 92 mm[Hg] [facility] Diastolic blood pressure 2023-05-01 15:34:00 45 mm[Hg] [facility] Heart rate 2023-05-01 15:34:00 70 /min [facility] Body temperature 2023-05-01 15:34:00 36.28 Jyothi [facility] Respiratory rate 2023-05-01 15:34:00 20 /min [facility] Body height 2023-05-01 15:34:00 162.6 cm [facility] Body weight 2023-05-01 15:34:00 145.151 kg [facility] BMI 2023-05-01 15:34:00 54.93 kg/m2 [facility] Body mass index (BMI) [Percentile] Per age and sex 2023-05-01 15:34:00 100.00 % [facility] Systolic blood pressure 2023-03-14 14:32:00 98 mm[Hg] [facility] Diastolic blood pressure 2023-03-14 14:32:00 54 mm[Hg] [facility] Heart rate 2023-03-14 14:32:00 70 /min [facility] Body temperature 2023-03-14 14:32:00 36.33 Jyothi [facility] Respiratory rate 2023-03-14 14:32:00 18 /min [facility] Body height 2023-03-14 14:32:00 162.6 cm [facility] Body weight 2023-03-14 14:32:00 142.486 kg [facility] BMI 2023-03-14 14:32:00 53.92 kg/m2 [facility] Body mass index (BMI) [Percentile] Per age and sex 2023-03-14 14:32:00 99.49 % [facility] Systolic blood pressure 2023-02-14 16:11:00 111 mm[Hg] [facility] Diastolic blood pressure 2023-02-14 16:11:00 85 mm[Hg] [facility] Heart rate 2023-02-14 16:11:00 62 /min [facility] Body temperature 2023-02-14 16:11:00 36.33 Jyothi [facility] Respiratory rate 2023-02-14 16:11:00 20 /min [facility] Body height 2023-02-14 16:11:00 162.6 cm [facility] Body weight 2023-02-14 16:11:00 141.522 kg [facility] BMI 2023-02-14 16:11:00 53.55 kg/m2 [facility] Body mass index (BMI) [Percentile] Per age and sex 2023-02-14 16:11:00 99.49 % [facility] Systolic blood pressure 2023-01-31 03:36:41 120 mm[Hg] [facility] Diastolic blood pressure 2023-01-31 03:36:41 74 mm[Hg] [facility] Heart rate 2023-01-31 03:36:41 70 /min [facility] Respiratory rate 2023-01-31 03:36:41 13 /min [facility] Oxygen saturation in Arterial blood by Pulse oximetry 2023-01-31 03:36:41 99 /min [facility] Body temperature 2023-01-31 03:15:00 36.72 Jyothi [facility] Body height 2023-01-31 03:15:00 162.6 cm [facility] Body weight 2023-01-31 03:15:00 143.79 kg [facility] BMI 2023-01-31 03:15:00 54.41 kg/m2 [facility] Body mass index (BMI) [Percentile] Per age and sex 2023-01-31 03:15:00 99.52 % [facility] Systolic blood pressure 2023-01-15 18:09:00 103 mm[Hg] [facility] Diastolic blood pressure 2023-01-15 18:09:00 41 mm[Hg] [facility] Heart rate 2023-01-15 18:09:00 67 /min [facility] Body temperature 2023-01-15 18:09:00 36.28 Jyothi [facility] Respiratory rate 2023-01-15 18:09:00 17 /min [facility] Body height 2023-01-15 18:09:00 162.6 cm [facility] Body weight 2023-01-15 18:09:00 143.972 kg [facility] BMI 2023-01-15 18:09:00 54.48 kg/m2 [facility] Body mass index (BMI) [Percentile] Per age and sex 2023-01-15 18:09:00 99.52 % [facility] Systolic blood pressure 2019-12-17 16:50:00 116 mm[Hg] [facility] Diastolic blood pressure 2019-12-17 16:50:00 80 mm[Hg] [facility] Heart rate 2019-12-17 16:50:00 80 /min [facility] Body temperature 2019-12-17 16:50:00 37.72 Jyothi [facility] Respiratory rate 2019-12-17 16:50:00 16 /min [facility] Body height 2019-12-17 16:50:00 160 cm [facility] Body weight 2019-12-17 16:50:00 102.059 kg [facility] BMI 2019-12-17 16:50:00 39.86 kg/m2 [facility] Oxygen saturation in Arterial blood by Pulse oximetry 2019-12-17 16:50:00 94 /min [facility] BP Systolic 2022-01-23 11:51:00 117 mm[Hg] BP [...] (HPV 9V) VACCINE 2023-10-08 19:54:27 Vikas Roberts [facility] DME/SUPPLY JUSTIFICATION 2023-09-11 06:01:00 Doc tor Unassigned, [place] [facility] CBC WITH DIFF 2023-09-03 10:08:00 Kelsey Clifton [facility] CBC WITH DIFF 2023-09-03 10:08:00 Kelsey Clifton [facility] SECTION 2023-09-02 22:21:00 Debra Moreno [facility] SECTION 2023-09-02 22:21:00 Debra Moreno [facility] PROTEIN CREAT RATIO URINE RANDOM 2023-09-02 02:40:00 Safia Llanes [facility] PROTEIN CREAT RATIO URINE RANDOM 2023-09-02 02:40:00 Safia Llanes [facility] CENTRAL NEURAXIAL BLOCK 2023-09-01 20:08:00 Syead Bender [facility] LACTATE DEHYDROGENASE 2023-09-01 16:53:00 Milana Llanes ea [facility] CBC WITH DIFF 2023-09-01 16:53:00 Safia Llanes [facility] LACTATE DEHYDROGENASE 2023-09-01 16:53:00 Milana Llanes ea [facility] CBC WITH DIFF 2023-09-01 16:53:00 Mario Alberto [facility] SGOT (ASPARTATE AMINO TRANSFER) 2023-09-01 15:06:00 Mario Alberto [facility] CREATININE 2023-09-01 15:06:00 Mario Alberto [facility] ALANINE AMINO TRANSFERASE(SGPT 2023-09-01 15:06:00 Mario Alberto [facility] URIC ACID 2023-09-01 15:06:00 Mario Alberto [facility] HEPATITIS B SURFACE ANTIGEN 2023-09-01 15:06:00 Cesar William [facility] HB ABO GROUPING 2023-09-01 15:06:00 Cesar William [facility] RHO (D) IMMUNE GLOBULIN 2023-09-01 15:06:00 Izabel Clifton [facility] SYPHILIS IGG/IGM 2023-09-01 15:06:00 Cesar William [facility] SGOT (ASPARTATE AMINO TRANSFER) 2023-09-01 15:06:00 Mario Alberto [facility] CREATININE 2023-09-01 15:06:00 Mario Alberto [facility] ALANINE AMINO TRANSFERASE(SGPT 2023-09-01 15:06:00 Mario Alberto [facility] URIC ACID 2023-09-01 15:06:00 Mario Alberto [facility] HEPATITIS B SURFACE ANTIGEN 2023-09-01 15:06:00 Cesar William [facility] HB ABO GROUPING 2023-09-01 15:06:00 Cesar William [facility] RHO (D) IMMUNE GLOBULIN 2023-09-01 15:06:00 Izabel Clifton ndfunmilayo [facility] SYPHILIS IGG/IGM 2023-09-01 15:06:00 Cesar William [facility] NON-STRESS TEST 2023-08-29 21:16:29 Andrzej Roberts [facility] POCT URINALYSIS 2023-08-29 20:35:00 Kateryna Hamilton [facility] SECOND AND THIRD TRIMESTER ULTRASOUND 2023-08-29 20:20:00 Kateryna Hamilton [facility] SECOND AND THIRD TRIMESTER ULTRASOUND 2023-08-22 22:03:00 Kateryna Hamilton [facility] NON-STRESS TEST 2023-08-22 21:01:52 Krishna Hamilton [facility] POCT URINALYSIS 2023-08-22 20:31:00 Kateryna Hamilton [facility] NON-STRESS TEST 2023-08-20 01:20:59 Krishna Hamilton [facility] POCT URINALYSIS 2023-08-19 21:04:00 Kateryna Hamilton [facility] SECOND AND THIRD TRIMESTER ULTRASOUND 2023-08-15 21:41:00 Kateryna Hamilton [facility] NON-STRESS TEST 2023-08-14 20:48:32 Krishna Hamilton [facility] POCT URINALYSIS 2023-08-14 20:42:00 Kateryna Hamilton [facility] NON-STRESS TEST 2023-08-12 21:04:52 Krishna Hamilton [facility] POCT URINALYSIS 2023-08-12 20:10:00 Kateryna Hamilton [facility] NON-STRESS TEST 2023-08-08 22:11:19 Krishna Hamilton [facility] SECOND AND THIRD TRIMESTER ULTRASOUND 2023-08-08 19:55:00 Kateryna Hamilton [facility] POCT URINALYSIS 2023-08-08 19:49:00 Kateryna Hamilton [facility] NON-STRESS TEST 2023-08-06 20:03:47 Andrzej Roberts [facility] POCT URINALYSIS 2023-08-06 18:47:00 Kateryna Hamilton [facility] NON-STRESS TEST 2023-08-01 20:58:32 Andrzej Roberts [facility] POCT URINALYSIS 2023-08-01 19:56:00 Kateryna Hamilton [facility] SECOND AND THIRD TRIMESTER ULTRASOUND 2023-08-01 19:49:00 Kateryna Hamilton [facility] NON-STRESS TEST 2023-07-30 22:17:39 Andrzej Roberts [facility] POCT URINALYSIS 2023-07-30 21:46:00 Kateryna Hamilton [facility] POCT URINALYSIS 2023-07-30 21:18:00 Kateryna Hamilton [facility] SECOND AND THIRD TRIMESTER ULTRASOUND 2023-07-23 20:43:00 Kateryna Hamilton [facility] HIV 1/2 AG-AB WITH REFLEX 2023-07-15 21:44:00 Kateryna Hamilton [facility] SYPHILIS IGG/IGM 2023-07-15 21:44:00 Kateryna Hamilton [facility] POCT URINALYSIS 2023-07-15 21:16:00 Kateryna Hamilton [facility] POCT URINALYSIS 2023-07-02 21:21:00 Kateryna Hamilton [facility] TDAP VACCINE, >11 YRS, IM 2023-06-19 17:50:31 Kateryna Hamilton [facility] POCT URINALYSIS 2023-06-19 17:23:00 Kateryna Hamilton [facility] POCT URINALYSIS 2023-05-29 15:12:00 Kateryna Hamilton [facility] POCT URINALYSIS 2023-05-01 15:25:00 Kateryna Hamilton [facility] SECOND AND THIRD TRIMESTER ULTRASOUND 2023-04-22 14:25:00 Kateryna Hamilton [facility] POCT URINALYSIS 2023-03-14 14:34:00 Kateryna Hamilton [facility] POCT URINALYSIS 2023-02-14 16:12:00 Kateryna Hamilton [facility] URINALYSIS 2023-01-31 03:57:00 Clinton Bishop [facility] POCT TEST 2023-01-15 16:41:00 Prema Hamilton [facility] POCT URINALYSIS W/O SPECIFIC GRAVITY 2023-01-15 16:41:00 Kateryna Hamilton [facility] NOTICE OF PRIVACY PRACTICES 2023-01-15 16:26:00 Doctor Unassigned, [place] [facility] Plan of Care Planned Activity Planned Date Details Comments Source Goal Plan of Care Note [code = 58521-8] Goal Plan of Care Note [code = 65424-1] Goal Plan of Care Note [code = 27422-4] Goal Plan of Care Note [code = 68982-4] Goal Plan of Care Note [code = 43310-2] Goal Plan of Care Note [code = 24315-3] Goal Plan of Care Note [code = 11302-7] Goal Plan of Care Note [code = 53514-1] Goal Plan of Care Note [code = 18771-1] Goal Plan of Care Note [code = 32609-9] Goal Plan of Care Note [code = 11882-3] Goal Plan of Care Note [code = 93213-6] Goal Plan of Care Note [code = 09611-7] Goal Plan of Care Note [code = 86120-3] Goal Plan of Care Note [code = 51519-3] Goal Plan of Care Note [code = 76460-4] Goal Plan of Care Note [code = 61703-8] Goal Plan of Care Note [code = 58088-5] Goal Plan of Care Note [code = 64855-3] Goal Plan of Care Note [code = 35836-6] Goal Plan of Care Note [code = 90741-5] Goal Plan of Care Note [code = 91092-7] Goal Plan of Care Note [code = 99731-4] Goal Plan of Care Note [code = 01373-3] Goal Plan of Care Note [code = 52411-8] Goal Plan of Care Note [code = 25212-9] Goal Plan of Care Note [code = 48953-4] Goal Plan of Care Note [code = 10266-5] Goal Plan of Care Note [code = 67635-5] Goal Plan of Care Note [code = 86675-3] Goal Plan of Care Note [code = 37418-4] Goal Plan of Care Note [code = 21946-1] Goal Plan of Care Note [code = 87691-7] Goal Plan of Care Note [code = 79982-2] Encounters Start Date/Time End Date/Time Encounter Type Admission Type Attending Clinicians Care Facility Care Department Encounter ID Source 2023-07-14 19:37:23 Outpatient X NATE CHINCHILLA SANGEETA [facility] PRANAV [id number] [facility] 2023-11-25 13:30:00 2023-11-25 15:13:58 Outpatient R KATERYNA HAMILTON [facility] [id number] [facility] 2023-11-25 13:30:00 2023-11-25 15:13:58 Office Visit Kateryna Hamilton [facility] LATENT [employer] EXAM[employer]ER [facility] 1.2.840.114 350.1.13.10 4.2.7.2.[id number] [facility] 2023-11-25 14:45:00 2023-11-25 14:45:00 Outpatient R KATERYNA HAMILTON [facility] [id number] [facility] 2023-10-27 14:00:00 2023-10-27 14:00:00 Outpatient R OBI-VALERIE , JAYANT OBI-VALERIE , JAYANT [facility] [id number] [facility] 2023-10-21 13:30:00 2023-10-21 13:30:00 Outpatient R VIKAS ROBERTS [facility] [id number] [facility] 2023-10-08 14:00:00 2023-10-08 14:15:00 Nurse Visit Nurse, Willy Rmchp Exp Cprit Obgyn Unknown, Attending Kateryna Hamilton [facility] LATENT [employer] EXAM[employer]ER [facility] .840.114 350.1.13.10 4.2.7.2.[id number] [facility] 2023-10-08 14:00:00 2023-10-08 14:00:00 Outpatient KATERYNA QUIÑONES [facility] [id number] [facility] 2023-09-23 09:00:00 2023-09-23 10:18:02 Outpatient R VIKAS ROBERTS [facility] [id number] [facility] 2023-09-23 09:00:00 2023-09-23 10:18:02 Routine Visit Vikas Roberts [facility] [employer] [facility] 1..114 350.1.13.10 4.2.7.2.[id number] [facility] 2023-09-11 10:30:00 2023-09-11 11:00:03 Outpatient KATERYNA QUIÑONES [facility] [id number] [facility] 2023-09-11 10:30:00 2023-09-11 11:00:03 Nurse Visit Visit, Ang-Rmchp Nurse Kateryna Hamilton [facility] 1..114 350.1.13.10 4.2.7.2.[id number] [facility] 2023-09-11 00:00:00 2023-09-11 00:00:00 Orders Only Doctor Unassigned, [place] [facility] ..114 350.1.13.10 4.2.7.2.[id number] [facility] 2023-09-11 00:00:00 2023-09-11 00:00:00 Telephone Vikas Roberts [facility] [employer] [facility] 1.0.114 350.1.13.10 4.2.7.2.[id number] [facility] 2023-09-01 08:14:00 2023-09-04 15:28:00 Inpatient NATE GUERRERO, NATECHI [facility] PRANAV [id number] [facility] 2023-09-01 08:14:00 2023-09-04 15:28:00 Hospital Encounter [facility] 1..114 350.1.13.10 4.2.7.2.[id number] [facility] 2023-09-02 10:51:00 2023-09-02 12:37:00 Surgery Debra Moreno [facility] 1..114 350.1.13.10 4.2.7.2.[id number] [facility] 2023-09-01 14:00:00 2023-09-01 14:00:00 Outpatient NATE GUERRERO, [facility] [id number] [facility] 2023-09-01 13:27:00 2023-09-01 13:27:00 [facility]..114 350.1.13.10 4.2.7.2.[id number] [facility] 2023-09-01 00:00:00 2023-09-01 00:00:00 Case Management Kateryna Hamilton [facility] LAT[employer] EXAMINER [facility] & CHILD [place] 1..114 350.1.13.10 4.2.7.2.[id number] [facility] 2023-08-29 15:15:00 2023-08-29 15:18:25 Routine Visit Vikas Roberts [facility] LATENT [employer] EXAM[employer]ER [facility] MATERNAL & CHILD HEALTH [facility] 1.0.114 350.1.13.10 4.2.7.2.[id number] [facility] 2023-08-29 14:00:00 2023-08-29 14:19:15 [employer] Visit Ultrasound, Nate Allen [facility] [employer] [facility] 1.840.114 350.1.13.10 4.2.7.2.[id number] [facility] 2023-08-29 14:00:00 2023-08-29 14:19:15 [id number] 2023-08-26 12:45:00 2023-08-26 12:45:00 Outpatient R KATERYNA HAMILTON [facility] [id number] [facility] 2023-08-23 00:00:00 2023-08-23 00:00:00 Case Management Kateryna Hamilton [facility] LATENT [employer] [facility] 1..840.114 350.1.13.10 4.2.7.2.[id number] [facility] 2023-08-22 15:30:00 2023-08-22 16:16:43 Outpatient MUSA AZEVEDO [facility] [id number] [facility] 2023-08-22 15:30:00 2023-08-22 16:16:43 [employer] Installer Visit Ultrasound, Nate Allen Chasey Ikceegiflavio [facility] LATENT [employer]ER[employer] EXAMINER [facility] 1..840.114 350.1.13.10 4.2.7.2.[id number] [facility] 2023-08-22 14:30:00 2023-08-22 14:57:14 Routine Visit Kateryna Hamilton [facility] LATENT [employer] EXAMINER [facility] 1.2.840.114 350.1.13.10 4.2.7.2.[id number] [facility] 2023-08-19 15:00:00 2023-08-19 15:35:50 Outpatient R KATERYNA HAMILTON [facility] [id number] [facility] 2023-08-19 15:00:00 2023-08-19 15:35:50 Routine Visit Kateryna Hamilton [facility] LATENT [employer] EXAMINER [facility] 1..840.114 350.1.13.10 4.2.7.2.[id number] [facility] 2023-08-18 00:00:00 2023-08-18 00:00:00 Case [facility] 1..840.114 350.1.13.10 4.2.7.2.[id number] [facility] 2023-08-15 15:30:00 2023-08-15 15:52:32 Outpatient P WILLIAM UGARTE [facility] [id number] [facility] 2023-08-15 15:30:00 2023-08-15 15:52:32 [employer] Installer Visit Ultrasound, Nate Allen Luis Diego [facility] 1..840.114 350.1.13.10 4.2.7.2.[id number] [facility] 2023-08-14 14:30:00 2023-08-14 14:45:48 Outpatient R KATERYNA HAMILTON [facility] [id number] [facility] 2023-08-14 14:30:00 2023-08-14 14:45:48 [facility] 1.2.840.114 350.1.13.10 4.2.7.2.[id number] [facility] 2023-08-12 14:00:00 2023-08-12 15:16:34 Outpatient R KATERYNA HAMILTON [facility] [id number] [facility] 2023-08-12 14:00:00 2023-08-12 15:16:34 Routine Visit ShiraKateryna bee [facility] LATENT [employer] EXAMINER [facility] 1..840.114 350.1.13.10 4.2.7.2.[id number] [facility] 2023-08-08 14:45:00 2023-08-08 14:45:00 Routine Visit Joy Kateryna [facility] 1..840.114 350.1.13.10 4.2.7.2.[id number] [facility] 2023-08-08 14:00:00 2023-08-08 14:29:04 Outpatient NATE GUERRERO SANGEETA [facility] [id number] [facility] 2023-08-08 14:00:00 2023-08-08 14:29:04 [employer] Installer Visit Ultrasound, PoloNate Chisholm [facility] 1..840.114 350.1.13.10 4.2.7.2.[id number] [facility] 2023-08-06 12:45:00 2023-08-06 13:58:36 Outpatient R VIKAS ROBERTS [facility] [id number] [facility] 2023-08-06 12:45:00 2023-08-06 13:58:36 Routine Visit Vikas Roberts [facility] LATENT [employer] EXAMINER [facility] 1.2.840.114 350.1.13.10 4.2.7.2.[id number] [facility] 2023-08-01 14:30:00 2023-08-01 14:57:38 Routine Visit Vikas Roberts [facility] LATENT [employer] EXAMINER [facility] 1.2.840.114 350.1.13.10 4.2.7.2.[id number] [facility] 2023-08-01 13:45:00 2023-08-01 13:47:05 Outpatient KAREN CRAIG SHANNON [facility] [id number] [facility] 2023-08-01 13:45:00 2023-08-01 13:47:05 [employer] Installer Visit Ultrasound, Karen Torres [facility] 1.2840.114 350.1.13.10 4.2.7.2.[id number] [facility] 2023-07-30 15:15:00 2023-07-30 16:15:13 Outpatient R VIKAS ROBERTS [facility] [id number] [facility] 2023-07-30 15:15:00 2023-07-30 16:15:13 Routine Visit Vikas Roberts [facility] LATENT [employer] EXAMINER [facility] 1.2.840.114 350.1.13.10 4.2.7.2.[id number] [facility] 2023-07-24 00:00:00 2023-07-24 00:00:00 Case Management Kateryna Hamilton [facility] LATENT [employer] EXAMINER [facility] 1.2.840.114 350.1.13.10 4.2.7.2.[id number] [facility] 2023-07-23 14:30:00 2023-07-23 14:45:25 Outpatient P MUSA LOZANO [facility] [id number] [facility] 2023-07-23 14:30:00 2023-07-23 14:45:25 [employer] Installer Visit 1Saeid Room Musa Lozano Ikuvbogie [facility] LATENT [employer]INGERPRINT EXAMINER [facility] 1.840.114 350.1.13.10 4.2.7.2.[id number] [facility] 2023-07-18 13:45:00 2023-07-18 13:45:00 Outpatient P [facility] [id number] [facility] 2023-07-15 15:00:00 2023-07-15 15:44:02 Outpatient R KATERYNA HAMILTON [facility] [id number] [facility] 2023-07-15 15:00:00 2023-07-15 15:44:02 Routine Visit Kateryna Hamilton [facility] LATENT [employer]ERPRINT EXAMINER [facility] MATERNAL & CHILD HEALTH [facility] 1.0.114 350.1.13.10 4.2.7.2.[id number] [facility] 2023-07-14 16:20:00 2023-07-14 19:29:00 Outpatient X FREEMAN-JOSE S, MIRIAM FREEMAN-JOSE S, MIRIAM [facility] PRANAV [id number] [facility] 2023-07-14 16:20:00 2023-07-14 19:29:00 Emergency Derek Thornton Medhat-Jose s, Miriam [facility] 1..114 350.1.13.10 4.2.7.2.[id number] [facility] 2023-07-14 00:00:00 2023-07-14 00:00:00 [facility] 1..114 350.1.13.10 4.2.7.2.[id number] [facility] 2023-07-02 15:15:00 2023-07-02 15:50:56 Outpatient R AGNIESZKADeuce KATERYNA [facility] [id number] [facility] 2023-07-02 15:15:00 2023-07-02 15:50:56 Routine Visit Kateryna Hamilton [facility] LATENT [employer] EXAMINER [facility] 1.84.114 350.1.13.10 4.2.7.2.[id number] [facility] 2023-06-28 00:00:00 2023-06-28 00:00:00 Telephone Kateryna Hamilton [facility] LATENT [employer] EXAMINER [facility] .84.114 350.1.13.10 4.2.7.2.[id number] [facility] 2023-06-19 11:00:00 2023-06-19 12:03:41 Outpatient R KATERYNA HAMILTON [facility] [id number] [facility] 2023-06-19 11:00:00 2023-06-19 12:03:41 [facility] .840.114 350.1.13.10 4.2.7.2.[id number] [facility] 2023-05-29 10:15:00 2023-05-29 10:52:59 Outpatient R KATERYNA HAMILTON [facility] [id number] [facility] 2023-05-29 10:15:00 2023-05-29 10:52:59 [facility] LATENT [employer] EXAMINER [facility] .84.114 350.1.13.10 4.2.7.2.[id number] [facility] 2023-05-01 10:30:00 2023-05-01 10:57:38 Outpatient R AGNIESZKADeuceKATERYNA [facility] [id number] [facility] 2023-05-01 10:30:00 2023-05-01 10:57:38 Routine Visit Kateryna Hamilton [facility] LATENT [employer] EXAMINER [facility] 1..840.114 350.1.13.10 4.2.7.2.[id number] [facility] 2023-04-29 13:45:00 2023-04-29 13:45:00 Outpatient R KATERYNA HAMILTON [facility] [id number] [facility] 2023-04-24 13:00:00 2023-04-24 13:00:00 Outpatient R RADIOLOGY [facility] [id number] [facility] 2023-04-24 00:00:00 2023-04-24 00:00:00 [facility] ..840.114 350.1.13.10 4.2.7.2.[id number] [facility] 2023-04-22 09:00:00 2023-04-22 09:51:26 Outpatient P PATI JEAN [facility] [id number] [facility] 2023-04-22 09:00:00 2023-04-22 09:51:26 [employer] Installer Visit Ultrasound, Willy-Mfm Pati Jean [facility] LATENT [employer] EXAMINER [facility] ..840.114 350.1.13.10 4.2.7.2.[id number] [facility] 2023-04-11 10:30:00 2023-04-11 10:30:00 Outpatient R JOY KATERYNA [facility] [id number] [facility] 2023-03-27 17:10:54 2023-03-27 17:10:54 Outpatient YOKASTA [place] [id number] Waylon Nunez 2023-03-14 09:30:00 2023-03-14 09:45:28 [id number] [facility] 2023-03-14 09:30:00 2023-03-14 09:45:28 Routine Visit Kateryna Hamilton [facility] LATENT [employer]ER[employer] EXAMINER [facility] 1..840.114 350.1.13.10 4.2.7.2.[id number] [facility] 2023-02-14 11:00:00 2023-02-14 11:29:02 Outpatient Hannah KATERYNA HAMILTON [facility] [id number] [facility] 2023-02-14 11:00:00 2023-02-14 11:29:02 Routine Visit Kateryna Hamilton [facility] LATENT [employer]ER[employer] EXAMINER [facility] 1..840.114 350.1.13.10 4.2.7.2.[id number] [facility] 2023-02-14 10:00:00 2023-02-14 10:48:01 Outpatient JOSÉ MIGUEL CANCINO COREY [facility] [id number] [facility] 2023-02-14 10:00:00 2023-02-14 10:48:01 [employer] Installer Visit Ultrasound, José Miguel Mejia [facility] LATENT [employer]ER[employer] EXAMINER [facility] 1..840.114 350.1.13.10 4.2.7.2.[id number] [facility] 2023-01-30 22:10:00 2023-01-31 00:22:00 Emergency X Clinton BISHOP [facility] ERT [id number] [facility] 2023-01-30 22:10:00 2023-01-31 00:22:00 Emergency Clinton Bishop [facility] 1.2.840.114 350.1.13.10 4.2.7.2.[id number] [facility] 2023-01-31 00:00:00 2023-01-31 00:00:00 Outpatient R RADIOLOGY [facility] [id number] [facility] 2023-01-17 00:00:00 2023-01-17 00:00:00 Patient Secure Msg Doctor Unassigned, [place] [facility] 1.2.840.114 350.1.13.10 4.2.7.2.[id number] [facility] 2023-01-15 13:00:00 2023-01-15 14:47:09 Outpatient R KATERYNA HAMILTON [facility] [id number] [facility] 2023-01-15 13:00:00 2023-01-15 14:47:09 Initial Visit Kateryna Hamilton [facility] LATENT [employer]ER[employer] EXAMINER [facility] 1.2.840.114 350.1.13.10 4.2.7.2.[id number] [facility] 2023-01-15 00:00:00 2023-01-15 00:00:00 Orders Only Doctor Unassigned, [place] [facility] 1.2840.114 350.1.13.10 4.2.7.2.[id number] [facility] 2022-12-24 14:15:37 2022-12-24 14:15:[address] [facility] [id number] Waylon Nunez 2022-08-07 08:46:16 2022-08-07 08:46:16 Outpatient [facility] [id number] Waylon Nunez 2022-08-06 00:00:00 2022-08-06 00:00:00 Outpatient Visit [id number] 2021-03-01 09:15:00 2021-03-01 09:15:00 Outpatient MITALI PIERCE [facility] [id number] [facility] 2021-02-23 10:00:00 2021-02-23 10:15:00 Office Visit Jorge L [facility] Surgical [facility] 1.2840.114 350.1.13.10 4.2.7.2.686 [id number] 2021-02-23 10:00:00 2021-02-23 10:15:00 Office Visit Jorge L [facility] 1.840.114 350.1.13.10 4.2.7.2.[id number] [facility] 2021-02-23 10:00:00 2021-02-23 10:00:00 Outpatient MITALI PIERCE [facility] [id number] [facility] 2021-02-23 10:00:00 2021-02-23 10:00:00 Outpatient Hannah [facility] [id number] [facility] 2020-03-01 00:00:00 2020-03-01 00:00:00 Letter (Out) Pcp, Patient Does Not Have A [facility] 1.84.114 350.1.13.10 4.2.7.2.[id number] [facility] 2019-12-18 00:00:00 2019-12-18 00:00:00 Telephone Evelyn Viera [facility] 1.840.114 350.1.13.10 4.2.7.2.[id number] [facility] 2019-12-17 11:39:13 2019-12-17 11:59:13 Urgent Care Pob1, Acute Care Clinic Laisha Medrano [facility] Office [facility] 1.2.840.114 350.1.13.10 4.2.7.2.[id number] [facility] 2019-12-17 11:00:00 2019-12-17 11:00:00 Outpatient R LAISHA MEDRANO [facility] [id number] [facility] Results Test Description Test Time Test Comments Results Result Co mments Source [facility] Resources[facility] (D) IMMUNE [id number] 17:12:46* Test Item Value Reference Range Interpretation Comme nts RHIG CANDIDATE? (test code = 5188) No- see comment Patient is not a candidate for RhIg- Patient is Rh Negative and baby is Rh Negative.Performed at [facility] Laboratory Services - [facility] Blood [id number] [place] [id number] Free: [phone] No. [id number] [facility] ONLY - SYPHILIS [id number] 16:51:36* Test Item Value Reference Range Interpretation Comme [facility] Syphilis IgG/IgM (test code = 20792-2) Non-reactive Non-reactive EITAN (test code = EITAN) Non-reactive - No serologic evidence of T. pallidum infection. Cannot exclude incubating or early syphilis. Submit a second specimen in 2-4 weeks if syphilis is clinically suspected. Equivocal - Further testing to follow. Reactive - Further testing to follow. Lab Interpretation (test code = 46867-7) Normal [facility] ResourcesGAL ONLY - SYPHILIS [id number] 16:51:36* Test Item Value Reference Range Interpretation Comme [facility] Syphilis IgG/IgM (test code = 98033-7) Non-reactive Non-reactive EITAN (test code = EITAN) Non-reactive - No serologic evidence of T. pallidum infection. Cannot exclude incubating or early syphilis. Submit a second specimen in 2-4 weeks if syphilis is clinically suspected. Equivocal - Further testing to follow. Reactive - Further testing to follow. Lab Interpretation (test code = 51062-0) Normal [facility] Resources[facility] Neuraxial [id number] 20:08:00 Syeda Middleton MD ? ? 09/01/2023 ?2:09 PM Central Neuraxial Block Date/Time: 42:08 PM Performed by: Syeda Middleton MDAuthorized by: Jumana Denson MD ?Patient Location: OBReason for Block: OB request, Patient request, Labor analgesia, Surgical anesthesia and Post-op pain managementStaff: ?Anesthesiologist: Jumana Denson MD ?Resident/DOCK COORDINATOR: Melanie Toth MD ?Performed by: resident/CRNAPreanesthetic Checklist: [...] and BUD saline ?Guidance with: landmark technique}Epidural/Spinal [place] and/or Catheter: ?Epidural/Spinal Kit: BBraun ?Needle Type: [...] Assessment: patient tolerated procedure well with [facility] [id number] 17:38:42* Test Item Value Reference Range Interpretation Comme nts LDH (test code = 4584932091) 244 U/L 120-246 Lab Interpretation (test cod e = 96182-9) Normal [facility] ResourcesLACTATE [id number] 17:38:42* Test Item Value Reference Range Interpretation Comme nts LDH (test code = 7217580385) 244 U/L 120-246 Lab Interpretation (test cod e = 81900-8) Normal [facility] ResourcesURIC ACID [id number] 17:13:16* Test Item Value Reference Range Interpretation Comme nts URIC ACID (test code = 7011123487) 5.6 mg/dL 2.9-6.0 Lab Interpretation (test cod e = 92446-0) Normal [facility] ResourcesCREABBOTT [facility] HOSPITALINE [id number] 17:13:16* Test Item Value Reference Range Interpretation Comme nts CREATININE (test code = 3292644221) 0.40 mg/dL 0.50-1.04 L eGFR (test code = 95568-5) 147.3 mL/min/1.73m2 CKD-EPI eGFR (2020). Assuming creatinine has been stable day-to-day for at least three months, the eGFR indicates Category G1 (>= 90 mL/min/1.73 m2) Lab Interpretation (test code = 79572-6) Abnormal [facility] ResourcesSGOT (ASPARTATE AMINO TRANSFER)2023-09-01 17:13:16* Test Item Value Reference Range Interpretation Comme nts AST(SGOT) (test code = 7836159899) 25 U/L 13-40 Lab Interpretation (test cod e = 58738-5) Normal [facility] ResourcesALANINE AMINO TRANSFERASE([id number] 17:13:16* Test Item Value Reference Range Interpretation Comme nts ALTv (test code = 1742-6) 14 U/L 5-35 Lab Interpretation (test cod e = 27438-7) Normal [facility] ResourcesURIC ACID [id number] 17:13:16* Test Item Value Reference Range Interpretation Comme nts URIC ACID (test code = 1946337139) 5.6 mg/dL 2.9-6.0 Lab Interpretation (test cod e = 72196-2) Normal [facility] [id number] 17:13:16* Test Item Value Reference Range Interpretation Comme nts CREATININE (test code = 8605215809) 0.40 mg/dL 0.50-1.04 L eGFR (test code = 64662-8) 147.3 mL/min/1.73m2 CKD-EPI eGFR (2020). Assuming creatinine has been stable day-to-day for at least three months, the eGFR indicates Category G1 (>= 90 mL/min/1.73 m2) Lab Interpretation (test code = 14984-0) Abnormal [facility] ResourcesSGOT (ASPARTATE AMINO TRANSFER)2023-09-01 17:13:16* Test Item Value Reference Range Interpretation Comme nts AST(SGOT) (test code = 0567450688) 25 U/L 13-40 Lab Interpretation (test cod e = 50500-3) Normal [facility] ResourcesALANINE AMINO TRANSFERASE([id number] 17:13:16* Test Item Value Reference Range Interpretation Comme nts ALTv (test code = 1742-6) 14 U/L 5-35 Lab Interpretation (test cod e = 36268-7) Normal [facility] ResourcesCBC WITH [id number] 17:11:40* Test Item Value Reference Range Interpretation [...] 33.8 g/dL 32.0-36.0 RDW-SD (test code = 76372-7) 47.8 fL 38.5-49.0 RDW-CV (test code = 788-0) 15.0 % 11.5-14.0 H PLT (test code = 777-3) 341 See_Comment [Automated [employer] ge] The system which generated this result transmitted reference range: 135 - 361 10*3/?L. The reference range was not used to interpret this result as normal/abnormal. MPV (test code = 37675-8) 9.2 fL 9.4-13.3 L NRBC/100 WBC (test code = 1116127564) 0.0 See_Comment [Automated [employer] ssage] The system which generated this result transmitted reference range: 0.0 - 10.0 /100 WBCs. The reference range was not used to interpret this result as normal/abnormal. NRBC x10^3 (test code = 3737294623) See_Comment [Automated [employer] ge] The system which generated this result transmitted reference range: 10*3/?L. The reference range was not used to interpret this result as normal/abnormal. GRAN MAT (NEUT) % (test code = 770-8) 66.6 % IMM GRAN % (test code = 5169846832) 0.60 % LYMPH % (test code = 736-9) 24.8 % MONO % (test code = 5905-5) 7.1 % EOS % (test code = 713-8) 0.7 % BASO % (test code = 706-2) 0.2 % GRAN MAT x10^3(ANC) (test code = 7875979240) 5.82 10*3/uL 1.50-10.30 IMM GRAN x10^3 (test code = 4824680537) 0.05 10*3/uL 0.00-0.06 LYMPH x10^3 (test code = 731-0) 2.17 10*3/uL 0.70-7.40 MONO x10^3 (test code = 742-7) 0.62 10*3/uL 0.00-0.50 H EOS x10^3 (test code = 711-2) 0.06 10*3/uL 0.00-0.40 BASO x10^3 (test code = 704-7) 0.00-0.10 Lab Interpretation (test code = 22855-3) Abnormal [facility] WITH [id number] 17:11:40* Test Item Value Reference Range Interpretation [...] 33.8 g/dL 32.0-36.0 RDW-SD (test code = 07963-7) 47.8 fL 38.5-49.0 RDW-CV (test code = 788-0) 15.0 % 11.5-14.0 H PLT (test code = 777-3) 341 See_Comment [Automated messa ge] The system which generated this result transmitted reference range: 135 - 361 10*3/?L. The reference range was not used to interpret this result as normal/abnormal. MPV (test code = 31883-3) 9.2 fL 9.4-13.3 L NRBC/100 WBC (test code = 7954828297) 0.0 See_Comment [Automated me ssage] The system which generated this result transmitted reference range: 0.0 - 10.0 /100 WBCs. The reference range was not used to interpret this result as normal/abnormal. NRBC x10^3 (test code = 3099444949) See_Comment [Automated messa ge] The system which generated this result transmitted reference range: 10*3/?L. The reference range was not used to interpret this result as normal/abnormal. GRAN MAT (NEUT) % (test code = 770-8) 66.6 % IMM GRAN % (test code = 7870864135) 0.60 % LYMPH % (test code = 736-9) 24.8 % MONO % (test code = 5905-5) 7.1 % EOS % (test code = 713-8) 0.7 % BASO % (test code = 706-2) 0.2 % GRAN MAT x10^3(ANC) (test code = 0163560453) 5.82 10*3/uL 1.50-10.30 IMM GRAN x10^3 (test code = [id number]) 0.05 10*3/uL 0.00-0.06 LYMPH x10^3 (test code = 731-0) 2.17 10*3/uL 0.70-7.40 MONO x10^3 (test code = 742-7) 0.62 10*3/uL 0.00-0.50 H EOS x10^3 (test code = 711-2) 0.06 10*3/uL 0.00-0.40 BASO x10^3 (test code = 704-7) 0.00-0.10 Lab Interpretation (test code = 03624-5) Abnormal [facility] B Surface [id number] 16:25:15 * Test Item Value Reference Range Interpretation Comme nts HBsAg Semi-Quantitative (arthur t code = 5195-3) 0.08 Negative [facility] B Surface [id number] 16:25:15 * Test Item Value Reference Range Interpretation Comme nts HBsAg Semi-Quantitative (arthur t code = 5195-3) 0.08 Negative [facility] and Screen - ONCE [id number] 15:15:00 * Test Item Value Reference Range Interpretation Comme nts ABO & RH (test code = 20) A NEGATIVE IAT (test code = 1185) Negative [facility] and Screen - ONCE [id number] 15:15:00 * Test Item Value Reference Range Interpretation Comme nts ABO & RH (test code = 20) A NEGATIVE IAT (test code = 1185) Negative [facility] URINALYSIS W SPECIFIC [id number] 20:36:00* Test Item Value Reference Range Interpretation [...] U APPEAR (test code = 3267) . [facility] URINALYSIS W SPECIFIC [id number] 20:31:00* Test Item Value Reference Range Interpretation [facility] [id number] 21:05:00* Test Item Value Reference Range Interpretation [...] U APPEAR (test code = 3267) . [facility] URINALYSIS W SPECIFIC [id number] 20:43:00* Test Item Value Reference Range Interpretation [...] POCT U APPEAR (test code = 3267) [facility] URINALYSIS W SPECIFIC [id number] 20:10:00* Test Item Value Reference Range Interpretation [...] U APPEAR (test code = 3267) . [facility] URINALYSIS W SPECIFIC [id number] 19:49:00* Test Item Value Reference Range Interpretation [...] U APPEAR (test code = 3267) .. [facility] URINALYSIS W SPECIFIC [id number] 19:49:00* Test Item Value Reference Range Interpretation [...] U APPEAR (test code = 3267) .. [facility] URINALYSIS W SPECIFIC [id number] 18:47:00* Test Item Value Reference Range Interpretation [...] U APPEAR (test code = 3267) . [facility] URINALYSIS W SPECIFIC [id number] 19:57:00* Test Item Value Reference Range Interpretation [...] U APPEAR (test code = 3267) . [facility] URINALYSIS W SPECIFIC [id number] 21:46:00* Test Item Value Reference Range Interpretation [...] POCT U APPEAR (test code = 3267) [facility] URINALYSIS W SPECIFIC [id number] 21:46:00* Test Item Value Reference Range Interpretation [...] POCT U APPEAR (test code = 3267) [facility] URINALYSIS W SPECIFIC [id number] 21:18:00* Test Item Value Reference Range Interpretation [...] POCT U APPEAR (test code = 3267) [facility] URINALYSIS W SPECIFIC [id number] 21:18:00* Test Item Value Reference Range Interpretation [...] POCT U APPEAR (test code = 3267) [facility] SYPHILIS [id number] 17:05:09* Test Item Value Reference Range Interpretation Comme [facility] Syphilis IgG/IgM (test code = 02575-0) Non-reactive Non-reactive EITAN (test code = EITAN) Non-reactive - No serologic evidence of T. pallidum infection. Cannot exclude incubating or early syphilis. Submit a second specimen in 2-4 weeks if syphilis is clinically suspected. Equivocal - Further testing to follow. Reactive - Further testing to follow. Lab Interpretation (test code = 70718-9) Normal [facility]2 AG-AB WITH [id number] 06:32:31* Test Item Value Reference Range Interpretation Comme nts HIV Semi-quantitative (test code = 70283-4) 0.16 Negative EITAN (test code = EITAN) Non-reactive for HIV-1 antigen and HIV-1/HIV-2 antibodies. ?No laboratory evidence of HIV infection. ?Repeat in 2-4 weeks if acute HIV infection is suspected. [facility] W SPECIFIC [id number] 21:16:00* Test Item Value Reference Range Interpretation [...] POCT U APPEAR (test code = 3267) [facility] URINALYSIS W SPECIFIC [id number] 21:22:00* Test Item Value Reference Range Interpretation [...] U APPEAR (test code = 3267) . [facility] URINALYSIS W SPECIFIC [id number] 21:22:00* Test Item Value Reference Range Interpretation [...] U APPEAR (test code = 3267) . [facility] URINALYSIS W SPECIFIC [id number] 17:23:00* Test Item Value Reference Range Interpretation [...] POCT U APPEAR (test code = 3267) [facility] URINALYSIS W SPECIFIC [id number] 15:12:00* Test Item Value Reference Range Interpretation [...] U APPEAR (test code = 3267) . [facility] URINALYSIS W SPECIFIC [id number] 15:25:00* Test Item Value Reference Range Interpretation [...] POCT U APPEAR (test code = 3267) [facility] URINALYSIS W SPECIFIC [id number] 14:34:00* Test Item Value Reference Range Interpretation [...] POCT U APPEAR (test code = 3267) [facility] URINALYSIS W SPECIFIC [id number] 16:12:00* Test Item Value Reference Range Interpretation [...] POCT U APPEAR (test code = 3267) [facility] URINALYSIS W/O SPECIFIC [id number] 16:42:00* Test Item Value Reference Range Interpretation [...] = 3257) Trace Negative - Negati ve [facility] [id number] 16:41:00* Test Item Value Reference Range Interpretation Comme nts POCT PREG (test code = 1605) Positive On board controls acceptable with C Line (test code = 3574) Yes POCT PREG LOT # (test code = 3576) POCT PREG TEST DATE ( test code = 357) [facility]ARS-CoV-2 (COVID-19), RT-PCR/[id number] 09:36:57* Test Item Value Reference Range Interpretation Comments SARS-CoV-2 INTERPRETATION (test code = 58692) POSITIVE SEE NOTE A SARS-CoV-2 RNA DETECTEDPositive results are indicative of the presence of SARS-CoV-2 RNA;clinical correlation with patient history and other diagnosticinformation is necessary to determine patient infection status.Positive results do not rule out bacterial infection or co-infectionwith other viruses. Positive and negative predictive values oftesting are highly dependent on prevalence. SOURCE (test code = 28507) NASOPHARYNGEAL Note: Methodolog y is Lauren Micah Real-Time RT-PCR. The expected result or reference range is NEGATIVE (Not Detected). For more information regarding COVID-19 testing to include clinicalinformation, methodology detail, intended use, FDA authorization andrecommended fact sheets for patients or healthcare providers, see [employer] Announcement: SARS-CoV-2 (COVID-19) by NAAT at URL below (note,fact sheets are provided by method given in report:[email or web address] Alternatively, see downloadable PDF fact sheet at:[email or web address] UNLESS OTHERWISE INDICATED, ALL TESTING PERFORMED [facility] [address] [place] [address] CUT OFF TENDER GLASS: YUNG AKINS M.D. CLIA NUMBER [id number] [facility] [place] [id number] SARS-CoV-2 (COVID-19) by RT-PCR (HIGH RISK)2021-08-21 00:00:00* Test Item Value Reference Range Interpretation Comme nts SARS-CoV-2 INTERPRETATION (test code = 46572) POSITIVE SOURCE (test code = 20789) NASOPHARYNGEAL SARS-CoV-2 (COVID-19) by RT-PCR (HIGH RISK)2021-08-21 00:00:00* Test Item Value Reference Range Interpretation Comme nts SARS-CoV-2 INTERPRETATION (test code = 37046) POSITIVE SOURCE (test code = 72847) NASOPHARYNGEAL TESTOSTERONE [ADDED]2020-02-26 00:00:00* Test Item Value [...] (test co de = 2823) 0.93 NG/DL 80-[id number] 00:00:00* Test Item Value Reference Range Interpretation Comme nts 17-HYDROXYPROGESTERONE (test code = 4304) 18 ng/dL 28-[id number] 00:00:00* Test Item Value Reference Range Interpretation Comme nts 17-HYDROXYPROGESTERONE (test code = 4304) 18 ng/dL CBC W/AUTO [id number] 00:00:00* Test Item Value Reference Range Interpretation [...] (test code = 1015) 302 K/UL HEMOGLOBIN [id number] 00:00:00* Test Item Value Reference Range Interpretation Comme nts HEMOGLOBIN A1c (test code = 04040) 5.2 % HEMOGLOBIN [id number] 00:00:00* Test Item Value Reference Range Interpretation Comme nts HEMOGLOBIN A1c (test code = 69901) 5.2 % HEMOGLOBIN [id number] 00:00:00* Test Item Value Reference Range Interpretation Comme nts HEMOGLOBIN A1c (test code = 87717) 5.2 % LIPID [id number] 00:00:00* Test Item Value Reference Range Interpretation Comme nts CHOLESTEROL (test code = 2210) 151 MG/DL TRIGLYCERIDES (test code = 2232) 73 MG/DL HDL CHOLESTEROL (test code = 2220) 39 MG/DL CALC LDL CHOL (test code = 2237) 96 MG/DL RISK RATIO LDL/HDL (test cod e = 2238) 2.46 RATIO LIPID [id number] 00:00:00* Test Item Value Reference Range Interpretation Comme nts CHOLESTEROL (test code = 2210) 151 MG/DL TRIGLYCERIDES (test code = 2232) 73 MG/DL HDL CHOLESTEROL (test code = 2220) 39 MG/DL CALC LDL CHOL (test code = 2237) 96 MG/DL RISK RATIO LDL/HDL (test cod e = 2238) 2.46 RATIO COMPREHENSIVE METABOLIC [id number] 00:00:00* Test Item Value Reference Range Interpretation Comme nts GLUCOSE (test code = 2217) 87 MG/DL BUN (test code = 2208) 9 MG/DL CREATININE (test code = 2214) 0.72 MG/DL eGFR AMER. (test code = 72774) (NOTE) ML/MIN/1.73 eGFR NON- AMER. (test code = 95419) NO CALC ML/MIN/1.73 CALC BUN/CREAT (test code [...] code = 2219) 13 U/L COMPREHENSIVE METABOLIC [id number] 00:00:00* Test Item Value Reference Range Interpretation Comme nts GLUCOSE (test code = 2217) 87 MG/DL BUN (test code = 2208) 9 MG/DL CREATININE (test code = 2214) 0.72 MG/DL eGFR AMER. (test code = 78284) (NOTE) ML/MIN/1.73 eGFR NON- AMER. (test code = 03131) NO CALC ML/MIN/1.73 CALC BUN/CREAT (test code [...] ALT (test code = 2219) 13 U/L [id number] 00:00:00* Test Item Value Reference Range Interpretation Comme nts TSH, THIRD GENERATION (test code = 2821) 1.460 UIU/ML [id number] 00:00:00* Test Item Value Reference Range Interpretation Comme nts TSH, THIRD GENERATION (test code = 2821) 1.460 UIU/ML [id number] 00:00:00* Test Item Value Reference Range Interpretation Comme nts TSH, THIRD GENERATION (test code = 2821) 1.460 UIU/ML FSH + LH [id number] 00:00:00* Test Item Value Reference Range Interpretation Comme nts FOLLICLE STIM HORMONE (test code = 2700) 5.4 IU/L LUTEINIZING HORMONE (test co de = 2776) 9.1 IU/L FSH + LH [id number] 00:00:00* Test Item Value Reference Range Interpretation Comme nts FOLLICLE STIM HORMONE (test code = 2700) 5.4 IU/L LUTEINIZING HORMONE (test co de = 2776) 9.1 IU/L [id number] 00:00:00* Test Item Value Reference Range Interpretation Comme nts PROLACTIN (test code = 2800) 109.0 NG/ML [id number] 00:00:00* Test Item Value Reference Range Interpretation Comme nts PROLACTIN (test code = 2800) 109.0 NG/ML GC AND CHLAMYDIA, AMPLIFIED, [id number] 00:00:00* Test Item Value Reference Range Interpretation Comme nts GONORRHEA, TMA (test code = 86211) NEGATIVE CHLAMYDIA, TMA (test code = 69266) NEGATIVE GC AND CHLAMYDIA, AMPLIFIED, [id number] 00:00:00* Test Item Value Reference Range Interpretation Comme nts GONORRHEA, TMA (test code = 92006) NEGATIVE CHLAMYDIA, TMA (test code = 56205) NEGATIVE HIV AB/AG COMBO RFLX [id number] 00:00:00* Test Item Value Reference Range Interpretation Comme nts HIV 1/2 4TH GEN, RFLX CONF ( test code = 3514) NON-REACTIVE HIV AB/AG COMBO RFLX [id number] 00:00:00* Test Item Value Reference Range Interpretation Comme nts HIV 1/2 4TH GEN, RFLX CONF ( test code = 3514) NON-REACTIVE [id number] 00:00:00* Test Item Value Reference Range Interpretation Comme nts RPR RESULT (test code = 3501) NON-REACTIVE RPR TITER (test code = 3500) NOT INDIC. TITER [id number] 00:00:00* Test Item Value Reference Range Interpretation Comme nts RPR RESULT (test code = 3501) NON-REACTIVE RPR TITER (test code = 3500) NOT INDIC. TITER [id number] 00:00:00* Test Item Value Reference Range Interpretation Comme nts RPR RESULT (test code = 3501) NON-REACTIVE RPR TITER (test code = 3500) NOT INDIC. TITER CBC W/AUTO [id number] 00:00:00* Test Item Value Reference Range Interpretation [...] code = 1015) 302 K/UL CBC W/AUTO [id number] 00:00:00* Test Item Value Reference Range Interpretation [...] (test code = 1015) 302 K/UL LIPID [id number] 00:00:00* Test Item Value Reference Range Interpretation Comme nts CHOLESTEROL (test code = 2210) 145 MG/DL TRIGLYCERIDES (test code = 2232) 77 MG/DL HDL CHOLESTEROL (test code = 2220) 40 MG/DL CALC LDL CHOL (test code = 2237) 90 MG/DL RISK RATIO LDL/HDL (test cod e = 2238) 2.24 RATIO LIPID [id number] 00:00:00* Test Item Value Reference Range Interpretation Comme nts CHOLESTEROL (test code = 2210) 145 MG/DL TRIGLYCERIDES (test code = 2232) 77 MG/DL HDL CHOLESTEROL (test code = 2220) 40 MG/DL CALC LDL CHOL (test code = 2237) 90 MG/DL RISK RATIO LDL/HDL (test cod e = 2238) 2.24 RATIO HEMOGLOBIN [id number] 00:00:00* Test Item Value Reference Range Interpretation Comme nts HEMOGLOBIN A1c (test code = 49534) 4.9 % HEMOGLOBIN [id number] 00:00:00* Test Item Value Reference Range Interpretation Comme nts HEMOGLOBIN A1c (test code = 79162) 4.9 % HEMOGLOBIN [id number] 00:00:00* Test Item Value Reference Range Interpretation Comme nts HEMOGLOBIN A1c (test code = 86627) 4.9 % COMPREHENSIVE METABOLIC [id number] 00:00:00* Test Item Value Reference Range Interpretation Comme nts GLUCOSE (test code = 2217) 86 MG/DL BUN (test code = 2208) 9 MG/DL CREATININE (test code = 2214) 0.69 MG/DL eGFR AMER. (test code = 86262) (NOTE) ML/MIN/1.73 eGFR NON- AMER. (test code = 12586) NO CALC ML/MIN/1.73 CALC BUN/CREAT (test code [...] code = 2219) 12 U/L COMPREHENSIVE METABOLIC [id number] 00:00:00* Test Item Value Reference Range Interpretation Comme nts GLUCOSE (test code = 2217) 86 MG/DL BUN (test code = 2208) 9 MG/DL CREATININE (test code = 2214) 0.69 MG/DL eGFR AMER. (test code = 78524) (NOTE) ML/MIN/1.73 eGFR NON- AMER. (test code = 04469) NO CALC ML/MIN/1.73 CALC BUN/CREAT (test code [...] Notes Date/Time Note Provider Source 2023-09-01 08:26:26 TRIAGE/L&D HISTORY & PHYSICAL IDENTIFYING DATA John Wilkes is 17 year old, /White, 39w0d, female with DOUGLAS 09/08/2023, by Ultrasound. : 2005 Primary Care Physician: PATIENT DOES NOT HAVE A PCP CHIEF COMPLAINT Term gestation HISTORY OF PRESENT ILLNESS John Wilkes is a 17 year old w/ PMHx of asthma, bipolar, anxiety, at 39w0d who presents for IOL Patient denies vaginal bleeding, denies leakage of fluid, denies contractions. Patient denies headache, admits nausea denies vomiting, denies RUQ pain, denies visual abnormalities. Endorses normal movement. PAST OBSTETRIC HISTORY OB History Para Term AB Living 1 SAB IAB Ectopic Multiple Live Births # Outcome Date GA Lbr Young/2nd Weight Sex Delivery Anes PTL Lv 1 Current PAST MEDICAL HISTORY Problem list: Patient Active Problem List Diagnosis Date Noted 39 weeks gestation of 09/01/2023 GBS (group B Streptococcus carrier), +RV culture, currently 08/14/2023 Polyhydramnios, antepartum complication 07/24/2023 Heartburn during in third trimester 07/02/2023 Declines flu vaccine 05/29/2023 Rh negative state in antepartum period 01/16/2023 Maternal varicella, non-immune 01/16/2023 History of bipolar disorder 01/15/2023 Morbid obesity 01/15/2023 Penicillin allergy 01/15/2023 Operations: No past surgical history on file. Past Medical History: Diagnosis Date Anxiety no medication at this time Asthma Bipolar depression no medication at this time CURRENT HEALTH STATUS Medications: Current Facility-Administered Medications Medication Dose Route Frequency Last Rate Last Admin D5W-LR IV infusion 1,000 mL 1,000 mL IV Infusion TITRATE 125 mL/hr at 09/01/23 0906 1,000 mL at 09/01/23 0906 lactated ringers IV infusion 500 mL 500 mL IV Infusion PRN - SEE INSTRUCTIONS lidocaine 1% (PF) (XYLOCAINE) injection 0.3 mL 0.3 mL Infiltration PRN - SEE INSTRUCTIONS lidocaine 1% (XYLOCAINE) 10 mg/mL (1 %) injection 50 mL 50 mL Infiltration PRN - SEE INSTRUCTIONS oxytocin (PITOCIN) 30 units in NS 500 mL IV infusion 2-40 ruddy-units/min IV Infusion TITRATE sodium citrate-citric acid (BICITRA) 500-334 mg/5 mL solution 30 mL 30 mL Oral PRE-PROCEDURE ONCE vancomycin (VANCOCIN) 1,500 mg in NaCl 0.9% (NS) 500 mL VIAL-MATE IV piggyback 20 mg/kg IV Piggyback Q8H ABX Allergies and drug reactions: Aspirin and Penicillin HOME MEDICATIONS Medications Prior to Admission Medication Sig Dispense Refill Last Dose cephALEXin (KEFLEX) 500 mg capsule Take 1 capsule by mouth 4 (four) times daily for 10 days. 40 capsule 0 famotidine (PEPCID) 20 mg tablet Take 1 tablet by mouth in the morning and 1 tablet in the evening. 60 tablet 2 vit 60-ylkk-yyhgh-dha (SELECT-OB + DHA) 29 mg iron-1 mg -250 mg combo pack Take 1 Packet by mouth in the morning. 60 Each 6 proMETHazine 25 mg tablet Take 1 tablet by mouth every 4 (four) hours as needed for Nausea and Vomiting (N/V). 30 tablet 2 SOCIAL HISTORY Tobacco History: Social History Tobacco Use Smoking Status Former Types: Cigarettes Quit date: 2020 Years since quittin.0 Smokeless Tobacco Never Drug History: Social History Substance and Sexual Activity Drug Use Never Alcohol History: Social History Substance and Sexual Activity Alcohol Use Never FAMILY HISTORY Family History Problem Relation Age of Onset Diabetes Mother Depression Mother Cancer Mother stomach High cholesterol Father Depression Father REVIEW OF SYSTEMS General: negative Skin: negative HEENT: negative Neck: negative HEME: negative Resp: negative Cardio: negative GI: negative : negative Endo: negative Neuro: negative Back: negative CRISTY: negative Psych: negative VITAL SIGNS BP: (111-141)/(58-97) Temp: [36.6 ?C (97.9 ?F)] Temp source: Axillary (09/01 1000) Pulse: [55-76] Resp: [16-18] SpO2: [92 %-98 %] Height: [162.6 cm (5' 4.02")] Weight: [154.7 kg (341 lb)] BMI (calculated): [58.5] PHYSICAL EXAMINATIONS General: patient alert and in no acute distress HEENT: symmetric, negative for masses Lungs: unlabored breathing Cardiology: peripheral pulses intact and regular Abdomen: soft, non-tender, non-distended, no liver, spleen or abnormal masses palpated and Gravid Extremities: no clubbing, cyanosis, or edema Neuro: patient moving all extremities, no facial droop : SVE 3 REVIEW OF LABORATORY, PATHOLOGY, AND RADIOLOGY DATA Lab results: Type & Screen Lab Results Component Value Date/Time IABORH A NEGATIVE 09/01/2023 09:06 AM IAT Negative 09/01/2023 09:06 AM Serologies Lab Results Component Value Date/Time VZVIGG Equivocal 01/15/2023 02:08 AM RUBG Positive 01/15/2023 02:08 AM SYPIGG Non-reactive 07/15/2023 03:44 PM HBSAG Negative 09/01/2023 09:06 AM HBSAG 0.08 09/01/2023 09:06 AM Chlamydia Lab Results Component Value Date/Time VCAA Negative 08/12/2023 03:56 PM Group B Strep Lab Results Component Value Date/Time CGB Positive (A) 08/12/2023 03:56 PM GTT Lab Results Component Value Date/Time OJLT0HQ 78 (L) 05/29/2023 11:40 AM CBC Lab Results Component Value Date/Time HGB 12.2 08/12/2023 03:00 PM HCT 36.8 08/12/2023 03:00 PM PLT 334 08/12/2023 03:00 PM Active Hospital Problems Diagnosis Date Noted 39 weeks gestation of 09/01/2023 GBS (group B Streptococcus carrier), +RV culture, currently 08/14/2023 Polyhydramnios, antepartum complication 07/24/2023 Declines flu vaccine 05/29/2023 Rh negative state in antepartum period 01/16/2023 Maternal varicella, non-immune 01/16/2023 Penicillin allergy 01/15/2023 Resolved Hospital Problems No resolved problems to display. Present on Admission: 39 weeks gestation of Penicillin allergy Rh negative state in antepartum period Maternal varicella, non-immune Declines flu vaccine GBS (group B Streptococcus carrier), +RV culture, currently Polyhydramnios, antepartum complication ASSESSMENT AND PLAN John Wilkes is a 17 year old at 39w0d by d/u (10) who presents for term gestation. IOL - (neg) VB, (neg) LOF, (neg) CTX, (pos) FM - SVE: - Contractions (number / 10 minute): 1 - Plan: Admit for IOL, cervical ripening w/ FB and low dose pitocin GHTN r/o preE - mild ranging BP noted in clinic visits w/ normotensive repeats. Mild ranging BP noted on admission, preE labs sent. Hx of SA - pt reports SA several years ago not from current SO. - pt asked safety questions w/o family present - reports feeling safe w/ boyfriend and wants him in the room. Bipolar depression Anxiety - diagnosed >5+ years ago, not on medications - mood stable today Asthma - reports hx of childhood asthma, last use of inhaler 1 year ago with infrequent use. Denies any hospitalizations. GBS - positive on pcr. PCN allergy w/ hives <10 years ago, clindamycin resistant. - plan: vancomycin intrapartum RH negative - Rhogam given 06/19/2023 - Plan: will re-assess post Polyhydramnios - first noted 07/23/2023 on MFM US MICHELE of 29 - improvement throughout , most recent MICHELE of 26.75 08/29/23 Antepartum course reviewed - 1 h 78, sero negative, Rimmune, VZVnot immune, HPV not immune, A negative/IAT negative, GBS positive, Pap N/A - H/H, plt: 12.2 / 36.8, 334 on 08/12/2023 - PP control plan: Counseled and declines. - [place] [facility] Fetus - Presentation on admission: cephalic - anterior placenta - EFW: 3423 g, 49%tile - FHT reactive and reassuring - Normal anatomy scan D/w Dr. Mario Alberto William MD FITS SPECIALIST Associated attestation - Nate Chinchilla MD - 09/01/2023 11:14 AM BENEFITS SPECIALIST I personally examined the patient on 09/01/[address] William's resident note as written. I actively participated in the decision-making process. Please see the resident's note for additional details. [facility] Procedure Notes Date/Time Note Provider Source 2023-09-01 14:08:54 Associated Order(s): Central Neuraxial Block Central Neuraxial Block Date/Time: 09/01/2023 2:08 PM Performed by: Syeda Middleton MD Authorized by: Jumana Denson MD Patient Location: OB Reason for Block: OB request, Patient request, Labor analgesia, Surgical anesthesia and Post-op pain management Staff: Anesthesiologist: Jumana Denson MD Resident/DOCK COORDINATOR: Melanie Toth MD Performed by: resident/DOCK COORDINATOR Preanesthetic Checklist: patient identified, IV checked, risks and benefits explained, monitors and equipment checked, timeout performed, pre-op evaluation, site marked and anesthesia consent Procedure: Type of Neuraxial: Epidural Sterility Prep cap, drape, gloves, hand hygiene and mask Sedation Level no sedation Patient Position: sitting Prep: Betadine and patient draped Monitoring: heart rate, continuous pulse ox, heart rate / toco and NIBP Location: lumbar (1-5) Lumbar: L3-L4 Approach: midline Technique: catheter and BUD saline Guidance with: landmark technique} Epidural/Spinal [place] and/or Catheter: Epidural/Spinal Kit: BBraun Needle Type: Tuohy Needle Gauge: 17 G Needle Length: 3.5 in (8.89 cm) Needle Insertion Depth: 9 Catheter Type: multiport Catheter Size: 19 G Catheter at Skin Depth: 14 Number of Attempts: 3 Test Dose: lidocaine 1.5% with epinephrine 1-to-200,000 Dose: 3 cc Catheter Securement Method: surgical tape, Tegaderm, liquid medical adhesive and clear occlusive dressing Assessment: Block Outcome: a full evaluation is pending and patient tolerated procedure well Procedure Assessment: patient tolerated procedure well with no complications FITS SPECIALIST AN-ANESTHESIOLOGY [facility] Notes Date/Time Note Provider Source 2023-09-18 11:39:51 I spoke with this patient about her breast pump last week and she said everything was fixed. This morning I put in her correct information with the breast pump company. No further action is required from our staff. IS Nunez [facility] 2023-09-12 16:18:26 Will forward to Ms. Groves. FITS SPECIALIST Roland Allen [facility] 2023-09-11 15:12:11 John Wilkes is a 17 year old female Pt is calling to speak with the clinic and check the status of her breast pump forms. FITS SPECIALIST Jarrell Sousa [facility] 2023-09-03 22:09:25 Problem: Intrapartum process (including labor pain) Goal: Absence of or reduction of complications of labor Outcome: Progressing as expected Goal: Able to cope with pain Outcome: Progressing as expected Goal: Adequate to move to next level of care Outcome: Progressing as expected Goal: Reduction in pain sensation Outcome: Progressing as expected Problem: Falls, Risk of Goal: Absence of falls Outcome: Progressing as expected Problem: Pain Goal: Control of pain at or below patient's documented comfort goal Outcome: Progressing as expected Goal: Reduction in pain sensation Outcome: Progressing as expected Problem: Discharge Planning - Goal: Adequate for discharge Outcome: Progressing as expected Goal: Mood stable Outcome: Progressing as expected Problem: Infection Risk Goal: Absence of infection Outcome: Progressing as expected FITS SPECIALIST Ingrid Kothari RN [facility] 2023-09-03 16:11:15 Problem: Falls, Risk of Goal: Absence of falls Outcome: Progressing as expected Problem: Pain Goal: Control of pain at or below patient's documented comfort goal Outcome: Progressing as expected Goal: Reduction in pain sensation Outcome: Progressing as expected Problem: Discharge Planning - Goal: Adequate for discharge Outcome: Progressing as expected Goal: Mood stable Outcome: Progressing as expected Problem: Infection Risk Goal: Absence of infection Outcome: Progressing as expected FITS SPECIALIST Kirstin Reaves RN [facility] 2023-09-03 15:43:01 Images from the original note were not included. This note was copied from a baby's chart. Assessment (most recent) Assessment - 09/03/23 1515 General Information Visit Initial Percent of weight loss- Infant 0 Number of voids last 24 hours- 2 Number of stools last 24 hours- 3 Mom's age (years) 17 years Gestational age 39 weeks 1 Parity 1 Living Children 1 Feeding plan Formula Attended class No Breastfeed previously No Delivery method Literature Resources Resources -- How to Dry Up a Milk SUpply Education Benefits of breastmilk;Benefits of skin to skin contact;Paced bottle feeding;Safe formula preparation;Risks of mastitis and signs, seek medical attention immediately;Engorgement signs and treatment Handouts given Finnish Recommended Feeding Plan Recommended feeding plan -- Formula feed as directed by medical staff OTHER $ SERVICES Initial Godwin SALDIVAR, RN, IBCLC FITS SPECIALIST Godwin Andrade RN [facility] 2023-09-03 11:45:00 This note was copied from a baby's chart. Consult was attempted. Mom was asleep. Will attempt consult at a later time. Godwin SALDIVAR, RN, IBCLC FITS SPECIALIST [facility] 2023-09-03 02:34:53 Problem: Falls, Risk of Goal: Absence of falls Outcome: Progressing as expected Problem: Pain Goal: Control of pain at or below patient's documented comfort goal Outcome: Progressing as expected Goal: Reduction in pain sensation Outcome: Progressing as expected Problem: Discharge Planning - Goal: Adequate for discharge Outcome: Progressing as expected Goal: Mood stable Outcome: Progressing as expected Problem: Infection Risk Goal: Absence of infection Outcome: Progressing as expected IS Martinez RN [facility] 2023-09-02 13:43:19 Intrapartum Progress Note 09/02/2023 1:43 PM Subjective: Patient has no complaints Objective: Vitals last 24 hours: Temp: [36.4 ?C (97.5 ?F)-37.7 ?C (99.9 ?F)] 37.6 ?C (99.6 ?F) Pulse: [56-112] 82 Resp: [16-18] 18 BP: (90-147)/(46-84) 90/56 Intake/Output : I/O this shift: In: 3443.2 [I.V.:124.9] Out: 200 [Urine:200] I/O last 3 completed shifts: In: 1099.7 [I.V.:4.9] Out: 1400 [Urine:1400] Assessment Active movement: Yes Mode: EFM Uterine Activity: Mode: IUPC Contractions (number / 10 minute): 4 Contraction duration (seconds): 80-90 Resting tone: Soft, Palpation Membrane Status Membrane status: Artificial Rupture date: 09/02/23 Rupture time: 0110 Amniotic fluid color: Mec Thick Cervical Exam 8 / 90 % / 0 Assessment/Plan: John Wilkes is a 17 year old at 39w1d OB Assessment: IOL, asthma, GBS, GHTN OB Plan: s/p FB/LDP, Pit@2200, Vanc Additional Comments/Detail: Strip reviewed with Dr. Moreno. Patient currently on 2 of pitocin with minimal variability. FHT looked better when pitocin was off, patient made change from 6/-1. Plan to turn pitocin off and reassess SVE in two hours. Ripening Agent: Oxytocin, Spicer bulb Safia Llanes MD Ob-Medical Sociologist PGY3 [facility] 2023-09-02 10:48:35 Intrapartum Progress Note 09/02/2023 10:48 AM Subjective: Patient has no complaints Objective: Vitals last 24 hours: Temp: [36.4 ?C (97.5 ?F)-37.7 ?C (99.9 ?F)] 37.4 ?C (99.3 ?F) Pulse: [56-112] 86 Resp: [16-18] 18 BP: (94-147)/(46-83) 109/58 Intake/Output : I/O this shift: In: 3438.3 [I.V.:119.9] Out: - I/O last 3 completed shifts: In: 1099.7 [I.V.:4.9] Out: 1400 [Urine:1400] Assessment Active movement: Yes Mode: EFM Uterine Activity: Mode: IUPC Contractions (number / 10 minute): 5 Contraction duration (seconds): 60-80 Resting tone: Soft, Palpation Membrane Status Membrane status: Artificial Rupture date: 09/02/23 Rupture time: 0110 Amniotic fluid color: Mec Thick Cervical Exam 6 / 90 % / -1 Assessment/Plan: John Wilkes is a 17 year old at 39w1d OB Assessment: IOL, asthma, GBS, GHTN OB Plan: s/p FB/LDP, Pit@2200, Vanc Additional Comments/Detail: First time patient called active, previously 5cm. Patient requesting to discuss , counseled on continuing IOL vs PCS for maternal request, patient would like to talk to her parrtner at this time. FHT improved with pitocin off Ripening Agent: Oxytocin, Spicer bulb Intrapartum Plan: Continue cervical ripening Safia Llanes MD Ob-Medical Sociologist PGY3 [facility] 2023-09-02 01:24:00 Intrapartum Progress Note 09/02/2023 1:24 AM Subjective: Patient has no complaints Objective: Vitals last 24 hours: Temp: [36.4 ?C (97.5 ?F)-37.1 ?C (98.8 ?F)] 37.1 ?C (98.8 ?F) Pulse: [55-109] 109 Resp: [16-18] 17 BP: (96-141)/(46-97) 107/54 Intake/Output : I/O this shift: In: - Out: 1400 [Urine:1400] I/O last 3 completed shifts: In: 1099.7 [I.V.:4.9] Out: - Assessment Active movement: Yes Mode: EFM Uterine Activity: Mode: Crooks Contractions (number / 10 minute): 0 Contraction duration (seconds): 80-100 Resting tone: Soft, Palpation Membrane Status Membrane status: Artificial Cervical Exam 5 / 75 % / -3 Assessment/Plan: John Wilkes is a 17 year old at 39w1d OB Assessment: IOL, asthma, GBS, GHTN OB Plan: s/p FB/LDP, Pit@2200, vanc Additional Comments/Detail: AROM thick meconium Ripening Agent: Oxytocin, Spicer bulb Intrapartum Plan: Continue cervical ripening Kelsey Clifton MD [facility] 2023-09-01 21:51:57 Intrapartum Progress Note 09/01/2023 9:51 PM Subjective: Patient has no complaints Objective: Vitals last 24 hours: Temp: [36.4 ?C (97.5 ?F)-36.8 ?C (98.2 ?F)] 36.7 ?C (98 ?F) Pulse: [55-82] 77 Resp: [16-18] 17 BP: (96-141)/(46-97) 122/69 Intake/Output : I/O this shift: In: - Out: 1400 [Urine:1400] I/O last 3 completed shifts: In: 1099.7 [I.V.:4.9] Out: - Assessment Active movement: Yes Mode: EFM Uterine Activity: Mode: Crooks Contractions (number / 10 minute): 4 Contraction duration (seconds): 70-80 Resting tone: Soft, Palpation Membrane Status Membrane status: Intact Cervical Exam 5 / 75 % / Ballotable Assessment/Plan: John Wilkes is a 17 year old at 39w0d OB Assessment: IOL, asthma, GBS, GHTN r/o PreE OB Plan: s/p FB/LDP, Pit@__, vanc Additional Comments/Detail: FB out at this time. Ballotable on examination. Will start pitocin titration and assess for AROM at a later time. Ripening Agent: Oxytocin, Spicer bulb Intrapartum Plan: Continue cervical ripening Carol Fallon MD [facility] 2023-09-01 21:26:00 Problem: Intrapartum process (including labor pain) Goal: Absence of or reduction of complications of labor Outcome: Progressing as expected Goal: Able to cope with pain Outcome: Progressing as expected Goal: Adequate to move to next level of care Outcome: Progressing as expected Goal: Reduction in pain sensation Outcome: Progressing as expected Problem: Falls, Risk of Goal: Absence of falls Outcome: Progressing as expected [facility] 2023-09-01 13:18:49 Name/ MRN / Age / Gender: John Wilkes, [id number] 17 year old female BMI: Estimated body mass index is 58.5 kg/m? as calculated from the following: Height as of this encounter: 1.626 m (5' 4.02"). Weight as of this encounter: 154.7 kg (341 lb). Allergies: Aspirin and Penicillin Last Vitals: BP Readings from Last 1 Encounters: 09/01/23 115/78 Pulse Readings from Last 1 Encounters: 09/01/23 68 SpO2 Readings from Last 1 Encounters: 09/01/23 94% Date of Surgery: 09/01/2023 Surgeon: * No surgeons listed * Procedure: CENTRAL NEURAXIAL BLOCK OR Location: [place] ANESTHESIA OUT OF OR - OR LOCATION Anesthesia Preop Eval (physical exam) Anesthesia Preop: Chart Review and [id number] PONV Risk Factors: female Anesthesia History Anesthesia History Negative (-) Hx of anesthetic complications Previous Anesthetics/Airways Cardiovascular Negative Cardiac ROS Comments: BP Readings from Last 3 Encounters: 09/01/23 : 115/78 08/29/23 : 121/69 08/22/23 : 125/69 (-) Patient reports no hx of cardiac problems (-) Dyslipidemia Pulmonary (+) Asthma (no inhaler use in the last yeaar, no hospitalizations) (-) Tobacco use Neuro/Musculoskeletal (-) CVA(-) Seizures (+) Psychiatric history and bipolar (+) Anxiety (-) Spinal Cord injury (-) Positioning limitations (+) Obesity and super morbid obesity GI/Hepatic Negative GI/Hepatic ROS Comments: Liver Function Panel ALTv (U/L) Date Value 09/01/2023 14 AST(SGOT) (U/L) Date Value 09/01/2023 25 Hematology Comments: CBC WBC (10*3/?L) Date Value 09/01/2023 8.74 RBC (10*6/?L) Date Value 09/01/2023 3.96 (L) PLT (10*3/?L) Date Value 09/01/2023 341 HGB (g/dL) Date Value 09/01/2023 11.7 (L) HCT (%) Date Value 09/01/2023 34.6 (L) (+) Anemia Renal Negative Renal ROS Comments: BMP CREATININE (mg/dL) Date Value 09/01/2023 0.40 (L) (-) Renal disease Skin (+) Current IV access Endo/Other Negative Endo/Other ROS Comments: No results found for: "HGBA1C" There are no current results on file for these tests and/or test for 1 year. 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 IOL - (neg) VB, (neg) LOF, (neg) CTX, (pos) FM - SVE: 10/05/-3 - Contractions (number / 10 minute): 1 - Plan: Admit for IOL, cervical ripening w/ FB and low dose pitocin GHTN r/o preE - mild ranging BP noted in clinic visits w/ normotensive repeats. Mild ranging BP noted on admission, preE labs sent. Hx of SA - pt reports SA several years ago not from current SO. - pt asked safety questions w/o family present - reports feeling safe w/ boyfriend and wants him in the room. Bipolar depression Anxiety - diagnosed >5+ years ago, not on medications - mood stable today Asthma - reports hx of childhood asthma, last use of inhaler 1 year ago with infrequent use. Denies any hospitalizations. GBS - positive on pcr. PCN allergy w/ hives <10 years ago, clindamycin resistant. - plan: vancomycin intrapartum RH negative - Rhogam given 06/19/2023 - Plan: will re-assess post Polyhydramnios - first noted 07/23/2023 on MFM US MICHELE of 29 - improvement throughout , most recent MICHELE of 26.75 08/29/23 Antepartum course reviewed - 1 h 78, sero negative, Rimmune, VZVnot immune, HPV not immune, A negative/IAT negative, GBS positive, Pap N/A - H/H, plt: 12.2 / 36.8, 334 on 08/12/2023 - PP control plan: Counseled and declines. - [facility] Fetus - Presentation on admission: cephalic - anterior placenta - EFW: 3423 g, 49%tile - FHT reactive and reassuring - Normal anatomy scan (+) Gestational hypertension Pediatric Pediatric N/A N/A Preoperative Medication Instructions Continue taking all prescribed medications except: BIPIN inhibitors, ARBs, diuretics, all oral diabetes medications Anticoagulant Therapy: Defer to surgeons Insulin: Take 1/2 dose the night prior to surgery. Hold on DOS. Phentermine: Alert [facility] anesthesiologist SGLT2 Inhibitors: "gliflozins" to be held for 3 days prior to elective surgeries GLP1 Agonosit: stop 7 days prior to surgery MAC Cases: Continue taking BIPIN inhibitors and ARBs ASA Classification ASA: 3 Current Medications: No outpatient medications have been marked as taking for the 09/01/23 encounter (Hospital Encounter). Previous Surgeries: No past surgical history on file. Anesthesia Physical Exam General no apparent distress and alert and oriented x 3 Neuro/Psych neurological Dental no notable dental hx Abdominal (+) obesity, abdomen soft and gravid Airway Mallampati score:III TM distance:> 5 cm Neck ROM: full Mouth opening:normal (+) Normal facies Extremity Normal extremity Pulmonary pulmonary exam normal and bilateral clear to auscultation Other Cardiovascular cardiovascular exam normalRhythm:regular Rate: normal Anesthesia Plan ASA Status: 3 Plan discussed during pre-op evaluation: General, Epidural, Spinal and CSE Anesthetic plan on DOS: Epidural Anesthesia plan discussed with: patient or industrial relations representative Post-Operative Analgesia: routine analgesia & antiemetics Recovery Plan: LDR Additional comments: IS AN-ANESTHESIOLOGY ANESTHESIOLOGIST [facility] 2023-09-01 09:19:37 Problem: Intrapartum process (including labor pain) Goal: Absence of or reduction of complications of labor Outcome: Progressing as expected Goal: Able to cope with pain Outcome: Progressing as expected Goal: Adequate to move to next level of care Outcome: Progressing as expected Goal: Reduction in pain sensation Outcome: Progressing as expected IS Esquivel RN [facility]
[2024-03-19] MEDS ORDERED: DIPHENHYDRAMINE 50 MG/ML VIAL ONE (20:19)
[2024-03-19] MEDS ORDERED: METOCLOPRAMIDE 10 MG/2mL INJ ONE (20:19)
[2024-03-19] MEDS ORDERED: NA CHLORIDE 0.9% 1,000 ML ONE (20:19)
[2024-03-19] MEDS ORDERED: KETOROLAC 30 MG/ML INJ ONE (20:19)
[2024-03-19 20:23] LABS: Specific Gravity 1.026 (1.005-1.030); Sqamous Epithelial 20-50 /HPF (None Seen); Urine Bacteria 20-50 /HPF (<20); Urine Bilirubin NEGATIVE (Negative); Urine Blood Negative (Negative); Urine Clarity Extremely Turbid (Clear); Urine Color Light-Yellow (Yellow); Urine Crystals Unidentified Few /HPF (None Seen); Urine Culture Reflex Order NOT NEEDED; Urine Glucose NEGATIVE (Negative); Urine Ketones NEGATIVE (Negative); Urine Microscopic Reflex YN ORDER UMIC; Urine Mucus Slight /HPF (None Seen); Urine Nitrite NEGATIVE (Negative); Urine Protein TRACE (Negative); Urine RBC None Seen /HPF (None Seen); Urine Urobilinogen Normal (Normal); Urine pH 6.5 (5.0-7.0)
[2024-03-19 20:23] LABS: Absolute Basophils 0.1 K/uL (0-0.5); Absolute Eosinophils 0.2 K/uL (0-0.5); Absolute Lymphocytes (CBC) 1.9 K/uL (0.7-4.9); Absolute Monocytes 0.7 K/uL (0.1-1.3); Absolute Neutrophil 6.9 K/uL (1.8-8.0); Basophils % 0.5 % (0-1.3); Eosinophils % 1.7 % (0-4.4); Hematocrit 35.5 % (36.0-45.0); Hemoglobin 11.6 g/dL (12.0-15.0); Lymphocytes % 19.6 % (15.3-44.8); MCH 26.9 pg (27.0-35.0); MCHC 32.7 g/dL (32.0-36.0); MCV 82.3 fL (80-100); MPV 7.4 fL (7.6-11.3); Monocytes % 7.4 % (3.3-12.3); Neutrophils % 70.8 % (41.7-73.7); Platelets 386 thou/uL (152-406); RBC Red Blood Cell Count 4.31 M/uL (3.86-4.86); Red Cell Distribution Width 15.7 % (12.1-15.2)
[2024-03-19 20:39] LABS: Albumin 3.2 g/dL (3.4-5.0); Albumin/Globulin Ratio 0.8 (1.1-1.8); Anion Gap 8.7 mEq/L (5.0-15.0); Bilirubin Total 0.2 mg/dL (0.2-1.0); Potassium 3.7 mEq/L (3.5-5.1); Protein, Total 7.2 g/dL (6.4-8.2)
--- NOTE | 2024-03-20 00:48 | EDPHYS ---
Physician Documentation [facility] Name: Latanya Mims Age: 18 yrs Sex: Female : 2005 Arrival Date: 03/19/2024 Time: 19:32 Bed 17 Private MD: ED Physician Sean Abbott HPI: 03/19 19:40 This 18 yrs old Female presents to ER via EMS with complaints of Lower Abdomen and cp Lower Back Pain. 19:40 The patient presents with abdominal pain in the lower abdomen. cp 19:40 Onset: The symptoms/episode began/occurred 4 day(s) ago. Associated signs and symptoms: cp Pertinent positives: headache, lower back pain. The symptoms are described as achy. Severity of pain: in the emergency department the pain is unchanged despite home interventions. 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 - Infectious Disease History:: Denies. - Social history:: Smoking status: Patient denies any tobacco usage or history of. Patient/guardian denies using alcohol, street drugs, IV drugs. ROS: 19:45 Constitutional: Negative for body aches, chills, fever, poor PO intake, cp 19:45 Eyes: Negative for injury, pain, redness, and discharge, cp 19:45 Cardiovascular: Negative for chest pain, 19:45 Respiratory: Negative for cough, shortness of breath, wheezing, 19:45 Abdomen/GI: Positive for abdominal pain, of the right lower quadrant and left lower quadrant, Negative for vomiting, diarrhea, constipation, 19:45 Back: Positive for pain at rest, of the low back area, 19:45 : Negative for urinary symptoms, vaginal bleeding, vaginal discharge, 19:45 Neuro: Positive for headache, Negative for altered mental status, numbness, syncope, weakness, 19:45 All other systems are negative, Exam: 19:50 Constitutional: The patient appears in no acute distress, alert, awake, non-toxic, well cp developed, well nourished, obese, 19:50 Head/Face: Normocephalic, atraumatic. cp 19:50 Eyes: Periorbital structures: appear normal, Conjunctiva: normal, no exudate, no injection, Sclera: no appreciated abnormality, Lids and lashes: appear normal, bilaterally, 19:50 ENT: External ear(s): are unremarkable, Nose: is normal, Mouth: Lips: moist, Oral mucosa: pink and intact, moist, Posterior pharynx: Airway: no evidence of obstruction, patent, 19:50 Chest/axilla: Inspection: normal, 19:50 Cardiovascular: Rate: normal, Rhythm: regular, Edema: is not appreciated, JVD: is not appreciated, 19:50 Respiratory: the patient does not display signs of respiratory distress, Respirations: normal, no use of accessory muscles, no retractions, labored breathing, is not present, Breath sounds: are clear throughout, no decreased breath sounds, no stridor, no wheezing, 19:50 Abdomen/GI: Inspection: abdomen appears normal, Bowel sounds: active, all quadrants, Palpation: soft, in all quadrants, mild abdominal tenderness, in the right lower quadrant and left lower quadrant, 19:50 Back: pain, that is mild, of the low back area, ROM is normal, 19:50 Neuro: Orientation: to person, place \T\ time. Mentation: is normal, Motor: moves all fours, strength is normal, Vital Signs: 19:32 BP 119 / 57; Pulse 88; Resp 17; Temp 98.3; Pulse Ox 100% ; Weight 163.29 kg; Height 5 jj7 ft. 3 in. ; Pain 7/10; 20:38 BP 114 / 58; Pulse 104; Resp 17; Pulse Ox 95% ; jj7 21:30 BP 106 / 76; Pulse 73; Resp 17; Pulse Ox 100% ; jj7 22:30 BP 127 / 51; Pulse 71; Resp 17; Pulse Ox 99% ; Pain 0/10; jj7 23:30 BP 122 / 79; Pulse 82; Resp 19; Pulse Ox 99% ; jj7 03/20 00:59 BP 125 / 76; Pulse 74; Resp 19; Temp 97.8; Pulse Ox 99% ; Pain 0/10; jj7 03/19 19:32 Body Mass Index 63.77 (163.29 kg, 160.02 cm) - Percentile 99.5 % 7 03/19 19:32 Pain Scale: Adult jj7 22:30 Pain Scale: Adult jj7 03/20 00:59 Pain Scale: Adult jj7 MDM: 03/19 19:34 Patient medically screened. 03/20 00:47 Data reviewed: vital signs, nurses notes, lab test result(s), radiologic studies, cp ultrasound, and as a result, I will discharge patient. 00:47 Differential diagnosis: appendicitis, Ectopic , non-specific abd pain, Ovarian cp Torsion, Pelvic Inflammatory Disease, Pyelonephritis, Tubal Ovarian Abcess, Ureterolithiasis, urinary tract infection. I considered the following discharge prescriptions or medication management in the emergency department Medications were administered in the Emergency Department. See MAR. Counseling: I had a detailed discussion with the patient and/or guardian regarding the historical points, exam findings, and any diagnostic results supporting the discharge/admit diagnosis, lab results, radiology results, the need for outpatient follow up, an OB/Gyne specialist, to return to the emergency department if symptoms worsen or persist or if there are any questions or concerns that arise at home. Response to treatment: the patient's symptoms have mildly improved after treatment, and as a result, I will discharge patient. 03/19 19:40 Order name: CBC with Diff; Complete Time: 21:03 03/19 21:03 Interpretation: HGB 11.6; HCT 35.5; MCH 26.9; RDW 15.7; MPV 7.4. 03/19 19:40 Order name: CMP; Complete Time: 22:12 03/19 22:12 Interpretation: Normal except: CL 109; GLUC 107; AST 11; ALB 3.2; GLOB 4.0; A/G 0.8. 03/19 19:40 Order name: Lipase; Complete Time: 22:12 03/19 19:40 Order name: Test, Urine; Complete Time: 21:03 03/19 22:13 Interpretation: Normal except: URINE PREG POS. 03/19 19:40 Order name: Urinalysis w/ reflexes; Complete Time: 21:03 03/19 21:04 Order name: Abo/rh Typing; Complete Time: 22:12 03/19 21:41 Order name: HCG, Quantitative; Complete Time: 22:12 EDMS 03/19 21:05 Order name: US Transvaginal Ob cp 03/19 19:40 Order name: IV Saline Lock; Complete Time: 20:17 cp 03/19 19:40 Order name: Labs collected and sent; Complete Time: 20:17 cp 03/19 21:04 Order name: NPO; Complete Time: 22:00 cp Administered Medications: 03/19 20:20 Drug: NS 0.9% IV 1000 ml IV at 1 bolus Per protocol; 1000 mL bolus Route: IV; Rate: 1 jj7 bolus; Site: right hand; 21:15 Follow up: IV Status: Completed infusion jj7 20:20 Drug: TORadol - Ketorolac IVP 15 mg IVP once Route: IVP; Site: right hand; jj7 22:01 Follow up: Response: Marked relief of symptoms; Pain is decreased jj7 20:20 Drug: metoCLOPramide IVP 10 mg IVP once; over 1 to 2 minutes Route: IVP; Site: right [facility] hand; 22:00 Follow up: Response: Marked relief of symptoms jj7 20:20 Drug: diphenhydrAMINE IVP 25 mg IVP once Route: IVP; Site: right hand; jj7 22:00 Follow up: Response: Marked relief of symptoms jj7 Disposition Summary: 03/20/24 00:48 Discharge Ordered Notes: Location: Home cp Problem: new cp Symptoms: have improved cp Condition: Stable cp Diagnosis - Threatened cp - Low back pain cp - Lower abdominal pain, unspecified cp Followup: cp - With: Private Physician - When: 48 Hours - Reason: Repeat Beta-HCG (48 Hours) Discharge Instructions: - Discharge Summary Sheet cp - Abdominal Pain, Adult cp - Care cp - Threatened Miscarriage cp - First Trimester of cp Forms: - Medication Reconciliation Form cp - Antibiotic Education cp - Prescription Opioid Use cp - Patient Portal Instructions cp - Leadership Thank You Letter cp Prescriptions: - PNV #[id number] acid-dha 35 mg iron-5 mg iron-1 mg Oral capsule - take 1 capsule ORAL route daily; 60 capsule; Refills: 0, Product Selection cp Permitted - Macrobid 100 mg Oral Capsule - take 1 capsule ORAL route every 12 hours for 7 days; 14 capsule; Refills: 0, cp Product Selection Permitted Addendum: 03/22/2024 09:54 Co-signature as Attending Physician, Sean Abbott MD I reviewed the patient's care r t provided by the Advanced Practice Provider and agree with the diagnosis and treatment plan. Signatures: Dispatcher [employer] EDMS José Miguel Apodaca PA PA cp Johnson, Juwairiyah RN RN jj7 Sean Abbott MD MD rt Corrections: (The following items were deleted from the chart) 03/19 21:03 19:40 Abdomen Pelvis W Con+CT.RAD.BRZ ordered. EDMS EDMS 21:42 21:04 QUANTITATIVE HCG+C.LAB.BRZ ordered. EDMS EDMS 03/20 19:41 19:39 This 18 yrs old Female presents to ER via EMS with complaints of Lower Back and cp Lower Abdomen Pain. cp
--- NOTE | 2024-03-20 00:48 | ER ---
Nurse's Notes [facility] Name: Latanya Mims Age: 18 yrs Sex: Female : 2005 Arrival Date: 03/19/2024 Time: 19:32 Bed 17 Private MD: Diagnosis: Threatened ;Low back pain;Lower abdominal pain, unspecified Presentation: 03/19 19:32 Chief complaint: Patient states: LOWER BACK PAIN AND ABD PAIN. JUST FOUND OUT SHE WAS jj7 LAST NIGHT TOOK A HOME TEST. ALSO HAVING A MIGRAINE. Coronavirus screen: At this time, the client does not indicate any symptoms associated with coronavirus-19. Ebola Screen: No symptoms or risks identified at this time. Initial Sepsis Screen: Does the patient meet any 2 criteria? No. Patient's initial sepsis screen is negative. Does the patient have a suspected source of infection? No. Patient's initial sepsis screen is negative. Risk Assessment: Do you want to hurt yourself or someone else? Patient reports no desire to harm self or others. Note TOOK TYLENOL 4P. Onset of symptoms was March 15, 2024. 19:32 Method Of Arrival: EMS: [facility] j7 19:32 Acuity: CHEN 3 jj7 Triage Assessment: 19:32 General: Appears in no apparent distress. comfortable, Behavior is calm, cooperative, jj7 appropriate for age. Pain: Complains of pain in back and abdomen. GI: Reports lower abdominal pain. Musculoskeletal: Reports pain in back. 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 - Infectious Disease History:: Denies. - Social history:: Smoking status: Patient denies any tobacco usage or history of. Patient/guardian denies using alcohol, street drugs, IV drugs. Screenin:32 [facility] ED Fall Risk Assessment (Adult) History of falling in the last 3 months, jj7 including since admission No falls in past 3 months (0 pts) Confusion or Disorientation No (0 pts) Intoxicated or Sedated No (0 pts) Impaired Gait No (0 pts) Mobility Assist Device Used No (0 pt) Altered Elimination No (0 pt) Score/Fall Risk Level 0 - 2 = Low Risk Oriented to surroundings, Maintained a safe environment, Educated pt \T\ family on fall prevention, incl call for assistance when getting out of bed, Assessed \T\ reinforced patient's understanding of fall precautions. Abuse screen: Denies threats or abuse. Nutritional screening: No deficits noted. Tuberculosis screening: No symptoms or risk factors identified. Assessment: 19:32 Reassessment: SEE TRIAGE ASSESSMENT. [facility] Vital Signs: 19:32 BP 119 / 57; Pulse 88; Resp 17; Temp 98.3; Pulse Ox 100% ; Weight 163.29 kg; Height 5 [facility] ft. 3 in. ; Pain 7/10; 20:38 BP 114 / 58; Pulse 104; Resp 17; Pulse Ox 95% ; j7 21:30 BP 106 / 76; Pulse 73; Resp 17; Pulse Ox 100% ; jj7 22:30 BP 127 / 51; Pulse 71; Resp 17; Pulse Ox 99% ; Pain 0/10; j7 23:30 BP 122 / 79; Pulse 82; Resp 19; Pulse Ox 99% ; j7 08 00:59 BP 125 / 76; Pulse 74; Resp 19; Temp 97.8; Pulse Ox 99% ; Pain 0/10; 7 03/19 19:32 Body Mass Index 63.77 (163.29 kg, 160.02 cm) - Percentile 99.5 % [facility] 03/19 19:32 Pain Scale: Adult jj7 22:30 Pain Scale: Adult jj7 03/20 00:59 Pain Scale: Adult jj7 ED Course: 03/19 19:32 Patient arrived in ED. rv1 19:32 Arm band placed on right wrist. Patient placed in an exam room, on a stretcher. j7 19:32 Patient has correct armband on for positive identification. Bed in low position. Call j7 light in reach. Provided Education on: USE OF CALL PARMAR. 19:34 José Miguel Apodaca PA is PHCP. cp 19:34 Sean Abbott MD is Attending Physician. cp 19:41 Fela Iqbal, RN is Primary Nurse. jj7 20:00 Triage completed. jj7 20:15 Inserted saline lock: 20 gauge in right hand, using aseptic technique. Blood collected. jj7 Flushed with 10 mL NS. 20:17 CBC with Diff Sent. jj7 20:17 CMP Sent. jj7 20:17 Lipase Sent. jj7 20:17 Test, Urine Sent. jj7 20:17 Urinalysis w/ reflexes Sent. jj7 22:00 HCG, Quantitative Sent. jj7 22:00 Abo/rh Typing Sent. jj7 22:46 US Transvaginal Ob In Process Unspecified. EDMS 03/20 00:56 No provider procedures requiring assistance completed. IV discontinued, intact, jj7 bleeding controlled, No redness/swelling at site. Pressure dressing applied. Administered Medications: 03/19 20:20 Drug: NS 0.9% IV 1000 ml IV at 1 bolus Per protocol; 1000 mL bolus Route: IV; Rate: 1 jj7 bolus; Site: right hand; 21:15 Follow up: IV Status: Completed infusion jj7 20:20 Drug: TORadol - Ketorolac IVP 15 mg IVP once Route: IVP; Site: right hand; jj7 22:01 Follow up: Response: Marked relief of symptoms; Pain is decreased jj7 20:20 Drug: metoCLOPramide IVP 10 mg IVP once; over 1 to 2 minutes Route: IVP; Site: right [facility] hand; 22:00 Follow up: Response: Marked relief of symptoms jj7 20:20 Drug: diphenhydrAMINE IVP 25 mg IVP once Route: IVP; Site: right hand; jj7 22:00 Follow up: Response: Marked relief of symptoms jj7 Medication: 19:32 VIS not applicable for this client. jj7 Outcome: 03/20 00:48 Discharge ordered by . cp 00:56 Discharged to home ambulatory, jj7 00:56 Condition: improved 00:56 Discharge instructions given to patient, Instructed on discharge instructions, medication usage, Demonstrated understanding of instructions, medications, Prescriptions given X 2, 01:00 Patient left the ED. jj7 Signatures: [facility] José Miguel Apodaca PA PA cp Johnson, Juwairiyah RN RN jj7 Flor Dalton [facility]
[2024-03-20 01:34] VITALS: O2SAT 99
[2024-03-20 01:38] VITALS: BP 125/76; TEMP 97.8
--- NOTE | 2024-03-21 23:06 | RAD REPORT ---
EXAM DESCRIPTION: US - Transvaginal OB - 03/19/2024 10:45 pm CLINICAL HISTORY: Lower abdomen pain TECHNIQUE: Real-time transvaginal obstetrical ultrasound of the maternal pelvis and a first trimeste r with image documentation. Transvaginal imaging was used for better evaluation of the fe tus and adnexa. COMPARISON: No relevant prior studies available. FINDINGS: Gestation: No demonstrable intrauterine gestational sac. Uterus/cervix: The uterus is anteverted and measures 10.1 x 5.6 x 6.5 cm. The endometrium is thic kened and heterogeneous measuring 2.3 cm in thickness. section scar at the anterior lower uterine segment. No myometrial mass. Ovaries: Neither ovary is visualized. No mass. Free fluid: Small amount of free fluid in the cul-de-sac. Vasculature: Unremarkable. No demonstrable vascularity on color Doppler interrogation. IMPRESSION: No demonstrable intrauterine . In light of the clinical history of positive p regnancy test, the findings may represent sequelae of recent spontaneous . The possibility of very early intrauterine or extrauterine cannot be excluded. Thickened endometrium whic h may represent hemorrhagic products. No definitive flow on color Doppler interrogation. However, the absence of blood flow does not exclude the diagnosis of retained products of conception. Caref ul follow-up including correlation with beta-hCG levels is recommended. Electronically signed by: Alex Rivera MD 03/20/2024 12:24 AM CDT Due to temporary technical issues with the PACS/Fluency reporting system, reports are being signed by the in house radiologists without review as a courtesy to insure prompt reporting. The interpreting radiologist is fully responsible for the content of the report.
== END 2024-03-20 01:00 | disposition home or self-care (01) ==
LOC: ER 19:32
DX: O20.0 Threatened abortion (principal)
CPT/HCPCS: 96361; 85025; 81001; 36415; 86900; 81025; 86901; 84702; 83690; 80053; 76817; 96375; 96374; 99284; J2765; J1200; J7030

== ENCOUNTER 2024-05-29 11:28 | Emergency (ER) | payer OTHER ==
--- OUTSIDE RECORDS SUMMARY | 2024-05-29 11:35 | XMS REPORT | Continuity of Care Document ---
Author Name Unknown Address [address] [facility] [address] [place] [address] [facility] Address [address] [facility] [place] [address] Care Team Providers Care [employer] Name Role Phone Singh Gagnon Primary Care Physician NATE CHINCHILLA Attending Clinician Unavailable NATE CHINCHILLA Attending Clinician Unavailable VIKAS ROBERTS Attending Clinician Unavail able Vikas Green Attending Clinician + KATERYNA HAMILTON Attending Clinician UnavailKateryna Mendoza CNM Attending Clinician [phone] OBI-VALERIE, JAYANT Attending Clinician Unavailab jesi OBJohanna-JAYANT PADILLA Attending Clinician Unavailab jesi NurseWilly Exp Cprit Obgyn Attending Clini michael Unavailable Unknown, Attending Attending Clinician Unavailab Vikas Hardin Attending Clinician + Visit, Sue Nurse Attending Clinician Unava ilkeven Doctor Unassigned, Tamaha Attending Clinician U Nate Fry MD Attending Clinician [phone] Debra Moreno MD Attending Clinician [phone] Randall Lee MD, Syeda Mccormack Attending Clinici an Jaquan Vaughn MD Attending Clinician [phone] ZACHARIAH BAZAN Attending Clinician Unavailable Ultrasound, Ang-Mfm Attending Clinician UnavailMUSA Ralph Attending Clinician Iesha Lozano MD, Musa Peralta Attending Clinician + WILLIAM MARES Attending Clinician Unavailsunday Mares MD, William Silvestre Attending Clinician [phone] KAREN WASHINGTON Attending Clinician Unavailable KAREN WASHINGTON Attending Clinician Unavailable Karen Washington MD Attending Clinician [phone] 1, [facility] Attending Clinician Unavailab MIRIAM Peters Attending Clinician MIRIAM Naik Attending Clinician Derek Barlow DO Attending Clinician [phone] Laura Whitehead RN Attending Clinician Unavailab le RADIOLOGY Attending Clinician Unavailable PATI TOLEDO Attending Clinician Pati De Oliveira MD Attending Clinician + JOSÉ MIGUEL LAFLEUR Attending Clinician Unavailable JOSÉ MIGUEL LAFLEUR Attending Clinician Unavailable Clinton BISHOP Attending Clinician Unavailable Clinton Garnett Attending Clinician [phone] MITALI HARRIS Attending Clinician Unavailable Mitali Hernandez Attending Clinician [phone] Pcp, Patient Does Not Have A Attending Clinician Evelyn Viera RN Attending Clinician Unavailabl e P[facility], [facility] Attending Clinician Laisha Palmer MD Attending Clinician + [phone] LAISHA MEDRANO Attending Clinician NATE Melchor Admitting Clinician Unavailable Nate Chinchilla MD Admitting Clinician [phone] MIRIAM HOANG Admitting Clinician Yamel wheeler Payers Payer Name Policy Type Policy Number Effective Date Expirati on Date Source [facility] [id number] 2016 00:00:00 [place] [id number] 2019 00:00:00 2021 00:00:00 Problems Condition Name Condition Details Condition Category Status Onset Date Resolution Date Last Treatment Date Treating Clinician Comments Source Rh negative state in antepartum period Rh negative state in antepartum period Disease Active 2023-08 00:00: 00 [facility] Susceptibl e to varicella (non-immun e), currently Susceptibl e to varicella (non-immun e), currently Disease Active 2023-08 00:00: 00 Overview: Formattin g of this note might be different from the original. Address pp [facility] Supervisio n of high-risk Supervisio n of high-risk Disease Active 2023-08 00:00: 00 [facility] Short interval between pregnancie s complicati ng , antepartum Short interval between pregnancie s complicati ng , antepartum Disease Active 2023-08 00:00: 00 [facility] History of section History of section Disease Active 2023-08 00:00: 00 Overview: Formattin g of this note might be different from the original. Desires ERCS [facility] Declines flu vaccine Declines flu vaccine Disease Active 2022-08 0 00:00: 00 [facility] History of bipolar disorder History of bipolar disorder Disease Active 01-15 00:00: 00 Overview: Formattin g of this note might be different from the original. Not on meds, has not been on meds since before last [facility] Morbid obesity Morbid obesity Disease Active 01-15 00:00: 00 [facility] Nausea and vomiting during Nausea and vomiting during Disease Active 01-15 00:00: 00 [facility] Penicillin allergy Penicillin allergy Disease Active 01-15 00:00: 00 [facility] No known active problems No known active problems Disease [facility] Need for HPV vaccinatio n Need for HPV vaccinatio n Disease Resolve d 2-28 00:00: 00 2023-11-25 00:00:00 2023-11-25 20:28:17 [facility] Routine follow-up Routine follow-up Disease Resolve d 2023-0 2-13 00:00: 00 2023-11-25 00:00:00 2023-11-25 14:00:45 [facility] Maternal varicella, non-immune Maternal varicella, non-immune Disease Resolve d 2022-0 6-08 00:00: 00 2023-11-25 00:00:00 2023-11-25 20:26:32 [facility] 39 weeks gestation of 39 weeks gestation of Disease Resolve d 2023-0 1-22 00:00: 00 2023-09-23 00:00:00 2023-09-23 10:27:58 [facility] GBS (group B Streptococ cus carrier), +RV culture, 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), +RV culture, currently Disease Resolve d 2023-0 1-04 00:00: 00 2023-09-23 00:00:00 2023-09-23 10:28:00 [facility] Polyhydram nios, antepartum complicati on Polyhydram nios, antepartum complicati on Disease Resolve d 2022-1 2-14 00:00: 00 2023-09-23 00:00:00 2023-09-23 10:28:06 [facility] Heartburn during in third trimester Heartburn during in third trimester Disease Resolve d 2022-1 1-22 00:00: 00 2023-09-23 00:00:00 2023-09-23 10:28:01 [facility] Rh negative state in antepartum period Rh negative state in antepartum period Disease Resolve d 2022-0 6-08 00:00: 00 2023-09-23 00:00:00 2023-09-23 10:28:07 [facility] headache in third trimester headache in third trimester Disease Resolve d 2022-1 2-06 00:00: 00 2023-08-12 00:00:00 2023-08-12 15:04:25 [facility] Nausea and vomiting during Nausea and vomiting during Disease Resolve d 01-15 00:00: 00 2023-03-15 00:00:00 2023-03-15 17:38:53 [facility] Allergies, Adverse Reactions, Alerts Allergy Name Allergy Type Status Severity Reaction(s) Onset Date Inactive Date Treating Clinician Comments Source ASPIRIN DRUG INGREDI Active Hives 6 00:00: 00 [facility] Aspirin Propensi ty to adverse reaction s Active Hives 01-15 00:00: 00 [facility] [place] - Intraven ous Propensi ty to adverse reaction to drug Active 6-15 00:00: 00 Aspirin - Oral Propensi ty to adverse reaction to drug Active 3-03 00:00: 00 Aspirin Propensi ty to adverse reaction to drug Active 9- 00:00: 00 Penicill in Propensi ty to adverse reaction s Active Hives 0 3-12 00:00: 00 [facility] Penicill in Propensi ty to adverse reaction s Active Hives 0 3-12 00:00: 00 [facility] PENICILL IN DRUG INGREDI Active Hives 0 3-12 00:00: 00 [facility] Penicill ins Propensi ty to adverse reaction to drug Active 0 2-14 00:00: 00 Social History Social Habit Start Date Stop Date Quantity Comments Source ASSERTION 2024-02-28 00:00:00 [facility] History of tobacco use Cigarette Smoker [facility] History SDOH Alcohol Std Drinks [facility] History SDOH Alcohol Binge [facility] Exposure to SARS-CoV-2 (event) Not sure [facility] Alcoholic beverage intake 2024-05-18 00:00:00 2024-05-18 00:00:00 Lifetime non-drinker (finding) [facility] Tobacco use and exposure 2024-05-18 00:00:00 2024-05-18 00:00:00 Smokeless tobacco non-user [facility] Alcohol intake 2023-11-25 00:00:00 2023-11-25 00:00:00 Lifetime non-drinker (finding) [facility] History of Social function 2023-11-25 00:00:00 2023-11-25 00:00:00 [facility] History SDOH Alcohol Frequency 2019-12-17 00:00:00 2019-12-17 00:00:00 1 [facility] Sex assigned at 2004 00:00:00 2005 00:00:00 [facility] Smoking Status Start Date Stop Date Source Ex-smoker 2024-05-18 00:00:00 2024-05-18 00:00:00 [facility] tobacco daily 2019-12-17 00:00:00 [facility] Medications Ordered Medication Name Filled Medication Name Start Date Stop Date Current Medication? Ordering Clinician Indication Dosage Frequency Signature (SIG) Comments Components Source PNV 112-iron-FA -om-3s-dha- epa (VITAFOL GUMMIES) 3.33 mg iron- 0.33 mg Chew 2023-08 00:00: 00 05-18 00:00 :00 Yes [id number] 3{tbl} Take 3 tablets by mouth in the morning. [facility] acetaminoph en (TYLENOL) tablet 650 mg 09-04 01:18: 15 Yes 650mg 650 mg, Oral, Q6HPRN, Starting on Fri09/03/23 at 1918, Until Discontinu ed, Routine, Pain (scale 4-6), Pain (scale 1-3) [facility] lactated ringers IV infusion 1,000 mL 09-03 02:15: 00 09-03 02:10 :33 No 1000mL at 125 mL/hr, 1,000 mL, IV Infusion, ONCE, 1 dose, On Fri09/02/23 at 2015, Routine [facility] rho(D) immune globulin (RHOGAM) syringe 300 mcg 09-03 02:09: 02 Yes 300ug 300 mcg, Intramuscu lar, ONCE, For 1 dose, Conditiona l, Routine [facility] HYDROcodone -acetaminop hen (NORCO 5) 5-325 mg tablet 2 tablet 09-03 02:08: 56 Yes 2{tbl} 2 tablet, Oral, Q6HPRN, Starting on Fri09/02/23 at 2007, Until Discontinu ed, Routine, Pain (scale 7-10), Alternate with Ibuprofen [facility] HYDROcodone -acetaminop hen (NORCO 5) 5-325 mg tablet 1 tablet 09-03 02:08: 56 Yes 1{tbl} 1 tablet, Oral, Q6HPRN, Starting on Fri09/02/23 at 2007, Until Discontinu ed, Routine, Pain (scale 4-6), Alternate with Ibuprofen [facility] diphenhydrA MINE (BENADRYL) injection 25 mg 09-03 02:08: 56 Yes 25mg 25 mg, Slow IV Push, Q6HPRN, Starting on Fri09/02/23 at 2007, Until Discontinu ed, Routine, Itching [facility] diphenhydrA MINE (BENADRYL) tablet 25 mg 09-03 02:08: 56 Yes 25mg 25 mg, Oral, Q6HPRN, Starting on Fri09/02/23 at 2007, Until Discontinu ed, Routine, Sleep, Itching [facility] ondansetron (ZOFRAN (PF)) injection 4 mg 09-03 02:08: 56 Yes 4mg 4 mg, Slow IV Push, Q8HPRN, Starting on Fri09/02/23 at 2007, Until Discontinu ed, Routine, Nausea and Vomiting (N/V) [facility] bisacodyL (DULCOLAX) suppository 10 mg 09-03 02:08: 56 Yes 10mg 10 mg, Rectal, QDAILYPRN, Starting on Fri09/02/23 at 2007, Until Discontinu ed, Routine, Constipati on [facility] simethicone (GAS RELIEF (SIMETHICON E)) chewable tablet 160 mg 09-03 02:08: 56 Yes 160mg 160 mg, Oral, PC+HSPRN, Starting on Fri09/02/23 at 2007, Until Discontinu ed, Routine, Gas [facility] docusate (COLACE) capsule 200 mg 09-03 02:08: 56 Yes 200mg 200 mg, Oral, QDAILYPRN, Starting on Fri09/02/23 at 2007, Until Discontinu ed, Routine, Constipati on [facility] magnesium hydroxide (MILK OF MAGNESIA) 400 mg/5 mL suspension 30 mL 09-03 02:08: 56 Yes 30mL 30 mL, Oral, QDAILYPRN, Starting on Fri09/02/23 at 2007, Until Discontinu ed, Routine, Constipati on [facility] lactated ringers IV infusion 1,000 mL 09-03 02:08: 56 Yes 1000mL at 125 mL/hr, 1,000 mL, IV Infusion, PRN, 1 dose, Starting on Fri09/02/23 at 2007, Until Discontinu ed, Routine [facility] [id number] fum-folic () 27 mg iron- 1 mg folic tablet 09-03 00:00: 00 11-24 00:00 :00 No [id number] 1{tbl} Take 1 tablet by mouth in the morning. [facility] docusate 100 mg capsule 09-03 00:00: 00 11-24 00:00 :00 No [id number] 200mg Take 2 capsules by mouth once daily as needed for Constipati on. [facility] ferrous sulfate 325 mg (65 mg iron) tablet 09-03 00:00: 00 11-24 00:00 :00 No [id number] 325mg Take 1 tablet by mouth in the morning and 1 tablet in the evening. [facility] HYDROcodone -acetaminop hen 5-325 mg tablet 09-03 00:00: 00 09-14 05:59 :00 No [id number] 1{tbl} Take 1 tablet by mouth every 6 (six) hours as needed (Pain scale above 4) for up to 10 days. Do not exceed 3 grams of acetaminop hen in 24 hours. Indication s: acute pain [facility] lactated ringers IV infusion 1,000 mL 09-03 00:00: 00 09-03 02:08 :59 No 1000mL at 125 mL/hr, 1,000 mL, IV Infusion, CONTINUOUS , Starting on Fri09/02/23 at 1800, Until Fri09/02/23 at 2007, RASHMI [facility] acetaminoph en (TYLENOL) tablet 650 mg 09-02 23:52: 38 09-03 02:08 :59 No 650mg 650 mg, Oral, Q6HPRN, Starting on Fri09/02/23 at 1752, Until Fri09/02/23 at 2007, Routine, Pain (scale 1-3) [facility] ondansetron (ZOFRAN (PF)) injection 4 mg 09-02 23:30: 00 09-03 00:14 :00 No 4mg 4 mg, Slow IV Push, ONCE, 1 dose, On Fri09/02/23 at 1730, Routine [facility] sodium citrate-cit yamilex acid (BICITRA) 500-334 mg/5 mL solution 30 mL 09-02 21:51: 27 09-02 22:28 :00 No 30mL 30 mL, Oral, PRE-PROCED URE ONCE, 1 dose, Starting on Fri09/02/23 at 1551, Until Fri09/02/23 at 1628, Routine, Surgery/Pr ocedure [facility] gentamicin 480 mg in NaCl 0.9% [...] Surgical Prophylaxi s
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
Duration of therapy: within 24 hours of surgery [facility] clindamycin in 5 % dextrose (CLEOCIN) 900 mg/50 mL IV piggyback RTU 900 mg 09-02 21:46: 19 09-03 02:08 :59 No 900mg 900 mg, IV Piggyback, O.R. HOLDING ONCE, Starting on Fri09/02/23 at 1546, Until Fri09/02/23 at 2007, Administer over 30 Minutes, 50 mL
Reas on for Anti-Infec tive: Surgical Prophylaxi s
Schneider rgical Prophylaxi s: 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
Duration of therapy: within 24 hours of surgery
Restricte d use approved by: 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 [employer]ACULTY
membership advisor approving Restricted medication : DEBRA MORENO [facility] ondansetron (ZOFRAN (PF)) injection 4 mg 09-02 19:00: 00 09-02 18:13 :00 No 4mg 4 mg, Slow IV Push, ONCE, On Fri09/02/23 at 1300, For 1 dose
Do ses of ondansetro n 16 mg and above need to be administer ed via IV piggyback. For Dose >=24mg ECG monitoring is advisable.
[facility] morpHINE (2 mg/mL) injection 4 mg 09-02 11:00: 00 09-02 10:32 :00 No 4mg 4 mg, Slow IV Push, ONCE, 1 dose, On Fri09/02/23 at 0500, Routine [facility] sodium citrate-cit yamilex acid (BICITRA) 500-334 mg/5 mL solution 30 mL 09-01 21:37: 26 09-02 10:55 :00 No 30mL 30 mL, Oral, PRE-PROCED URE ONCE, 1 dose, Starting on Fri09/01/23 at 1537, Until Discontinu ed, Routine, Surgery/Pr ocedure [facility] ropivacaine 0.2 % (NAROPIN (PF)) epidural infusion 09-01 20:08: 00 Yes Epidural, CONTINUOUS PRN, Starting on Fri09/01/23 at 1408, Until Discontinu ed, Routine, Intra-op [facility] lidocaine-e pinephrine (XYLOCAINE W/EPINEPHRI NE) 1.5 %-1:200,000 injection 09-01 20:04: 00 Yes Intraderma l, ONCE INTRA PROCEDURE, Starting on Fri09/01/23 at 1404, Until Discontinu ed, Routine, Intra-op [facility] vancomycin (VANCOCIN) 1,500 mg in NaCl [...] Pelvic
Duration of Therapy: Other (see Comments) [facility] oxytocin (PITOCIN) 30 units in NS 500 mL IV infusion 09-01 17:36: 54 09-03 02:08 :59 No 2mU/min at 2-40 mL/hr, IV Infusion, TITRATE, Starting on Fri09/01/23 at 1136, Until Fri09/02/23 at 2008, RASHMI [facility] morpHINE (2 mg/mL) injection 4 mg 09-01 17:00: 00 09-01 16:14 :00 No 4mg 4 mg, Slow IV Push, ONCE, 1 dose, On Fri09/01/23 at 1100, Routine [facility] lactated ringers IV infusion 500 mL 09-01 14:39: 07 09-03 02:08 :59 No 500mL at 999 mL/hr, 500 mL, IV Infusion, PRN - SEE INSTRUCTIO NS, Starting on Fri09/01/23 at 0839, Until Fri09/02/23 at 2007, Routine [facility] D5W-LR IV infusion 1,000 mL 09-01 14:39: 07 09-03 02:08 :59 No 1000mL at 1-125 mL/hr, IV Infusion, TITRATE, Starting on Fri09/01/23 at 0839, Until Fri09/02/23 at 2007, Routine [facility] sodium citrate-cit yamilex acid (BICITRA) 500-334 mg/5 mL solution 30 mL 09-01 14:39: 07 09-01 19:29 :00 No 30mL 30 mL, Oral, PRE-PROCED URE ONCE, 1 dose, Starting on Fri09/01/23 at 0839, Until Discontinu ed, Routine, Surgery/Pr ocedure [facility] cephALEXin (KEFLEX) 500 mg capsule 08-22 00:00: 00 09-03 00:00 :00 No [id number] 500mg Take 1 capsule by mouth 4 (four) times daily for 10 days. [facility] butalbital- acetaminoph en-caff (ESGIC) 50-325-40 mg tablet 1 tablet 2022-08 00:30: 00 07-14 23:46 :00 No 1{tbl} 1 tablet, Oral, ONCE, 1 dose, On Fri07/14/23 at 1830, Routine [facility] famotidine (PEPCID) 20 mg tablet 2022-08 00:00: 00 09-03 00:00 :00 No [id number] 20mg Take 1 tablet by mouth in the morning and 1 tablet in the evening. [facility] acetaminoph en (TYLENOL) tablet 650 mg 01-31 04:15: 00 01-31 04:08 :00 No 650mg 650 mg, Oral, ONCE, 1 dose, On Annelise 01/30/23 at 2315, RASHMI [facility] melatonin 3 mg Cap 01-15 13:46: 01-15 00:00 :00 No Take by mouth. [facility] BUPROPION HCL (WELLBUTRIN ORAL) 01-15 13:45: 58 01-15 00:00 :00 No Take by mouth. [facility] vit 33-iron-fol ic-dha (SELECT-OB + DHA) 29 mg iron-1 mg -250 mg combo pack 01-15 00:00: 00 Yes [id number] 1{packe t} Take 1 Packet by mouth in the morning. [facility] proMETHazin e 25 mg tablet 01-15 00:00: 00 09-03 00:00 :00 No [id number] 25mg Take 1 tablet by mouth every 4 (four) hours as needed for Nausea and Vomiting (N/V). [facility] vit 33-iron-fol ic-dha (SELECT-OB + DHA) 29 mg iron-1 mg -250 mg combo pack 01-15 00:00: 00 09-03 00:00 :00 No [id number] 1{packe t} Take 1 Packet by mouth in the morning. [facility] TAKE 1 CAPSULE BY MOUTH EVERY DAY 2021-0 04-09 00:00: 00 No TAKE 1 TABLET BY MOUTH THREE TIMES A DAY 0 8 00:00: 00 No Dose Unknown 2021-0 6-15 00:00: 00 No TAKE 1 CAPSULE BY MOUTH EVERY 12 HOURS FOR 7 DAYS 2-0 6-15 00:00: 00 No Dose Unknown 2-0 6-15 00:00: 00 No Dose Unknown 2-0 6-15 00:00: 00 No &lt 2-0 6-15 00:00: 00 No Dose Unknown 2-0 3-30 00:00: 00 No Dose Unknown 2-0 3-30 00:00: 00 No Dose Unknown 2-0 3-30 00:00: 00 No Dose Unknown 2022-0 3-30 00:00: 00 No Dose Unknown 2-0 3-30 00:00: 00 No Dose Unknown 2021-0 3-30 00:00: 00 No Dose Unknown 2-0 3-04 00:00: 00 No Dose Unknown 2021-0 3-04 00:00: 00 No Dose Unknown 2021-0 3-04 00:00: 00 No Dose Unknown 2021-0 3-04 00:00: 00 No Dose Unknown 2021-0 3-04 00:00: 00 No Dose Unknown 2021-0 3-04 00:00: 00 No Dose Unknown 2021-0 1-10 00:00: 00 No Dose Unknown 0 1-10 00:00: 00 No Dose Unknown 2020-1 0-05 00:00: 00 No Dose Unknown 1 0-05 00:00: 00 No Dose Unknown 0 9-27 00:00: 00 No Dose Unknown 0 9-08 00:00: 00 No Dose Unknown 0 9-08 00:00: 00 No Seroquel 50 mg tablet 0 8- 00:00: 00 No 1mg Effexor XR 37.5 mg capsule,ext ended release 0 8-12 00:00: 00 No 1mg Depakote 500 mg tablet,falguni yed release 0 8 00:00: 00 No 2mg buspirone 10 mg tablet 0 8- 00:00: 00 No 1mg risperidone 1 mg tablet 0 8- 00:00: 00 No 1mg Dose Unknown 0 8- 00:00: 00 No Effexor XR 37.5 mg capsule,ext ended release 8- 00:00: 00 No 1mg Dose Unknown 0 4- 00:00: 00 No Dose Unknown 0 3-30 00:00: 00 No Dose Unknown 0 3-30 00:00: 00 No buspirone 10 mg tablet 02-21 00:00: 00 No 1mg Depakote 500 mg tablet,falguni yed release 02-21 00:00: 00 No 2mg risperidone 1 mg tablet 02-21 00:00: 00 No 1mg melatonin 3 mg Cap 12-16 17:01: 01 Yes Take by mouth. [facility] BUPROPION HCL (WELLBUTRIN ORAL) 12-16 16:52: 24 Yes Take by mouth. [facility] melatonin 3 mg Cap 12-16 12:01: 01 Yes Take by mouth. [facility] BUPROPION HCL (WELLBUTRIN ORAL) 12-16 11:52: 24 Yes Take by mouth. [facility] azithromyci n (ZITHROMAX Z-YONATHAN) 250 mg tablet 10-22 00:00: 00 12-16 00:00 :00 No 250mg Take 1 tablet by mouth SEE-INSTRU CTIONS. Take 500 mg day 1, then 250 mg days 2 to 5. [facility] bupropion HCl SR 100 mg tablet,12 hr sustained-r elease 09-24 00:00: 00 No 1mg Immunizations Ordered Immunization Name Filled Immunization Name Date Status Comments Source HPV9 2023-10-08 00:00:00 Completed [facility] HPV9 2023-09-04 00:00:00 Completed [facility] TDAP 2023-06-19 00:00:00 Completed [facility] Rho (d) Immune Globulin 2023-06-19 00:00:00 Completed SARS-COV-2 COVID-19 PFIZER VACCINE 2021-04-10 00:00:00 Completed [facility] SARS-COV-2 COVID-19 PFIZER VACCINE 2021-04-10 00:00:00 Completed [facility] SARS-COV-2 COVID-19 PFIZER VACCINE 2021-04-10 00:00:00 Completed [facility] SARS-COV-2 COVID-19 PFIZER VACCINE 2021-04-10 00:00:00 Completed [facility] SARS-COV-2 COVID-19 PFIZER VACCINE 2021-04-10 00:00:00 Completed [facility] SARS-COV-2 COVID-19 PFIZER VACCINE 2021-04-10 00:00:00 Completed [facility] SARS-COV-2 COVID-19 PFIZER VACCINE 2021-04-10 00:00:00 Completed [facility] SARS-COV-2 COVID-19 PFIZER VACCINE 2021-04-10 00:00:00 Completed [facility] SARS-COV-2 COVID-19 PFIZER VACCINE 2021-03-20 00:00:00 Completed [facility] SARS-COV-2 COVID-19 PFIZER VACCINE 2021-03-20 00:00:00 Completed SARS-COV-2 COVID-19 PFIZER VACCINE 2021-03-20 00:00:00 Completed [facility] SARS-COV-2 COVID-19 PFIZER VACCINE 2021-03-20 00:00:00 Completed [facility] SARS-COV-2 COVID-19 PFIZER VACCINE 2021-03-20 00:00:00 Completed [facility] SARS-COV-2 COVID-19 PFIZER VACCINE 2021-03-20 00:00:00 Completed [facility] SARS-COV-2 COVID-19 PFIZER VACCINE 2021-03-20 00:00:00 Completed [facility] SARS-COV-2 COVID-19 PFIZER VACCINE 2021-03-20 00:00:00 Completed [facility] HPV, quadrivalent 2019-03-20 00:00:00 Completed HPV, quadrivalent 2017-09-24 00:00:00 Completed SARS-COV-2 COVID-19 PFIZER VACCINE Unknown Completed [facility] TDAP Unknown Completed [facility] Rho (d) Immune Globulin Unknown Completed [facility] SARS-COV-2 COVID-19 PFIZER VACCINE Unknown Completed [facility] TDAP Unknown Completed [facility] Rho (d) Immune Globulin Unknown Completed [facility] SARS-COV-2 COVID-19 PFIZER VACCINE Unknown Completed [facility] TDAP Unknown Completed [facility] Rho (d) Immune Globulin Unknown Completed [facility] SARS-COV-2 COVID-19 PFIZER VACCINE Unknown Completed [facility] TDAP Unknown Com[facility] [facility] Immune Globulin Unknown Completed [facility] SARS-COV-2 COVID-19 PFIZER VACCINE Unknown Completed [facility]ly [facility] TDAP Unknown Completed [facility] Rho (d) Immune Globulin Unknown Completed [facility] SARS-COV-2 COVID-19 PFIZER VACCINE Unknown Completed [facility]ly [facility] TDAP Unknown Completed [facility]ly [facility] Rho (d) Immune Globulin Unknown Completed [facility] HPV9 Unknown Completed [facility] SARS-COV-2 COVID-19 PFIZER VACCINE Unknown Completed [facility]ly [facility] TDAP Unknown Completed [facility] Rho (d) Immune Globulin Unknown Completed [facility] HPV9 Unknown Completed [facility] SARS-COV-2 COVID-19 PFIZER VACCINE Unknown Completed [facility] TDAP Unknown Completed [facility] Rho (d) Immune Globulin Unknown Completed [facility] HPV9 Unknown Completed [facility] SARS-COV-2 COVID-19 PFIZER VACCINE Unknown Completed [facility]ly [facility] TDAP Unknown Completed [facility] Rho (d) Immune Globulin Unknown Completed [facility] HPV9 Unknown Completed [facility] SARS-COV-2 COVID-19 PFIZER VACCINE Unknown Completed [facility]ly [facility] TDAP Unknown Completed [facility]ly [facility] Rho (d) Immune Globulin Unknown Completed [facility] HPV9 Unknown Completed [facility] SARS-COV-2 COVID-19 PFIZER VACCINE Unknown Completed [facility]ly [facility] TDAP Unknown Completed [facility]ly [facility] Rho (d) Immune Globulin Unknown Completed [facility] HPV9 Unknown Completed [facility] SARS-COV-2 COVID-19 PFIZER VACCINE Unknown Completed [facility] TDAP Unknown Completed [facility] Rho (d) Immune Globulin Unknown Completed [facility] HPV9 Unknown Completed [facility] SARS-COV-2 COVID-19 PFIZER VACCINE Unknown Completed [facility] SARS-COV-2 COVID-19 PFIZER VACCINE Unknown Completed [facility] SARS-COV-2 COVID-19 PFIZER VACCINE Unknown Completed [facility] SARS-COV-2 COVID-19 PFIZER VACCINE Unknown Completed [facility] TDAP Unknown Completed [facility] Rho (d) Immune Globulin Unknown Completed [facility] SARS-COV-2 COVID-19 PFIZER VACCINE Unknown Completed [facility] TDAP Unknown Completed [facility] Rho (d) Immune Globulin Unknown Completed [facility] TDAP Unknown Completed [facility] Rho (d) Immune Globulin Unknown Completed [facility] SARS-COV-2 COVID-19 PFIZER VACCINE Unknown Completed [facility] SARS-COV-2 COVID-19 PFIZER VACCINE Unknown Completed [facility] TDAP Unknown Completed [facility] Rho (d) Immune Globulin Unknown Completed [facility] SARS-COV-2 COVID-19 PFIZER VACCINE Unknown Completed [facility] TDAP Unknown Completed [facility] Rho (d) Immune Globulin Unknown Completed [facility] SARS-COV-2 COVID-19 PFIZER VACCINE Unknown Completed [facility] TDAP Unknown Completed [facility] Rho (d) Immune Globulin Unknown Completed [facility] SARS-COV-2 COVID-19 PFIZER VACCINE Unknown Completed [facility] TDAP Unknown Completed [facility] Rho (d) Immune Globulin Unknown Completed [facility] TDAP Unknown Completed [facility] Rho (d) Immune Globulin Unknown Completed [facility] SARS-COV-2 COVID-19 PFIZER VACCINE Unknown Completed [facility] SARS-COV-2 COVID-19 PFIZER VACCINE Unknown Completed [facility]ly [facility] TDAP Unknown Completed [facility] Rho (d) Immune Globulin Unknown Completed [facility] SARS-COV-2 COVID-19 PFIZER VACCINE Unknown Completed [facility]ly [facility] TDAP Unknown Completed [facility]ly [facility] Rho (d) Immune Globulin Unknown Completed [facility] TDAP Unknown Completed [facility]ly [facility] Rho (d) Immune Globulin Unknown Completed [facility] SARS-COV-2 COVID-19 PFIZER VACCINE Unknown Completed [facility]ly [facility] SARS-COV-2 COVID-19 PFIZER VACCINE Unknown Completed [facility] TDAP Unknown Completed [facility] Rho (d) Immune Globulin Unknown Completed [facility] SARS-COV-2 COVID-19 PFIZER VACCINE Unknown Completed [facility]ly [facility] TDAP Unknown Completed [facility]ly [facility] Rho (d) Immune Globulin Unknown Completed [facility] SARS-COV-2 COVID-19 PFIZER VACCINE Unknown Completed [facility]ly [facility] TDAP Unknown Completed [facility] Rho (d) Immune Globulin Unknown Completed [facility] SARS-COV-2 COVID-19 PFIZER VACCINE Unknown Completed [facility]ly [facility] TDAP Unknown Completed [facility] Rho (d) Immune Globulin Unknown Completed [facility] SARS-COV-2 COVID-19 PFIZER VACCINE Unknown Completed [facility] TDAP Unknown Completed [facility] Rho (d) Immune Globulin Unknown Completed [facility] SARS-COV-2 COVID-19 PFIZER VACCINE Unknown Completed [facility]ly [facility] TDAP Unknown Completed [facility] Rho (d) Immune Globulin Unknown Completed [facility] SARS-COV-2 COVID-19 PFIZER VACCINE Unknown Completed [facility] TDAP Unknown Completed [facility] Rho (d) Immune Globulin Unknown Completed [facility] SARS-COV-2 COVID-19 PFIZER VACCINE Unknown Completed [facility] TDAP Unknown Completed [facility] Rho (d) Immune Globulin Unknown Completed [facility] SARS-COV-2 COVID-19 PFIZER VACCINE Unknown Completed [facility]ly [facility] TDAP Unknown Completed [facility] Rho (d) Immune Globulin Unknown Completed [facility] SARS-COV-2 COVID-19 PFIZER VACCINE Unknown Completed [facility] TDAP Unknown Completed [facility] Rho (d) Immune Globulin Unknown Completed [facility] SARS-COV-2 COVID-19 PFIZER VACCINE Unknown Completed [facility] TDAP Unknown Completed [facility] Rho (d) Immune Globulin Unknown Completed [facility] Vital Signs Vital Name Observation Time Observation Value Comments S ource Systolic blood pressure 2024-05-18 14:03:00 124 mm[Hg] [facility] Diastolic blood pressure 2024-05-18 14:03:00 78 mm[Hg] [facility] Heart rate 2024-05-18 14:03:00 70 /min [facility] Body temperature 2024-05-18 14:03:00 36.44 Jyothi [facility] Respiratory rate 2024-05-18 14:03:00 17 /min [facility] Body height 2024-05-18 14:03:00 162.6 cm [facility] Body weight 2024-05-18 14:03:00 154.858 kg [facility] BMI 2024-05-18 14:03:00 58.60 kg/m2 [facility] Systolic blood pressure 2023-11-25 18:44:00 132 mm[Hg] [facility] Diastolic blood pressure 2023-11-25 18:44:00 73 mm[Hg] [facility] Heart rate 2023-11-25 18:44:00 67 /min [facility] Body temperature 2023-11-25 18:44:00 36.44 Jyothi [facility] Respiratory rate 2023-11-25 18:44:00 18 /min [facility] Body height 2023-11-25 18:44:00 162.6 cm [facility] Body weight 2023-11-25 18:44:00 151.411 kg [facility] BMI 2023-11-25 18:44:00 57.30 kg/m2 [facility] Body temperature 2023-10-08 19:54:00 36.72 Jyotih [facility] Body weight 2023-10-08 19:54:00 144.244 kg [facility] Systolic blood pressure 2023-09-23 15:48:00 99 mm[Hg] [facility] Diastolic blood pressure 2023-09-23 15:48:00 50 mm[Hg] [facility] Heart rate 2023-09-23 15:48:00 67 /min [facility] Body temperature 2023-09-23 15:48:00 35.67 Jyothi [facility] Respiratory rate 2023-09-23 15:48:00 18 /min [facility] Body height 2023-09-23 15:48:00 162.6 cm [facility] Body weight 2023-09-23 15:48:00 143.972 kg [facility] BMI 2023-09-23 15:48:00 54.48 kg/m2 [facility] Body mass index (BMI) [Percentile] Per age and sex 2023-09-23 15:48:00 99.99 % [facility] Systolic blood pressure 2023-09-11 17:01:00 130 mm[Hg] [facility] Diastolic blood pressure 2023-09-11 17:01:00 70 mm[Hg] [facility] Heart rate 2023-09-11 17:01:00 54 /min [facility] Body temperature 2023-09-11 17:01:00 36.28 Jyothi [facility] Respiratory rate 2023-09-11 17:01:00 18 /min [facility] Body height 2023-09-11 17:01:00 162.6 cm [facility] Body weight 2023-09-11 17:01:00 144.153 kg [facility] BMI 2023-09-11 17:01:00 54.55 kg/m2 [facility] Body mass index (BMI) [Percentile] Per age and sex 2023-09-11 17:01:00 99.99 % [facility] Systolic blood pressure 2023-09-04 13:57:00 116 mm[Hg] [facility] Diastolic blood pressure 2023-09-04 13:57:00 64 mm[Hg] [facility] Heart rate 2023-09-04 13:57:00 64 /min [facility] Body temperature 2023-09-04 13:57:00 36.89 Jyothi [facility] Respiratory rate 2023-09-04 13:57:00 18 /min [facility] Oxygen saturation in Arterial blood by Pulse oximetry 2023-09-04 13:57:00 96 /min [facility] Body height 2023-09-01 14:44:00 162.6 cm [facility] Body weight 2023-09-01 14:44:00 154.677 kg [facility] BMI 2023-09-01 14:44:00 58.50 kg/m2 [facility] Body mass index (BMI) [Percentile] Per age and sex 2023-09-01 14:44:00 100.00 % [facility] Systolic blood pressure 2023-09-02 18:30:00 123 mm[Hg] [facility] Diastolic blood pressure 2023-09-02 18:30:00 84 mm[Hg] [facility] Heart rate 2023-09-02 18:30:00 92 /min [facility] Oxygen saturation in Arterial blood by Pulse oximetry 2023-09-02 18:30:00 100 /min [facility] Body temperature 2023-09-02 18:00:00 37.06 Jyothi [facility] Respiratory rate 2023-09-02 18:00:00 18 /min [facility] Body height 2023-09-01 14:44:00 162.6 cm [facility] Body weight 2023-09-01 14:44:00 154.677 kg [facility] BMI 2023-09-01 14:44:00 58.50 kg/m2 [facility] Body mass index (BMI) [Percentile] Per age and sex 2023-09-01 14:44:00 100.00 % [facility] Systolic blood pressure 2023-08-29 20:34:00 121 mm[Hg] [facility] Diastolic blood pressure 2023-08-29 20:34:00 69 mm[Hg] [facility] Heart rate 2023-08-29 20:34:00 81 /min [facility] Body temperature 2023-08-29 20:34:00 35.17 Jyothi [facility] Respiratory rate 2023-08-29 20:34:00 18 /min [facility] Body height 2023-08-29 20:34:00 162.6 cm [facility] Body weight 2023-08-29 20:34:00 152.046 kg [facility] BMI 2023-08-29 20:34:00 57.54 kg/m2 [facility] Body mass index (BMI) [Percentile] Per age and sex 2023-08-29 20:34:00 100.00 % [facility] Systolic blood pressure 2023-08-22 20:30:00 125 mm[Hg] [facility] Diastolic blood pressure 2023-08-22 20:30:00 69 mm[Hg] [facility] Heart rate 2023-08-22 20:30:00 110 /min [facility] Body temperature 2023-08-22 20:30:00 36.67 Jyothi [facility] Respiratory rate 2023-08-22 20:30:00 18 /min [facility] Body weight 2023-08-22 20:30:00 151.411 kg [facility] BMI 2023-08-22 20:30:00 57.30 kg/m2 [facility] Body mass index (BMI) [Percentile] Per age and sex 2023-08-22 20:30:00 100.00 % [facility] Body height 2023-08-19 20:40:00 162.6 cm [facility] Body weight 2023-08-19 20:40:00 150.73 kg [facility] BMI 2023-08-19 20:40:00 57.04 kg/m2 [facility] Body mass index (BMI) [Percentile] Per age and sex 2023-08-19 20:40:00 100.00 % [facility] Systolic blood pressure 2023-08-19 20:40:00 130 mm[Hg] [facility] Diastolic blood pressure 2023-08-19 20:40:00 69 mm[Hg] [facility] Heart rate 2023-08-19 20:40:00 88 /min [facility] Body temperature 2023-08-19 20:40:00 35.94 Jyothi [facility] Respiratory rate 2023-08-19 20:40:00 17 /min [facility] Systolic blood pressure 2023-08-14 20:30:00 122 mm[Hg] manually [facility] Diastolic blood pressure 2023-08-14 20:30:00 78 mm[Hg] manually [facility] Heart rate 2023-08-14 20:18:00 112 /min [facility] Body temperature 2023-08-14 20:18:00 35.94 Jyothi [facility] Respiratory rate 2023-08-14 20:18:00 20 /min [facility] Body height 2023-08-14 20:18:00 162.6 cm [facility] Body weight 2023-08-14 20:18:00 150.793 kg [facility] BMI 2023-08-14 20:18:00 57.06 kg/m2 [facility] Body mass index (BMI) [Percentile] Per age and sex 2023-08-14 20:18:00 100.00 % [facility] Systolic blood pressure 2023-08-12 20:09:00 109 mm[Hg] [facility] Diastolic blood pressure 2023-08-12 20:09:00 64 mm[Hg] [facility] Heart rate 2023-08-12 20:09:00 98 /min [facility] Body temperature 2023-08-12 20:09:00 36.33 Jyothi [facility] Respiratory rate 2023-08-12 20:09:00 20 /min [facility] Body height 2023-08-12 20:09:00 162.6 cm [facility] Body weight 2023-08-12 20:09:00 151.161 kg [facility] BMI 2023-08-12 20:09:00 57.20 kg/m2 [facility] Body mass index (BMI) [Percentile] Per age and sex 2023-08-12 20:09:00 100.00 % [facility] Systolic blood pressure 2023-08-08 19:48:00 105 mm[Hg] [facility] Diastolic blood pressure 2023-08-08 19:48:00 58 mm[Hg] [facility] Heart rate 2023-08-08 19:48:00 92 /min [facility] Body temperature 2023-08-08 19:48:00 35.78 Jyothi [facility] Respiratory rate 2023-08-08 19:48:00 20 /min [facility] Body height 2023-08-08 19:48:00 162.6 cm [facility] Body weight 2023-08-08 19:48:00 149.829 kg [facility] BMI 2023-08-08 19:48:00 56.70 kg/m2 [facility] Body mass index (BMI) [Percentile] Per age and sex 2023-08-08 19:48:00 100.00 % [facility] Systolic blood pressure 2023-08-06 18:46:00 110 mm[Hg] [facility] Diastolic blood pressure 2023-08-06 18:46:00 56 mm[Hg] [facility] Heart rate 2023-08-06 18:46:00 79 /min [facility] Body temperature 2023-08-06 18:46:00 35.17 Jyothi [facility] Respiratory rate 2023-08-06 18:46:00 18 /min [facility] Body height 2023-08-06 18:46:00 162.6 cm [facility] Body weight 2023-08-06 18:46:00 150.866 kg [facility] BMI 2023-08-06 18:46:00 57.09 kg/m2 [facility] Body mass index (BMI) [Percentile] Per age and sex 2023-08-06 18:46:00 100.00 % [facility] Systolic blood pressure 2023-08-01 19:54:00 98 mm[Hg] [facility] Diastolic blood pressure 2023-08-01 19:54:00 56 mm[Hg] [facility] Heart rate 2023-08-01 19:54:00 96 /min [facility] Body temperature 2023-08-01 19:54:00 36.06 Jyothi [facility] Respiratory rate 2023-08-01 19:54:00 18 /min [facility] Body height 2023-08-01 19:54:00 162.6 cm [facility] Body weight 2023-08-01 19:54:00 149.868 kg [facility] BMI 2023-08-01 19:54:00 56.71 kg/m2 [facility] Body mass index (BMI) [Percentile] Per age and sex 2023-08-01 19:54:00 100.00 % [facility] Systolic blood pressure 2023-07-30 21:17:00 110 mm[Hg] [facility] Diastolic blood pressure 2023-07-30 21:17:00 70 mm[Hg] [facility] Heart rate 2023-07-30 21:17:00 96 /min [facility] Body temperature 2023-07-30 21:17:00 36.22 Jyothi [facility] Respiratory rate 2023-07-30 21:17:00 20 /min [facility] Body height 2023-07-30 21:17:00 162.6 cm [facility] Body weight 2023-07-30 21:17:00 150.226 kg [facility] BMI 2023-07-30 21:17:00 56.85 kg/m2 [facility] Body mass index (BMI) [Percentile] Per age and sex 2023-07-30 21:17:00 100.00 % [facility] Systolic blood pressure 2023-07-15 21:25:00 122 mm[Hg] manual [facility] Diastolic blood pressure 2023-07-15 21:25:00 68 mm[Hg] manual [facility] Heart rate 2023-07-15 21:14:00 85 /min [facility] Body temperature 2023-07-15 21:14:00 36.67 Jyothi [facility] Respiratory rate 2023-07-15 21:14:00 20 /min [facility] Body height 2023-07-15 21:14:00 162.6 cm [facility] Body weight 2023-07-15 21:14:00 149.29 kg [facility] BMI 2023-07-15 21:14:00 56.49 kg/m2 [facility] Body mass index (BMI) [Percentile] Per age and sex 2023-07-15 21:14:00 100.00 % [facility] Heart rate 2023-07-15 01:21:00 72 /min [facility] Oxygen saturation in Arterial blood by Pulse oximetry 2023-07-15 01:21:00 100 /min [facility] Systolic blood pressure 2023-07-15 01:15:00 111 mm[Hg] [facility] Diastolic blood pressure 2023-07-15 01:15:00 75 mm[Hg] [facility] Body temperature 2023-07-14 23:00:00 36.94 Jyothi [facility] Respiratory rate 2023-07-14 23:00:00 17 /min [facility] Body height 2023-07-14 22:15:00 162.6 cm [facility] Body weight 2023-07-14 22:15:00 147.873 kg [facility] BMI 2023-07-14 22:15:00 55.96 kg/m2 [facility] Body mass index (BMI) [Percentile] Per age and sex 2023-07-14 22:15:00 100.00 % [facility] Systolic blood pressure 2023-07-02 21:19:00 105 mm[Hg] [facility] Diastolic blood pressure 2023-07-02 21:19:00 59 mm[Hg] [facility] Heart rate 2023-07-02 21:19:00 85 /min [facility] Body temperature 2023-07-02 21:19:00 35.78 Jyothi [facility] Respiratory rate 2023-07-02 21:19:00 18 /min [facility] Body height 2023-07-02 21:19:00 162.6 cm [facility] Body weight 2023-07-02 21:19:00 147.873 kg [facility] BMI 2023-07-02 21:19:00 55.96 kg/m2 [facility] Body mass index (BMI) [Percentile] Per age and sex 2023-07-02 21:19:00 100.00 % [facility] Systolic blood pressure 2023-06-19 17:22:00 110 mm[Hg] [facility] Diastolic blood pressure 2023-06-19 17:22:00 56 mm[Hg] [facility] Heart rate 2023-06-19 17:22:00 73 /min [facility] Body temperature 2023-06-19 17:22:00 36.17 Jyothi [facility] Respiratory rate 2023-06-19 17:22:00 20 /min [facility] Body height 2023-06-19 17:22:00 162.6 cm [facility] Body weight 2023-06-19 17:22:00 146.994 kg [facility] BMI 2023-06-19 17:22:00 55.63 kg/m2 [facility] Body mass index (BMI) [Percentile] Per age and sex 2023-06-19 17:22:00 100.00 % [facility] Systolic blood pressure 2023-05-29 15:11:00 100 mm[Hg] [facility] Diastolic blood pressure 2023-05-29 15:11:00 47 mm[Hg] [facility] Heart rate 2023-05-29 15:11:00 77 /min [facility] Body temperature 2023-05-29 15:11:00 36.33 Jyothi [facility] Respiratory rate 2023-05-29 15:11:00 20 /min [facility] Body height 2023-05-29 15:11:00 162.6 cm [facility] Body weight 2023-05-29 15:11:00 147.079 kg [facility] BMI 2023-05-29 15:11:00 55.66 kg/m2 [facility] Body mass index (BMI) [Percentile] Per age and sex 2023-05-29 15:11:00 100.00 % [facility] Systolic blood pressure 2023-05-01 15:34:00 92 mm[Hg] [facility] Diastolic blood pressure 2023-05-01 15:34:00 45 mm[Hg] [facility] Heart rate 2023-05-01 15:34:00 70 /min [facility] Body temperature 2023-05-01 15:34:00 36.28 Jyothi [facility] Respiratory rate 2023-05-01 15:34:00 20 /min [facility] Body height 2023-05-01 15:34:00 162.6 cm [facility] Body weight 2023-05-01 15:34:00 145.151 kg [facility] BMI 2023-05-01 15:34:00 54.93 kg/m2 [facility] Body mass index (BMI) [Percentile] Per age and sex 2023-05-01 15:34:00 100.00 % [facility] Systolic blood pressure 2023-03-14 14:32:00 98 mm[Hg] [facility] Diastolic blood pressure 2023-03-14 14:32:00 54 mm[Hg] [facility] Heart rate 2023-03-14 14:32:00 70 /min [facility] Body temperature 2023-03-14 14:32:00 36.33 Jyothi [facility] Respiratory rate 2023-03-14 14:32:00 18 /min [facility] Body height 2023-03-14 14:32:00 162.6 cm [facility] Body weight 2023-03-14 14:32:00 142.486 kg [facility] BMI 2023-03-14 14:32:00 53.92 kg/m2 [facility] Body mass index (BMI) [Percentile] Per age and sex 2023-03-14 14:32:00 99.49 % [facility] Systolic blood pressure 2023-02-14 16:11:00 111 mm[Hg] [facility] Diastolic blood pressure 2023-02-14 16:11:00 85 mm[Hg] [facility] Heart rate 2023-02-14 16:11:00 62 /min [facility] Body temperature 2023-02-14 16:11:00 36.33 Jyothi [facility] Respiratory rate 2023-02-14 16:11:00 20 /min [facility] Body height 2023-02-14 16:11:00 162.6 cm [facility] Body weight 2023-02-14 16:11:00 141.522 kg [facility] BMI 2023-02-14 16:11:00 53.55 kg/m2 [facility] Body mass index (BMI) [Percentile] Per age and sex 2023-02-14 16:11:00 99.49 % [facility] Systolic blood pressure 2023-01-31 03:36:41 120 mm[Hg] [facility] Diastolic blood pressure 2023-01-31 03:36:41 74 mm[Hg] [facility] Heart rate 2023-01-31 03:36:41 70 /min [facility] Respiratory rate 2023-01-31 03:36:41 13 /min [facility] Oxygen saturation in Arterial blood by Pulse oximetry 2023-01-31 03:36:41 99 /min [facility] Body temperature 2023-01-31 03:15:00 36.72 Jyothi [facility] Body height 2023-01-31 03:15:00 162.6 cm [facility] Body weight 2023-01-31 03:15:00 143.79 kg [facility] BMI 2023-01-31 03:15:00 54.41 kg/m2 [facility] Body mass index (BMI) [Percentile] Per age and sex 2023-01-31 03:15:00 99.52 % [facility] Systolic blood pressure 2023-01-15 18:09:00 103 mm[Hg] [facility] Diastolic blood pressure 2023-01-15 18:09:00 41 mm[Hg] [facility] Heart rate 2023-01-15 18:09:00 67 /min [facility] Body temperature 2023-01-15 18:09:00 36.28 Jyothi [facility] Respiratory rate 2023-01-15 18:09:00 17 /min [facility] Body height 2023-01-15 18:09:00 162.6 cm [facility] Body weight 2023-01-15 18:09:00 143.972 kg [facility] BMI 2023-01-15 18:09:00 54.48 kg/m2 [facility] Body mass index (BMI) [Percentile] Per age and sex 2023-01-15 18:09:00 99.52 % [facility] Systolic blood pressure 2019-12-17 16:50:00 116 mm[Hg] [facility] Diastolic blood pressure 2019-12-17 16:50:00 80 mm[Hg] [facility] Heart rate 2019-12-17 16:50:00 80 /min [facility] Body temperature 2019-12-17 16:50:00 37.72 Jyothi [facility] Respiratory rate 2019-12-17 16:50:00 16 /min [facility] Body height 2019-12-17 16:50:00 160 cm [facility] Body weight 2019-12-17 16:50:00 102.059 kg [facility] BMI 2019-12-17 16:50:00 39.86 kg/m2 [facility] Oxygen saturation in Arterial blood by Pulse oximetry 2019-12-17 16:50:00 94 /min [facility] BP Systolic 2022-01-23 11:51:00 117 mm[Hg] [...] Date / Time Performed Performing Clinician Source CBC WITH DIFF 2024-05-18 15:41:00 Vikas Roberts [facility] GLYCOSYLATED HEMOGLOBIN (A1C) 2024-05-18 15:41:00 Vikas Roberts [facility] RUBELLA SCREEN IGG 2024-05-18 15:41:00 Kristin Roberts [facility] VZV ANTIBODY SCREEN 2024-05-18 15:41:00 Rolando Roberts [facility] HEPATITIS B SURFACE ANTIGEN 2024-05-18 15:41:00 Vikas Roberts [facility] HCV ANTIBODY 2024-05-18 15:41:00 Vikas Roberts [facility] HB ABO GROUPING 2024-05-18 15:41:00 Vikas Roberts [facility] URINE CULTURE 2024-05-18 15:41:00 Vikas Roberts [facility] GC & CHLAMYDIA AMPLIFIED ASSAY 2024-05-18 15:41:00 Vikas Roberts [facility] HIV 1/2 AG-AB WITH REFLEX 2024-05-18 15:41:00 Vikas Roberts [facility] SYPHILIS IGG/IGM 2024-05-18 15:41:00 Willian Roberts [facility] POCT TEST 2024-05-18 13:55:00 Rolando Roberts [facility] POCT URINALYSIS W/O SPECIFIC GRAVITY 2024-05-18 13:55:00 Vikas Roberts [facility] GARDASIL 9 (HPV 9V) VACCINE 2023-10-08 19:54:27 Vikas Roberts [facility] DME/SUPPLY JUSTIFICATION 2023-09-11 06:01:00 Doc tor Unassigned, Tamaha [facility] CBC WITH DIFF 2023-09-03 10:08:00 Kelsey Clifton [facility] CBC WITH DIFF 2023-09-03 10:08:00 Kelsey Clifton [facility] SECTION 2023-09-02 22:21:00 Debra Moreno [facility] SECTION 2023-09-02 22:21:00 Debra Moreno [facility] PROTEIN CREAT RATIO URINE RANDOM 2023-09-02 02:40:00 Safia Llanes [facility] PROTEIN CREAT RATIO URINE RANDOM 2023-09-02 02:40:00 Safia Llanes [facility] CENTRAL NEURAXIAL BLOCK 2023-09-01 20:08:00 Syeda Bender [facility] LACTATE DEHYDROGENASE 2023-09-01 16:53:00 Milana Llanes ea [facility] CBC WITH DIFF 2023-09-01 16:53:00 [facility] LACTATE DEHYDROGENASE 2023-09-01 16:53:00 Milana Llanes ea [facility] CBC WITH DIFF 2023-09-01 16:53:00 Safia Llanes [facility] SGOT (ASPARTATE AMINO TRANSFER) 2023-09-01 15:06:00 Safia Llanes [facility] CREATININE 2023-09-01 15:06:00 Mario Alberto [facility] ALANINE AMINO TRANSFERASE(SGPT 2023-09-01 15:06:00 Mario Alberto [facility] URIC ACID 2023-09-01 [facility] ANTIGEN 2023-09-01 15:06:00 Cesar William [facility] HB ABO GROUPING 2023-09-01 15:06:00 Cesar William [facility] RHO (D) IMMUNE GLOBULIN 2023-09-01 15:06:00 Izabel Clifton [facility] SYPHILIS IGG/IGM 2023-09-01 15:06:00 Cesar William [facility] SGOT (ASPARTATE AMINO TRANSFER) 2023-09-01 15:06:00 Mario Alberto [facility] CREATININE 2023-09-01 15:06:00 Mario Alberto [facility] ALANINE AMINO TRANSFERASE(SGPT 2023-09-01 15:06:00 Mario Alberto [facility] URIC ACID 2023-09-01 15:06:00 Mario Alberto [facility] HEPATITIS B SURFACE ANTIGEN 2023-09-01 15:06:00 Cesar William [facility] HB ABO GROUPING 2023-09-01 15:06:00 Cesar William [facility] RHO (D) IMMUNE GLOBULIN 2023-09-01 15:06:00 Izabel Clifton [facility] SYPHILIS IGG/IGM 2023-09-01 15:06:00 Cesar William [facility] NON-STRESS TEST 2023-08-29 21:16:29 Andrzej Roberts [facility] POCT URINALYSIS 2023-08-29 20:35:00 Kateryna Hamilton [facility] SECOND AND THIRD TRIMESTER ULTRASOUND 2023-08-29 20:20:00 Kateryna Hamilton [facility] SECOND AND THIRD TRIMESTER ULTRASOUND 2023-08-22 22:03:00 Kateryna Hamilton [facility] NON-STRESS TEST 2023-08-22 21:01:52 Krishna Hamilton [facility] POCT URINALYSIS 2023-08-22 20:31:00 Kateryna Hamilton [facility] NON-STRESS TEST 2023-08-20 01:20:59 Krishna Hamilton [facility] POCT URINALYSIS 2023-08-19 21:04:00 Kateryna Hamilton [facility] SECOND AND THIRD TRIMESTER ULTRASOUND 2023-08-15 21:41:00 Kateryna Hamilton [facility] NON-STRESS TEST 2023-08-14 20:48:32 Krishna Hamilton [facility] POCT URINALYSIS 2023-08-14 20:42:00 Kateryna Hamilton [facility] NON-STRESS TEST 2023-08-12 21:04:52 Krishna Hamilton [facility] POCT URINALYSIS 2023-08-12 20:10:00 Kateryna Hamilton [facility] NON-STRESS TEST 2023-08-08 22:11:19 Krishna Hamilton [facility] SECOND AND THIRD TRIMESTER ULTRASOUND 2023-08-08 19:55:00 Kateryna Hamilton [facility] POCT URINALYSIS 2023-08-08 19:49:00 Kateryna Hamilton [facility] NON-STRESS TEST 2023-08-06 20:03:47 Andrzej Roberts [facility] POCT URINALYSIS 2023-08-06 18:47:00 Kateryna Hamilton [facility] NON-STRESS TEST 2023-08-01 20:58:32 Andrzej Roberts [facility] POCT URINALYSIS 2023-08-01 19:56:00 Kateryna Hamilton [facility] SECOND AND THIRD TRIMESTER ULTRASOUND 2023-08-01 19:49:00 Kateryna Hamilton [facility] NON-STRESS TEST 2023-07-30 22:17:39 Andrzej Roberts [facility] POCT URINALYSIS 2023-07-30 21:46:00 Kateryna Hamilton [facility] POCT URINALYSIS 2023-07-30 21:18:00 Kateryna Hamilton [facility] SECOND AND THIRD TRIMESTER ULTRASOUND 2023-07-23 20:43:00 Kateryna Hamilton [facility] HIV 1/2 AG-AB WITH REFLEX 2023-07-15 21:44:00 Kateryna Hamilton [facility] SYPHILIS IGG/IGM 2023-07-15 21:44:00 Kateryna Hamilton [facility] POCT URINALYSIS 2023-07-15 21:16:00 Kateryna Hamilton [facility] POCT URINALYSIS 2023-07-02 21:21:00 Kateryna Hamilton [facility] TDAP VACCINE, >11 YRS, IM 2023-06-19 17:50:31 Kateryna Hamilton [facility] POCT URINALYSIS 2023-06-19 17:23:00 Kateryna Hamilton [facility] POCT URINALYSIS 2023-05-29 15:12:00 Kateryna Hamilton [facility] POCT URINALYSIS 2023-05-01 15:25:00 Kateryna Hamilton [facility] SECOND AND THIRD TRIMESTER ULTRASOUND 2023-04-22 14:25:00 Kateryna Hamilton [facility] POCT URINALYSIS 2023-03-14 14:34:00 Kateryna Hamilton [facility] POCT URINALYSIS 2023-02-14 16:12:00 Kateryna Hamilton [facility] URINALYSIS 2023-01-31 03:57:00 Clinton Bishop [facility] POCT TEST 2023-01-15 16:41:00 Prema Hamilton [facility] POCT URINALYSIS W/O SPECIFIC GRAVITY 2023-01-15 16:41:00 Kateryna Hamilton [facility] NOTICE OF PRIVACY PRACTICES 2023-01-15 16:26:00 Doctor Unassigned, Tamaha [facility] Plan of Care Planned Activity Planned Date Details Comments Source Goal Plan of Care Note [code = 31126-9] Goal Plan of Care Note [code = 46474-3] Goal Plan of Care Note [code = 56401-3] Goal Plan of Care Note [code = 48823-9] Goal Plan of Care Note [code = 68552-1] Goal Plan of Care Note [code = 88780-9] Goal Plan of Care Note [code = 80969-9] Goal Plan of Care Note [code = 04988-5] Goal Plan of Care Note [code = 04982-4] Goal Plan of Care Note [code = 97417-5] Goal Plan of Care Note [code = 15048-8] Goal Plan of Care Note [code = 17132-5] Goal Plan of Care Note [code = 91256-1] Goal Plan of Care Note [code = 66270-4] Goal Plan of Care Note [code = 59338-6] Goal Plan of Care Note [code = 06375-9] Goal Plan of Care Note [code = 02315-0] Goal Plan of Care Note [code = 75317-0] Goal Plan of Care Note [code = 48979-9] Goal Plan of Care Note [code = 57598-8] Goal Plan of Care Note [code = 11381-0] Goal Plan of Care Note [code = 84754-3] Goal Plan of Care Note [code = 02642-5] Goal Plan of Care Note [code = 19330-3] Goal Plan of Care Note [code = 83945-2] Goal Plan of Care Note [code = 13220-5] Goal Plan of Care Note [code = 73349-3] Goal Plan of Care Note [code = 44116-3] Goal Plan of Care Note [code = 31617-9] Goal Plan of Care Note [code = 55727-3] Goal Plan of Care Note [code = 37376-0] Goal Plan of Care Note [code = 36300-6] Goal Plan of Care Note [code = 37937-9] Goal Plan of Care Note [code = 48713-7] Encounters Start Date/Time End Date/Time Encounter Type Admission Type Attending Clinicians Care Facility Care Department Encounter ID Source 2023-07-14 19:37:23 Outpatient NATE GUTIERREZ NANCY NATE [facility] PRANAV [id number] [facility] 2024-06-17 15:00:00 2024-06-17 15:00:00 Outpatient R [facility] [id number] [facility] 2024-05-19 00:00:00 2024-05-19 15:32:01 Telephone Vikas Roberts [facility] 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 [facility] .2.840.114 350.1.13.10 4.2.7.2.686 [id number] [facility] 2024-05-19 13:00:00 2024-05-19 13:00:00 Outpatient VIKAS LEON [facility] [id number] [facility] 2024-05-18 09:00:00 2024-05-18 10:40:22 Outpatient VIKAS LEON [facility] [id number] [facility] 2024-05-18 09:00:00 2024-05-18 10:40:22 Initial Visit Vikas Roberts [facility] 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 [facility] CHILD [facility] .2.840.114 350.1.13.10 4.2.7.2.686 [id number] [facility] 2024-05-04 12:45:00 2024-05-04 12:45:00 Outpatient KATERYNA QUIÑONES [facility] [id number] [facility] 2024-04-26 08:00:00 2024-04-26 08:00:00 Outpatient VIKAS LEON [facility] [id number] [facility] 2023-11-25 13:30:00 2023-11-25 15:13:58 Outpatient PAT QUIÑONESA [facility] [id number] [facility] 2023-11-25 13:30:00 2023-11-25 15:13:58 Office Visit Kateryna Hamilton [facility] 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 [facility] 1.2.840.114 350.1.13.10 4.2.7.2.686 [id number] [facility] 2023-11-25 14:45:00 2023-11-25 14:45:00 Outpatient R KATERYNA HAMILTON [facility] [id number] [facility] 2023-10-27 14:00:00 2023-10-27 14:00:00 Outpatient R OBI-VALERIE JAYANT OBI-VALERIE JAYANT [facility] [id number] [facility] 2023-10-21 13:30:00 2023-10-21 13:30:00 Outpatient R VIKAS ROBERTS [facility] [id number] [facility] 2023-10-08 14:00:00 2023-10-08 14:15:00 Nurse Visit Nurse, Willy Rmchp Exp Cprit Obgyn Unknown, Attending Kateryna Hamilton [facility] 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 [facility] 1.2.840.114 350.1.13.10 4.2.7.2.686 [id number] [facility] 2023-10-08 14:00:00 2023-10-08 14:00:00 Outpatient R KATERYNA HAMILTON [facility] [id number] [facility] 2023-09-23 09:00:00 2023-09-23 10:18:02 Outpatient R VIKAS ROBERTS [facility] [id number] [facility] 2023-09-23 09:00:00 2023-09-23 10:18:02 Routine Visit Vikas Roberts [facility] 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 [facility] 1.840.114 350.1.13.10 4.2.7.2.686 [id number] [facility] 2023-09-11 10:30:00 2023-09-11 11:00:03 Outpatient R KATERYNA HAMILTON [facility] [id number] [facility] 2023-09-11 10:30:00 2023-09-11 11:00:03 Nurse Visit Visit, Ang-Rmchp Nurse Kateryna Hamilton [facility] 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 [facility] 1.0.114 350.1.13.10 4.2.7.2.686 [id number] [facility] 2023-09-11 00:00:00 2023-09-11 00:00:00 Orders Only Doctor Unassigned, Tamaha [facility] 1.840.114 350.1.13.10 4.2.7.2.686 [id number] [facility] 2023-09-11 00:00:00 2023-09-11 00:00:00 Telephone Vikas Roberts [facility] 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 [facility] 1.840.114 350.1.13.10 4.2.7.2.686 [id number] [facility] 2023-09-01 08:14:00 2023-09-04 15:28:00 Inpatient P [facility] [id number] [facility] 2023-09-01 08:14:00 2023-09-04 15:28:00 Hospital Encounter Nate Chinchilla [facility] 1..114 350.1.13.10 4.2.7.2.686 [id number] [facility] 2023-09-02 10:51:00 2023-09-02 12:37:00 Surgery Yaklic, Debra Erica [facility] 1.2840.114 350.1.13.10 4.2.7.2.686 [id number] [facility] 2023-09-01 14:00:00 2023-09-01 14:00:00 Outpatient NATE GUERRERO SANGEETA [facility] [id number] [facility] 2023-09-01 13:27:00 2023-09-01 13:27:00 Anesthesia Event Randall Lee, Syeda Vaughn, [facility] 1.2840.114 350.1.13.10 4.2.7.2.686 [id number] [facility] 2023-09-01 00:00:00 2023-09-01 00:00:00 Case Management Kateryna Hamilton [facility] 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 [facility] 1.2.840.114 350.1.13.10 4.2.7.2.686 [id number] [facility] 2023-08-29 15:15:00 2023-08-29 15:18:25 Routine Visit Vikas Roberts [facility] 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 [facility] 1.2.840.114 350.1.13.10 4.2.7.2.686 [id number] [facility] 2023-08-29 14:00:00 2023-08-29 14:19:15 Public Health Analyst Visit Ultrasound, Aaron Alleneeta 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 1.2.840.114 350.1.13.10 4.2.7.2.686 [id number] [facility] 2023-08-29 14:00:00 2023-08-29 14:19:15 Outpatient NATE GUERRERO SANGEETA [facility] [id number] [facility] 2023-08-26 12:45:00 2023-08-26 12:45:00 Outpatient R KATERYNA HAMILTON [facility] [id number] [facility] 2023-08-23 00:00:00 2023-08-23 00:00:00 Case Management Kateryna Hamilton [facility] 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 [facility] 1.840.114 350.1.13.10 4.2.7.2.686 [id number] [facility] 2023-08-22 15:30:00 2023-08-22 16:16:43 Outpatient MUSA AZEVEDO [facility] [id number] [facility] 2023-08-22 15:30:00 2023-08-22 16:16:43 Public Health Analyst Visit Ultrasound, Nate Allen Chasey Ikuvbogie [facility] 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 [facility] 1.840.114 350.1.13.10 4.2.7.2.686 [id number] [facility] 2023-08-22 14:30:00 2023-08-22 14:57:14 Routine Visit Kateryna Hamilton [facility] 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 [facility] 1.840.114 350.1.13.10 4.2.7.2.686 [id number] [facility] 2023-08-19 15:00:00 2023-08-19 15:35:50 Outpatient R KATERYNA HAMILTON [facility] [id number] [facility] 2023-08-19 15:00:00 2023-08-19 15:35:50 Routine Visit Kateryna Hamilton [facility] 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 [facility] 1.840.114 350.1.13.10 4.2.7.2.686 [id number] [facility] 2023-08-18 00:00:00 2023-08-18 00:00:00 Case Management Kateryna Hamilton [facility] 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 [facility] 1..114 350.1.13.10 4.2.7.2.686 [id number] [facility] 2023-08-15 15:30:00 2023-08-15 15:52:32 Outpatient P WILLIAM MARES [facility] [id number] [facility] 2023-08-15 15:30:00 2023-08-15 15:52:32 Public Health Analyst Visit Ultrasound, Nate Allen Luis Diego [facility] 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 [facility] 1..114 350.1.13.10 4.2.7.2.686 [id number] [facility] 2023-08-14 14:30:00 2023-08-14 14:45:48 [facility] [id number] [facility] 2023-08-14 14:30:00 2023-08-14 14:45:48 Routine Visit Kateryna Hamilton [facility] 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 [facility] 1.84.114 350.1.13.10 4.2.7.2.686 [id number] [facility] 2023-08-12 14:00:00 2023-08-12 15:16:34 Outpatient R KATERYNA HAMILTON [facility] [id number] [facility] 2023-08-12 14:00:00 2023-08-12 15:16:34 Routine Visit Kateryna Hamilton [facility] 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 [facility] 1..114 350.1.13.10 4.2.7.2.686 [id number] [facility] 2023-08-08 14:45:00 2023-08-08 14:45:00 Routine Visit Kateryna Hamilton [facility] 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 [facility] 1.84.114 350.1.13.10 4.2.7.2.686 [id number] [facility] 2023-08-08 14:00:00 2023-08-08 14:29:04 Outpatient NATE GUERRERO SANGEETA [facility] [id number] [facility] 2023-08-08 14:00:00 2023-08-08 14:29:04 Public Health Analyst Visit Ultrasound, Aaron Alleneeta [facility] 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 [facility] 1.840.114 350.1.13.10 4.2.7.2.686 [id number] [facility] 2023-08-06 12:45:00 2023-08-06 13:58:36 Outpatient R VIKAS ROBERTS [facility] [id number] [facility] 2023-08-06 12:45:00 2023-08-06 13:58:36 Routine Visit Vikas Roberts [facility] 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 [facility] 1.840.114 350.1.13.10 4.2.7.2.686 [id number] [facility] 2023-08-01 14:30:00 2023-08-01 14:57:38 Routine Visit Vikas Roberts [facility] 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 [facility] [facility] 1..114 350.1.13.10 4.2.7.2.686 [id number] [facility] 2023-08-01 13:45:00 2023-08-01 13:47:05 Outpatient KAREN CRAIG SHANNON [facility] [id number] [facility] 2023-08-01 13:45:00 2023-08-01 13:47:05 Public Health Analyst Visit Ultrasound, Karen Torres [facility] 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 [facility] 1..114 350.1.13.10 4.2.7.2.686 [id number] [facility] 2023-07-30 15:15:00 2023-07-30 16:15:13 Outpatient R VIKAS ROBERTS [facility] [id number] [facility] 2023-07-30 15:15:00 2023-07-30 16:15:13 Routine Visit Vikas Roberts [facility] 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 [facility] 1..114 350.1.13.10 4.2.7.2.686 [id number] [facility] 2023-07-24 00:00:00 2023-07-24 00:00:00 Case Management Kateryna Hamilton [facility] 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 [facility] 1..114 350.1.13.10 4.2.7.2.686 [id number] [facility] 2023-07-23 14:30:00 2023-07-23 14:45:25 Outpatient P MUSA LOZANO [facility] [id number] [facility] 2023-07-23 14:30:00 2023-07-23 14:45:25 Public Health Analyst Visit 1, Saeid Room Mario Alberto Lozanofunmilayo Peralta [facility] 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 [facility] 1..114 350.1.13.10 4.2.7.2.686 [id number] [facility] 2023-07-18 13:45:00 2023-07-18 13:45:00 Outpatient P [facility] [id number] [facility] 2023-07-15 15:00:00 2023-07-15 15:44:02 Outpatient R KATERYNA HAMILTON [facility] [id number] [facility] 2023-07-15 15:00:00 2023-07-15 15:44:02 Routine Visit Pat Hamiltona Sunday [facility] 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 [facility] 1.2.840.114 350.1.13.10 4.2.7.2.686 [id number] [facility] 2023-07-14 16:20:00 2023-07-14 19:29:00 Outpatient X PETE-JOSE S, MIRIAM PETE-JOSE S, MIRIAM [facility] [id number] [facility] 2023-07-14 16:20:00 2023-07-14 19:29:00 Emergency Derek Thornton Pete-Jose s, Miriam [facility] 1.2840.114 350.1.13.10 4.2.7.2.686 [id number] [facility] 2023-07-14 00:00:00 2023-07-14 00:00:00 [facility] 1.2840.114 350.1.13.10 4.2.7.2.686 [id number] [facility] 2023-07-02 15:15:00 2023-07-02 15:50:56 Outpatient R WILBERT KATERYNA [facility] [id number] [facility] 2023-07-02 15:15:00 2023-07-02 15:50:56 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 1.2.840.114 350.1.13.10 4.2.7.2.686 [id number] [facility] 2023-06-28 00:00:00 2023-06-28 00:00:00 Telephone Kateryna Hamilton [facility] 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 [facility] 1..840.114 350.1.13.10 4.2.7.2.686 [id number] [facility] 2023-06-19 11:00:00 2023-06-19 12:03:41 Outpatient R KATERYNA HAMILTON [facility] [id number] [facility] 2023-06-19 11:00:00 2023-06-19 12:03:41 Routine Visit Kateryna Hamilton [facility] 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 [facility] 1..840.114 350.1.13.10 4.2.7.2.686 [id number] [facility] 2023-05-29 10:15:00 2023-05-29 10:52:59 Outpatient R KATERYNA HAMILTON [facility] [id number] [facility] 2023-05-29 10:15:00 2023-05-29 10:52:59 Routine Visit Kateryna Hamilton [facility] 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 [facility] 1..840.114 350.1.13.10 4.2.7.2.686 [id number] [facility] 2023-05-01 10:30:00 2023-05-01 10:57:38 Outpatient R KATERYNA HAMILTON [facility] [id number] [facility] 2023-05-01 10:30:00 2023-05-01 10:57:38 Routine Visit Kateryna Hamilton [facility] 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 [facility] 1..840.114 350.1.13.10 4.2.7.2.686 [id number] [facility] 2023-04-29 13:45:00 2023-04-29 13:45:00 Outpatient R KATERYNA HAMILTON [facility] [id number] [facility] 2023-04-24 13:00:00 2023-04-24 13:00:00 Outpatient R RADIOLOGY [facility] [id number] [facility] 2023-04-24 00:00:00 2023-04-24 00:00:00 Case Management Kateryna Hamilton [facility] 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 [facility] 1..840.114 350.1.13.10 4.2.7.2.686 [id number] [facility] 2023-04-22 09:00:00 2023-04-22 09:51:26 Outpatient P PATI JEAN [facility] [id number] [facility] 2023-04-22 09:00:00 2023-04-22 09:51:26 Public Health Analyst Visit Ultrasound, [facility] Pati Jean [facility] 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 [facility] ..840.114 350.1.13.10 4.2.7.2.686 [id number] [facility] 2023-04-11 10:30:00 2023-04-11 10:30:00 Outpatient R KATERYNA HAMILTON [facility] [id number] [facility] 2023-03-27 17:10:54 2023-03-27 17:10:54 Outpatient YOKASTA TEMPLETON [id number] Waylon Nunez 2023-03-14 09:30:00 2023-03-14 09:45:28 Outpatient R KATERYNA HAMILTON [facility] [id number] [facility] 2023-03-14 09:30:00 2023-03-14 09:45:28 Routine Visit Kateryna Hamilton [facility] 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 [facility] 1..840.114 350.1.13.10 4.2.7.2.686 [id number] [facility] 2023-02-14 11:00:00 2023-02-14 11:29:02 Outpatient R KATERYNA HAMILTON [facility] [id number] [facility] 2023-02-14 11:00:00 2023-02-14 11:29:02 Routine Visit Kateryna Hamilton [facility] 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 [facility] 1.2.840.114 350.1.13.10 4.2.7.2.686 [id number] [facility] 2023-02-14 10:00:00 2023-02-14 10:48:01 Outpatient P JOSÉ MIGUEL LAFLEUR JOSÉ MIGUEL [facility] [id number] [facility] 2023-02-14 10:00:00 2023-02-14 10:48:01 Public Health Analyst Visit Ultrasound, Polochai Lafleur José Miguel [facility] 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 [facility] 1.2.840.114 350.1.13.10 4.2.7.2.686 [id number] [facility] 2023-01-30 22:10:00 2023-01-31 00:22:00 Emergency X Clinton BISHOP [facility] ERT [id number] [facility] 2023-01-30 22:10:00 2023-01-31 00:22:00 Emergency Clinton Bishop [facility] 1.2.840.114 350.1.13.10 4.2.7.2.686 [id number] [facility] 2023-01-31 00:00:00 2023-01-31 00:00:00 Outpatient R RADIOLOGY [facility] [id number] [facility] 2023-01-17 00:00:00 2023-01-17 00:00:00 Patient Secure Msg Doctor Unassigned, Tamaha [facility] 1.84.114 350.1.13.10 4.2.7.2.686 [id number] [facility] 2023-01-15 13:00:00 2023-01-15 14:47:09 Outpatient R KATERYNA HAMILTON [facility] [id number] [facility] 2023-01-15 13:00:00 2023-01-15 14:47:09 Initial Visit Kateryna Hamilton [facility] 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 [facility] 1.840.114 350.1.13.10 4.2.7.2.686 [id number] [facility] 2023-01-15 00:00:00 2023-01-15 00:00:00 Orders Only Doctor Unassigned, Tamaha [facility] 1.840.114 350.1.13.10 4.2.7.2.686 [id number] [facility] 2022-12-24 14:15:37 2022-12-24 14:15:37 Outpatient [facility] [id number] Waylon Nunez 2022-08-07 08:46:16 2022-08-07 08:46:16 Outpatient [facility] [id number] Waylon Nunez 2022-08-06 00:00:00 2022-08-06 00:00:00 Outpatient Visit [id number] 2021-03-01 09:15:00 2021-03-01 09:15:00 Outpatient MITALI PIERCE [facility] [id number] [facility] 2021-02-23 10:00:00 2021-02-23 10:15:00 Office Visit Mtiali Harris [facility] 1.840.114 350.1.13.10 4.2.7.2.686 [id number] 2021-02-23 10:00:00 2021-02-23 10:15:00 Office Visit Mitali Harris [facility] Surgical Specialti miguelina Banks 1.2.840.114 350.1.13.10 4.2.7.2.686 [id number] [facility] 2021-02-23 10:00:00 2021-02-23 10:00:00 Outpatient MITALI PIERCE [facility] [id number] [facility] 2021-02-23 10:00:00 2021-02-23 10:00:00 Outpatient Hannah HARRIS [facility] [id number] [facility] 2020-03-01 00:00:00 2020-03-01 00:00:00 Letter (Out) Pcp, Patient Does Not Have A [facility] [address] 1.284.114 350.1.13.10 4.2.7.2.686 [id number] [facility] 2019-12-18 00:00:00 2019-12-18 00:00:00 Telephone Evelyn Viera [facility] 1.2840.114 350.1.13.10 4.2.7.2.686 [id number] [facility] 2019-12-17 11:39:13 2019-12-17 11:59:13 Urgent Care Pob1, Acute Care Clinic Laisha Medrano [facility] 1.2.840.114 350.1.13.10 4.2.7.2.686 [id number] [facility] 2019-12-17 11:00:00 2019-12-17 11:00:00 Outpatient LAISHA CALIXTO [facility] [id number] [facility] Results Test Description Test Time Test Comments Results Result Co mments Source [facility] [id number] 13:55:00* Test Item Value Reference Range Interpretation Comme nts POCT PREG (test code = 1605) Positive On board controls acceptable with C Line (test code = 3574) Yes POCT PREG LOT # (test code = 3575) POCT PREG TEST DATE ( test code = 3576) [facility] (D) IMMUNE [id number] 17:12:46* Test Item Value Reference Range Interpretation Comme nts RHIG CANDIDATE? (test code = 5188) No- see comment Patient is not a candidate for RhIg- Patient is Rh Negative and baby is Rh Negative.Performed at [facility] Laboratory Services - [facility] Blood [address] [address] Free: [phone] No. [id number] [facility] (D) IMMUNE [id number] 17:12:46* Test Item Value Reference Range Interpretation Comme nts RHIG CANDIDATE? (test code = 5188) No- see comment Patient is not a candidate for RhIg- Patient is Rh Negative and baby is Rh Negative.Performed at [facility] Laboratory Services - [facility] Blood [address] [address] Free: [phone] No. [id number] [facility] ONLY - SYPHILIS [id number] 16:51:36* Test Item Value Reference Range Interpretation Comme [facility] Syphilis IgG/IgM (test code = 64417-6) Non-reactive Non-reactive EITAN (test code = EITAN) Non-reactive - No serologic evidence of T. pallidum infection. Cannot exclude incubating or early syphilis. Submit a second specimen in 2-4 weeks if syphilis is clinically suspected. Equivocal - Further testing to follow. Reactive - Further testing to follow. Lab Interpretation (test code = 97675-2) Normal [facility] ONLY - SYPHILIS [id number] 16:51:36* Test Item Value Reference Range Interpretation Comme [facility] Syphilis IgG/IgM (test code = 36967-3) Non-reactive Non-reactive EITAN (test code = EITAN) Non-reactive - No serologic evidence of T. pallidum infection. Cannot exclude incubating or early syphilis. Submit a second specimen in 2-4 weeks if syphilis is clinically suspected. Equivocal - Further testing to follow. Reactive - Further testing to follow. Lab Interpretation (test code = 00340-2) Normal [facility] [id number] 20:08:00 Syeda Middleton MD ? ? 09/01/2023 ?2:09 PM Central Neuraxial Block Date/Time: 42:08 PM Performed by: Syeda Middleton MDAuthorized by: Jumana Denson MD ?Patient Location: OBReason for Block: OB request, Patient request, Labor analgesia, Surgical anesthesia and Post-op pain managementStaff: ?Anesthesiologist: Jumana Denson MD ?Resident/SHIRT TURNER: Melanie Toth MD ?Performed by: resident/CRNAPreanesthetic Checklist: [...] and BUD saline ?Guidance with: landmark technique}Epidural/Spinal [place] and/or Catheter: ?Epidural/Spinal Kit: LEONELraun ?Needle Type: Tuohy ?Needle Gauge: 17 G [...] Assessment: patient tolerated procedure well with [facility] [id number] 17:38:42* Test Item Value Reference Range Interpretation Comme nts LDH (test code = 7940493097) 244 U/L 120-246 Lab Interpretation (test cod e = 47482-3) Normal [facility] HospitalLACTATE [id number] 17:38:42* Test Item Value Reference Range Interpretation Comme nts LDH (test code = 6341180482) 244 U/L 120-246 Lab Interpretation (test cod e = 79335-8) Normal [facility] HospitalUR[facility] ACID [id number] 17:13:16* Test Item Value Reference Range Interpretation Comme nts URIC ACID (test code = 8663059430) 5.6 mg/dL 2.9-6.0 Lab Interpretation (test cod e = 37031-3) Normal [facility] HospitalCREAT[facility] [id number] 17:13:16* Test Item Value Reference Range Interpretation Comme nts CREATININE (test code = 6463575663) 0.40 mg/dL 0.50-1.04 L eGFR (test code = 07635-3) 147.3 mL/min/1.73m2 CKD-EPI eGFR (2020). Assuming creatinine has been stable day-to-day for at least three months, the eGFR indicates Category G1 (>= 90 mL/min/1.73 m2) Lab Interpretation (test code = 92534-9) Abnormal [facility] HospitalSGOT (ASPARTATE AMINO TRANSFER)2023-09-01 17:13:16* Test Item Value Reference Range Interpretation Comme [facility] AST(SGOT) (test code = 5050106513) 25 U/L 13-40 Lab Interpretation (test cod e = 38679-5) Normal [facility] HospitalALANINE AMINO TRANSFERASE([id number] 17:13:16* Test Item Value Reference Range Interpretation Comme nts ALTv (test code = 1742-6) 14 U/L 5-35 Lab Interpretation (test cod e = 56769-5) Normal [facility] HospitalUR[facility] ACID [id number] 17:13:16* Test Item Value Reference Range Interpretation Comme nts URIC ACID (test code = 5886918459) 5.6 mg/dL 2.9-6.0 Lab Interpretation (test cod e = 93005-1) Normal [facility] HospitalCREATININE [id number] 17:13:16* Test Item Value Reference Range Interpretation Comme nts CREATININE (test code = 2199215949) 0.40 mg/dL 0.50-1.04 L eGFR (test code = 40956-8) 147.3 mL/min/1.73m2 CKD-EPI eGFR (2020). Assuming creatinine has been stable day-to-day for at least three months, the eGFR indicates Category G1 (>= 90 mL/min/1.73 m2) Lab Interpretation (test code = 87091-1) Abnormal [facility] (ASPARTATE AMINO TRANSFER)2023-09-01 17:13:16* Test Item Value Reference Range Interpretation Comme [facility] AST(SGOT) (test code = 0030694537) 25 U/L 13-40 Lab Interpretation (test cod e = 62882-5) Normal [facility] HospitalALANINE AMINO TRANSFERASE([id number] 17:13:16* Test Item Value Reference Range Interpretation Comme nts ALTv (test code = 1742-6) 14 U/L 5-35 Lab Interpretation (test cod e = 42330-6) Normal [facility] HospitalCB WITH [id number] 17:11:40* Test Item Value Reference Range Interpretation [...] 33.8 g/dL 32.0-36.0 RDW-SD (test code = 87106-7) 47.8 fL 38.5-49.0 RDW-CV (test code = 788-0) 15.0 % 11.5-14.0 H PLT (test code = 777-3) 341 See_Comment [Automated Etogasa ge] The system which generated this result transmitted reference range: 135 - 361 10*3/?L. The reference range was not used to interpret this result as normal/abnormal. MPV (test code = 71209-5) 9.2 fL 9.4-13.3 L NRBC/100 WBC (test code = 9907688650) 0.0 See_Comment [Automated Really Simple ssage] The system which generated this result transmitted reference range: 0.0 - 10.0 /100 WBCs. The reference range was not used to interpret this result as normal/abnormal. NRBC x10^3 (test code = 0242627599) See_Comment [Automated Etogasa ge] The system which generated this result transmitted reference range: 10*3/?L. The reference range was not used to interpret this result as normal/abnormal. GRAN MAT (NEUT) % (test code = 770-8) 66.6 % IMM GRAN % (test code = 0484361105) 0.60 % LYMPH % (test code = 736-9) 24.8 % MONO % (test code = 5905-5) 7.1 % EOS % (test code = 713-8) 0.7 % BASO % (test code = 706-2) 0.2 % GRAN MAT x10^3(ANC) (test code = 1604060064) 5.82 10*3/uL 1.50-10.30 IMM GRAN x10^3 (test code = 8454372836) 0.05 10*3/uL 0.00-0.06 LYMPH x10^3 (test code = 731-0) 2.17 10*3/uL 0.70-7.40 MONO x10^3 (test code = 742-7) 0.62 10*3/uL 0.00-0.50 H EOS x10^3 (test code = 711-2) 0.06 10*3/uL 0.00-0.40 BASO x10^3 (test code = 704-7) 0.00-0.10 Lab Interpretation (test code = 63942-2) Abnormal [facility] WITH [id number] 17:11:40* Test Item Value Reference Range Interpretation [...] 33.8 g/dL 32.0-36.0 RDW-SD (test code = 00317-4) 47.8 fL 38.5-49.0 RDW-CV (test code = 788-0) 15.0 % 11.5-14.0 H PLT (test code = 777-3) 341 See_Comment [Automated messa ge] The system which generated this result transmitted reference range: 135 - 361 10*3/?L. The reference range was not used to interpret this result as normal/abnormal. MPV (test code = 54877-6) 9.2 fL 9.4-13.3 L NRBC/100 WBC (test code = 6058881725) 0.0 See_Comment [Automated me ssage] The system which generated this result transmitted reference range: 0.0 - 10.0 /100 WBCs. The reference range was not used to interpret this result as normal/abnormal. NRBC x10^3 (test code = 2031240279) See_Comment [Automated messa ge] The system which generated this result transmitted reference range: 10*3/?L. The reference range was not used to interpret this result as normal/abnormal. GRAN MAT (NEUT) % (test code = 770-8) 66.6 % IMM GRAN % (test code = 2972150309) 0.60 % LYMPH % (test code = 736-9) 24.8 % MONO % (test code = 5905-5) 7.1 % EOS % (test code = 713-8) 0.7 % BASO % (test code = 706-2) 0.2 % GRAN MAT x10^3(ANC) (test code = 6123853128) 5.82 10*3/uL 1.50-10.30 IMM GRAN x10^3 (test code = 9697343144) 0.05 10*3/uL 0.00-0.06 LYMPH x10^3 (test code = 731-0) 2.17 10*3/uL 0.70-7.40 MONO x10^3 (test code = 742-7) 0.62 10*3/uL 0.00-0.50 H EOS x10^3 (test code = 711-2) 0.06 10*3/uL 0.00-0.40 BASO x10^3 (test code = 704-7) 0.00-0.10 Lab Interpretation (test code = 98955-3) Abnormal [facility] B Surface [id number] 16:25:15 * Test Item Value Reference Range Interpretation Comme nts HBsAg Semi-Quantitative (arthur t code = 5195-3) 0.08 Negative [facility] [id number] 16:25:15 * Test Item Value Reference Range Interpretation Comme nts HBsAg Semi-Quantitative (arthur t code = 5195-3) 0.08 Negative [facility] and Screen - ONCE [id number] 15:15:00 * Test Item Value Reference Range Interpretation Comme nts ABO & RH (test code = 20) A NEGATIVE IAT (test code = 1185) Negative [facility] and Screen - ONCE [id number] 15:15:00 * Test Item Value Reference Range Interpretation Comme nts ABO & RH (test code = 20) A NEGATIVE IAT (test code = 1185) Negative [facility] W SPECIFIC [id number] 20:36:00* Test Item Value Reference Range Interpretation [...] U APPEAR (test code = 3267) . [facility] URINALYSIS W SPECIFIC [id number] 20:31:00* Test Item Value Reference Range Interpretation [...] U APPEAR (test code = 3267) * [facility] URINALYSIS W SPECIFIC [id number] 21:05:00* Test Item Value Reference Range Interpretation [...] U APPEAR (test code = 3267) . [facility] URINALYSIS W SPECIFIC [id number] 20:43:00* Test Item Value Reference Range Interpretation [...] POCT U APPEAR (test code = 3267) [facility] URINALYSIS W SPECIFIC [id number] 20:10:00* Test Item Value Reference Range Interpretation [...] U APPEAR (test code = 3267) . [facility] URINALYSIS W SPECIFIC [id number] 19:49:00* Test Item Value Reference Range Interpretation [...] U APPEAR (test code = 3267) .. [facility] URINALYSIS W SPECIFIC [id number] 19:49:00* Test Item Value Reference Range Interpretation [...] U APPEAR (test code = 3267) .. [facility] URINALYSIS W SPECIFIC [id number] 18:47:00* Test Item Value Reference Range Interpretation [...] U APPEAR (test code = 3267) . [facility] URINALYSIS W SPECIFIC [id number] 19:57:00* Test Item Value Reference Range Interpretation [...] U APPEAR (test code = 3267) . [facility] URINALYSIS W SPECIFIC [id number] 21:46:00* Test Item Value Reference Range Interpretation [...] POCT U APPEAR (test code = 3267) [facility] URINALYSIS W SPECIFIC [id number] 21:46:00* Test Item Value Reference Range Interpretation [...] POCT U APPEAR (test code = 3267) [facility] URINALYSIS W SPECIFIC [id number] 21:18:00* Test Item Value Reference Range Interpretation [...] POCT U APPEAR (test code = 3267) [facility] URINALYSIS W SPECIFIC [id number] 21:18:00* Test Item Value Reference Range Interpretation [...] POCT U APPEAR (test code = 3267) [id number] 17:05:09* Test Item Value Reference Range Interpretation Comme nts Syphilis IgG/IgM (test code = 81338-1) Non-reactive Non-reactive EITAN (test code = EITAN) Non-reactive - No serologic evidence of T. pallidum infection. Cannot exclude incubating or early syphilis. Submit a second specimen in 2-4 weeks if syphilis is clinically suspected. Equivocal - Further testing to follow. Reactive - Further testing to follow. Lab Interpretation (test code = 53913-2) Normal [facility] WITH [id number] 06:32:31* Test Item Value Reference Range Interpretation Comme nts HIV Semi-quantitative (test code = 31279-7) 0.16 Negative EITAN (test code = EITAN) Non-reactive for HIV-1 antigen and HIV-1/HIV-2 antibodies. ?No laboratory evidence of HIV infection. ?Repeat in 2-4 weeks if acute HIV infection is suspected. [facility] [id number] 21:16:00* Test Item Value Reference Range Interpretation [...] POCT U APPEAR (test code = 3267) [facility] URINALYSIS W SPECIFIC [id number] 21:22:00* Test Item Value Reference Range Interpretation [...] U APPEAR (test code = 3267) . [facility] URINALYSIS W SPECIFIC [id number] 21:22:00* Test Item Value Reference Range Interpretation [...] U APPEAR (test code = 3267) . [facility] URINALYSIS W SPECIFIC [id number] 17:23:00* Test Item Value Reference Range Interpretation [...] POCT U APPEAR (test code = 3267) [facility] URINALYSIS W SPECIFIC [id number] 15:12:00* Test Item Value Reference Range Interpretation [...] U APPEAR (test code = 3267) . [facility] URINALYSIS W SPECIFIC [id number] 15:25:00* Test Item Value Reference Range Interpretation [...] POCT U APPEAR (test code = 3267) [facility] URINALYSIS W SPECIFIC [id number] 14:34:00* Test Item Value Reference Range Interpretation [...] POCT U APPEAR (test code = 3267) [facility] URINALYSIS W SPECIFIC [id number] 16:12:00* Test Item Value Reference Range Interpretation [...] POCT U APPEAR (test code = 3267) [facility] URINALYSIS W/O SPECIFIC [id number] 16:42:00* Test Item Value Reference Range Interpretation [...] = 3257) Trace Negative - Negati ve [facility] [id number] 16:41:00* Test Item Value Reference Range Interpretation Comme nts POCT PREG (test code = 1605) Positive On board controls acceptable with C Line (test code = 4472) Yes POCT PREG LOT # (test code = 2877) POCT PREG TEST DATE ( test code = 357) [facility] ([facility] RT-PCR/[id number] 09:36:57* Test Item Value Reference Range Interpretation Comments SARS-CoV-2 INTERPRETATION (test code = 55738) POSITIVE SEE NOTE A SARS-CoV-2 RNA DETECTEDPositive results are indicative of the presence of SARS-CoV-2 RNA;clinical correlation with patient history and other diagnosticinformation is necessary to determine patient infection status.Positive results do not rule out bacterial infection or co-infectionwith other viruses. Positive and negative predictive values oftesting are highly dependent on prevalence. SOURCE (test code = 66688) NASOPHARYNGEAL Note: Methodolog y is Lauren Micah Real-Time RT-PCR. The expected result or reference range is NEGATIVE (Not Detected). For more information regarding COVID-19 testing to include clinicalinformation, methodology detail, intended use, FDA authorization andrecommended fact sheets for patients or healthcare providers, see NewSCREEMO Announcement: SARS-CoV-2 (COVID-19) by NAAT at URL below (note,fact sheets are provided by method given in report:[email or web address].GoMore/clinicians/client -communications/ Alternatively, see downloadable PDF fact sheet at:https://www.iHELP World om/DYSMH-52-MS-PCR UNLESS OTHERWISE INDICATED, ALL TESTING PERFORMED [facility] [address] [place] [address] PIPELINE SYSTEMS OPERATOR: YUNG AKINS M.D. CLIA NUMBER [id number] [facility] [place]. [id number] SARS-CoV-2 (COVID-19) by RT-PCR (HIGH RISK)2021-08-21 00:00:00* Test Item Value Reference Range Interpretation Comme nts SARS-CoV-2 INTERPRETATION (test code = 38586) POSITIVE SOURCE (test code = 48819) NASOPHARYNGEAL TESTOSTERONE [ADDED]2020-02-26 00:00:00* Test Item Value [...] (test co de = 2823) 0.93 NG/DL [id number] 00:00:00* Test Item Value Reference Range Interpretation Comme nts 17-HYDROXYPROGESTERONE (test code = 4304) 18 ng/dL HEMOGLOBIN [id number] 00:00:00* Test Item Value Reference Range Interpretation Comme nts HEMOGLOBIN A1c (test code = 29903) 5.2 % LIPID [id number] 00:00:00* Test Item Value Reference Range Interpretation Comme nts CHOLESTEROL (test code = 2210) 151 MG/DL TRIGLYCERIDES (test code = 2232) 73 MG/DL HDL CHOLESTEROL (test code = 2220) 39 MG/DL CALC LDL CHOL (test code = 2237) 96 MG/DL RISK RATIO LDL/HDL (test cod e = 2238) 2.46 RATIO COMPREHENSIVE METABOLIC [id number] 00:00:00* Test Item Value Reference Range Interpretation Comme nts GLUCOSE (test code = 2217) 87 MG/DL BUN (test code = 2208) 9 MG/DL CREATININE (test code = 2214) 0.72 MG/DL eGFR AMER. (test code = 60242) (NOTE) ML/MIN/1.73 eGFR NON- AMER. (test code = 27945) NO CALC ML/MIN/1.73 CALC BUN/CREAT (test code [...] ALT (test code = 2219) 13 U/L [id number] 00:00:00* Test Item Value Reference Range Interpretation Comme nts TSH, THIRD GENERATION (test code = 2821) 1.460 UIU/ML FSH + LH [id number] 00:00:00* Test Item Value Reference Range Interpretation Comme nts FOLLICLE STIM HORMONE (test code = 2700) 5.4 IU/L LUTEINIZING HORMONE (test co de = 2776) 9.1 IU/L [id number] 00:00:00* Test Item Value Reference Range Interpretation Comme nts PROLACTIN (test code = 2800) 109.0 NG/ML GC AND CHLAMYDIA, AMPLIFIED, [id number] 00:00:00* Test Item Value Reference Range Interpretation Comme nts GONORRHEA, TMA (test code = 92499) NEGATIVE CHLAMYDIA, TMA (test code = 85556) NEGATIVE HIV AB/AG COMBO RFLX [id number] 00:00:00* Test Item Value Reference Range Interpretation Comme nts HIV 1/2 4TH GEN, RFLX CONF ( test code = 3514) NON-REACTIVE [id number] 00:00:00* Test Item Value Reference Range Interpretation Comme nts RPR RESULT (test code = 3501) NON-REACTIVE RPR TITER (test code = 3500) NOT INDIC. TITER CBC W/AUTO [id number] 00:00:00* Test Item Value Reference Range Interpretation [...] (test code = 1015) 302 K/UL HEMOGLOBIN [id number] 00:00:00* Test Item Value Reference Range Interpretation Comme nts HEMOGLOBIN A1c (test code = 78984) 4.9 % COMPREHENSIVE METABOLIC [id number] 00:00:00* Test Item Value Reference Range Interpretation Comme nts GLUCOSE (test code = 2217) 86 MG/DL BUN (test code = 2208) 9 MG/DL CREATININE (test code = 2214) 0.69 MG/DL eGFR AMER. (test code = 36895) (NOTE) ML/MIN/1.73 eGFR NON- AMER. (test code = 30124) NO CALC ML/MIN/1.73 CALC BUN/CREAT (test code [...] (test code = 2219) 12 U/L LIPID [id number] 00:00:00* Test Item Value Reference Range Interpretation Comme nts CHOLESTEROL (test code = 2210) 145 MG/DL TRIGLYCERIDES (test code = 2232) 77 MG/DL HDL CHOLESTEROL (test code = 2220) 40 MG/DL CALC LDL CHOL (test code = 2237) 90 MG/DL RISK RATIO LDL/HDL (test cod e = 2238) 2.24 RATIO History and Physical Notes Date/Time Note Provider [...] in the evening. 60 tablet 2 vit 69-vmxl-etdnh-dha (SELECT-OB + DHA) 29 mg iron-1 mg [...] PM GTT Lab Results Component Value Date/Time [id number] 78 (L) 05/29/2023 11:40 AM CBC Lab [...] PP control plan: Counseled and declines. - [place] [facility] Fetus - Presentation on admission: cephalic - anterior placenta - EFW: 3423 g, 49%tile - FHT reactive and reassuring - Normal anatomy scan D/w Dr. Mario Alberto William MD ROOM COURIER Associated attestation - Nate Chinchilla MD - 09/01/2023 11:14 AM MAILROOM COURIER I personally examined the patient on 09/01/[address] William's resident note as written. I actively participated in the decision-making process. Please see the resident's note for additional details. [facility] - Health Procedure Notes Date/Time Note Provider Source 2023-09-01 14:08:54 Associated Order(s): Central Neuraxial Block Central Neuraxial Block Date/Time: 09/01/2023 2:08 PM Performed by: Syeda Middleton MD Authorized by: Jumana Denson MD Patient Location: OB Reason for Block: OB request, Patient request, Labor analgesia, Surgical anesthesia and Post-op pain management Staff: Anesthesiologist: Jumana Denson MD Resident/SHIRT TURNER: Melanie Toth MD Performed by: resident/SHIRT TURNER Preanesthetic Checklist: patient identified, IV checked, risks [...] BUD saline Guidance with: landmark technique} Epidural/Spinal [place] and/or Catheter: Epidural/Spinal Kit: BBraun Needle Type: [...] patient tolerated procedure well with no complications ROOM COURIER AN-ANESTHESIOLOGY [facility] Notes Date/Time Note Provider Source 2024-05-19 15:31:43 Pt aware and discussed at new ob. .Altagracia Stockton RN 05/19/24 3:31 PM Altagracia Stockton RN [facility] 2024-05-19 15:02:18 Please inform the patient she is RH neg, she will need rhogam at 28 weeks and prn vaginal bleeding ROEL Dash 05/19/2024 3:02 PM [facility] 2023-09-18 11:39:51 I spoke with this patient about her breast pump last week and she said everything was fixed. This morning I put in her correct information with the breast pump company. No further action is required from our staff. IS Nunez [facility] 2023-09-12 16:18:26 Will forward to Ms. Groves. IS Allen [facility] 2023-09-11 15:12:11 John Wilkes is a 17 year old female Pt is calling to speak with the clinic and check the status of her breast pump forms. ROOM COURIER Jarrell Sousa [facility] 2023-09-03 22:09:25 Problem: Intrapartum process (including labor [...] Absence of infection Outcome: Progressing as expected ROOM COURIER Ingrid Kothari RN [facility] 2023-09-03 16:11:15 Problem: Falls, Risk of Goal: [...] Absence of infection Outcome: Progressing as expected ROOM COURIER Kirstin Reaves RN [facility] 2023-09-03 15:43:01 Images from the original note were not included. This note was copied from a baby's chart. Assessment (most recent) Assessment - 09/03/23 1515 General Information Visit Initial Percent of weight loss- 0 Number of voids last 24 hours- [...] attention immediately;Engorgement signs and treatment Handouts given Tajik Recommended Feeding Plan Recommended feeding plan -- Formula feed as directed by medical staff OTHER $ SERVICES Initial Godwin SALDIVAR, RN, IBCLC ROOM COURIER Godwin Andrade RN [facility] 2023-09-03 11:45:00 This note was copied from a baby's chart. Consult was attempted. Mom was asleep. Will attempt consult at a later time. Godwin SALDIVAR, RN, IBCLC [facility] 2023-09-03 02:34:53 Problem: Falls, Risk of [...] Outcome: Progressing as expected IS Martinez RN [facility] 2023-09-02 13:43:19 Intrapartum Progress Note 09/02/2023 1:43 [...] pitocin was off, patient made change from 6/90/-1. Plan to turn pitocin off and reassess SVE in two hours. Ripening Agent: Oxytocin, Spicer bulb Safia Llanes MD Ob-Disk And Tape Machine Tender PGY3 [facility] 2023-09-02 10:48:35 Intrapartum Progress Note 09/02/2023 10:48 [...] Amniotic fluid color: Mec Thick Cervical Exam % / -1 Assessment/Plan: John Wilkes is [...] Plan: Continue cervical ripening Safia Llanes MD Ob-Disk And Tape Machine Tender PGY3 [facility] 2023-09-02 01:24:00 Intrapartum Progress Note 09/02/2023 1:24 [...] movement: Yes Mode: EFM Uterine Activity: Mode: [place] Contractions (number / 10 minute): 0 Contraction [...] Plan: Continue cervical ripening Kelsey Clifton MD [facility] 2023-09-01 21:51:57 Intrapartum Progress Note 09/01/2023 9:51 [...] movement: Yes Mode: EFM Uterine Activity: Mode: [place] Contractions (number / 10 minute): 4 Contraction [...] Plan: Continue cervical ripening Carol Fallon MD [facility] 2023-09-01 21:26:00 Problem: Intrapartum process (including labor [...] Absence of falls Outcome: Progressing as expected [facility] 2023-09-01 13:18:49 Name/ MRN / Age / Gender: John Wilkes, [id number] 17 year old female BMI: Estimated body [...] (physical exam) Anesthesia Preop: Chart Review and Yzmk-hx-Ezhz PONV Risk Factors: female Anesthesia History Anesthesia [...] for 1 year. 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 - [facility] Fetus - Presentation on admission: cephalic - [...] to surgery. Hold on DOS. Phentermine: Alert [facility] anesthesiologist SGLT2 Inhibitors: "gliflozins" to be held [...] Epidural Anesthesia plan discussed with: patient or computer help desk representative Post-Operative Analgesia: routine analgesia & antiemetics Recovery Plan: LDR Additional comments: IS AN-ANESTHESIOLOGY ANESTHESIOLOGIST [facility] 2023-09-01 09:19:37 Problem: Intrapartum process (including labor pain) Goal: Absence of or reduction of complications of labor Outcome: Progressing as expected Goal: Able to cope with pain Outcome: Progressing as expected Goal: Adequate to move to next level of care Outcome: Progressing as expected Goal: Reduction in pain sensation Outcome: Progressing as expected IS Esquivel RN [facility]
--- NOTE | 2024-05-29 12:02 | ER ---
Nurse's Notes [facility] Name: Latanya Mims Age: 18 yrs Sex: Female : 2005 Arrival Date: 05/29/2024 Time: 11:28 Bed 12 Private MD: Diagnosis: Rash and other nonspecific skin eruption Presentation: 05/29 11:32 Chief complaint: EMS states: she had a rash on her legs X 3 days and it's itching , is iw approx 14weeks . 11:32 Method Of Arrival: EMS: [facility] iw 11:32 Acuity: CHEN 4 iw 11:42 Coronavirus screen: At this time, the client does not indicate any symptoms associated iw with coronavirus-19. Risk Assessment: Do you want to hurt yourself or someone else? Patient reports no desire to harm self or others. Historical: - Allergies: 11:43 Aspirin; iw 11:43 PENICILLINS; iw - PMHx: 11:43 Anxiety; Asthma; Bipolar disorder; Depression; Seizures; iw - PSHx: 11:43 section; iw - Infectious Disease History:: Denies. Vital Signs: 11:43 BP 123 / 77; Pulse 60; Resp 16; Temp 98.5; Pulse Ox 100% ; Weight 154.22 kg; Height 5 iw ft. 3 in. ; 11:43 Body Mass Index 60.23 (154.22 kg, 160.02 cm) - Percentile 99.5 % iw ED Course: 11:32 Patient arrived in ED. mr 11:33 [facility] sb[facility] 11:33 José Miguel Oakes MD is Attending Physician. sb4 11:33 Triage completed. iw 12:11 Nicky Price, SHIRA is Primary Nurse. iw Administered Medications: No medications were administered Outcome: 12:01 Discharge ordered by . sb4 12:11 Patient left the ED. iw Signatures: Nani Bartlett, Terry Reg mr Nicky Price RN RN iw Patricia Kothari PA-C PA-C sb4 Corrections: (The following items were deleted from the chart) 11:43 11:32 Chief complaint: EMS states: she had a sunburn on her legs and it's itching iw iw
--- NOTE | 2024-05-29 12:02 | EDPHYS ---
Physician Documentation [facility] Name: Latanya Mims Age: 18 yrs Sex: Female : 2005 Arrival Date: 05/29/2024 Time: 11:28 Bed 12 Private MD: ED Physician José Miguel Oakes HPI: 05/29 12:06 This 18 yrs old Female presents to ER via EMS with complaints of Allergic Reaction. sb4 12:06 The patient presents with rash, that is diffuse. Onset: The symptoms/episode sb4 began/occurred 3 day(s) ago. Associated signs and symptoms: Pertinent positives: rash, Pertinent negatives: nausea, swelling, Syncope. Possible causes: The patient has no known obvious cause for the symptoms. At home the patient or guardian has treated the symptoms with Benadryl. Severity of symptoms: At their worst the symptoms were very mild. The patient has not experienced similar symptoms in the past. The patient has not recently seen a physician. Historical: - Allergies: 11:43 Aspirin; iw 11:43 PENICILLINS; iw - PMHx: 11:43 Anxiety; Asthma; Bipolar disorder; Depression; Seizures; iw - PSHx: 11:43 section; iw - Infectious Disease History:: Denies. ROS: 12:06 Constitutional: Negative for fever, chills, and weight loss, sb4 12:06 Skin: Positive for rash, diffusely, 12:06 All other systems are negative, Exam: 12:06 Constitutional: This is a well developed, well nourished patient who is awake, alert, sb4 and in no acute distress. Head/Face: Normocephalic, atraumatic. Eyes: Extra-ocular motions intact. Periorbital areas with no swelling, redness, or edema. ENT: Mucous membranes moist. MS/ Extremity: Pulses equal, no cyanosis. Neurovascular intact. Full, normal range of motion. 12:06 Skin: rash a mild rash is noted, rash can be described as macular, nonspecific, and is diffusely located, Vital Signs: 11:43 BP 123 / 77; Pulse 60; Resp 16; Temp 98.5; Pulse Ox 100% ; Weight 154.22 kg; Height 5 iw ft. 3 in. ; 11:43 Body Mass Index 60.23 (154.22 kg, 160.02 cm) - Percentile 99.5 % MDM: 11:34 Medical Screening Exam initiated sb4 12:08 Data reviewed: vital signs, nurses notes, EMS record, and as a result, I will discharge sb4 patient. Care significantly affected by the following chronic conditions: Obesity, . Counseling: I had a detailed discussion with the patient and/or guardian regarding the historical points, exam findings, and any diagnostic results supporting the discharge/admit diagnosis, the need for outpatient follow up, for definitive care, to return to the emergency department if symptoms worsen or persist or if there are any questions or concerns that arise at home. ED course: discussed benefits vs risks of steroids in , patient is okay with the risks and would like to try because benadryl and calamine cream has not been helping. Administered Medications: No medications were administered Disposition Summary: 05/29/24 12:01 Discharge Ordered Notes: Location: Home sb4 Problem: new sb4 Symptoms: are unchanged sb4 Condition: Stable sb4 Diagnosis - Rash and other nonspecific skin eruption sb4 Followup: sb4 - With: Private Physician - When: As needed - Reason: Recheck today's complaints, Re-evaluation by your physician Discharge Instructions: - Discharge Summary Sheet sb4 - Rash, Adult, [id number] sb4 Forms: - Patient Portal Instructions sb4 - Leadership Thank You Letter sb4 Prescriptions: - Prednisone 20 mg Oral Tablet - take 1 tablet ORAL route once daily for 5 days; 5 tablet; Refills: 0, Product sb4 Selection Permitted Signatures: Nicky Price RN RN Patricia Ramirez PA-C PA-C sb4
[2024-05-29 15:40] VITALS: BP 123/77; TEMP 98.5; O2SAT 100
== END 2024-05-29 12:11 | disposition home or self-care (01) ==
LOC: ER 11:28
DX: R21 Rash and other nonspecific skin eruption (principal)
CPT/HCPCS: 99282